=== PATIENT | female | born 1970 | race African-American/Black ===

== ENCOUNTER 2024-06-25 12:52 | Inpatient (IN) | payer MEDICAID, OTHER ==
[~2024-06-25] VITALS: Ht 160 cm; Wt 87.7 kg
--- NOTE | 2024-06-25 13:54 | ED.PDOC ---
GI ASSESSMENT HPI Comments 54y F who presents to the ED for chief complaint of epigastric pain and constipation for the past 10 days. pt states she has also been having nausea and vomiting and has been unable to tolerate any foods. Pt in the ED, states she feels very weak and is having diffuse abdominal pain. Pt has noted history of liver and lung masses per history of cancer and is noted to be taking oxycodone for her pain. Pt otherwise is alert and oriented but appears to have malaise. 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: Engineering Agent Notes Allergies: Coded Allergies: NO KNOWN ALLERGIES (Unverified , 06/25/24) Information Source: Emergency Med Personnel Mode of Arrival: EMS Brought in by: EMS Past Medical History Past Medical History (Other): cancer Surgical History: Unknown TILE FITTER History: Unknown Family History Family History: Unknown Social History Smoker: Non-Smoker Alcohol: Denies ETOH Use Drugs: Denies Drug Use Lives In: Home Constitutional: reports: malaise, weakness; denies: chills, diaphoresis, fatigue, fever, sweats, others EENTM: denies: blurred vision, double vision, ear bleeding, ear discharge, ear drainage, ear pain, ear ringing, eye pain, eye redness, hearing loss, mouth pain, mouth swelling, nasal discharge, nose bleeding, nose congestion, nose pain, photophobia, tearing, throat pain, throat swelling, voice changes, others Respiratory: reports: shortness of breath; denies: cough, hemoptysis, orthopnea, SOB at rest, SOB with excertion, stridor, wheezing, others Cardiovascular: denies: chest pain, dizzy spells, diaphoresis, Dyspnea on exertion, edema, irregular heart beat, left arm pain, lightheadedness, palpitations, PND, syncope, others Gastrointestinal: reports: abdominal pain, constipated; denies: abdomen distended, blood streaked bowels, diarrhea, dysphagia, difficulty swallowing, hematemesis, melena, nausea, poor appetite, poor fluid intake, rectal bleeding, rectal pain, vomiting, others Genitourinary: denies: abnormal vagina bleeding, burning, dyspareunia, dysuria, flank pain, frequency, hematuria, incontinence, pain, , vagina discharge, urgency, others Neurological: denies: dizziness, fainting, headache, left sided numbness, left sided weakness, numbness, paresthesia, pre-existing deficit, right sided numbness, right sided weakness, seizure, speech problems, tingling, tremors, weakness, others Musculoskeletal: denies: back pain, gout, joint pain, joint swelling, muscle pain, muscle stiffness, neck pain, others Integumetry: denies: bruises, change in color, change in hair/nails, dryness, laceration, lesions, lumps, rash, wounds, others Allergic/Immunocompromised: denies: Difficulty Healing, Frequent Infections, Hives, Itching, others Hematologic/Lymphatic: denies: anemia, blood clots, easy bleeding, easy bruising, swollen glands, others Endocrine: denies: excessive hunger, excessive sweating, excessive thirst, excessive urination, flushing, intolerance to cold, intolerance to heat, unexplained weight gain, unexplained weight loss, others Psychiatric: denies: anxiety, bipolar disorder, depression, hopeless, panic disorder, schizophrenia, sleepless, suicidal, others All Other Systems: Reviewed and Negative Physical Exam General Appearance: Mild Distress, Normal HEENT: Normal ENT Inspection, Pharynx Normal, TMs Normal Neck: Full Range of Motion, Non-Tender, Normal, Normal Inspection Respiratory: Chest Non-Tender, Lungs Clear, No Accessory Muscle Use, No Respiratory Distress, Normal Breath Sounds Cardiovascular: No Edema, No JVD, No Murmur, No Gallop, Normal Peripheral Pulses, Regular Rate/Rhythm Breast Exam: Deferred Gastrointestinal: No Organomegaly, No Pulsatile Mass, Normal Bowel Sounds, Soft, Tenderness Genitalia: Deferred Pelvic: Deferred Rectal: Deferred Extremities: No calf tenderness, Normal capillary refill, Normal inspection, Normal range of motion, Non-tender, No pedal edema Musculoskeletal : Apperance: Normal Neurologic: Alert, melangeur operator II-XII nml as Tested, No Motor Deficits, Normal Affect, Normal Mood, No Sensory Deficits Cerebellar Function: NOT DONE Reflexes: NOT DONE Skin: Dry, Normal Color, Warm Lymphatic: No Adenopathy Was a procedure done? Was a procedure done?: No GI differential Dx Differential Diagnosis: Constipation, Gastritis/PUD, Gastroenteritis, Urinary Obstruction, Urolithiasis, Dehydration, Electrolyte Imbalance X-Ray, Labs, Meds, VS Vital Signs Date Time Temp Pulse Resp B/P (MAP) Pulse Ox O2 Delivery O2 Flow Rate FiO2 06/25/24 20:00 99 06/25/24 20:00 98 20 147/83 (104) 99 06/25/24 16:00 99 27 146/76 (99) 97 06/25/24 16:00 97 30 146/76 06/25/24 16:00 99 06/25/24 15:21 97 32 150/98 06/25/24 15:00 102 29 155/89 (111) 97 06/25/24 14:55 97 32 96 Nasal Cannula* 2 28 06/25/24 14:55 97 32 150/98 (115) 96 06/25/24 13:12 98.0 90 20 176/94 (121) 98 Lab Test 06/25/24 17:08 06/25/24 15:21 06/25/24 14:55 06/25/24 13:50 Range/Units Troponin I High Sensitivity < 3 L < 3 L < 3 L </=34 ng/L Urine Color Dark-yellow Yellow Urine Clarity Turbid H Clear Urine pH 6.0 5.0-9.0 Urine Specific [place] 1.027 1.001-1.035 Urine Protein 1+ H Negative Urine Ketones 4+ H Negative Urine Blood 3+ H Negative /uL Urine Nitrite Negative Negative Urine Bilirubin 2+ H Negative Urine Urobilinogen Over Negative mg/dL Urine Leukocyte Esterase Trace Negative /uL Urine RBC 208 0 - 4 /hpf Urine WBC 17 0 - 5 /hpf Urine Squamous Epithelial Cells Few <5 /hpf Urine Bacteria Few H None Seen /hpf Urine Mucus Few None Seen Urine Yeast (Budding) Occasional None Seen /hpf Urine Glucose Normal Normal mg/dL White Blood Count 23.9 H 4.4-10.8 10^3/uL Red Blood Count 3.33 L 4.0-5.20 10^6/uL Hemoglobin 7.6 L 12.2-16.2 g/dL Hematocrit 25.0 L 36.0-46.0 % Mean Corpuscular Volume 75.1 L 80.0-100.0 fL Mean Corpuscular Hemoglobin 23.0 L 28.0-32.0 pg Mean Corpuscular Hemoglobin Concent 30.6 L 32.0-36.0 g/dL Red Cell Distribution Width 20.3 H 11.8-14.3 % Platelet Count 338 140-450 10^3/uL Mean Platelet Volume 6.3 L 6.9-10.8 fL Neutrophils (%) (Auto) 37.0-80.0 % Lymphocytes (%) (Auto) 10.0-50.0 % Monocytes (%) (Auto) 0.0-12.0 % Basophils (%) (Auto) 0.0-2.0 % Neutrophils # (Auto) 1.6-8.6 10 ^3/uL Lymphocytes # (Auto) 0.4-5.4 10 ^3/uL Monocytes # (Auto) 0-1.3 10 ^3/uL Differential Total Cells Counted 100.0 100 Neutrophils % (Manual) 70 37.0-80.0 Band Neutrophils % (Manual) 14 Lymphocytes % (Manual) 6 L 10.0-50.0 Monocytes % (Manual) 8 0-12 Eosinophils % (Manual) 0 0-7 Basophils % (Manual) 0 0.0-2.0 Metamyelocytes % (manual) 2 Myelocytes % (Manual) 0 Promyelocytes % (Manual) 0 Blast Cells % (Manual) 0 Reactive Lymphocytes 0 Platelet Estimate Adequate Hypochromasia (manual) Moderate Anisocytosis (manual) Slight Microcytosis Slight Target Cells Few Stomatocytes Few Sodium Level 136 136-145 mmol/L Potassium Level 3.6 3.5-5.1 mmol/L Chloride Level 98 98-107 mmol/L Carbon Dioxide Level 23 20-31 mmol/L Anion Gap 15 5-15 Blood Urea Nitrogen 8 L 9-23 mg/dL Creatinine 0.31 L 0.550-1.02 mg/dL Glomerular Filtration Rate Calc 125 >90 mL/min BUN/Creatinine Ratio 25.8 H 10.0-20.0 Serum Glucose 82 74-106 mg/dL Calcium Level 9.5 8.7-10.4 mg/dL Total Bilirubin 3.7 H 0.2-1.0 mg/dL Aspartate Amino Transferase (AST) 115 H 13-40 U/L Alanine Aminotransferase (ALT) 36 7-40 U/L Alkaline Phosphatase 1001 H 46-116 U/L B-Type Natriuretic Peptide 73.44 0-100 pg/mL Total Protein 5.5 L 5.7-8.2 g/dL Albumin 2.8 L 3.2-4.8 g/dL Microbiology Date/Time Source Procedure Growth Status 06/25/24 14:55 Voided Urine Urine Culture - Preliminary Resulted [facility] [id number] [facility] [address] Ph: [phone] DIAGNOSTIC IMAGING Diagnostic Imaging Report : [id number] Signed PATIENT: DALILA BROWN ACCT: [id number] UNIT: [id number] : 1970 LOC: ER ROOM / BED: / AGE / SEX: 54 / F ADM STATUS: REG ER SERVICE 1340 ORDERING PHYSICIAN: ROBB RIVERA MD PROCEDURE(s): CXRP - CHEST PORTABLE REASON: weakness ORDER NUMBER(s): [id number], ACCESSION NUMBER(s): [id number] CHEST RADIOGRAPH Indication: weakness Technique: Single frontal view of the chest was obtained COMPARISON: None FINDINGS: Lines and Tubes: None Lungs: Clear Pleura: No effusion. No pneumothorax. Cardiomediastinal contours: Unremarkable Bones: Unremarkable IMPRESSION: No acute disease. ATED BY: TREE MARCELINO MD DICTATED DATE/TIME: 06/25/241404 SIGNED BY: TREE MARCELINO MD SIGNED DATE/TIME: 06/25/241404 CC: Time of 1ST Reevaluation: 14:30 Reevaluation 1ST: Unchanged Patient Education/Counseling: Diagnosis, Treatment Family Education/Counseling: No Family Present Departure 1 Departure Time of Disposition: 00:41 (Patient presented with abdominal pain that was concerning for possible appendicits, gastritis, cholecystitis, colitis, gastroen teritis, sbo, or orther possible surgical emergency. Data: 1. I ordered and reviewed the result of at least 3 labs including a CBC, BMP, and Urinalysis. 2. I independently interpreted the following tests: CT Abdoment and Pelvis is concerning for metastatic cancer .Risk:This patient has a high risk of morbidity due to further diagnostic testing or treatment and may suffer from an acute abdominal process disorder. Workup reveals metastatic cancer and intractable pain and patient should be admitted for further workup. and possible expert consultation. ) Impression: Primary Impression: Intractable abdominal migraine Additional Impression: Metastatic cancer Qualified Codes: C79.9 - Secondary malignant neoplasm of unspecified site Disposition: ADMITTED INPATIENT Admit to: Med Surg Condition: Serious Critical Care Note Critical Care Time?: Yes Critical care comment: Intractable abdominal pain Authorized and Performed by: Robb Rivera MD Total critical care time: Approximately 38 minutes Due to a high probability of clinically significant, life threatening deterioration, the patient required my highest level of preparedness to intervene emergently and I personally spent this critical care time directly and personally managing the patient. This critical care time included obtaining a history; examining the patient; pulse oximetry; ordering and review of studies; arranging urgent treatment with development of a management plan; evaluation of patient's response to treatment; frequent reassessment; and, discussions with other providers. This critical care time was performed to assess and manage the high probability of imminent, life-threatening deterioration that could result in multi-organ failure. It was exclusive of separately billable procedures and treating other patients and teaching time. Please see my other sections and the rest of the note for further information on patient assessment and treatment. Stability Stability form required: No Heart Score Heart Score: Heart Score Response (Comments) Value History N/A 0 EKG N/A 0 Age N/A 0 Risk Factors N/A 0 Troponin N/A 0 Total 0 I personally scribed for ROBB RIVERA MD ([email or web address]) on 06/25/24 at 13:54. Electronically submitted by Emil Muñoz ([employer]). I personally scribed for ROBB RIVERA MD ([email or web address]) on 06/25/24 at 14:16. Electronically submitted by Emil Muñoz ([employer]). ROBB RIVERA MD Jun 25, 2024 13:54
--- NOTE | 2024-06-25 14:07 | DVH ---
CHEST RADIOGRAPH Indication: weakness Technique: Single frontal view of the chest was obtained COMPARISON: None FINDINGS: Lines and Tubes: None Lungs: Clear Pleura: No effusion. No pneumothorax. Cardiomediastinal contours: Unremarkable Bones: Unremarkable IMPRESSION: No acute disease.
[2024-06-25 14:35] LABS: Hemoglobin 7.6 g/dL (12.2-16.2)
[2024-06-25 14:37] LABS: Mean Corpuscular Hgb Conc. 30.6 g/dL (32.0-36.0); Mean Corpuscular Volume 75.1 fL (80.0-100.0); Platelet Count (auto) 338 10^3/uL (140-450); Red Blood Cells 3.33 10^6/uL (4.0-5.20); White Blood Cell 23.9 10^3/uL (4.4-10.8)
[2024-06-25 14:40] LABS: Red Cell Distribution Width 20.3 % (11.8-14.3)
[2024-06-25 14:41] LABS: Basophils % (manual) 0 (0.0-2.0); Blast Cells 0; Eosinophils % (manual) 0 (0-7); Myelocytes % 0; Promyelocytes % 0; Reactive Lymphocytes 0
[2024-06-25 14:55] VITALS: PULSE 97; RESP 32; O2SAT 96
[2024-06-25 15:19] LABS: Urine Bacteria FEW /hpf (None Seen); Urine Blood 3+ /uL (Negative); Urine Budding Yeast OCCASIONAL /hpf (None Seen); Urine Clarity Turbid (Clear); Urine Color Dark-Yellow (Yellow); Urine Mucus FEW (None Seen); Urine Protein, UAD 1+ (Negative); Urine Specific Gravity 1.027 (1.001-1.035); Urine Urobilinogen OVER mg/dL (Negative); Urine WBC 17 /hpf (0 - 5)
[2024-06-25] MEDS: SODIUM CHLORIDE 0.9% 1,000 ML IV ONE (15:20)
[2024-06-25] MEDS: MORPHINE SULFATE 4 MG/ML SYR/VIAL IV ONE ×2 (15:21→22:10)
[2024-06-25] MEDS: ONDANSETRON HCL 4 MG/2 ML VIAL IV ONE ×2 (15:21→22:09)
[2024-06-25 16:01] LABS: Alanine Aminotransferase 36 U/L (7-40); Albumin 2.8 g/dL (3.2-4.8); Anion Gap 15 (5-15); Aspartate Aminotransferase 115 U/L (13-40); BUN/Creatinine Ratio 25.8 (10.0-20.0); Bilirubin, Total 3.7 mg/dL (0.2-1.0); Blood Urea Nitrogen 8 mg/dL (9-23); Calcium 9.5 mg/dL (8.7-10.4); Carbon Dioxide 23 mmol/L (20-31); Chloride 98 mmol/L (98-107); Glucose 82 mg/dL (74-106); Potassium 3.6 mmol/L (3.5-5.1); Sodium 136 mmol/L (136-145); Total Protein 5.5 g/dL (5.7-8.2)
[2024-06-25 16:09] LABS: Alkaline Phosphatase 1001 U/L (46-116)
[2024-06-25 17:37] LABS: Band Neutrophils % (manual) 14; Lymphocytes % (manual) 6 (10.0-50.0); Monocytes % (manual) 8 (0-12)
[2024-06-25 17:38] LABS: Anisocytosis Slight; Metamyelocytes % 2; Platelet Estimate Adequate
[2024-06-25 17:39] LABS: Hypochromia Moderate
[2024-06-25 17:40] LABS: Stomatocytes Few; Target Cell FEW
[2024-06-25] MEDS: IOHEXOL 300 MG/ML 100ML BOTTLE IJ ONE ×2 (18:02→18:03)
[2024-06-25] MEDS: CEFEPIME 2GM/50ML NS 50 ML IV ONE (18:27)
--- NOTE | 2024-06-25 19:17 | DVH ---
Exam: CT CT AB PEL WITH IV CON ONLY History: abdominal pain Comparison Study: None available TECHNIQUE: A digital latin american studies professor image was obtained. During the uneventful, intravenous administration of c ontrast material, multislice data acquisition was obtained through the abdomen and pelvis. The data s et was subsequently reconstructed into axial images. Images reviewed on a wrist examination is an exa mination of axial and multiplanar reformations using a variety of window levels and settings. RADIATION DOSE: DLP 1229.18 mGy.cm; CTDI vol 22.96 mGy. Findings: Lungs: Bibasilar pulmonary nodules, measuring up to 1.0 cm in inferior right upper lobe. Heart: The visualized heart is unremarkable. No cardiomegaly or pericardial effusion. Liver: Numerous hypoattenuating lesions throughout the liver. Gallbladder: Cholelithiasis without evidence of acute cholecystitis. Spleen: Unremarkable Pancreas: Unremarkable Adrenals: Unremarkable Kidneys: Unremarkable GI tract: Unremarkable : Enlarged, lobular uterus with multiple lesion throughout. Vasculature: Unremarkable Lymphadenopathy: Absent Peritoneum: Mild volume ascites. Musculoskeletal: 1.9 cm sclerotic lesion in the right acetabulum. Soft tissues: Moderate to large periumbilical hernia containing a loop of small bowel Impression: 1. Multiple pulmonary nodules, numerous hepatic lesions, an enlarged, lobulated uterus and a scleroti c lesion in the right acetabulum are concerning for metastatic disease. Recommend PET/CT, dedicated C T chest, and contrast enhanced MRI of the abdomen and pelvis for further evaluation. 2. Other non-acute, ancillary findings as described above.
[2024-06-25] MEDS ORDERED: POTASSIUM CHL 20MEQ/100ML 100 ML IV SCH (22:15)
[2024-06-25] MEDS ORDERED: ACETAMINOPHEN 325 MG TAB PO PRN (22:15)
[2024-06-25] MEDS ORDERED: SODIUM CHLORIDE 0.9% 1,000 ML IV SCH (22:15)
[2024-06-25] MEDS ORDERED: MORPHINE SULFATE INJ 2 MG/ml SYRG IV PRN (22:15)
[2024-06-25] MEDS ORDERED: NITROGLYCERIN 0.4 MG SL TAB SL PRN (22:15)
[2024-06-25 22:40] VITALS: PULSE 95; RESP 26; O2SAT 99
[2024-06-26] VITALS (8 sets, daily range): BP systolic 139–169; BP diastolic 69–97; PULSE 90–102; RESP 16–24; TEMP 98.1–99; O2SAT 96–100
[2024-06-26] MEDS: LACTATED RINGER'S 1,000 ML IV SCH (00:15)
[2024-06-26] MEDS ORDERED: VANCOMYCIN PER PHARMACY 0 MG IV SCH (00:15)
[2024-06-26] MEDS: LACTATED RINGER'S 1,550 ML IV ONE (00:23)
[2024-06-26] MEDS: PANTOPRAZOLE 40 MG/10 ML VIAL INJ IV ONE (00:50)
[2024-06-26] MEDS: ALBUMIN 25% 50 ML IV ONE (00:51)
[2024-06-26] MEDS: MEROPENEM 1GM IVPB 50 ML IV ONE (00:51)
[2024-06-26 01:23] LABS: Lactic Acid w/Reflex 3.3 mmol/L (0.4-2.0)
[2024-06-26] MEDS: VANCOMYCIN 1GM/200ML PREMIX IV ONE (01:31)
--- NOTE | 2024-06-26 05:17 | DVHHPRES ---
History of Present Illness Resident Creating Document: MARIBEL TILLEY RESIDENT Reason for Visit: Severe epigastric pain and chest pain History of Present Illness 54-year-old female patient with past medical history of lung and liver masses associated with metastatic cancer. She presents to the emergency department with complaints of severe epigastric pain and chest pain which she has been experiencing for the last 10 days. The pain is described as sharp and localized in the epigastrium and rated as 10/10 intensity. Is associated with nausea vomiting and constipation as the patient has not had bowel movement for the last 10 days. Her history of cancer includes metastatic disease to liver and lungs which was diagnosed after series of imaging studies including CT scan, PET scan and liver biopsy at [facility]. Her symptoms of epigastric and chest pain has been present since late March with no significant improvement despite con servative management. The pain was temporarily alleviated with morphine. The patient was recently admitted to [facility] in June 01 for management of her abdominal pain on the right side beneath the breasts. After 2 week stay she was discharged on June 14 during her hospitalization with diagnosis of gastrointestinal cancer was made, with further investigation r evealing the pulmonary and hepatic metastasis. Recent abdominal CT scan showed Multiple pulmonary nodules, numerous hepatic lesions, an enlarged, lobulated uterus and a sclerotic lesion in the right acetabulum are concerning for metastatic disease. On the day of admission the patient's symptoms have worsened with increased pain and more severe gastrointestinal symptoms. She denies any history of alcohol use smoking or recreational drugs med has been using morphine and oxycodone for pain management at home. Her family history includes type 2 diabetes, congestive heart failure and multiple myeloma and pancreatic cancer . On examination the patient has signs of severe sepsis her vital signs show a respiratory rate of 32 breaths per minute, heart rate of 98 beats per minute and recent lactic acid at 3.3. Her albumin level is low at 2.8 which suggest malnutrition or hepatic dysfunction. Consistent with her advanced cancer urinalysis revealed hematuria which may indicate a secondary issue such as a urinary tract infection or possible complication from metastatic disease. Smoke: No ALCOHOL: none Drugs: None Lives: with Family Review of Systems Review of Systems Constitutional: Yes: Weakness, malaise No: Fever, Chills, Sweats. Eyes: No: Pain, Vision change, Conjunctivae inflammation, Eyelid inflammation, Other, Redness ENT: No: Ear pain, Ear discharge, Nose pain, Nose discharge, Nose congestion, Mouth pain, Mouth swelling, Throat pain, Throat swelling, Other Respiratory: No Wheezing, Hemoptysis, Pleuritic Pain, Sputum, Wheezing, Other Cardiovascular: Yes: Chest pain No: Palpitations, Orthopnea, Paroxysmal Noc. Dyspnea, Edema, Lt Headedness, Other Gastrointestinal: Yes: Nausea vomiting, abdominal pain , constipation and recent bleeding from the rectum Musculoskeletal: Yes generalized body pain Allergies: Coded Allergies: NO KNOWN ALLERGIES (Unverified , 06/25/24) Medications Current Medications Medications Dose Ordered Sig/Tanvi Route Start Time Stop Time Status Last Admin Dose Admin Ondansetron HCl 4 mg Q4HP PRN IV 06/25/24 22:15 Multivitamins 1 tab DAILY PO 06/26/24 10:00 Morphine Sulfate 2 mg Q4HPRN PRN IV 06/25/24 22:15 Nitroglycerin 0.4 mg Q5MINP PRN SL 06/25/24 22:15 Morphine Sulfate 2 mg Q30M PRN IV 06/25/24 22:15 Vancomycin HCl 0 ml @ 0 mls/hr UD IV 06/26/24 00:15 UNV Meropenem 50 ml @ 17 mls/hr Q8HR IV 06/26/24 06:00 Lactated Ringer's 1,000 ml @ 125 mls/hr Q8H IV 06/26/24 00:15 06/26/24 02:54 125 MLS/HR Enoxaparin Sodium 40 mg DAILY SC 06/26/24 10:00 Pantoprazole Sodium 40 mg DAILY IV 06/26/24 10:00 Enteral Nutritional Formula 240 ml TIDWM PO 06/26/24 08:00 Exam Vital Signs Vital Signs Date Time Temp Pulse Resp B/P (MAP) Pulse Ox O2 Delivery O2 Flow Rate FiO2 06/26/24 04:00 98 26 167/86 (113) 99 06/25/24 23:24 98.3 98.3 06/25/24 22:40 Nasal Cannula* 2 28 Exam Examination General Appearance: Alert, Oriented X3, Cooperative, severe acute distress HEENT: EOMI Respiratory: Clear to auscultation, Normal air movement Cardiovascular: Regular rate, Normal S1, Normal S2 Abdominal: Normal bowel sounds Extremities: Pedal edema, No cyanosis, Normal pulses, No tenderness/swelling Skin: No rashes, No breakdown Labs/Xrays Labs Test 06/26/24 02:31 06/25/24 17:08 06/25/24 14:55 06/25/24 13:50 Range/Units Lactic Acid Level 3.7 *H 0.4-2.0 mmol/L Troponin I High Sensitivity < 3 L </=34 ng/L Urine Color Dark-yellow Yellow Urine Clarity Turbid H Clear Urine pH 6.0 5.0-9.0 Urine Specific [place] 1.027 1.001-1.035 Urine Protein 1+ H Negative Urine Ketones 4+ H Negative Urine Blood 3+ H Negative /uL Urine Nitrite Negative Negative Urine Bilirubin 2+ H Negative Urine Urobilinogen Over Negative mg/dL Urine Leukocyte Esterase Trace Negative /uL Urine RBC 208 0 - 4 /hpf Urine WBC 17 0 - 5 /hpf Urine Squamous Epithelial Cells Few <5 /hpf Urine Bacteria Few H None Seen /hpf Urine Mucus Few None Seen Urine Yeast (Budding) Occasional None Seen /hpf Urine Glucose Normal Normal mg/dL White Blood Count 23.9 H 4.4-10.8 10^3/uL Red Blood Count 3.33 L 4.0-5.20 10^6/uL Hemoglobin 7.6 L 12.2-16.2 g/dL Hematocrit 25.0 L 36.0-46.0 % Mean Corpuscular Volume 75.1 L 80.0-100.0 fL Mean Corpuscular Hemoglobin 23.0 L 28.0-32.0 pg Mean Corpuscular Hemoglobin Concent 30.6 L 32.0-36.0 g/dL Red Cell Distribution Width 20.3 H 11.8-14.3 % Platelet Count 338 140-450 10^3/uL Mean Platelet Volume 6.3 L 6.9-10.8 fL Neutrophils (%) (Auto) 37.0-80.0 % Lymphocytes (%) (Auto) 10.0-50.0 % Monocytes (%) (Auto) 0.0-12.0 % Basophils (%) (Auto) 0.0-2.0 % Neutrophils # (Auto) 1.6-8.6 10 ^3/uL Lymphocytes # (Auto) 0.4-5.4 10 ^3/uL Monocytes # (Auto) 0-1.3 10 ^3/uL Differential Total Cells Counted 100.0 100 Neutrophils % (Manual) 70 37.0-80.0 Band Neutrophils % (Manual) 14 Lymphocytes % (Manual) 6 L 10.0-50.0 Monocytes % (Manual) 8 0-12 Eosinophils % (Manual) 0 0-7 Basophils % (Manual) 0 0.0-2.0 Metamyelocytes % (manual) 2 Myelocytes % (Manual) 0 Promyelocytes % (Manual) 0 Blast Cells % (Manual) 0 Reactive Lymphocytes 0 Platelet Estimate Adequate Hypochromasia (manual) Moderate Anisocytosis (manual) Slight Microcytosis Slight Target Cells Few Stomatocytes Few Sodium Level 136 136-145 mmol/L Potassium Level 3.6 3.5-5.1 mmol/L Chloride Level 98 98-107 mmol/L Carbon Dioxide Level 23 20-31 mmol/L Anion Gap 15 5-15 Blood Urea Nitrogen 8 L 9-23 mg/dL Creatinine 0.31 L 0.550-1.02 mg/dL Glomerular Filtration Rate Calc 125 >90 mL/min BUN/Creatinine Ratio 25.8 H 10.0-20.0 Serum Glucose 82 74-106 mg/dL Calcium Level 9.5 8.7-10.4 mg/dL Total Bilirubin 3.7 H 0.2-1.0 mg/dL Aspartate Amino Transferase (AST) 115 H 13-40 U/L Alanine Aminotransferase (ALT) 36 7-40 U/L Alkaline Phosphatase 1001 H 46-116 U/L B-Type Natriuretic Peptide 73.44 0-100 pg/mL Total Protein 5.5 L 5.7-8.2 g/dL Albumin 2.8 L 3.2-4.8 g/dL Assessment/Plan Assessment/Plan #Severe sepsis likely due to ? Metastatic infection ? Biliary obstruction or abscess -Lactic acid -Stool occult blood -Stool white blood cell count -Stool bacterial culture -Urine bacteria - urine culture -Meropenem 1 g IV q.8 -Vancomycin IV -Ultrasound of the liver -lactate finger #Transaminitis likely due to liver dysfunction from metastatic involvement -ultrasound of the liver -consider GI consult #UTI -same as above #severe malnutrition based on low total protein and albumin likely secondary to advanced cancer and hepatic failure -Albumin 25% IV once -Nutritional supplement 240 mL p.o. #? Bowel obstruction likely due to constipation abdominal pain, especially the right-sided pain and lack of bowel movement potentially due to metastatic disease -GI consult -lactate Ringer -Severe epigastric and chest pain likely related to metastatic cancer #Type 1 obesity -Lifestyle modification counseling, encourage improving dietary habits and physical activity # hospice care -social work faculty member consult Case discussed with Dr. Johnson Goals of care discussed with the patient for 44 minutes Goals of care: Full code Plan discussed with: Patient My Orders Orders - MARIBEL TILLEY RESIDENT Procedure Category Date Status Time Admit ADMIT 06/25/24 Transmitted 22:06 Allergies THEO 06/25/24 In Process 22:06 Code Status CODE 06/25/24 Transmitted 22:06 Ondansetron Hcl PHA 06/25/24 In Process (Zofran) 22:15 Multiple Vitamin PHA 06/26/24 In Process Tablet (Mvi Tab) 10:00 Complete Blood Count LAB 06/26/24 Logged 04:00 Comprehensive LAB 06/26/24 Logged Metabolic Panel 04:00 Npo (Nothing By DIET 06/26/24 Transmitted Mouth) Diet Breakfast Morphine Sulfate PHA 06/25/24 In Process Injection 22:15 Nitroglycerin PHA 06/25/24 In Process Sublingual (Ntrostat 22:15 Morphine Sulfate PHA 06/25/24 In Process Injection 22:15 Oxygen By Nasal RT 06/25/24 Transmitted Cannula 22:06 Stat Ekg For Chest THEO 06/25/24 In Process Pain 22:06 Notify Md Of Changes [facility] 06/25/24 In Process From Base 22:06 Chief Security And Safety Officer For [facility] 06/25/24 In Process 24 Hours 22:06 Emergency Dysrhythmia [facility] 06/25/24 In Process Protocol 22:06 Rhythm Strips Once [facility] 06/25/24 In Process Every Shift 22:06 Date of Service: Jun 25, 2024 Billing Provider: EDWIN JOHNSON MD Common Visit Codes: [id number] INP/OBS CARE (HIGH) MARIBEL TILLEY RESIDENT Jun 26, 2024 05:17 EDWIN JOHNSON MD Jun 27, 2024 08:26
[2024-06-26] MEDS: MEROPENEM 1GM IVPB 50 ML IV SCH (05:50)
[2024-06-26] MEDS: MORPHINE SULFATE INJ 2 MG/ml SYRG IV PRN (06:07)
[2024-06-26] MEDS: ONDANSETRON HCL 4 MG/2 ML VIAL IV PRN (06:13)
--- NOTE | 2024-06-26 06:17 | DVH ---
INDICATION: Metastatis of liver carcinoma look for obstruction TECHNIQUE: Multiple real-time sonographic images of the abdomen were obtained. COMPARISON: CT scan of the abdomen pelvis performed on 06/25/2024. FINDINGS: The liver is heterogeneous in echotexture with multiple masses. The liver measures 19.6 cm . No intrahepatic biliary ductal dilatation is noted. Gallstones. There is pericholecystic free fluid. The gallbladder wall is thickened measuring 1.2 cm. The common duct measures 0.8 cm and is unremarkable. Positive sonographic Pope's sign. The right kidney measures 10.9 cm. No hydronephrosis. The pancreas is not well visualized due to obscuration from bowel gas. The visualized portions of the IVC and aorta are grossly unremarkable. IMPRESSION: 1. Gallstones, pericholecystic free fluid and gallbladder wall thickening. Positive sonographic gama y's sign. Findings concerning for acute cholecystitis in the appropriate clinical setting. 2. Hepatomegaly and multiple hepatic masses worrisome for metastatic lesions. No intrahepatic biliary ductal dilatation.
[2024-06-26 07:15] LABS: Mean Corpuscular Hemoglobin 23.2 pg (28.0-32.0)
[2024-06-26 07:19] LABS: Mean Corpuscular Hgb Conc. 30.1 g/dL (32.0-36.0); Mean Corpuscular Volume 77.2 fL (80.0-100.0); Platelet Count (auto) 306 10^3/uL (140-450); Red Blood Cells 2.98 10^6/uL (4.0-5.20); White Blood Cell 22.4 10^3/uL (4.4-10.8)
[2024-06-26 07:27] LABS: Red Cell Distribution Width 20.1 % (11.8-14.3)
[2024-06-26 07:29] LABS: Basophils % (manual) 0 (0.0-2.0); Blast Cells 0; Eosinophils % (manual) 0 (0-7); Hemoglobin 6.9 g/dL (12.2-16.2); Metamyelocytes % 0; Myelocytes % 0; Promyelocytes % 0; Reactive Lymphocytes 0
[2024-06-26 07:32] LABS: Lactic Acid w/Reflex 3.3 mmol/L (0.4-2.0)
[2024-06-26 07:41] LABS: Alanine Aminotransferase 35 U/L (7-40); Anion Gap 15 (5-15); Aspartate Aminotransferase 109 U/L (13-40); BUN/Creatinine Ratio 22.2 (10.0-20.0); Blood Urea Nitrogen 6 mg/dL (9-23); Calcium 9.4 mg/dL (8.7-10.4); Carbon Dioxide 22 mmol/L (20-31); Chloride 99 mmol/L (98-107); Glucose 83 mg/dL (74-106); Potassium 3.4 mmol/L (3.5-5.1); Sodium 136 mmol/L (136-145)
[2024-06-26 07:42] LABS: Bilirubin, Total 3.9 mg/dL (0.2-1.0); Total Protein 5.9 g/dL (5.7-8.2)
[2024-06-26 07:43] LABS: INR 1.81 (0.9-1.15); Partial Thromboplastin Time 46.5 SEC (24.5-34.5); Prothrombin Time 18.4 sec (9.3-11.8)
[2024-06-26 07:48] LABS: Folate (Folic Acid) 3.22 ng/mL (>5.38)
[2024-06-26 07:49] LABS: Alkaline Phosphatase 977 U/L (46-116)
[2024-06-26] MEDS: Ensure HIGH Protein Chocolate 8oz Bottle PO SCH (08:00)
[2024-06-26 08:07] LABS: Band Neutrophils % (manual) 3; Lymphocytes % (manual) 7 (10.0-50.0); Monocytes % (manual) 7 (0-12)
[2024-06-26 08:08] LABS: Anisocytosis Slight; Hypochromia Moderate; Platelet Estimate Adequate
[2024-06-26 08:09] LABS: Target Cell MODERATE
[2024-06-26] MEDS: POTASSIUM CHL 20MEQ/100ML 100 ML IV SCH (09:30)
[2024-06-26] MEDS: MULTIPLE VITAMIN TAB PO SCH (09:35)
[2024-06-26] MEDS: PANTOPRAZOLE 40 MG/10 ML VIAL INJ IV SCH (09:45)
[2024-06-26] MEDS: ENOXAPARIN SOD 40 MG/0.4 ML SYRINGE SC SCH (09:46)
[2024-06-26 11:10] LABS: Mean Corpuscular Volume 75.9 fL (80.0-100.0)
[2024-06-26 11:11] LABS: Hematocrit 22.9 % (36.0-46.0); Mean Corpuscular Hemoglobin 22.7 pg (28.0-32.0); Platelet Count (auto) 330 10^3/uL (140-450); Red Blood Cells 3.02 10^6/uL (4.0-5.20); White Blood Cell 23.3 10^3/uL (4.4-10.8)
[2024-06-26 11:23] LABS: Red Cell Distribution Width 20.2 % (11.8-14.3)
[2024-06-26 11:25] LABS: Hemoglobin 6.9 g/dL (12.2-16.2)
[2024-06-26 11:28] LABS: Band Neutrophils % (manual) 0; Basophils % (manual) 0 (0.0-2.0); Blast Cells 0; Metamyelocytes % 0; Myelocytes % 0; Promyelocytes % 0; Reactive Lymphocytes 0
[2024-06-26 12:05] LABS: Eosinophils % (manual) 3 (0-7); Lymphocytes % (manual) 5 (10.0-50.0); Monocytes % (manual) 7 (0-12); Platelet Estimate Adequate
[2024-06-26 12:06] LABS: Anisocytosis Slight; Hypochromia Moderate; Target Cell MODERATE
[2024-06-26] MEDS: VANCOMYCIN 1GM/250ML KIT 200 ML IV SCH (13:00)
[2024-06-26] MEDS: SODIUM CHLORIDE 0.9% 1,000 ML IV ONE (13:55)
--- NOTE | 2024-06-26 14:34 | DVH ---
Bilateral lower extremity venous duplex Clinical History: leg edema Comparison: None Technique: Duplex Doppler evaluation of the deep venous systems of both lower extremities from the common femora l veins to the popliteal veins including color Doppler and spectral/pulsed waveform analysis was perf ormed. Findings: RIGHT SIDE: The common femoral vein demonstrates appropriate compressibility and waveform variability. There is compressibility/patency of the great saphenous vein at the proximal thigh. The femoral vein demonstrates appropriate compressibility and waveform variability. The deep femoral vein demonstrates appropriate compressibility and waveform variability. The popliteal vein demonstrates appropriate compressibility and waveform variability. There is color flow at the tibioperoneal trunk and in the posterior tibial vein. LEFT SIDE: The common femoral vein demonstrates appropriate compressibility and waveform variability. There is compressibility/patency of the great saphenous vein at the proximal thigh. The femoral vein demonstrates appropriate compressibility and waveform variability. The deep femoral vein demonstrates appropriate compressibility and waveform variability. The popliteal vein demonstrates appropriate compressibility and waveform variability. There is color flow at the tibioperoneal trunk and in the posterior tibial vein. Impression: 1. No right or left femoropopliteal venous thrombosis.
--- NOTE | 2024-06-26 16:44 | DVHPNRES ---
Progress Note Date Seen: Jun 26, 2024 Resident Creating Document: CODY BRANCH RESIDENT Has the PT tested + for MRSA If YES, has PT been informed?: No Medical Necessity Reason Pt with a Central, PICC or Fol: No Subjective Review of Systems 54-year-old female patient with past medical history of lung and liver masses associated with metastatic cancer. She presents to the emergency department with complaints of severe epigastric pain and chest pain which she has been experiencing for the last 10 days, also jaundice. The pain is described as sharp and localized in the epigastrium and rated as 10/10 intensity. Is associated with nausea vomiting and constipation as the patient has not had bowel movement for the last 10 days. Her history of cancer includes metastatic disease to liver and lungs which was diagnosed after series of imaging studies including CT scan, PET scan and liver biopsy at [facility]. Her symptoms of epigastric and chest pain has been present since late March with no significant improvement despite conservative management. The pain was temporarily alleviated with morphine. The patient was recently admitted to [facility] in June 01 for management of her abdominal pain on the right side beneath the breasts. After 2 week stay she was discharged on June 14 during her hospitalization with diagnosis of gastrointestinal cancer was made, with further investigation revealing the pulmonary and hepatic metastasis. Recent abdominal CT scan showed Multiple pulmonary nodules, numerous hepatic lesions, an enlarged, lobulated uterus and a sclerotic lesion in the right acetabulum are concerning for metastatic disease. On the day of admission the patient's symptoms have worsened with increased pain and more severe gastrointestinal symptoms. She denies any history of alcohol use smoking or recreational drugs med has been using morphine and oxycodone for pain management at home. Her family history includes type 2 diabetes, congestive heart failure and multiple myeloma and pancreatic cancer . On examination the patient has signs of sepsis her vital signs show a respiratory rate of 32 breaths per minute, heart rate of 98 beats per minute and recent lactic acid at 3.3. Her albumin level is low at 2.8 which suggest malnutrition or hepatic dysfunction. Consistent with her advanced cancer urinalysis revealed hematuria which may indicate a secondary issue such as a urinary tract infection or possible complication from metastatic disease. Objective vital signs Vital Sign Date Time Temp Pulse Resp B/P (MAP) Pulse Ox O2 Delivery O2 Flow Rate FiO2 06/26/24 16:15 99.0 101 24 167/79 99.0 06/26/24 14:31 98 06/26/24 07:36 Nasal Cannula* 2 28 Total Intake and Output 06/25/24 06/25/24 06/26/24 15:00 23:00 07:00 Intake Total 1000 ml 1850 ml Balance 1000 ml 1850 ml medications Current Medications Medications Dose Ordered Sig/Tanvi Route Start Time Stop Time Status Last Admin Dose Admin Ondansetron HCl 4 mg Q4HP PRN IV 06/25/24 22:15 06/26/24 16:09 4 MG Multivitamins 1 tab DAILY PO 06/26/24 10:00 Morphine Sulfate 2 mg Q4HPRN PRN IV 06/25/24 22:15 06/26/24 16:10 2 MG Nitroglycerin 0.4 mg Q5MINP PRN SL 06/25/24 22:15 Morphine Sulfate 2 mg Q30M PRN IV 06/25/24 22:15 Vancomycin HCl 0 ml @ 0 mls/hr UD IV 06/26/24 00:15 Meropenem 50 ml @ 17 mls/hr Q8HR IV 06/26/24 06:00 06/26/24 05:50 17 MLS/HR Lactated Ringer's 1,000 ml @ 125 mls/hr Q8H IV 06/26/24 00:15 06/26/24 09:19 125 MLS/HR Pantoprazole Sodium 40 mg DAILY IV 06/26/24 10:00 06/26/24 09:45 40 MG Enteral Nutritional Formula 240 ml TIDWM PO 06/26/24 08:00 Vancomycin HCl 200 ml @ 200 mls/hr Q12H IV 06/26/24 13:00 Examination Examination General Appearance: Alert, Oriented X3, Cooperative, icteric HEENT: EOMI Respiratory: Clear to auscultation, Normal air movement Cardiovascular: Regular rate, Normal S1, Normal S2 Abdominal: distended, ventral hernia. muprhy +, Extremities: Pedal edema, No cyanosis, Normal pulses, No tenderness/swelling Skin: No rashes, No breakdown laboratory and microbiology Laboratory Tests 06/26/24 10:22 06/26/24 06:49 Test 06/26/24 06:49 Range/Units Serum Glucose 83 74-106 mg/dL Problem List/Assessment/Plan Problem List/Assessment/Plan Neurologic Pt is talking, AOX4 Cardiovascular No pulmonary edema ECHO pending Respiratory #Acute respiratory failure due to sepsis/ lung mets Pt is on O2 2LT #Lung mets GI #Sepsis due to acute cholecystitis? 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, pancreatic or upper GI unknown primary: liver and lung mets #ventral hernia: loop of small bowel on it , no transition point #hyperbilirubinemia due to cholecystitis and liver mets #severe malnutrition based on low total protein and albumin likely secondary to advanced cancer and hepatic failure CT scan showed cholelithiasis, ultrasound showed cholecystitis HIDA scan pending Possible percutaneous drainage of gallbladder after HIDA scan results NG tube NPO Pt is on vancomycin and meropenem Blood and urine cultures #UTI urine culture pending Delong placed for strict I&Os Heme/onc #metastasic AdenoCa unknown primary: liver and lung mets #Anemia of chronic disease due to sepsis, adenoCA hb 6.9 1RBC already given Patient doesn't want hospice no palliative care for now Case discussed with Dr. Sims Goals of care discussed with the patient for 44 minutes Goals of care: Full code Time spent on critical care 83 min Plan discussed with: Patient, Daughter, Other (rn) My Orders My Orders Orders - CODY BRANCH RESIDENT Procedure Category Date Status Time * Radiologist Consult CONS 06/26/24 Transmitted 09:39 Insert Delong Catheter THEO 06/26/24 In Process 10:51 Bilat Lower Dvt US 06/26/24 Resulted 13:47 Date of Service: Jun 26, 2024 Billing Provider: KWABENA SIMS MD Common Visit Codes: [id number] INP/OBS CARE(HIGH), [id number] CARE 30-74 MIN, [id number] CARE-EACH +30MIN, PROCEDURE ONLY (Cardiac point of care ultrasound 06079) Secondary Visit Codes: [id number] CARE PLAN 30 MINUTES Coding Comment Comment Attending Attestation I saw and evaluated the patient. I reviewed the residents note and agree with findings and plan as documented in the residents note except as documented below. Point of care ultrasound done today and interpreted by me Cardiac: No pericardial effusion, hyperdynamic contractility, grossly normal valves, grossly normal heart chambers, IVC less than 2 cm with > 50% excursion on inspiration Lung: No B-lines, no pleural effusion 84 minutes Critical care time spent on this patient including evaluation, chart review, formulating plan and communication with team, excluding any procedures or point of care imaging More than 30 minutes spent in advanced care planning, including discussing code status, medical decision maker, goals of care and disposition planning Prognosis poor Condition critical Code status full code Goals of care prolonging life CODY BRANCH RESIDENT Jun 26, 2024 16:44 KWABENA SIMS MD Jun 26, 2024 21:08
[2024-06-27] VITALS (7 sets, daily range): BP systolic 107–161; BP diastolic 68–90; PULSE 89–108; RESP 16–20; TEMP 97–98.5; O2SAT 93–99
[2024-06-27 06:59] LABS: Alanine Aminotransferase 39 U/L (7-40); Albumin 3.2 g/dL (3.2-4.8); Anion Gap 13 (5-15); Aspartate Aminotransferase 108 U/L (13-40); Calcium 9.5 mg/dL (8.7-10.4); Carbon Dioxide 23 mmol/L (20-31); Chloride 97 mmol/L (98-107); Glucose 79 mg/dL (74-106); Potassium 3.9 mmol/L (3.5-5.1); Sodium 133 mmol/L (136-145)
[2024-06-27 07:00] LABS: Bilirubin, Total 5.2 mg/dL (0.2-1.0)
[2024-06-27 07:06] LABS: Alkaline Phosphatase 1021 U/L (46-116)
[2024-06-27 07:10] LABS: BUN/Creatinine Ratio 17.9 (10.0-20.0); Blood Urea Nitrogen < 5 mg/dL (9-23)
[2024-06-27 07:39] LABS: Hematocrit 27.3 % (36.0-46.0); Hemoglobin 8.7 g/dL (12.2-16.2); Mean Corpuscular Hemoglobin 24.5 pg (28.0-32.0); Mean Corpuscular Hgb Conc. 31.8 g/dL (32.0-36.0); Platelet Count (auto) 308 10^3/uL (140-450); Red Blood Cells 3.55 10^6/uL (4.0-5.20); Red Cell Distribution Width 20.5 % (11.8-14.3); White Blood Cell 22.5 10^3/uL (4.4-10.8)
[2024-06-27 07:57] LABS: Basophils % (manual) 0 (0.0-2.0); Blast Cells 0; Metamyelocytes % 0; Myelocytes % 0; Promyelocytes % 0; Reactive Lymphocytes 0
[2024-06-27 08:19] LABS: Magnesium 1.7 mg/dL (1.6-2.6)
[2024-06-27 08:21] LABS: Phosphorus 1.9 mg/dL (2.4-5.1)
[2024-06-27 09:20] LABS: Band Neutrophils % (manual) 1; Eosinophils % (manual) 2 (0-7); Hypochromia Moderate; Lymphocytes % (manual) 11 (10.0-50.0); Monocytes % (manual) 1 (0-12); Platelet Estimate Adequate; Stomatocytes Few
[2024-06-27 09:21] LABS: Anisocytosis Slight; Target Cell FEW
[2024-06-27 10:16] LABS: INR 1.65 (0.9-1.15); Partial Thromboplastin Time 44.6 SEC (24.5-34.5); Prothrombin Time 16.9 sec (9.3-11.8)
[2024-06-27 10:21] LABS: Lactic Acid w/Reflex 3.9 mmol/L (0.4-2.0)
--- NOTE | 2024-06-27 11:23 | DVH ---
EXAM: XR Chest, 1 View CLINICAL INDICATION: For NG tube placement varification. TECHNIQUE: Frontal view of the chest. COMPARISON: XY CHEST PORTABLE on DOS: 06/25/24 FINDINGS: LUNGS AND PLEURAL SPACES: Pulmonary venous congestion. No consolidation. No pneumothorax. HEART: Unremarkable. No cardiomegaly. MEDIASTINUM: Unremarkable. Normal mediastinal contour. BONES/JOINTS: Unremarkable. No acute fracture. UPPER ABDOMEN: Enteric stomach. OTHER FINDINGS: . IMPRESSION: Pulmonary venous congestion. HS:Y
--- NOTE | 2024-06-27 12:20 | DVHDSRES ---
Discharge Summary Date of Admission Resident Creating Document: HERNANDEZ MCLEAN RESIDENT Jun 25, 2024 at 22:06 Labs/Diagnostic Data: Laboratory Results Test 06/27/24 09:14 06/27/24 06:18 06/26/24 07:18 06/26/24 06:49 Prothrombin Time 16.9 sec (9.3-11.8) Prothrombin Time INR 1.65 (0.9-1.15) Activated Partial Thromboplast Time 44.6 SEC (24.5-34.5) Fibrinogen 484 mg/dL (177-375) Lactic Acid Level 3.9 mmol/L (0.4-2.0) White Blood Count 22.5 10^3/uL (4.4-10.8) Red Blood Count 3.55 10^6/uL (4.0-5.20) Hemoglobin 8.7 g/dL (12.2-16.2) Hematocrit 27.3 % (36.0-46.0) Mean Corpuscular Volume 77.0 fL (80.0-100.0) Mean Corpuscular Hemoglobin 24.5 pg (28.0-32.0) Mean Corpuscular Hemoglobin Concent 31.8 g/dL (32.0-36.0) Red Cell Distribution Width 20.5 % (11.8-14.3) Platelet Count 308 10^3/uL (140-450) Mean Platelet Volume 6.4 fL (6.9-10.8) Neutrophils (%) (Auto) % (37.0-80.0) Lymphocytes (%) (Auto) % (10.0-50.0) Monocytes (%) (Auto) % (0.0-12.0) Basophils (%) (Auto) % (0.0-2.0) Neutrophils # (Auto) 10 ^3/uL (1.6-8.6) Lymphocytes # (Auto) 10 ^3/uL (0.4-5.4) Monocytes # (Auto) 10 ^3/uL (0-1.3) Differential Total Cells Counted 100.0 (100) Neutrophils % (Manual) 85 (37.0-80.0) Band Neutrophils % (Manual) 1 Lymphocytes % (Manual) 11 (10.0-50.0) Monocytes % (Manual) 1 (0-12) Eosinophils % (Manual) 2 (0-7) Basophils % (Manual) 0 (0.0-2.0) Metamyelocytes % (manual) 0 Myelocytes % (Manual) 0 Promyelocytes % (Manual) 0 Blast Cells % (Manual) 0 Reactive Lymphocytes 0 Platelet Estimate Adequate Hypochromasia (manual) Moderate Anisocytosis (manual) Slight Microcytosis Slight Target Cells Few Stomatocytes Few Sodium Level 133 mmol/L (136-145) Potassium Level 3.9 mmol/L (3.5-5.1) Chloride Level 97 mmol/L (98-107) Carbon Dioxide Level 23 mmol/L (20-31) Anion Gap 13 (5-15) Blood Urea Nitrogen < 5 mg/dL (9-23) Creatinine 0.28 mg/dL (0.550-1.02) Glomerular Filtration Rate Calc 128 mL/min (>90) BUN/Creatinine Ratio 17.9 (10.0-20.0) Serum Glucose 79 mg/dL (74-106) Hemoglobin A1c 5.0 % A1C (<5.7) Calcium Level 9.5 mg/dL (8.7-10.4) Phosphorus Level 1.9 mg/dL (2.4-5.1) Magnesium Level 1.7 mg/dL (1.6-2.6) Total Bilirubin 5.2 mg/dL (0.2-1.0) Aspartate Amino Transferase (AST) 108 U/L (13-40) Alanine Aminotransferase (ALT) 39 U/L (7-40) Alkaline Phosphatase 1021 U/L (46-116) Total Protein 6.0 g/dL (5.7-8.2) Albumin 3.2 g/dL (3.2-4.8) Triglycerides Level 199 mg/dL (< 150) Cholesterol Level 476 mg/dL (< 200) LDL Cholesterol 458 mg/dL (< 100) HDL Cholesterol 8 mg/dL (40-59) Thyroid Stimulating Hormone (TSH) 2.11 uIU/mL (0.55-4.78) Tumor Marker Alpha Fetoprotein 87.4 ng/mL (0.0-9.2) Iron Level 106 ug/dL (50-170) Total Iron Binding Capacity 114 ug/dL (250-425) Percent Iron Saturation 93.0 % (15-50) Ferritin 2577.8 ng/mL (10-291) Vitamin B12 Level > 4000 pg/mL (211-911) Folic Acid 3.22 ng/mL (>5.38) Test 06/25/24 17:08 06/25/24 14:55 06/25/24 13:50 Troponin I High Sensitivity < 3 ng/L (</=34) Urine Color Dark-yellow (Yellow) Urine Clarity Turbid (Clear) Urine pH 6.0 (5.0-9.0) Urine Specific Chauncey 1.027 (1.001-1.035) Urine Protein 1+ (Negative) Urine Ketones 4+ (Negative) Urine Blood 3+ /uL (Negative) Urine Nitrite Negative (Negative) Urine Bilirubin 2+ (Negative) Urine Urobilinogen Over mg/dL (Negative) Urine Leukocyte Esterase Trace /uL (Negative) Urine RBC 208 /hpf (0 - 4) Urine WBC 17 /hpf (0 - 5) Urine Squamous Epithelial Cells Few /hpf (<5) Urine Bacteria Few /hpf (None Seen) Urine Mucus Few (None Seen) Urine Yeast (Budding) Occasional /hpf (None Urine Glucose Normal mg/dL (Normal) B-Type Natriuretic Peptide 73.44 pg/mL (0-100) Other Laboratory Tests 06/27/24 06:18 Discharge Statement: "Patient was advised to return to the ER or call 911 if any headaches, dizziness, shortness of breath, chest pain, abdominal pain, bleeding, fevers, or worsening of medical condition. Patient was counseled about treatment plan, medications, possible side effects, patientverbalized understanding. All questions were answered to the best of my ability. This discharge took greater then 30 minutes in planning, reviewing documentation, counseling the patient, and discussing with other team members." ASSESSMENT ASSESSMENT Assessment HERNANDEZ MCLEAN RESIDENT Jun 27, 2024 12:20
[2024-06-27] MEDS: VANCOMYCIN 1GM/250ML KIT 200 ML IV SCH (17:44)
[2024-06-27] MEDS: FLEET ENEMA(ADULT) 135 ML PR ONE (17:48)
[2024-06-27] MEDS ORDERED: POTASSIUM PHOSPHATE 22 MEQ in SODIUM CHL 0.9% 100 ML IV ONE (20:00)
[2024-06-27] MEDS ORDERED: D5W 5% 1,000 ML IV SCH (20:15)
--- NOTE | 2024-06-27 20:35 | DVHPNRES ---
Progress Note Date Seen: Jun 27, 2024 Resident Creating Document: HERNANDEZ MCLEAN RESIDENT Has the PT tested + for MRSA If YES, has PT been informed?: No Medical Necessity Reason Pt with a Central, PICC or Fol: No Subjective Review of Systems Hayde Harding is a 54-year-old female patient who presents to ED with chief complaint of severe, constant , sharp and localized epigastric and right hypochondrial abdominal pain, intensity 8/10 which started initially in March, but and has been progressively getting worse (intensity 8/10), associated with dyspnea and functional class III, jaundice, nausea, vomiting, menorrhagia and constipation of approximately two weeks, prompting her visit to the ED. Patient reports recent admission in [facility] in May for similar symptoms, where she was diagnosed with metastatic cancer of unknown primary origin, undergoing evaluation for staging in histological immunohistochemistry. Denies palpitation, syncope, dyspnea, dysuria, diarrhea, unintentional weight loss, sick contacts and motor or sensory deficits. Past medical history: Lung and liver metastasis of unknown primary adenocarcinoma Surgical history: Denies Family history: type 2 diabetes, congestive heart failure and multiple myeloma and pancreatic cancer Social history: Lives with family in hope. Denies current tobacco, alcohol and other drug abuse. Allergies: Denies Home medication: Morphine p.r.n. Patient seen and examined at bedside. Continues complaining of abdominal pain, has decreased in intensity, but patient persists NPO. NG tube was placed, currently is on aspiration. Objective vital signs Vital Sign Date Time Temp Pulse Resp B/P (MAP) Pulse Ox O2 Delivery O2 Flow Rate FiO2 06/27/24 16:48 98.5 102 20 144/75 (98) 93 98.5 06/26/24 18:37 Nasal Cannula* 3 32 Total Intake and Output 06/26/24 06/26/24 06/27/24 15:00 23:00 07:00 Intake Total 600 ml 500 ml Output Total 300 ml 1700 ml Balance -300 ml 600 ml -1200 ml medications Current Medications Medications Dose Ordered Sig/Tanvi Route Start Time Stop Time Status Last Admin Dose Admin Ondansetron HCl 4 mg Q4HP PRN IV 06/25/24 22:15 06/26/24 21:56 4 MG Multivitamins 1 tab DAILY PO 06/26/24 10:00 Morphine Sulfate 2 mg Q4HPRN PRN IV 06/25/24 22:15 06/27/24 07:55 2 MG Nitroglycerin 0.4 mg Q5MINP PRN SL 06/25/24 22:15 Morphine Sulfate 2 mg Q30M PRN IV 06/25/24 22:15 Vancomycin HCl 0 ml @ 0 mls/hr UD IV 06/26/24 00:15 Meropenem 50 ml @ 17 mls/hr Q8HR IV 06/26/24 06:00 06/27/24 14:18 17 MLS/HR Lactated Ringer's 1,000 ml @ 125 mls/hr Q8H IV 06/26/24 00:15 06/27/24 16:00 125 MLS/HR Pantoprazole Sodium 40 mg DAILY IV 06/26/24 10:00 06/27/24 08:59 40 MG Enteral Nutritional Formula 240 ml TIDWM PO 06/26/24 08:00 Vancomycin HCl 200 ml @ 200 mls/hr Q8H IV 06/27/24 17:00 06/27/24 17:44 200 MLS/HR Examination Patient lying in bed, in mild distress General: Lucid, afebrile, mucosae are moist, jaundice Cardiovascular: Normal S1 and S2. No murmurs, gallops or rubs Respiratory: Normal ventilation mechanics. Clear lung sounds on auscultation Abdomen: Distended, diffuse tenderness on superficial palpation especially in epigastrium and right hypochondrium, hepatomegaly, reduced bowel sounds. Positive Pope's sign. Umbilical hernia MSK/skin: Mobilizes 4 limbs. Skin is dry and warm. Bilateral lower limb extremity edema Neurological: Oriented in 3 spheres. No motor no sensitive deficits. Pupils are isocoric and reactive laboratory and microbiology Laboratory Tests 06/27/24 06:18 Test 06/27/24 06:18 Range/Units Serum Glucose 79 74-106 mg/dL Microbiology Date/Time Source Procedure Growth Status 06/26/24 00:35 Blood Blood Culture - Preliminary NO GROWTH AFTER 24 HOURS OF INCUBATION. Resulted 06/25/24 14:55 Voided Urine Urine Culture - Preliminary Resulted Problem List/Assessment/Plan Problem List/Assessment/Plan Sepsis probably secondary to cholecystitis with cholelithiasis Completed CT and ultrasound which shows cholelithiasis and cholecystitis. Consulted Interventional Radiology to evaluate percutaneous drainage of gallbladder, recommended HIDA scan at this point. Pain could be secondary to hepatic metastasis Currently under empiric IV antibiotic (meropenem and vancomycin) Blood culture currently negative. Persistent hyperlacticacidemia. 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 Optimize pain medication UTI Urine culture evidence polymicrobial growth Currently under empiric IV antibiotics (meropenem and vancomycin) Severe microcytic anemia in context of patient was adenocarcinoma and metrorrhagia Require 1 unit of red blood cells Monitor hemoglobin and hematocrit Coagulopathy Probably secondary to liver metastasis Transaminitis and hyperbilirubinemia Secondary to liver metastasis Monitoring labs Ventral hernia No CT evidence of small-bowel obstruction. Currently has NG tube. Evaluate NPO status Ruled out lower limb DVT Completed lower limb ultrasound with no evidence of DVT Severe malnutrition Currently on dextrose 5%. Evaluate Clinimix Continues NPO due to food intake intolerance. Evaluate discontinuing NG tube Goals of care discussed with patient for over 18 minutes: Full code status Discussed case with Dr. Henry, patient and nurses: Patient continues NPO, optimizing pain management, on empiric IV antibiotic, interventional Radiology consulted and suggested HIDA scan to verify cholecystitis. Level source of abdominal pain can be cholecystitis versus hepatic metastasis. Patient currently has NG tube placed for abdominal decompression, but presented partial relief of symptoms. We will evaluate removing NG tube. Patient has poor prognosis, currently has refused hospice care. Plan discussed with: Patient, Other (Nurses) My Orders My Orders Orders - HERNANDEZ MCLEAN Procedure Category Date Status Time Acute Hepatitis Panel LAB 06/27/24 In Process 07:54 Haptoglobin LAB 06/27/24 In Process 07:54 Vitamin D, 25-Hydroxy LAB 06/27/24 In Process 07:54 Drug Screen LAB 06/27/24 Logged 07:54 Chest Portable XY 06/27/24 Resulted 10:40 CC Plasma Assessment Blood Product Administration S: 1350 Date of Service: Jun 27, 2024 Billing Provider: KWABENA HENRY MD Common Visit Codes: [id number] INP/OBS CARE(HIGH) HERNANDEZ MCLEAN Jun 27, 2024 20:35 KWABENA HENRY MD Jun 28, 2024 21:17
[2024-06-27] MEDS: MAGNESIUM SULFATE 1GM/100ML 100 ML IV ONE (20:49)
[2024-06-27] MEDS: LACTATED RINGER'S 1,000 ML IV SCH (23:00)
[2024-06-27] MEDS: NEUTRA-PHOS TABLET PO ONE (23:00)
[2024-06-28] VITALS (8 sets, daily range): BP systolic 137–172; BP diastolic 61–98; PULSE 89–112; RESP 17–22; TEMP 97.5–99.2; O2SAT 96–100
[2024-06-28 06:25] LABS: Mean Corpuscular Volume 76.8 fL (80.0-100.0)
[2024-06-28 06:28] LABS: Hematocrit 26.9 % (36.0-46.0); Hemoglobin 8.5 g/dL (12.2-16.2); Mean Corpuscular Hemoglobin 24.2 pg (28.0-32.0); Mean Corpuscular Hgb Conc. 31.5 g/dL (32.0-36.0); Platelet Count (auto) 342 10^3/uL (140-450); White Blood Cell 21.7 10^3/uL (4.4-10.8)
[2024-06-28 06:38] LABS: Lactic Acid w/Reflex 3.9 mmol/L (0.4-2.0)
[2024-06-28 06:40] LABS: Alanine Aminotransferase 47 U/L (7-40); Anion Gap 15 (5-15); BUN/Creatinine Ratio 27.8 (10.0-20.0); Blood Urea Nitrogen 10 mg/dL (9-23); Calcium 9.6 mg/dL (8.7-10.4); Carbon Dioxide 21 mmol/L (20-31); Chloride 97 mmol/L (98-107); Glucose 89 mg/dL (74-106); Magnesium 1.9 mg/dL (1.6-2.6); Potassium 3.7 mmol/L (3.5-5.1); Sodium 133 mmol/L (136-145)
[2024-06-28 06:41] LABS: Aspartate Aminotransferase 128 U/L (13-40)
[2024-06-28 06:42] LABS: Bilirubin, Total 5.6 mg/dL (0.2-1.0); Phosphorus 2.4 mg/dL (2.4-5.1)
[2024-06-28 06:48] LABS: Alkaline Phosphatase 1112 U/L (46-116)
[2024-06-28 06:55] LABS: Red Cell Distribution Width 20.9 % (11.8-14.3)
[2024-06-28 06:57] LABS: Basophils % (manual) 0 (0.0-2.0); Blast Cells 0; Metamyelocytes % 0; Myelocytes % 0; Promyelocytes % 0; Reactive Lymphocytes 0
[2024-06-28 07:52] LABS: Anisocytosis Slight; Band Neutrophils % (manual) 6; Eosinophils % (manual) 1 (0-7); Hypochromia Slight; Lymphocytes % (manual) 9 (10.0-50.0); Monocytes % (manual) 2 (0-12); Platelet Estimate Adequate
[2024-06-28 07:53] LABS: Stomatocytes Few; Target Cell FEW
--- NOTE | 2024-06-28 14:49 | DVHPNRES ---
Progress Note Date Seen: Jun 28, 2024 Resident Creating Document: CODY BARNCH RESIDENT Has the PT tested + for MRSA If YES, has PT been informed?: No Medical Necessity Reason Pt with a Central, PICC or Fol: No Subjective Review of Systems 54-year-old female patient with past medical history of lung and liver masses associated with metastatic cancer. She presents to the emergency department with complaints of severe epigastric pain and chest pain which she has been experiencing for the last 10 days, also jaundice. The pain is described as sharp and localized in the epigastrium and rated as 10/10 intensity. Is associated with nausea vomiting and constipation as the patient has not had bowel movement for the last 10 days. 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 Her symptoms of epigastric and chest pain has been present since late March with no significant improvement despite conservative management. The pain was temporarily alleviated with morphine. The patient was recently admitted to [facility] in June 01 for management of her abdominal pain on the right side beneath the breasts. After 2 week stay she was discharged on June 14 during her hospitalization with diagnosis of gastrointestinal cancer was made, with further investigation revealing the pulmonary and hepatic metastasis. Recent abdominal CT scan showed Multiple pulmonary nodules, numerous hepatic lesions, an enlarged, lobulated uterus and a sclerotic lesion in the right acetabulum are concerning for metastatic disease. On the day of admission the patient's symptoms have worsened with increased pain and more severe gastrointestinal symptoms. She denies any history of alcohol use smoking or recreational drugs med has been using morphine and oxycodone for pain management at home. Her family history includes type 2 diabetes, congestive heart failure and multiple myeloma and pancreatic cancer . On examination the patient has signs of sepsis her vital signs show a respiratory rate of 32 breaths per minute, heart rate of 98 beats per minute and recent lactic acid at 3.3. Her albumin level is low at 2.8 which suggest malnutrition or hepatic dysfunction. Consistent with her advanced cancer urinalysis revealed hematuria which may indicate a secondary issue such as a urinary tract infection or possible complication from metastatic disease. Objective vital signs Vital Sign Date Time Temp Pulse Resp B/P (MAP) Pulse Ox O2 Delivery O2 Flow Rate FiO2 06/28/24 12:32 98.4 110 22 156/70 (98) 98 98.4 06/28/24 07:44 Nasal Cannula* 4 36 Total Intake and Output 06/27/24 06/27/24 06/28/24 15:00 23:00 07:00 Intake Total 1250 ml 250 ml Output Total 1200 ml 900 ml Balance 50 ml -650 ml medications Current Medications Medications Dose Ordered Sig/Tanvi Route Start Time Stop Time Status Last Admin Dose Admin Ondansetron HCl 4 mg Q4HP PRN IV 06/25/24 22:15 06/28/24 01:09 4 MG Multivitamins 1 tab DAILY PO 06/26/24 10:00 Nitroglycerin 0.4 mg Q5MINP PRN SL 06/25/24 22:15 Morphine Sulfate 2 mg Q30M PRN IV 06/25/24 22:15 Vancomycin HCl 0 ml @ 0 mls/hr UD IV 06/26/24 00:15 Meropenem 50 ml @ 17 mls/hr Q8HR IV 06/26/24 06:00 06/28/24 13:15 17 MLS/HR Pantoprazole Sodium 40 mg DAILY IV 06/26/24 10:00 06/28/24 09:33 40 MG Enteral Nutritional Formula 240 ml TIDWM PO 06/26/24 08:00 Vancomycin HCl 200 ml @ 200 mls/hr Q8H IV 06/27/24 17:00 06/28/24 08:03 200 MLS/HR Lactated Ringer's 1,000 ml @ 70 mls/hr [id number] IV 06/27/24 22:45 06/28/24 12:25 70 MLS/HR Morphine Sulfate 2 mg Q4H IV 06/28/24 13:15 Examination General Appearance: Alert, Oriented X3, Cooperative, icteric HEENT: EOMI Respiratory: Clear to auscultation, Normal air movement Cardiovascular: Regular rate, Normal S1, Normal S2 Abdominal: distended, ventral hernia. muprhy +, Extremities: Pedal edema, No cyanosis, Normal pulses, No tenderness/swelling Skin: No rashes, No breakdown laboratory and microbiology Laboratory Tests 06/28/24 05:47 Test 06/28/24 05:47 Range/Units Serum Glucose 89 74-106 mg/dL Microbiology Date/Time Source Procedure Growth Status 06/26/24 00:35 Blood Blood Culture - Preliminary NO GROWTH AFTER 48 HOURS OF INCUBATION. Resulted 06/25/24 14:55 Voided Urine Urine Culture - Final Complete Problem List/Assessment/Plan Problem List/Assessment/Plan Neurologic Pt is talking, AOX4 Cardiovascular No pulmonary edema ECHO pending Respiratory #Acute respiratory failure due to sepsis/ lung mets Pt is on O2 2LT #Lung mets GI #Sepsis due to acute cholecystitis? 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, pancreatic or upper GI unknown primary: liver and lung mets #ventral hernia: loop of small bowel on it , no transition point #rule out SBO #hyperbilirubinemia due to cholecystitis and liver mets #severe malnutrition based on low total protein and albumin likely secondary to advanced cancer and hepatic failure CT scan showed cholelithiasis, ultrasound showed cholecystitis HIDA scan pending Possible percutaneous drainage of gallbladder after HIDA scan results NG tube NPO just water for now Pt is on vancomycin and meropenem Blood and urine cultures pending Urine culture: mixed bessy After enema no bowel movements: bowel series to rule out SBO #UTI urine culture mixed bessy Delong placed for strict I&Os Heme/onc #metastasic AdenoCa unknown primary: liver and lung mets #Anemia of chronic disease due to sepsis, adenoCA hb 8.5 1RBC already given Patient doesn't want hospice Case discussed with Dr. Sims Goals of care discussed with the patient for 44 minutes Goals of care: Full code Time spent on critical care 83 min Plan discussed with: Patient, Other (rn) My Orders My Orders Orders - CODY BRANCH Procedure Category Date Status Time Small Bowel Series-W XY 06/28/24 Logged Barium 11:55 Communication Order ORDERS 06/28/24 Transmitted 11:55 Morphine Sulfate PHA 06/28/24 In Process Injection 13:15 CC Plasma Assessment Blood Product Administration S: 1350 Date of Service: Jun 28, 2024 Billing Provider: KWABENA SIMS MD Common Visit Codes: [id number] INP/OBS CARE(HIGH) CODY BRANCH Jun 28, 2024 14:49 KWABENA SIMS MD Jun 28, 2024 21:17
[2024-06-28] MEDS: MORPHINE SULFATE INJ 2 MG/ml SYRG IV SCH (15:13)
--- NOTE | 2024-06-28 17:41 | DVHSR ---
APPROVED REPORT EXAM: Two-dimensional and M-mode echocardiogram with Doppler and color Doppler. Blood Pressure: 161/90 mmHg INDICATION Rule out CHF RISK FACTORS Height: 5'3", Weight: 178 DIMENSIONS LVDd4.5 (3.8-5.7cm)LA (2D)4.1 (1.9-4.0cm)Aortic Root2.9 (2.0-3.7cm) LVDs3.0 (2.5-4.0cm)LA (MM) (1.9-4.0cm)Aortic Cusp Exc2.0 (1.5-2.0cm) EF (%) 60.0 (55-70%)Rt. Atrium3.3 (1.9-4.0cm)Asc. Aorta cm IVSd1.0 (0.7-1.1cm)RV (D) (1.8-2.4cm) PWd1.0 (0.7-1.1cm) Mitral Valve MitralMitral Stenosis E wave0.82m/sMV Mean GR.mmHg A wave0.95m/sMV Peak GR.mmHg E/A ratio0.92D MVAcm2 DECEL [id number] 1/2 Timems Aortic Valve Aortic ValveAortic Stenosis V11.30m/Aleida Mean GR.7mmHg V22.03m/Aleida Peak GR.17mmHg LVOT Diameter1.9 (1.8-2.4cm)Doppler AVA1.81cm2 Pulmonic Valve V21.51m/s Tricuspid Valve TR Velocity3.53m/s [id number] Conclusion 1. MODERATELY DILATED RIGHT VENTRICLE AND RIGHT ATRIUM BUT NORMAL FUNCTION 2. DYSKINESIS OF IVS 3. RVSP IS 53 MM OF HG AND IS MODERATELY HIGH 4.STUDY CONFIRMS RIGHT VENTRICULAR SEVERE STRAIN /FAILURE WITH MODERATE DEGREE PULMONARY HYPERTENSION 5. GRASSLY NORMAL VALVES 6. NO EFFUSION 7. MILD LVH AND MILD LV DIASTOLIC DYSFUNCTION 8. NORMAL LV EJECTION FRACTION OF 65%
[2024-06-29] VITALS (7 sets, daily range): BP systolic 124–155; BP diastolic 58–89; PULSE 98–119; RESP 19–20; TEMP 97.5–100.3; O2SAT 93–100
[2024-06-29 07:20] LABS: Alanine Aminotransferase 47 U/L (7-40); Anion Gap 16 (5-15); Calcium 9.3 mg/dL (8.7-10.4); Carbon Dioxide 22 mmol/L (20-31); Chloride 96 mmol/L (98-107); Potassium 3.8 mmol/L (3.5-5.1); Sodium 134 mmol/L (136-145)
[2024-06-29 07:21] LABS: Blood Urea Nitrogen 9 mg/dL (9-23); Glucose 88 mg/dL (74-106)
[2024-06-29 07:22] LABS: Albumin 3.1 g/dL (3.2-4.8); Hemoglobin 8.2 g/dL (12.2-16.2); Nucleated Red Blood Cells % 0.1 %
[2024-06-29 07:23] LABS: Aspartate Aminotransferase 140 U/L (13-40); Basophils # (auto) 0 10 ^3/uL (0-0.2); Basophils % (auto) 0.2 % (0.0-2.0); Bilirubin, Total 5.2 mg/dL (0.2-1.0); Eosinophils # (auto) 0.3 10 ^3/uL (0-0.8); Eosinophils % (auto) 1.7 % (0.0-7.0); Hematocrit 26.4 % (36.0-46.0); Lymphocytes # (auto) 2.9 10 ^3/uL (0.4-5.4); Lymphocytes % (auto) 17.4 % (10.0-50.0); Mean Corpuscular Hemoglobin 24.4 pg (28.0-32.0); Mean Corpuscular Hgb Conc. 31.2 g/dL (32.0-36.0); Mean Corpuscular Volume 78.2 fL (80.0-100.0); Monocytes # (auto) 2.2 10 ^3/uL (0-1.3); Neutrophils # (auto) 11.3 10 ^3/uL (1.6-8.6); Neutrophils % (auto) 67.7 % (37.0-80.0); Platelet Count (auto) 333 10^3/uL (140-450); Red Blood Cells 3.38 10^6/uL (4.0-5.20); Total Protein 5.9 g/dL (5.7-8.2); White Blood Cell 16.7 10^3/uL (4.4-10.8)
[2024-06-29 07:26] LABS: Red Cell Distribution Width 20.7 % (11.8-14.3)
[2024-06-29 07:27] LABS: Alkaline Phosphatase 1055 U/L (46-116)
[2024-06-29] MEDS: ALBUMIN 25% 50 ML IV ONE (07:43)
[2024-06-29] MEDS: PANTOPRAZOLE 40 MG/10 ML VIAL INJ IV ONE (07:44)
[2024-06-29] MEDS: VANCOMYCIN 1GM/250ML KIT 200 ML IV ONE (07:44)
[2024-06-29] MEDS: MEROPENEM 1GM IVPB 50 ML IV ONE (07:44)
[2024-06-29 09:02] LABS: Anisocytosis Slight; Hypochromia Slight; Platelet Estimate Adequate
[2024-06-29] MEDS: SODIUM CHLORIDE 0.9% 500 ML IV ONE (12:23)
[2024-06-29 12:45] LABS: Hepatitis B Surface Antigen Negative (Negative)
[2024-06-29 13:05] LABS: Hepatitis A Ab IgM Negative
[2024-06-29 13:06] LABS: Hepatitis B Core IgM Negative; Hepatitis C Antibody Negative (Negative)
--- NOTE | 2024-06-29 14:32 | DVH ---
Procedure: XY SMALL BOWEL SERIES-W GASTROGRA Reason for study/Clinical History: RULE OUT SBO Comparison Study: None available at time of dictation. Technique: Single contrast small bowel series performed. FINDINGS/IMPRESSION: Sequential imaging was obtained over the abdomen following administration of ora l contrast through NG tube Initial maintenance job titles view of the abdomen and pelvis appears demonstrates no acute process. Contrast is identified within the colon by 3 hours. This represents a normal small bowel transit shoshana liz
--- NOTE | 2024-06-29 14:58 | DVHPNRES ---
Progress Note Date Seen: Jun 29, 2024 Resident Creating Document: OCDY BRANCH RESIDENT Has the PT tested + for MRSA If YES, has PT been informed?: No Medical Necessity Reason Pt with a Central, PICC or Fol: No Subjective Review of Systems 54-year-old female patient with past medical history of lung and liver masses associated with metastatic cancer. She presents to the emergency department with complaints of severe epigastric pain and chest pain which she has been experiencing for the last 10 days, also jaundice. The pain is described as sharp and localized in the epigastrium and rated as 10/10 intensity. Is associated with nausea vomiting and constipation as the patient has not had bowel movement for the last 10 days. 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 Her symptoms of epigastric and chest pain has been present since late March with no significant improvement despite conservative management. The pain was temporarily alleviated with morphine. The patient was recently admitted to [facility] in June 01 for management of her abdominal pain on the right side beneath the breasts. After 2 week stay she was discharged on June 14 during her hospitalization with diagnosis of gastrointestinal cancer was made, with further investigation revealing the pulmonary and hepatic metastasis. Recent abdominal CT scan showed Multiple pulmonary nodules, numerous hepatic lesions, an enlarged, lobulated uterus and a sclerotic lesion in the right acetabulum are concerning for metastatic disease. On the day of admission the patient's symptoms have worsened with increased pain and more severe gastrointestinal symptoms. She denies any history of alcohol use smoking or recreational drugs med has been using morphine and oxycodone for pain management at home. Her family history includes type 2 diabetes, congestive heart failure and multiple myeloma and pancreatic cancer . On examination the patient has signs of sepsis her vital signs show a respiratory rate of 32 breaths per minute, heart rate of 98 beats per minute and recent lactic acid at 3.3. Her albumin level is low at 2.8 which suggest malnutrition or hepatic dysfunction. Consistent with her advanced cancer urinalysis revealed hematuria which may indicate a secondary issue such as a urinary tract infection or possible complication from metastatic disease. Objective vital signs Vital Sign Date Time Temp Pulse Resp B/P (MAP) Pulse Ox O2 Delivery O2 Flow Rate FiO2 06/29/24 13:10 98.8 115 19 138/69 (92) 95 98.8 06/29/24 08:00 Nasal Cannula* 2 28 Total Intake and Output 06/28/24 06/28/24 06/29/24 15:00 23:00 07:00 Intake Total 250 ml 600 ml 1050 ml Output Total 695 ml 800 ml Balance 250 ml -95 ml 250 ml medications Current Medications Medications Dose Ordered Sig/Tanvi Route Start Time Stop Time Status Last Admin Dose Admin Ondansetron HCl 4 mg Q4HP PRN IV 06/25/24 22:15 06/28/24 01:09 4 MG Multivitamins 1 tab DAILY PO 06/26/24 10:00 Nitroglycerin 0.4 mg Q5MINP PRN SL 06/25/24 22:15 Morphine Sulfate 2 mg Q30M PRN IV 06/25/24 22:15 Vancomycin HCl 0 ml @ 0 mls/hr UD IV 06/26/24 00:15 Meropenem 50 ml @ 17 mls/hr Q8HR IV 06/26/24 06:00 06/29/24 05:25 17 MLS/HR Pantoprazole Sodium 40 mg DAILY IV 06/26/24 10:00 06/29/24 11:38 40 MG Enteral Nutritional Formula 240 ml TIDWM PO 06/26/24 08:00 Vancomycin HCl 200 ml @ 200 mls/hr Q8H IV 06/27/24 17:00 06/29/24 09:13 200 MLS/HR Lactated Ringer's 1,000 ml @ 70 mls/hr [id number] IV 06/27/24 22:45 06/29/24 05:24 70 MLS/HR Morphine Sulfate 2 mg Q4H IV 06/28/24 13:15 06/29/24 05:23 2 MG Examination General Appearance: Alert, Oriented X3, Cooperative, icteric HEENT: EOMI Respiratory: Clear to auscultation, Normal air movement Cardiovascular: Regular rate, Normal S1, Normal S2 Abdominal: distended, ventral hernia. muprhy +, Extremities: Pedal edema, No cyanosis, Normal pulses, No tenderness/swelling Skin: No rashes, No breakdown laboratory and microbiology Laboratory Tests 06/29/24 05:39 Test 06/29/24 05:39 Range/Units Serum Glucose 88 74-106 mg/dL Microbiology Date/Time Source Procedure Growth Status 06/26/24 00:35 Blood Blood Culture - Preliminary NO GROWTH AFTER 72 HOURS OF INCUBATION. Resulted 06/25/24 14:55 Voided Urine Urine Culture - Final Complete Problem List/Assessment/Plan Problem List/Assessment/Plan Neurologic Pt is talking, AOX4 Cardiovascular #Right Ventricular Severe Strain /Failure With Moderate Degree Pulmonary Hypertension Respiratory #Acute respiratory failure due to sepsis/ lung mets Pt is on O2 2LT #Lung mets GI #Sepsis due to acute cholecystitis? 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, pancreatic or upper GI unknown primary: liver and lung mets #ventral hernia: loop of small bowel on it , no transition point #ruled out SBO #hyperbilirubinemia due to cholecystitis and liver mets #severe malnutrition based on low total protein and albumin likely secondary to advanced cancer and hepatic failure CT scan showed cholelithiasis, ultrasound showed cholecystitis HIDA scan pending Possible percutaneous drainage of gallbladder after HIDA scan results NG tube Advance diet Pt is on vancomycin and meropenem Blood and urine cultures pending Urine culture: mixed bessy bowel series no SBO #UTI urine culture mixed bessy Delong placed for strict I&Os Heme/onc #metastasic AdenoCa unknown primary: liver and lung mets #Anemia of chronic disease due to sepsis, adenoCA hb 8.2 1RBC already given Patient doesn't want hospice Case discussed with Dr. Sims Goals of care discussed with the patient for 44 minutes Goals of care: Full code Time spent on care 33 min Plan discussed with: Patient, Other (rn) My Orders My Orders Orders - CODY BRANCH RESIDENT Procedure Category Date Status Time Small Bowel Series-W XY 06/29/24 Resulted Gastrogra 08:00 CC Plasma Assessment Blood Product Administration S: 1350 Date of Service: Jun 29, 2024 Billing Provider: KWABENA SIMS MD Common Visit Codes: [id number] INP/OBS CARE(HIGH) Coding Comment Comment Attending Attestation I saw and evaluated the patient. I reviewed the residents note and agree with findings and plan as documented in the residents note except as documented below. CODY BRANCH RESIDENT Jun 29, 2024 14:58 KWABENA SIMS MD Jun 30, 2024 22:55
[2024-06-29] MEDS: GASTROGRAFIN 120 ML SOL ONE (15:34)
[2024-06-30 01:00] VITALS: BP 147/84; PULSE 109; RESP 19; TEMP 97.9; O2SAT 99
[2024-06-30 05:00] VITALS: BP 154/81; PULSE 110; RESP 20; TEMP 97.9; O2SAT 98
[2024-06-30 08:33] LABS: Hematocrit 24.7 % (36.0-46.0); Hemoglobin 7.6 g/dL (12.2-16.2); Mean Corpuscular Hemoglobin 24.2 pg (28.0-32.0); Mean Corpuscular Volume 78.2 fL (80.0-100.0); Platelet Count (auto) 336 10^3/uL (140-450); Red Blood Cells 3.15 10^6/uL (4.0-5.20); Red Cell Distribution Width 19.7 % (11.8-14.3); White Blood Cell 17.4 10^3/uL (4.4-10.8)
[2024-06-30 08:49] LABS: Alanine Aminotransferase 46 U/L (7-40); Alkaline Phosphatase 969 U/L (46-116); Anion Gap 14 (5-15); Aspartate Aminotransferase 150 U/L (13-40); BUN/Creatinine Ratio 44.4 (10.0-20.0); Bilirubin, Total 4.9 mg/dL (0.2-1.0); Blood Urea Nitrogen 12 mg/dL (9-23); Calcium 9.2 mg/dL (8.7-10.4); Carbon Dioxide 25 mmol/L (20-31); Chloride 99 mmol/L (98-107); Glucose 94 mg/dL (74-106); Potassium 3.1 mmol/L (3.5-5.1); Sodium 138 mmol/L (136-145); Total Protein 5.8 g/dL (5.7-8.2)
[2024-06-30 08:50] LABS: Basophils % (manual) 0 (0.0-2.0); Blast Cells 0; Eosinophils % (manual) 0 (0-7); Metamyelocytes % 0; Myelocytes % 0; Promyelocytes % 0; Reactive Lymphocytes 0
[2024-06-30] MEDS: POLYETHYLENE GLYCOL 17 GM PWDR PO SCH (09:46)
[2024-06-30] MEDS: LACTULOSE 20Gm/30ML SOLN PO SCH (09:46)
[2024-06-30 11:17] LABS: Band Neutrophils % (manual) 3; Lymphocytes % (manual) 20 (10.0-50.0); Monocytes % (manual) 3 (0-12)
[2024-06-30 11:18] LABS: Platelet Estimate Adequate
[2024-06-30 13:00] VITALS: BP 148/84; PULSE 91; RESP 18; TEMP 97.5; O2SAT 97
[2024-06-30] MEDS: POTASSIUM CHL 20MEQ/100ML 100 ML IV SCH (13:15)
--- NOTE | 2024-06-30 15:40 | DVH ---
CTA Chest with intravenous contrast INDICATION: rule out PE COMPARISON: None TECHNIQUE: Multidetector spiral CTA of the chest was performed of the chest with intravenous contrast . PULMONARY ANGIOGRAPHY PROTOCOL was utilized using a bolus-tracking technique centered on the main p ulmonary artery. Axial, coronal and sagittal multiplanar and MIP reformats were performed. CONTRAST: Type of contrast: Omni 350 Contrast injected: 100 ml Radiation dose : Chest: CTDI volume is 45 mGy. Dose-length product is 754.57 mGy*cm The dose indicators for CT are the volume computed Tomography (CT) dose Index (CTDIvol) and the dose Length product (DLP), and are measured in units of mGy and mGy-cm, respectively. These indicators are not patient dose, but values generated from the CT scanner acquisition factors. The report includes radiation exposure data for exposures received during this examination. Findings: Pulmonary artery: No pulmonary embolism Lower neck: Nasogastric tube in place Lungs: Right middle lobe nodules measuring up to 9 mm. Atelectasis and consolidation in the lung base s. Heart/Vascular Structures: Normal heart size. No pericardial effusion. Lymph Nodes: No adenopathy Pleura: No pleural effusion or significant pneumothorax. Musculoskeletal: No acute osseous abnormality. Soft tissues: Normal. Upper abdomen: Numerous hepatic masses incompletely evaluated. Left adrenal nodule measuring up to 15 mm. IMPRESSION: 1. No pulmonary embolism. 2. Numerous hepatic masses concerning for malignancy. Left adrenal nodule. Right pulmonary nodules co uld be metastatic. Atelectasis and consolidation in the lung bases. Clinical correlation and continu ed follow-up is recommended. Correlate with recent CT of the abdomen and pelvis. HS:Y
--- NOTE | 2024-06-30 16:08 | DVH ---
CLINICAL INFORMATION: 67 years old, Female; CHOLECYSTITIS. TECHNIQUE: 5.7 mCi of Choletec were administered intravenously. Images of the upper abdomen were ob tained at 2 minute intervals up to a total time of 60 minutes. 65 minute and 18 hour delayed images w ere obtained. COMPARISON: HIDA scan dated 06/29/2024. Correlation made to CT of the abdomen and pelvis dated 2023. FINDINGS: Again noted is extensive activity throughout the liver, similar to that seen on the recent HIDA scan dated 06/29/2024. No definite gallbladder uptake visualized on initial images obtained up to 60 minutes after contrast injection. There is some focal uptake in the right upper abdomen on the 18 hour delayed images, although this may be within bowel, although gallbladder activity not exclude d. There is activity in the bowel visualized on delayed images. IMPRESSION: Examination is again limited as described above. No visualized gallbladder activity seen up to 60 min utes. Uptake in the right upper abdomen on the delayed images could be within the gallbladder or manish l. Correlation with clinical findings is needed. Findings appear similar to the prior exam.
[2024-06-30] MEDS: IOHEXOL 350 MG/ML 100ML IJ ONE (16:42)
[2024-06-30 17:00] VITALS: BP 146/82; PULSE 107; RESP 18; TEMP 98.6; O2SAT 99
--- NOTE | 2024-06-30 17:12 | DVHPNRES ---
Progress Note Date Seen: Jun 30, 2024 Resident Creating Document: CODY BRANCH RESIDENT Has the PT tested + for MRSA If YES, has PT been informed?: No Medical Necessity Reason Pt with a Central, PICC or Fol: No Subjective Review of Systems 54-year-old female patient with past medical history of lung and liver masses associated with metastatic cancer. She presents to the emergency department with complaints of severe epigastric pain and chest pain which she has been experiencing for the last 10 days, also jaundice. The pain is described as sharp and localized in the epigastrium and rated as 10/10 intensity. Is associated with nausea vomiting and constipation as the patient has not had bowel movement for the last 10 days. 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 Her symptoms of epigastric and chest pain has been present since late March with no significant improvement despite conservative management. The pain was temporarily alleviated with morphine. The patient was recently admitted to [facility] in June 01 for management of her abdominal pain on the right side beneath the breasts. After 2 week stay she was discharged on June 14 during her hospitalization with diagnosis of gastrointestinal cancer was made, with further investigation revealing the pulmonary and hepatic metastasis. Recent abdominal CT scan showed Multiple pulmonary nodules, numerous hepatic lesions, an enlarged, lobulated uterus and a sclerotic lesion in the right acetabulum are concerning for metastatic disease. On the day of admission the patient's symptoms have worsened with increased pain and more severe gastrointestinal symptoms. She denies any history of alcohol use smoking or recreational drugs med has been using morphine and oxycodone for pain management at home. Her family history includes type 2 diabetes, congestive heart failure and multiple myeloma and pancreatic cancer . On examination the patient has signs of sepsis her vital signs show a respiratory rate of 32 breaths per minute, heart rate of 98 beats per minute and recent lactic acid at 3.3. Her albumin level is low at 2.8 which suggest malnutrition or hepatic dysfunction. Consistent with her advanced cancer urinalysis revealed hematuria which may indicate a secondary issue such as a urinary tract infection or possible complication from metastatic disease. Objective vital signs Vital Sign Date Time Temp Pulse Resp B/P (MAP) Pulse Ox O2 Delivery O2 Flow Rate FiO2 06/30/24 16:58 107 18 146/82 06/30/24 13:00 97.5 97 97.5 06/30/24 07:30 Nasal Cannula* 4 36 Total Intake and Output 06/29/24 06/29/24 06/30/24 15:00 23:00 07:00 Intake Total 960 ml 200 ml 950 ml Output Total 850 ml 1600 ml Balance 960 ml -650 ml -650 ml medications Current Medications Medications Dose Ordered Sig/Tanvi Route Start Time Stop Time Status Last Admin Dose Admin Ondansetron HCl 4 mg Q4HP PRN IV 06/25/24 22:15 06/28/24 01:09 4 MG Multivitamins 1 tab DAILY PO 06/26/24 10:00 06/30/24 09:46 1 TAB Nitroglycerin 0.4 mg Q5MINP PRN SL 06/25/24 22:15 Morphine Sulfate 2 mg Q30M PRN IV 06/25/24 22:15 Vancomycin HCl 0 ml @ 0 mls/hr UD IV 06/26/24 00:15 Meropenem 50 ml @ 17 mls/hr Q8HR IV 06/26/24 06:00 06/30/24 16:30 17 MLS/HR Pantoprazole Sodium 40 mg DAILY IV 06/26/24 10:00 06/30/24 09:46 40 MG Vancomycin HCl 200 ml @ 200 mls/hr Q8H IV 06/27/24 17:00 06/30/24 16:57 200 MLS/HR Lactated Ringer's 1,000 ml @ 70 mls/hr [id number] IV 06/27/24 22:45 06/29/24 05:24 70 MLS/HR Morphine Sulfate 2 mg Q4H IV 06/28/24 13:15 06/30/24 16:58 2 MG Polyethylene Glycol 17 gm DAILY PO 06/30/24 10:00 06/30/24 09:46 17 GM Lactulose 30 ml DAILY PO 06/30/24 10:00 06/30/24 09:46 30 ML Examination General Appearance: Alert, Oriented X3, Cooperative, icteric HEENT: EOMI Respiratory: Clear to auscultation, Normal air movement Cardiovascular: Regular rate, Normal S1, Normal S2 Abdominal: less distended, ventral hernia. muprhy +, Extremities: Pedal edema, No cyanosis, Normal pulses, No tenderness/swelling Skin: No rashes, No breakdown laboratory and microbiology Laboratory Tests 11/26/24 08:10 Test 06/30/24 08:10 Range/Units Serum Glucose 94 74-106 mg/dL Microbiology Date/Time Source Procedure Growth Status 06/26/24 00:35 Blood Blood Culture - Preliminary NO GROWTH AFTER 72 HOURS OF INCUBATION. Resulted 06/25/24 14:55 Voided Urine Urine Culture - Final Complete Problem List/Assessment/Plan Problem List/Assessment/Plan Neurologic Pt is talking, AOX4 Cardiovascular #Right Ventricular Severe Strain /Failure With Moderate Degree Pulmonary Hypertension CT scan today ruled out PE massive or segmental, even do the probability of subsegmental still exist. Pt is not a candidate for anticoagulation Respiratory #Acute respiratory failure due to sepsis/ lung mets Pt is on O2 2LT #Lung mets GI #Sepsis due to acute cholecystitis? 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, pancreatic or upper GI unknown primary: liver and lung mets #ventral hernia: loop of small bowel on it , no transition point #ruled out SBO #hyperbilirubinemia due to cholecystitis and liver mets #severe malnutrition based on low total protein and albumin likely secondary to advanced cancer and hepatic failure CT scan showed cholelithiasis, ultrasound showed cholecystitis HIDA scan inconclusive NG tube Advance diet Pt is on vancomycin and meropenem Blood and urine cultures pending Urine culture: mixed bessy bowel series no SBO Patient had a bowel movement today #UTI urine culture mixed bessy Delong placed for strict I&Os Heme/onc #metastasic AdenoCa unknown primary: liver and lung mets #Anemia of chronic disease due to sepsis, adenoCA hb 7.6 1RBC already given Due to right heart failure, sepsis, unconclusive HIDA scan and inability to do surgeries or further procedures due to high risk of complications and poor prognosis due to metastasic cancer, the option of hospice is given, SS consult is placed Case discussed with Dr. Sims Goals of care discussed with the patient for 44 minutes Goals of care: Full code Time spent on care 33 min Plan discussed with: Patient, Daughter, Other (rn) My Orders My Orders Orders - CODY BRANCH Procedure Category Date Status Time Communication Order ORDERS 06/29/24 Transmitted 23:38 Nm Hida Scan NM 06/29/24 Resulted 11:10 Transfer Orders XFER 06/30/24 Transmitted 12:[address] 06/30/24 Resulted Contrast 13:25 Dietary Evaluation Review Comments: 1) Advance pt diet when medically feasible 2) Continue current plan of care Expected Outcomes/Goals: F/U in 3-5 days CC Plasma Assessment Blood Product Administration S: 1350 Date of Service: Jun 30, 2024 Billing Provider: KWABENA SIMS MD Common Visit Codes: [id number] INP/OBS CARE(HIGH) Secondary Visit Codes: [id number] CARE PLAN 30 MINUTES, [id number] CARE PLAN ADDL 30MIN Coding Comment Comment Attending Attestation I saw and evaluated the patient. I reviewed the residents note and agree with findings and plan as documented in the residents note except as documented below. 45 minutes spent in advanced care planning, including discussing code status, medical decision maker, goals of care and disposition planning. Discussed with patient and daughter regarding prognosis, patient now agreeable for hospice placement. Patient will benefit from palliative care evaluation as outpatient CODY BRANCH RESIDENT Jun 30, 2024 17:12 KWABENA SIMS MD Jun 30, 2024 22:57
[2024-06-30] MEDS ORDERED: POTASSIUM CHLORIDE 60 MEQ, LIDOCAINE 1% (LOCAL ANESTH.) 6 ML in SODIUM CHL 0.9% 500 ML IV ONE (17:30)
[2024-06-30 20:00] VITALS: PULSE 104
[2024-06-30 21:00] VITALS: BP_SYST 107; BP_SYST 130; BP_DIAS 68; BP_DIAS 75; PULSE 103; PULSE 109; RESP 16; RESP 17; TEMP 97.9; TEMP 99.3; O2SAT 92; O2SAT 97
[2024-07-01] VITALS (7 sets, daily range): BP systolic 128–135; BP diastolic 72–79; PULSE 92–104; RESP 16–20; TEMP 97.6–98.8; O2SAT 99–100
[2024-07-01 06:24] LABS: Hemoglobin 7.1 g/dL (12.2-16.2)
[2024-07-01 06:26] LABS: Hematocrit 22.4 % (36.0-46.0); Mean Corpuscular Hemoglobin 24.8 pg (28.0-32.0); Mean Corpuscular Hgb Conc. 31.5 g/dL (32.0-36.0); Mean Corpuscular Volume 78.7 fL (80.0-100.0); Platelet Count (auto) 295 10^3/uL (140-450); Red Blood Cells 2.85 10^6/uL (4.0-5.20); Red Cell Distribution Width 19.9 % (11.8-14.3); White Blood Cell 19.2 10^3/uL (4.4-10.8)
[2024-07-01 06:28] LABS: Alanine Aminotransferase 47 U/L (7-40); Albumin 2.9 g/dL (3.2-4.8); Alkaline Phosphatase 853 U/L (46-116); Anion Gap 9 (5-15); Aspartate Aminotransferase 138 U/L (13-40); BUN/Creatinine Ratio 41.7 (10.0-20.0); Blood Urea Nitrogen 10 mg/dL (9-23); Calcium 9.3 mg/dL (8.7-10.4); Carbon Dioxide 26 mmol/L (20-31); Chloride 100 mmol/L (98-107); Glucose 90 mg/dL (74-106); Potassium 3.5 mmol/L (3.5-5.1); Sodium 135 mmol/L (136-145)
[2024-07-01 06:29] LABS: Bilirubin, Total 4.9 mg/dL (0.2-1.0); Total Protein 5.5 g/dL (5.7-8.2)
[2024-07-01 06:32] LABS: Basophils % (manual) 0 (0.0-2.0); Blast Cells 0; Metamyelocytes % 0; Myelocytes % 0; Promyelocytes % 0; Reactive Lymphocytes 0
[2024-07-01 08:59] LABS: Band Neutrophils % (manual) 3; Eosinophils % (manual) 2 (0-7); Lymphocytes % (manual) 12 (10.0-50.0); Monocytes % (manual) 5 (0-12)
[2024-07-01 09:00] LABS: Anisocytosis Slight; Hypochromia Moderate; Platelet Estimate Adequate
[2024-07-01] MEDS ORDERED: VANCOMYCIN 1GM/250ML KIT 250 ML IV SCH (09:00)
[2024-07-01] MEDS ORDERED: VANCOMYCIN 1,000 MG in D5W 5% 250 ML IV SCH (09:00)
[2024-07-01 09:01] LABS: Target Cell FEW
--- NOTE | 2024-07-01 16:49 | DVHPNRES ---
Progress Note Date Seen: Jul 01, 2024 Resident Creating Document: CODY BRANCH RESIDENT Has the PT tested + for MRSA If YES, has PT been informed?: No Medical Necessity Reason Pt with a Central, PICC or Fol: No Subjective Review of Systems 54-year-old female patient with past medical history of lung and liver masses associated with metastatic cancer. She presents to the emergency department with complaints of severe epigastric pain and chest pain which she has been experiencing for the last 10 days, also jaundice. The pain is described as sharp and localized in the epigastrium and rated as 10/10 intensity. Is associated with nausea vomiting and constipation as the patient has not had bowel movement for the last 10 days. 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 Her symptoms of epigastric and chest pain has been present since late March with no significant improvement despite conservative management. The pain was temporarily alleviated with morphine. The patient was recently admitted to [facility] in June 01 for management of her abdominal pain on the right side beneath the breasts. After 2 week stay she was discharged on June 14 during her hospitalization with diagnosis of gastrointestinal cancer was made, with further investigation revealing the pulmonary and hepatic metastasis. Recent abdominal CT scan showed Multiple pulmonary nodules, numerous hepatic lesions, an enlarged, lobulated uterus and a sclerotic lesion in the right acetabulum are concerning for metastatic disease. On the day of admission the patient's symptoms have worsened with increased pain and more severe gastrointestinal symptoms. She denies any history of alcohol use smoking or recreational drugs med has been using morphine and oxycodone for pain management at home. Her family history includes type 2 diabetes, congestive heart failure and multiple myeloma and pancreatic cancer . On examination the patient has signs of sepsis her vital signs show a respiratory rate of 32 breaths per minute, heart rate of 98 beats per minute and recent lactic acid at 3.3. Her albumin level is low at 2.8 which suggest malnutrition or hepatic dysfunction. Consistent with her advanced cancer urinalysis revealed hematuria which may indicate a secondary issue such as a urinary tract infection or possible complication from metastatic disease. Objective vital signs Vital Sign Date Time Temp Pulse Resp B/P (MAP) Pulse Ox O2 Delivery O2 Flow Rate FiO2 07/01/24 16:27 97.9 101 17 130/74 (92) 100 97.9 07/01/24 07:54 Nasal Cannula* 2 28 Total Intake and Output 06/30/24 06/30/24 07/01/24 15:00 23:00 07:00 Intake Total 250 ml 2660 ml 825 ml Output Total 600 ml 300 ml Balance 250 ml 2060 ml 525 ml medications Current Medications Medications Dose Ordered Sig/Tanvi Route Start Time Stop Time Status Last Admin Dose Admin Ondansetron HCl 4 mg Q4HP PRN IV 06/25/24 22:15 06/28/24 01:09 4 MG Multivitamins 1 tab DAILY PO 06/26/24 10:00 06/30/24 09:46 1 TAB Nitroglycerin 0.4 mg Q5MINP PRN SL 06/25/24 22:15 Morphine Sulfate 2 mg Q30M PRN IV 06/25/24 22:15 Vancomycin HCl 0 ml @ 0 mls/hr UD IV 06/26/24 00:15 Meropenem 50 ml @ 17 mls/hr Q8HR IV 06/26/24 06:00 07/01/24 13:07 17 MLS/HR Pantoprazole Sodium 40 mg DAILY IV 06/26/24 10:00 07/01/24 08:40 40 MG Vancomycin HCl 200 ml @ 200 mls/hr Q8H IV 06/27/24 17:00 07/01/24 10:29 200 MLS/HR Lactated Ringer's 1,000 ml @ 70 mls/hr [id number] IV 06/27/24 22:45 07/01/24 12:32 70 MLS/HR Morphine Sulfate 2 mg Q4H IV 06/28/24 13:15 07/01/24 13:07 2 MG Polyethylene Glycol 17 gm DAILY PO 06/30/24 10:00 06/30/24 09:46 17 GM Lactulose 30 ml DAILY PO 06/30/24 10:00 06/30/24 09:46 30 ML Vancomycin HCl 1000 mg/Dextrose 250 ml @ 250 mls/hr Q8H IV 07/01/24 09:00 Cancel Vancomycin HCl 250 ml @ 250 mls/hr Q8H IV 07/01/24 09:00 Cancel Examination General Appearance: Alert, Oriented X3, Cooperative, icteric HEENT: EOMI Respiratory: Clear to auscultation, Normal air movement Cardiovascular: Regular rate, Normal S1, Normal S2 Abdominal: less distended, ventral hernia. muprhy +, Extremities: Pedal edema, No cyanosis, Normal pulses, No tenderness/swelling Skin: No rashes, No breakdown laboratory and microbiology Laboratory Tests 07/01/24 05:48 Test 07/01/24 05:48 Range/Units Serum Glucose 90 74-106 mg/dL Microbiology Date/Time Source Procedure Growth Status 06/26/24 00:35 Blood Blood Culture - Final NO GROWTH AFTER 5 DAYS OF INCUBATION. Complete 06/25/24 14:55 Voided Urine Urine Culture - Final Complete Problem List/Assessment/Plan Problem List/Assessment/Plan Neurologic Pt is talking, AOX4 Cardiovascular #Right Ventricular Severe Strain /Failure With Moderate Degree Pulmonary Hypertension CT scan today ruled out PE massive or segmental, even do the probability of subsegmental still exist. Pt is not a candidate for anticoagulation Respiratory #Acute respiratory failure due to sepsis/ lung mets Pt is on O2 2LT #Lung mets GI #Sepsis due to acute cholecystitis? 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 Decision was explain to the patient, she understand NG tube Advance diet Pt is on vancomycin and meropenem Blood and urine cultures pending Urine culture: mixed bessy bowel series no SBO Patient is being having bowel movements #UTI urine culture mixed bessy Delong placed for strict I&Os Heme/onc #metastasic AdenoCa unknown primary: liver and lung mets #Anemia of chronic disease due to sepsis, adenoCA hb 7.1 1RBC already given Due to right heart failure, sepsis, unconclusive HIDA scan and inability to do surgeries or further procedures due to high risk of complications and poor prognosis due to metastasic cancer, the option of hospice with IV AB is given, SS consult is placed: family is choosing the place. Case discussed with Dr. Carl Goals of care discussed with the patient for 44 minutes Goals of care: Full code Time spent on care 33 min Plan discussed with: Patient, Daughter (rn), Other My Orders My Orders Orders - CODY BRANCH RESIDENT Procedure Category Date Status Time * Ctc Operator CONS 06/30/24 Transmitted Consult Pt Request For Service PT 07/01/24 Logged 07:14 Suction At Bedside THEO 07/01/24 In Process 07:14 Dietary Evaluation Review Comments: 1) Advance pt diet when medically feasible 2) Continue current plan of care Expected Outcomes/Goals: F/U in 3-5 days CC Plasma Assessment Blood Product Administration S: 1350 Date of Service: Jul 01, 2024 Billing Provider: KWABENA SIMS MD Common Visit Codes: [id number] INP/OBS CARE(HIGH) CODY BRANCH RESIDENT Jul 01, 2024 16:49 KWABENA SIMS MD Jul 04, 2024 23:15
[2024-07-02] VITALS (11 sets, daily range): BP systolic 112–134; BP diastolic 65–79; PULSE 100–110; RESP 16–22; TEMP 98.2–98.8; O2SAT 95–100
[2024-07-02 06:37] LABS: Mean Corpuscular Volume 78.3 fL (80.0-100.0); White Blood Cell 15.4 10^3/uL (4.4-10.8)
[2024-07-02 06:39] LABS: Hematocrit 21.2 % (36.0-46.0); Mean Corpuscular Hemoglobin 25.3 pg (28.0-32.0); Mean Corpuscular Hgb Conc. 32.4 g/dL (32.0-36.0); Platelet Count (auto) 307 10^3/uL (140-450)
[2024-07-02 06:40] LABS: Anion Gap 13 (5-15); BUN/Creatinine Ratio 40.9 (10.0-20.0); Carbon Dioxide 25 mmol/L (20-31); Potassium 3.7 mmol/L (3.5-5.1)
[2024-07-02 06:43] LABS: Red Cell Distribution Width 20.3 % (11.8-14.3)
[2024-07-02 06:45] LABS: Alanine Aminotransferase 43 U/L (7-40); Albumin 2.9 g/dL (3.2-4.8); Alkaline Phosphatase 803 U/L (46-116); Aspartate Aminotransferase 134 U/L (13-40); Blood Urea Nitrogen 9 mg/dL (9-23); Chloride 97 mmol/L (98-107); Glucose 107 mg/dL (74-106); Sodium 135 mmol/L (136-145); Total Protein 5.4 g/dL (5.7-8.2)
[2024-07-02 06:46] LABS: Hemoglobin 6.9 g/dL (12.2-16.2)
[2024-07-02 06:47] LABS: Basophils % (manual) 0 (0.0-2.0); Blast Cells 0; Metamyelocytes % 0; Myelocytes % 0; Promyelocytes % 0; Reactive Lymphocytes 0
[2024-07-02 07:48] LABS: Band Neutrophils % (manual) 5; Eosinophils % (manual) 4 (0-7); Lymphocytes % (manual) 12 (10.0-50.0); Monocytes % (manual) 4 (0-12)
[2024-07-02 07:50] LABS: Anisocytosis Slight; Platelet Estimate Adequate
[2024-07-02 07:51] LABS: Hypochromia Slight; Target Cell FEW
--- NOTE | 2024-07-02 16:03 | DVHPNRES ---
Progress Note Date Seen: Jul 02, 2024 Resident Creating Document: CODY BRANCH RESIDENT Has the PT tested + for MRSA If YES, has PT been informed?: No Medical Necessity Reason Pt with a Central, PICC or Fol: No Subjective Review of Systems 54-year-old female patient with past medical history of lung and liver masses associated with metastatic cancer. She presents to the emergency department with complaints of severe epigastric pain and chest pain which she has been experiencing for the last 10 days, also jaundice. The pain is described as sharp and localized in the epigastrium and rated as 10/10 intensity. Is associated with nausea vomiting and constipation as the patient has not had bowel movement for the last 10 days. 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 Her symptoms of epigastric and chest pain has been present since late March with no significant improvement despite conservative management. The pain was temporarily alleviated with morphine. The patient was recently admitted to [facility] in June 01 for management of her abdominal pain on the right side beneath the breasts. After 2 week stay she was discharged on June 14 during her hospitalization with diagnosis of gastrointestinal cancer was made, with further investigation revealing the pulmonary and hepatic metastasis. Recent abdominal CT scan showed Multiple pulmonary nodules, numerous hepatic lesions, an enlarged, lobulated uterus and a sclerotic lesion in the right acetabulum are concerning for metastatic disease. On the day of admission the patient's symptoms have worsened with increased pain and more severe gastrointestinal symptoms. She denies any history of alcohol use smoking or recreational drugs med has been using morphine and oxycodone for pain management at home. Her family history includes type 2 diabetes, congestive heart failure and multiple myeloma and pancreatic cancer . On examination the patient has signs of sepsis her vital signs show a respiratory rate of 32 breaths per minute, heart rate of 98 beats per minute and recent lactic acid at 3.3. Her albumin level is low at 2.8 which suggest malnutrition or hepatic dysfunction. Consistent with her advanced cancer urinalysis revealed hematuria which may indicate a secondary issue such as a urinary tract infection or possible complication from metastatic disease. Objective vital signs Vital Sign Date Time Temp Pulse Resp B/P (MAP) Pulse Ox O2 Delivery O2 Flow Rate FiO2 07/02/24 14:00 102 17 112/67 07/02/24 13:00 98.8 97 98.8 07/02/24 08:00 Nasal Cannula* 4 36 Total Intake and Output 07/01/24 07/01/24 07/02/24 15:00 23:00 07:00 Intake Total 250 ml 1874 ml 250 ml Output Total 500 ml 350 ml Balance 250 ml 1374 ml -100 ml medications Current Medications Medications Dose Ordered Sig/Tanvi Route Start Time Stop Time Status Last Admin Dose Admin Ondansetron HCl 4 mg Q4HP PRN IV 06/25/24 22:15 06/28/24 01:09 4 MG Multivitamins 1 tab DAILY PO 06/26/24 10:00 07/02/24 09:24 1 TAB Nitroglycerin 0.4 mg Q5MINP PRN SL 06/25/24 22:15 Morphine Sulfate 2 mg Q30M PRN IV 06/25/24 22:15 Vancomycin HCl 0 ml @ 0 mls/hr UD IV 06/26/24 00:15 Meropenem 50 ml @ 17 mls/hr Q8HR IV 06/26/24 06:00 07/02/24 13:24 17 MLS/HR Pantoprazole Sodium 40 mg DAILY IV 06/26/24 10:00 07/02/24 09:24 40 MG Vancomycin HCl 200 ml @ 200 mls/hr Q8H IV 06/27/24 17:00 07/02/24 09:38 200 MLS/HR Lactated Ringer's 1,000 ml @ 70 mls/hr [id number] IV 06/27/24 22:45 07/01/24 12:32 70 MLS/HR Morphine Sulfate 2 mg Q4H IV 06/28/24 13:15 07/02/24 13:25 2 MG Polyethylene Glycol 17 gm DAILY PO 06/30/24 10:00 07/02/24 09:23 17 GM Lactulose 30 ml DAILY PO 06/30/24 10:00 07/02/24 09:24 30 ML Vancomycin HCl 1000 mg/Dextrose 250 ml @ 250 mls/hr Q8H IV 07/01/24 09:00 Cancel Vancomycin HCl 250 ml @ 250 mls/hr Q8H IV 07/01/24 09:00 Cancel Examination General Appearance: Alert, Oriented X3, Cooperative, icteric HEENT: EOMI Respiratory: Clear to auscultation, Normal air movement Cardiovascular: Regular rate, Normal S1, Normal S2 Abdominal: less distended, ventral hernia. muprhy +, Extremities: Pedal edema, No cyanosis, Normal pulses, No tenderness/swelling Skin: No rashes, No breakdown laboratory and microbiology Laboratory Tests 07/02/24 05:55 Test 07/02/24 05:55 Range/Units Serum Glucose 107 H 74-106 mg/dL Microbiology Date/Time Source Procedure Growth Status 06/30/24 20:04 Stool Stool Culture - Preliminary Resulted 06/30/24 20:04 Stool Shiga Toxin I & II Pending Resulted 06/26/24 00:35 Blood Blood Culture - Final NO GROWTH AFTER 5 DAYS OF INCUBATION. Complete 06/25/24 14:55 Voided Urine Urine Culture - Final Complete Problem List/Assessment/Plan Problem List/Assessment/Plan Neurologic Pt is talking, AOX4 Cardiovascular #Right Ventricular Severe Strain /Failure With Moderate Degree Pulmonary Hypertension CT scan today ruled out PE massive or segmental, even do the probability of subsegmental still exist. Pt is not a candidate for anticoagulation Respiratory #Acute respiratory failure due to sepsis/ lung mets Pt is on O2 2LT #Lung mets GI #Sepsis due to acute cholecystitis? 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, pancreatic or upper GI unknown primary: liver and lung mets #ventral hernia: loop of small bowel on it , no transition point #ruled out SBO #hyperbilirubinemia due to cholecystitis and liver mets #severe malnutrition based on low total protein and albumin likely secondary to advanced cancer and hepatic failure CT scan showed cholelithiasis, ultrasound showed cholecystitis HIDA scan inconclusive: discussing the case with Dr Adaem: the option of cholecystostomy will not be suitable for her, due to the risk of dislodge and possible billiperitenum. Decision was explain to the patient, she understood. NG tube Advance diet Pt is on vancomycin and meropenem Blood and urine cultures pending Urine culture: mixed bessy bowel series no SBO Patient is being having bowel movements #UTI urine culture mixed bessy Delong placed for strict I&Os Heme/onc #metastasic AdenoCa unknown primary: liver and lung mets #Anemia of chronic disease due to sepsis, adenoCA hb 6.9 repeat CBC 1RBC already given Due to right heart failure, sepsis, unconclusive HIDA scan and inability to do surgeries or further procedures due to high risk of complications and poor prognosis due to metastasic cancer, the option of hospice with IV AB is given, SS consult is placed: family is choosing the place. Case discussed with Dr. Henry Goals of care discussed with the patient for 44 minutes Goals of care: Full code Time spent on care 33 min Plan discussed with: Patient, Other (rn) My Orders My Orders Orders - CODY BRANCH RESIDENT Procedure Category Date Status Time * Photogrammetrist CONS 07/01/24 Transmitted Consult 17:50 Discharge DISCHARGE 07/01/24 Transmitted 17:50 Mrsa Screen CAROL 07/02/24 Logged 15:46 Dietary Evaluation Review Comments: 1) Advance pt diet when medically feasible 2) Continue current plan of care Expected Outcomes/Goals: F/U in 3-5 days CC Plasma Assessment Blood Product Administration S: 1350 Date of Service: Jul 02, 2024 Billing Provider: KWABENA HENRY MD Common Visit Codes: [id number] INP/OBS CARE(HIGH) CODY BRANCH RESIDENT Jul 02, 2024 16:03 KWABENA HENRY MD Jul 04, 2024 23:15
[2024-07-02 18:44] LABS: Hematocrit 21.8 % (36.0-46.0); Mean Corpuscular Hemoglobin 24.8 pg (28.0-32.0); Mean Corpuscular Hgb Conc. 31.5 g/dL (32.0-36.0); Mean Corpuscular Volume 78.6 fL (80.0-100.0); Platelet Count (auto) 308 10^3/uL (140-450); Red Blood Cells 2.77 10^6/uL (4.0-5.20); White Blood Cell 18.7 10^3/uL (4.4-10.8)
[2024-07-02 18:58] LABS: Red Cell Distribution Width 20.5 % (11.8-14.3)
[2024-07-02 18:59] LABS: Hemoglobin 6.9 g/dL (12.2-16.2)
[2024-07-02 19:01] LABS: Basophils % (manual) 0 (0.0-2.0); Blast Cells 0; Myelocytes % 0; Promyelocytes % 0; Reactive Lymphocytes 0
[2024-07-02 19:39] LABS: Anisocytosis Slight; Band Neutrophils % (manual) 23; Eosinophils % (manual) 3 (0-7); Lymphocytes % (manual) 10 (10.0-50.0); Metamyelocytes % 1; Monocytes % (manual) 5 (0-12); Platelet Estimate Adequate
[2024-07-02 19:40] LABS: Hypochromia Slight; Target Cell FEW
[2024-07-03] VITALS (9 sets, daily range): BP systolic 122–147; BP diastolic 62–88; PULSE 90–107; RESP 18–20; TEMP 97.6–98.5; O2SAT 97–100
[2024-07-03 05:45] LABS: Hematocrit 26.2 % (36.0-46.0); Hemoglobin 8.5 g/dL (12.2-16.2); Mean Corpuscular Volume 78.9 fL (80.0-100.0); Red Blood Cells 3.32 10^6/uL (4.0-5.20)
[2024-07-03 05:47] LABS: Mean Corpuscular Hemoglobin 25.6 pg (28.0-32.0); Mean Corpuscular Hgb Conc. 32.4 g/dL (32.0-36.0); Platelet Count (auto) 292 10^3/uL (140-450); Red Cell Distribution Width 19.8 % (11.8-14.3); White Blood Cell 20.3 10^3/uL (4.4-10.8)
[2024-07-03 05:49] LABS: Basophils % (manual) 0 (0.0-2.0); Blast Cells 0; Metamyelocytes % 0; Myelocytes % 0; Promyelocytes % 0; Reactive Lymphocytes 0
[2024-07-03 06:06] LABS: Anion Gap 12 (5-15); Calcium 9.2 mg/dL (8.7-10.4); Carbon Dioxide 24 mmol/L (20-31); Glucose 100 mg/dL (74-106)
[2024-07-03 06:16] LABS: Alanine Aminotransferase 47 U/L (7-40); Albumin 2.9 g/dL (3.2-4.8); Alkaline Phosphatase 818 U/L (46-116); Aspartate Aminotransferase 140 U/L (13-40); Bilirubin, Total 5.7 mg/dL (0.2-1.0); Blood Urea Nitrogen 6 mg/dL (9-23); Chloride 96 mmol/L (98-107); Potassium 3.4 mmol/L (3.5-5.1); Sodium 132 mmol/L (136-145); Total Protein 5.5 g/dL (5.7-8.2)
[2024-07-03 06:29] LABS: Anisocytosis Slight; Band Neutrophils % (manual) 2; Eosinophils % (manual) 5 (0-7); Hypochromia Slight; Lymphocytes % (manual) 10 (10.0-50.0); Monocytes % (manual) 10 (0-12); Target Cell MODERATE
[2024-07-03 06:30] LABS: Platelet Estimate Adequate
[2024-07-03] MEDS: POTASSIUM CHL 20MEQ/100ML 100 ML IV SCH (07:37)
[2024-07-03] MEDS: POLYETHYLENE GLYCOL 17 GM PWDR PO SCH (09:14)
[2024-07-03] MEDS: LACTULOSE 20Gm/30ML SOLN PO SCH (09:51)
--- NOTE | 2024-07-03 17:33 | DVHPNRES ---
Progress Note Date Seen: Jul 03, 2024 Resident Creating Document: CODY BRANCH RESIDENT Has the PT tested + for MRSA If YES, has PT been informed?: No Medical Necessity Reason Pt with a Central, PICC or Fol: No Subjective Review of Systems 54-year-old female patient with past medical history of lung and liver masses associated with metastatic cancer. She presents to the emergency department with complaints of severe epigastric pain and chest pain which she has been experiencing for the last 10 days, also jaundice. The pain is described as sharp and localized in the epigastrium and rated as 10/10 intensity. Is associated with nausea vomiting and constipation as the patient has not had bowel movement for the last 10 days. 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 Her symptoms of epigastric and chest pain has been present since late March with no significant improvement despite conservative management. The pain was temporarily alleviated with morphine. The patient was recently admitted to [facility] in June 01 for management of her abdominal pain on the right side beneath the breasts. After 2 week stay she was discharged on June 14 during her hospitalization with diagnosis of gastrointestinal cancer was made, with further investigation revealing the pulmonary and hepatic metastasis. Recent abdominal CT scan showed Multiple pulmonary nodules, numerous hepatic lesions, an enlarged, lobulated uterus and a sclerotic lesion in the right acetabulum are concerning for metastatic disease. On the day of admission the patient's symptoms have worsened with increased pain and more severe gastrointestinal symptoms. She denies any history of alcohol use smoking or recreational drugs med has been using morphine and oxycodone for pain management at home. Her family history includes type 2 diabetes, congestive heart failure and multiple myeloma and pancreatic cancer . On examination the patient has signs of sepsis her vital signs show a respiratory rate of 32 breaths per minute, heart rate of 98 beats per minute and recent lactic acid at 3.3. Her albumin level is low at 2.8 which suggest malnutrition or hepatic dysfunction. Consistent with her advanced cancer urinalysis revealed hematuria which may indicate a secondary issue such as a urinary tract infection or possible complication from metastatic disease. Objective vital signs Vital Sign Date Time Temp Pulse Resp B/P (MAP) Pulse Ox O2 Delivery O2 Flow Rate FiO2 07/03/24 17:24 107 19 129/83 07/03/24 13:00 98.3 97 98.3 07/03/24 08:00 Nasal Cannula* 4 36 Total Intake and Output 07/02/24 07/02/24 07/03/24 15:00 23:00 07:00 Intake Total 250 ml 1275 ml 700 ml Output Total 750 ml 1100 ml Balance 250 ml 525 ml -400 ml medications Current Medications Medications Dose Ordered Sig/Tanvi Route Start Time Stop Time Status Last Admin Dose Admin Ondansetron HCl 4 mg Q4HP PRN IV 06/25/24 22:15 06/28/24 01:09 4 MG Multivitamins 1 tab DAILY PO 06/26/24 10:00 07/03/24 09:28 1 TAB Nitroglycerin 0.4 mg Q5MINP PRN SL 06/25/24 22:15 Morphine Sulfate 2 mg Q30M PRN IV 06/25/24 22:15 Vancomycin HCl 0 ml @ 0 mls/hr UD IV 06/26/24 00:15 Meropenem 50 ml @ 17 mls/hr Q8HR IV 06/26/24 06:00 07/03/24 13:16 17 MLS/HR Pantoprazole Sodium 40 mg DAILY IV 06/26/24 10:00 07/03/24 09:29 40 MG Vancomycin HCl 200 ml @ 200 mls/hr Q8H IV 06/27/24 17:00 07/03/24 16:32 200 MLS/HR Lactated Ringer's 1,000 ml @ 70 mls/hr [id number] IV 06/27/24 22:45 07/03/24 16:32 70 MLS/HR Morphine Sulfate 2 mg Q4H IV 06/28/24 13:15 07/03/24 17:24 2 MG Polyethylene Glycol 17 gm DAILY PO 06/30/24 10:00 07/03/24 09:29 17 GM Vancomycin HCl 1000 mg/Dextrose 250 ml @ 250 mls/hr Q8H IV 07/01/24 09:00 Cancel Vancomycin HCl 250 ml @ 250 mls/hr Q8H IV 07/01/24 09:00 Cancel Lactulose 30 ml BID PO 07/03/24 08:45 07/03/24 09:51 30 ML Polyethylene Glycol 17 gm DAILY PO 07/03/24 10:00 Examination HEENT: EOMI Respiratory: Clear to auscultation, Normal air movement Cardiovascular: Regular rate, Normal S1, Normal S2 Abdominal: less distended, ventral hernia. muprhy +, Extremities: Pedal edema, No cyanosis, Normal pulses, No tenderness/swelling Skin: No rashes, No breakdown laboratory and microbiology Laboratory Tests 07/03/24 05:22 Test 07/03/24 05:22 Range/Units Serum Glucose 100 74-106 mg/dL Microbiology Date/Time Source Procedure Growth Status 07/02/24 16:00 Nose MRSA Screen - Final Complete 06/30/24 20:04 Stool Stool Culture - Final Complete 06/30/24 20:04 Stool Shiga Toxin I & II - Final Complete 06/26/24 00:35 Blood Blood Culture - Final NO GROWTH AFTER 5 DAYS OF INCUBATION. Complete 06/25/24 14:55 Voided Urine Urine Culture - Final Complete Problem List/Assessment/Plan Problem List/Assessment/Plan Neurologic Pt is talking, AOX4 Cardiovascular #Right Ventricular Severe Strain /Failure With Moderate Degree Pulmonary Hypertension CT scan today ruled out PE massive or segmental, even do the probability of subsegmental still exist. Pt is not a candidate for anticoagulation Respiratory #Acute respiratory failure due to sepsis/ lung mets Pt is on O2 2LT #Lung mets GI #Sepsis due to acute cholecystitis? 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 Decision was explain to the patient, she understood. NG tube Advance diet Pt is on vancomycin and meropenem Blood and urine cultures pending Urine culture: mixed bessy bowel series no SBO Patient is being having bowel movements #UTI urine culture mixed bessy Delong placed for strict I&Os Heme/onc #metastasic AdenoCa unknown primary: liver and lung mets #Anemia of chronic disease due to sepsis, adenoCA hb 6.9 2RBC already given Due to right heart failure, sepsis, unconclusive HIDA scan and inability to do surgeries or further procedures due to high risk of complications and poor prognosis due to metastasic cancer, the option of hospice with IV AB is given, SS consult is placed: family is choosing the place. Case discussed with Dr. Henry Goals of care discussed with the patient for 44 minutes Goals of care: Full code Time spent on care 33 min Plan discussed with: Patient, Other (rn) My Orders My Orders Orders - CODY BRANCH RESIDENT Procedure Category Date Status Time Vital Signs THEO 07/02/24 In Process 19:02 Lactulose Oral PHA 07/03/24 In Process 08:45 Polyethylene Glycol PHA 07/03/24 In Process 17g Powder (Miralax 10:00 Ng To Lcs THEO 07/03/24 In Process 13:33 Dietary Evaluation Review Comments: 1) Advance pt diet when medically feasible 2) Continue current plan of care Expected Outcomes/Goals: F/U in 3-5 days CC Plasma Assessment Blood Product Administration S: 2116 Date of Service: Jul 03, 2024 Billing Provider: KWABENA HENRY MD Common Visit Codes: [id number] INP/OBS CARE(HIGH) CODY BRANCH RESIDENT Jul 03, 2024 17:33 KWABENA HENRY MD Jul 04, 2024 23:16
[2024-07-04] VITALS (9 sets, daily range): BP systolic 119–137; BP diastolic 66–79; PULSE 101–111; RESP 12–20; TEMP 97.6–98.5; O2SAT 99–100
--- NOTE | 2024-07-04 08:58 | DVHPNRES ---
Progress Note Date Seen: Jul 04, 2024 Resident Creating Document: CODY BRANCH RESIDENT Has the PT tested + for MRSA If YES, has PT been informed?: No Medical Necessity Reason Pt with a Central, PICC or Fol: No Subjective Review of Systems 54-year-old female patient with past medical history of lung and liver masses associated with metastatic cancer. She presents to the emergency department with complaints of severe epigastric pain and chest pain which she has been experiencing for the last 10 days, also jaundice. The pain is described as sharp and localized in the epigastrium and rated as 10/10 intensity. Is associated with nausea vomiting and constipation as the patient has not had bowel movement for the last 10 days. 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 Her symptoms of epigastric and chest pain has been present since late March with no significant improvement despite conservative management. The pain was temporarily alleviated with morphine. The patient was recently admitted to [facility] in June 01 for management of her abdominal pain on the right side beneath the breasts. After 2 week stay she was discharged on June 14 during her hospitalization with diagnosis of gastrointestinal cancer was made, with further investigation revealing the pulmonary and hepatic metastasis. Recent abdominal CT scan showed Multiple pulmonary nodules, numerous hepatic lesions, an enlarged, lobulated uterus and a sclerotic lesion in the right acetabulum are concerning for metastatic disease. On the day of admission the patient's symptoms have worsened with increased pain and more severe gastrointestinal symptoms. She denies any history of alcohol use smoking or recreational drugs med has been using morphine and oxycodone for pain management at home. Her family history includes type 2 diabetes, congestive heart failure and multiple myeloma and pancreatic cancer . On examination the patient has signs of sepsis her vital signs show a respiratory rate of 32 breaths per minute, heart rate of 98 beats per minute and recent lactic acid at 3.3. Her albumin level is low at 2.8 which suggest malnutrition or hepatic dysfunction. Consistent with her advanced cancer urinalysis revealed hematuria which may indicate a secondary issue such as a urinary tract infection or possible complication from metastatic disease. Objective vital signs Vital Sign Date Time Temp Pulse Resp B/P (MAP) Pulse Ox O2 Delivery O2 Flow Rate FiO2 07/04/24 05:51 102 18 128/70 07/04/24 05:00 98.1 99 98.1 07/03/24 20:00 Nasal Cannula* 4 36 Total Intake and Output 07/03/24 07/03/24 07/04/24 15:00 23:00 07:00 Intake Total 550 ml 1800 ml 1540 ml Output Total 750 ml 650 ml Balance 550 ml 1050 ml 890 ml medications Current Medications Medications Dose Ordered Sig/Tanvi Route Start Time Stop Time Status Last Admin Dose Admin Ondansetron HCl 4 mg Q4HP PRN IV 06/25/24 22:15 06/28/24 01:09 4 MG Multivitamins 1 tab DAILY PO 06/26/24 10:00 07/03/24 09:28 1 TAB Nitroglycerin 0.4 mg Q5MINP PRN SL 06/25/24 22:15 Morphine Sulfate 2 mg Q30M PRN IV 06/25/24 22:15 Vancomycin HCl 0 ml @ 0 mls/hr UD IV 06/26/24 00:15 Meropenem 50 ml @ 17 mls/hr Q8HR IV 06/26/24 06:00 07/04/24 05:22 17 MLS/HR Pantoprazole Sodium 40 mg DAILY IV 06/26/24 10:00 07/03/24 09:29 40 MG Vancomycin HCl 200 ml @ 200 mls/hr Q8H IV 06/27/24 17:00 07/04/24 01:00 200 MLS/HR Lactated Ringer's 1,000 ml @ 70 mls/hr [id number] IV 06/27/24 22:45 07/03/24 16:32 70 MLS/HR Morphine Sulfate 2 mg Q4H IV 06/28/24 13:15 07/04/24 05:21 2 MG Polyethylene Glycol 17 gm DAILY PO 06/30/24 10:00 07/03/24 09:29 17 GM Vancomycin HCl 1000 mg/Dextrose 250 ml @ 250 mls/hr Q8H IV 07/01/24 09:00 Cancel Vancomycin HCl 250 ml @ 250 mls/hr Q8H IV 07/01/24 09:00 Cancel Lactulose 30 ml BID PO 07/03/24 08:45 07/03/24 21:16 30 ML Polyethylene Glycol 17 gm DAILY PO 07/03/24 10:00 Examination Respiratory: Clear to auscultation, Normal air movement Cardiovascular: Regular rate, Normal S1, Normal S2 Abdominal: more distended , ventral hernia. muprhy +, Extremities: Pedal edema, No cyanosis, Normal pulses, No tenderness/swelling Skin: No rashes, No breakdown laboratory and microbiology Laboratory Tests 07/03/24 05:22 Test 07/03/24 05:22 Range/Units Serum Glucose 100 74-106 mg/dL Microbiology Date/Time Source Procedure Growth Status 07/02/24 16:00 Nose MRSA Screen - Final Complete 06/30/24 20:04 Stool Stool Culture - Final Complete 06/30/24 20:04 Stool Shiga Toxin I & II - Final Complete 06/26/24 00:35 Blood Blood Culture - Final NO GROWTH AFTER 5 DAYS OF INCUBATION. Complete 06/25/24 14:55 Voided Urine Urine Culture - Final Complete Problem List/Assessment/Plan Problem List/Assessment/Plan Neurologic Pt is talking, AOX4 Cardiovascular #Right Ventricular Severe Strain /Failure With Moderate Degree Pulmonary Hypertension CT scan today ruled out PE massive or segmental, even do the probability of subsegmental still exist. Pt is not a candidate for anticoagulation Respiratory #Acute respiratory failure due to sepsis/ lung mets Pt is on O2 2LT #Lung mets GI #Sepsis due to acute cholecystitis? 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 Decision was explain to the patient, she understood. NG tube Advance diet Pt is on vancomycin and meropenem Blood and urine cultures pending Urine culture: mixed bessy bowel series no SBO Go down on morphine no bowel movements since 2 days #UTI urine culture mixed bessy Delong placed for strict I&Os Heme/onc #metastasic AdenoCa unknown primary: liver and lung mets #Anemia of chronic disease due to sepsis, adenoCA hb 6.9 2RBC already given Due to right heart failure, sepsis, unconclusive HIDA scan and inability to do surgeries or further procedures due to high risk of complications and poor prognosis due to metastasic cancer, the option of hospice with IV AB is given, SS consult is placed: family is choosing the place. Case discussed with Dr. Hilton Goals of care discussed with the patient for 44 minutes Goals of care: Full code Time spent on care 33 min Plan discussed with: Patient, Other (rn) My Orders My Orders Orders - CODY BRANCH RESIDENT Procedure Category Date Status Time Ng To [facility] 07/03/24 In Process 13:33 Dietary Evaluation Review Comments: 1) Advance pt diet when medically feasible 2) Continue current plan of care Expected Outcomes/Goals: F/U in 3-5 days CC Plasma Assessment Blood Product Administration S: 2116 Date of Service: Jul 04, 2024 Billing Provider: JESSIKA HILTON MD Common Visit Codes: [id number] INP/OBS CARE(HIGH) CODY BRANCH RESIDENT Jul 04, 2024 08:58 JESSIKA HILTON MD Jul 04, 2024 21:28
[2024-07-04] MEDS: HYOSCYAMINE SULF 0.125 MG ODT TAB PO PRN (11:15)
[2024-07-04] MEDS: KETOROLAC TROMETH 30 MG/ML 1ML VIAL IV PRN (11:15)
[2024-07-04] MEDS: SIMETHICONE 80 MG CHEWABLE TABLET PO SCH (11:15)
[2024-07-04] MEDS: cefTRIAXone 1GM/50ML D5W 50 ML IV ONE (15:03)
[2024-07-04] MEDS: CLINDAMYCIN 600MG IV 50 ML IV ONE (16:10)
[2024-07-04] MEDS: MORPHINE SULFATE INJ 2 MG/ml SYRG IV SCH (18:04)
[2024-07-04] MEDS: metroNIDAZOLE 500MG/100ML 100 ML IV SCH (22:00)
[2024-07-04] MEDS: CLINDAMYCIN 600MG IV 50 ML IV SCH (22:12)
[2024-07-05] VITALS (8 sets, daily range): BP systolic 115–130; BP diastolic 69–77; PULSE 78–119; RESP 17–19; TEMP 97.9–99.6; O2SAT 97–100
[2024-07-05 06:07] LABS: Red Blood Cells 3.21 10^6/uL (4.0-5.20)
[2024-07-05 06:09] LABS: Hematocrit 25.3 % (36.0-46.0); Hemoglobin 8.1 g/dL (12.2-16.2); Mean Corpuscular Hemoglobin 25.3 pg (28.0-32.0); Mean Corpuscular Hgb Conc. 32.1 g/dL (32.0-36.0); Platelet Count (auto) 358 10^3/uL (140-450); Red Cell Distribution Width 20.2 % (11.8-14.3); White Blood Cell 18.8 10^3/uL (4.4-10.8)
[2024-07-05 06:12] LABS: Anion Gap 9 (5-15); Basophils % (manual) 0 (0.0-2.0); Blast Cells 0; Calcium 10.3 mg/dL (8.7-10.4); Carbon Dioxide 28 mmol/L (20-31); Glucose 101 mg/dL (74-106); Metamyelocytes % 0; Promyelocytes % 0; Reactive Lymphocytes 0
[2024-07-05 06:15] LABS: Alanine Aminotransferase 63 U/L (7-40); Albumin 2.7 g/dL (3.2-4.8); Alkaline Phosphatase 820 U/L (46-116); Aspartate Aminotransferase 144 U/L (13-40); Bilirubin, Total 6.4 mg/dL (0.2-1.0); Blood Urea Nitrogen 8 mg/dL (9-23); Chloride 94 mmol/L (98-107); Sodium 131 mmol/L (136-145); Total Protein 5.4 g/dL (5.7-8.2)
[2024-07-05 08:36] LABS: Band Neutrophils % (manual) 7; Eosinophils % (manual) 2 (0-7); Lymphocytes % (manual) 13 (10.0-50.0); Monocytes % (manual) 7 (0-12); Myelocytes % 1
[2024-07-05 08:38] LABS: Anisocytosis Slight; Platelet Estimate Adequate; Target Cell FEW
[2024-07-05] MEDS: cefTRIAXone 1GM/50ML D5W 50 ML IV SCH (09:20)
[2024-07-05] MEDS: GABAPENTIN 100 MG CAP PO ONE (12:25)
[2024-07-05] MEDS: MORPHINE SULFATE INJ 2 MG/ml SYRG IV SCH (12:28)
[2024-07-05] MEDS: GABAPENTIN 100 MG CAP PO SCH (13:25)
--- NOTE | 2024-07-05 18:46 | DVHPNRES ---
Progress Note Date Seen: Jul 05, 2024 Resident Creating Document: HERNANDEZ MCLEAN RESIDENT Has the PT tested + for MRSA If YES, has PT been informed?: No Medical Necessity Reason Pt with a Central, PICC or Fol: No Subjective Review of Systems Hayde Harding is a 54-year-old female patient who presents to ED with chief complaint of severe, constant , sharp and localized epigastric and right hypochondrial abdominal pain, intensity 8/10 which started initially in March, but and has been progressively getting worse (intensity 8/10), associated with dyspnea and functional class III, jaundice, nausea, vomiting, menorrhagia and constipation of approximately two weeks, prompting her visit to the ED. Patient reports recent admission in [facility] in May for similar symptoms, where she was diagnosed with metastatic cancer of unknown primary origin, undergoing evaluation for staging in histological immunohistochemistry. Denies palpitation, syncope, dyspnea, dysuria, diarrhea, unintentional weight loss, sick contacts and motor or sensory deficits. 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 Denies current tobacco, alcohol and other drug abuse. Allergies: Denies Home medication: Morphine p.r.n. Patient seen and examined at bedside. Continues complaining of abdominal pain, has decreased in intensity, but patient persists NPO, since patient can'y tolerate clear liquid diet. NG tube on aspiration. Optimize pain medication (increase morphine and initiated gabapentin). Currently on empiric IV antibiotic (ceftriaxone, Flagyl and clindamycin). Have discussed with daughter who was not able to go see hospice facilities since they were closed during the weekend. Objective vital signs Vital Sign Date Time Temp Pulse Resp B/P (MAP) Pulse Ox O2 Delivery O2 Flow Rate FiO2 07/05/24 17:41 113 16 124/70 07/05/24 16:41 98.2 99 98.2 07/05/24 08:00 Nasal Cannula* 4 36 Total Intake and Output 07/04/24 07/04/24 07/05/24 15:00 23:00 07:00 Intake Total 450 ml 1390 ml 1650 ml Output Total 975 ml 500 ml Balance 450 ml 415 ml 1150 ml medications Current Medications Medications Dose Ordered Sig/Tanvi Route Start Time Stop Time Status Last Admin Dose Admin Ondansetron HCl 4 mg Q4HP PRN IV 06/25/24 22:15 06/28/24 01:09 4 MG Multivitamins 1 tab DAILY PO 06/26/24 10:00 07/05/24 09:18 1 TAB Nitroglycerin 0.4 mg Q5MINP PRN SL 06/25/24 22:15 Morphine Sulfate 2 mg Q30M PRN IV 06/25/24 22:15 Pantoprazole Sodium 40 mg DAILY IV 06/26/24 10:00 07/05/24 09:20 40 MG Lactated Ringer's 1,000 ml @ 70 mls/hr [id number] IV 06/27/24 22:45 07/05/24 09:20 70 MLS/HR Vancomycin HCl 1000 mg/Dextrose 250 ml @ 250 mls/hr Q8H IV 07/01/24 09:00 Cancel Vancomycin HCl 250 ml @ 250 mls/hr Q8H IV 07/01/24 09:00 Cancel Lactulose 30 ml BID PO 07/03/24 08:45 07/05/24 09:19 30 ML Polyethylene Glycol 17 gm DAILY PO 07/03/24 10:00 07/05/24 09:19 17 GM Dimethicone 40 mg QID PO 07/04/24 12:00 07/05/24 17:24 40 MG Ketorolac Tromethamine 15 mg Q6HPRN PRN IV 07/04/24 10:00 07/09/24 09:59 07/05/24 05:40 15 MG Metronidazole 100 ml @ 100 mls/hr Q8HR IV 07/04/24 22:00 07/05/24 13:33 100 MLS/HR Ceftriaxone Sodium 50 ml @ 100 mls/hr DAILY@09 IV 07/05/24 09:00 07/05/24 09:20 100 MLS/HR Clindamycin Phosphate 50 ml @ 50 mls/hr Q8HR IV 07/04/24 22:00 07/05/24 14:45 50 MLS/HR Morphine Sulfate 2 mg Q6HR IV 07/05/24 12:00 07/05/24 17:24 2 MG Gabapentin 100 mg TID PO 07/05/24 14:00 Examination Patient lying in bed, in mild distress General: Lucid, afebrile, mucosae are moist, jaundice Cardiovascular: Normal S1 and S2. No murmurs, gallops or rubs Respiratory: Normal ventilation mechanics. Clear lung sounds on auscultation Abdomen: Distended, diffuse tenderness on superficial palpation especially in epigastrium and right hypochondrium, hepatomegaly, reduced bowel sounds. Positive Pope's sign. Umbilical hernia MSK/skin: Mobilizes 4 limbs. Skin is dry and warm. Bilateral lower limb extremity edema Neurological: Oriented in 3 spheres. No motor no sensitive deficits. Pupils are isocoric and reactive laboratory and microbiology Laboratory Tests 07/05/24 05:36 Test 07/05/24 05:36 Range/Units Serum Glucose 101 74-106 mg/dL Microbiology Date/Time Source Procedure Growth Status 07/02/24 16:00 Nose MRSA Screen - Final Complete 06/30/24 20:04 Stool Stool Culture - Final Complete 06/30/24 20:04 Stool Shiga Toxin I & II - Final Complete 06/26/24 00:35 Blood Blood Culture - Final NO GROWTH AFTER 5 DAYS OF INCUBATION. Complete 06/25/24 14:55 Voided Urine Urine Culture - Final Complete Problem List/Assessment/Plan Problem List/Assessment/Plan Sepsis probably secondary to cholecystitis with cholelithiasis Completed CT and ultrasound which shows cholelithiasis and cholecystitis. Consulted Interventional Radiology to evaluate percutaneous drainage of gallbladder, recommended HIDA scan which was inconclusive. Interventional Radiology suggest no invasive procedure at this point. Pain could be secondary to hepatic metastasis. Currently under empiric IV antibiotic (ceftriaxone, Flagyl and clindamycin, previously on meropenem and vancomycin) Blood culture currently negative. Persistent hyperlacticacidemia. 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 Optimize pain medication UTI Urine culture evidence polymicrobial growth Completed antibiotic course for UTI. Currently under empiric IV antibiotic for cholecystitis (ceftriaxone, Flagyl and clindamycin) Severe microcytic anemia in context of patient was adenocarcinoma and metrorrhagia Require 2 unit of red blood cells Patient is currently comfort measure. We will not continue blood extraction at this point Coagulopathy Probably secondary to liver metastasis Transaminitis and hyperbilirubinemia Secondary to liver metastasis Patient is currently comfort measure. We will not continue blood extraction at this point Ventral hernia No CT evidence of small-bowel obstruction. Currently has NG tube. Evaluate NPO status Ruled out lower limb DVT Completed lower limb ultrasound with no evidence of DVT Ruled out cute PE Completed angio CT which did not evidence segmental or subsegmental PE. 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 Continue NG tube since is comfortable for patient Goals of care discussed with patient for over 18 minutes: DNR/DNI, we will prior ties comfort measures Discussed case with Dr. Hilton, patient and nurses: Patient continues NPO, with NG tube on suction, optimizing pain management, on empiric IV antibiotic, patient has decided to prioritize comfort measures at this point. Pending hospice placement, awaiting daughter to evaluate which facility is a of her liking. Patient has poor prognosis. Plan discussed with: Patient, Daughter, Other (Nurses) My Orders My Orders Orders - HERNANDEZ MCLEAN RESIDENT Procedure Category Date Status Time Morphine Sulfate PHA 07/05/24 In Process Injection 12:00 Gabapentin Capsule PHA 07/05/24 In Process (Neurontin Capsule) 14:00 Dietary Evaluation Review Comments: 1) Advance pt diet when medically feasible 2) Continue current plan of care Expected Outcomes/Goals: F/U in 3-5 days CC Plasma Assessment Blood Product Administration S: 2116 Date of Service: Jul 05, 2024 Billing Provider: JESSIKA HILTON MD Common Visit Codes: [id number] INP/OBS CARE(HIGH) HERNANDEZ MCLEAN Jul 05, 2024 18:46 JESSIKA HILTON MD Jul 05, 2024 23:15
[2024-07-06] VITALS (8 sets, daily range): BP systolic 104–130; BP diastolic 62–74; PULSE 97–116; RESP 16–19; TEMP 97.6–99.5; O2SAT 97–99
--- NOTE | 2024-07-06 12:09 | DVH ---
Exam: CT CT AB PEL WO CON-NO ORAL OR IV History: abdomen distended Comparison Study: CT CT AB PEL WITH IV CON ONLY on DOS: 06/25/24 Technique: Multidetector spiral CT of the abdomen and pelvis was performed from lung bases to pubic symphysis. Imaging was performed without IV contrast. Axial, coronal and sagittal multiplanar reform ats were obtained from the axial data set by the technologist. Radiation dose : Abdomen/Pelvis: CTDIvol 20 mGy, DLP 1193.17 mGy*cm. Findings: Evaluation of solid organs is limited due to lack of intravenous contrast use. Lung Bases: Small right pleural effusion. Right middle lobe nodule measuring up to 9 mm. Mild atelect asis and consolidation in the lung bases. Liver: Numerous masses throughout the liver, largest measuring up to 73 mm. Gallbladder and biliary Tree: Cholelithiasis noted without secondary findings of cholecystitis or stephanie iary obstruction. Spleen: Unremarkable Pancreas: The pancreas is grossly normal in appearance. Adrenal Glands: Left adrenal nodule measuring up to 16 mm. Kidneys: Kidneys are grossly normal without calculi or hydronephrosis. Bladder: Bladder is decompressed with a Delong catheter and cannot be adequately assessed. Bowel: Nasogastric tube in the stomach. Small bowel and colon are normal in caliber and distribution. Normal appendix is visualized in the right lower quadrant without findings of appendicitis. Ascites: Small amount of abdominal and pelvic ascites. Lymphadenopathy: Suspect periportal and gastrohepatic lymphadenopathy. Abdominal wall and Mesentery: Fat and bowel containing ventral hernia Vasculature: The visualized abdominal aorta is normal in size and caliber. Evaluation of abdominal a nd pelvic vessels is limited due to lack of intravenous contrast. Pelvic Organs: Uterus is enlarged and heterogeneous, suspect fibroids. Musculoskeletal: No aggressive focal bony lesions, acute fractures or dislocation. IMPRESSION: 1. Limited without intravenous contrast. Hepatomegaly with numerous masses in the liver suggesting me tastatic disease. Suspect periportal and gastrohepatic lymphadenopathy. This could be further evaluat ed with multi phase contrast-enhanced CT or MRI of the abdomen. 2. Small amount of abdominal and pelvic ascites. Fat and bowel containing ventral hernia. Cholelithia sis. Left adrenal nodule measuring up to 16 mm. 3. Enlarged and heterogeneous uterus suggesting fibroids. This can be further evaluated with pelvic u ltrasound or MRI of the pelvis with contrast. 4. Small right pleural effusion. Right middle lobe nodule could be metastatic. Correlate with recent CT angio of the chest. Radiation optimization: All CT scans at this facility use at least one of these dose optimization juan f hniques: Automated exposure control mA and/or kV adjustment per patient size (includes targeted exams where dose is matched to clinical indication) or iterative reconstruction. HS:Y
--- NOTE | 2024-07-06 14:15 | DVHDSRES ---
Discharge Summary Date of Admission Resident Creating Document: CODY BRANCH RESIDENT Jun 25, 2024 at 22:06 Date of Discharge: Jul 01, 2024 Admitting Diagnosis acute cholecystitis Labs/Diagnostic Data: Laboratory Results Test 07/05/24 05:36 07/03/24 05:22 07/02/24 16:29 07/02/24 05:55 White Blood Count 18.8 10^3/uL (4.4-10.8) Red Blood Count 3.21 10^6/uL (4.0-5.20) Hemoglobin 8.1 g/dL (12.2-16.2) Hematocrit 25.3 % (36.0-46.0) Mean Corpuscular Volume 79.0 fL (80.0-100.0) Mean Corpuscular Hemoglobin 25.3 pg (28.0-32.0) Mean Corpuscular Hemoglobin Concent 32.1 g/dL (32.0-36.0) Red Cell Distribution Width 20.2 % (11.8-14.3) Platelet Count 358 10^3/uL (140-450) Mean Platelet Volume 6.6 fL (6.9-10.8) Neutrophils (%) (Auto) % (37.0-80.0) Lymphocytes (%) (Auto) % (10.0-50.0) Monocytes (%) (Auto) % (0.0-12.0) Basophils (%) (Auto) % (0.0-2.0) Neutrophils # (Auto) 10 ^3/uL (1.6-8.6) Lymphocytes # (Auto) 10 ^3/uL (0.4-5.4) Monocytes # (Auto) 10 ^3/uL (0-1.3) Differential Total Cells Counted 100.0 (100) Neutrophils % (Manual) 70 (37.0-80.0) Band Neutrophils % (Manual) 7 Lymphocytes % (Manual) 13 (10.0-50.0) Monocytes % (Manual) 7 (0-12) Eosinophils % (Manual) 2 (0-7) Basophils % (Manual) 0 (0.0-2.0) Metamyelocytes % (manual) 0 Myelocytes % (Manual) 1 Promyelocytes % (Manual) 0 Blast Cells % (Manual) 0 Reactive Lymphocytes 0 Platelet Estimate Adequate Anisocytosis (manual) Slight Microcytosis Slight Target Cells Few Sodium Level 131 mmol/L (136-145) Potassium Level 4.0 mmol/L (3.5-5.1) Chloride Level 94 mmol/L (98-107) Carbon Dioxide Level 28 mmol/L (20-31) Anion Gap 9 (5-15) Blood Urea Nitrogen 8 mg/dL (9-23) Creatinine 0.20 mg/dL (0.550-1.02) Glomerular Filtration Rate Calc 139 mL/min (>90) BUN/Creatinine Ratio 40.0 (10.0-20.0) Serum Glucose 101 mg/dL (74-106) Calcium Level 10.3 mg/dL (8.7-10.4) Total Bilirubin 6.4 mg/dL (0.2-1.0) Aspartate Amino Transferase (AST) 144 U/L (13-40) Alanine Aminotransferase (ALT) 63 U/L (7-40) Alkaline Phosphatase 820 U/L (46-116) Total Protein 5.4 g/dL (5.7-8.2) Albumin 2.7 g/dL (3.2-4.8) Hypochromasia (manual) Slight Vancomycin Level Trough 16.3 ug/mL (5-10) Poikilocytosis (manual) Slight Test 06/30/24 20:04 06/29/24 05:39 06/28/24 05:47 06/27/24 09:14 Stool Occult Blood Negative (Negative) Stool Occult Blood Sample #3 (Negative) Eosinophils (%) (Auto) 1.7 % (0.0-7.0) Eosinophils # (Auto) 0.3 10 ^3/uL (0-0.8) Basophils # (Auto) 0 10 ^3/uL (0-0.2) Nucleated Red Blood Cells 0.1 % Gamma Glutamyl Transpeptidase 813 U/L (<38) Lipase 81 U/L (12-53) Stomatocytes Few Lactic Acid Level 3.9 mmol/L (0.4-2.0) Phosphorus Level 2.4 mg/dL (2.4-5.1) Magnesium Level 1.9 mg/dL (1.6-2.6) Haptoglobin 209 mg/dL (33-346) Prothrombin Time 16.9 sec (9.3-11.8) Prothrombin Time INR 1.65 (0.9-1.15) Activated Partial Thromboplast Time 44.6 SEC (24.5-34.5) Fibrinogen 484 mg/dL (177-375) Test 06/27/24 06:18 06/26/24 07:18 06/26/24 06:49 06/25/24 17:08 Hemoglobin A1c 5.0 % A1C (<5.7) Triglycerides Level 199 mg/dL (< 150) Cholesterol Level 476 mg/dL (< 200) LDL Cholesterol 458 mg/dL (< 100) HDL Cholesterol 8 mg/dL (40-59) Vitamin D 25-Hydroxy 11.8 ng/mL (30.0-100) Thyroid Stimulating Hormone (TSH) 2.11 uIU/mL (0.55-4.78) Hepatitis A IgM Antibody Negative Hepatitis B Surface Antigen Negative (Negative) Hepatitis B Core IgM Antibody Negative Hepatitis C Antibody Negative (Negative) Tumor Marker Alpha Fetoprotein 87.4 ng/mL (0.0-9.2) Iron Level 106 ug/dL (50-170) Total Iron Binding Capacity 114 ug/dL (250-425) Percent Iron Saturation 93.0 % (15-50) Ferritin 2577.8 ng/mL (10-291) Vitamin B12 Level > 4000 pg/mL (211-911) Folic Acid 3.22 ng/mL (>5.38) Troponin I High Sensitivity < 3 ng/L (</=34) Test 06/25/24 14:55 06/25/24 13:50 Urine Color Dark-yellow (Yellow) Urine Clarity Turbid (Clear) Urine pH 6.0 (5.0-9.0) Urine Specific [place] 1.027 (1.001-1.035) Urine Protein 1+ (Negative) Urine Ketones 4+ (Negative) Urine Blood 3+ /uL (Negative) Urine Nitrite Negative (Negative) Urine Bilirubin 2+ (Negative) Urine Urobilinogen Over mg/dL (Negative) Urine Leukocyte Esterase Trace /uL (Negative) Urine RBC 208 /hpf (0 - 4) Urine WBC 17 /hpf (0 - 5) Urine Squamous Epithelial Cells Few /hpf (<5) Urine Bacteria Few /hpf (None Seen) Urine Mucus Few (None Seen) Urine Yeast (Budding) Occasional /hpf (None Urine Glucose Normal mg/dL (Normal) B-Type Natriuretic Peptide 73.44 pg/mL (0-100) Other Laboratory Tests 07/05/24 05:36 Brief Hx & Hospital Course: A 54-year-old female with 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 Hospitalization was notable for acute cholecystitis treated with IV antibiotics, first on vancomycin, meropenem, later on ceftriaxone, clindamycin and metronidazole, and NG tube placement for decompression. Despite optimization of pain control and sepsis management, surgical intervention was deemed high-risk due to the patients advanced cancer and poor overall prognosis. Also possibility of cholecystostomy was considered but due to risk of billium peritoneum, was not performed. Patient also needed 2 units of RBC during her admission due to anemia hb less than 7g/dl Also an ECHO in this admission showed pulmonary HTN and right ventricular strain, later on Angio CT ruled out PE, these echo findings can be explained due to lung mets Patient will be discharge to SNF to continue IV AB due to sepsis with acute cholecystitis Case was extensively discussed with the daughter and the patient Respiratory: Clear to auscultation, Normal air movement Cardiovascular: Regular rate, Normal S1, Normal S2 Abdominal: more distended , ventral hernia. muprhy +, Extremities: Pedal edema, No cyanosis, Normal pulses, No tenderness/swelling Skin: No rashes, No breakdown Case discussed with Dr Tracey Consults/Reason for consult interventional radiology: due to cholecystitis drainage Operations or Procedures Exam: CT CT AB PEL WITH IV CON ONLY History: abdominal pain Comparison Study: None available TECHNIQUE: A digital marine electrician apprentice image was obtained. During the uneventful, intravenous administration of contrast material, multislice data acquisition was obtained through the abdomen and pelvis. The data set was subsequently reconstructed into axial images. Images reviewed on a wrist examination is an examination of axial and multiplanar reformations using a variety of window levels and settings. RADIATION DOSE: DLP 1229.18 mGy.cm; CTDI vol 22.96 mGy. Findings: Lungs: Bibasilar pulmonary nodules, measuring up to 1.0 cm in inferior right upper lobe. Heart: The visualized heart is unremarkable. No cardiomegaly or pericardial effusion. Liver: Numerous hypoattenuating lesions throughout the liver. Gallbladder: Cholelithiasis without evidence of acute cholecystitis. Spleen: Unremarkable Pancreas: Unremarkable Adrenals: Unremarkable Kidneys: Unremarkable GI tract: Unremarkable : Enlarged, lobular uterus with multiple lesion throughout. Vasculature: Unremarkable Lymphadenopathy: Absent Peritoneum: Mild volume ascites. Musculoskeletal: 1.9 cm sclerotic lesion in the right acetabulum. Soft tissues: Moderate to large periumbilical hernia containing a loop of small bowel Impression: 1. Multiple pulmonary nodules, numerous hepatic lesions, an enlarged, lobulated uterus and a sclerotic lesion in the right acetabulum are concerning for metastatic disease. Recommend PET/CT, dedicated CT chest, and contrast enhanced MRI of the abdomen and pelvis for further evaluation. 2. Other non-acute, ancillary findings as described above. INDICATION: Metastatis of liver carcinoma look for obstruction TECHNIQUE: Multiple real-time sonographic images of the abdomen were obtained. COMPARISON: CT scan of the abdomen pelvis performed on 06/25/2024. FINDINGS: The liver is heterogeneous in echotexture with multiple masses. The liver measures 19.6 cm. No intrahepatic biliary ductal dilatation is noted. Gallstones. There is pericholecystic free fluid. The gallbladder wall is thickened measuring 1.2 cm. The common duct measures 0.8 cm and is unremarkable. Positive sonographic Pope's sign. The right kidney measures 10.9 cm. No hydronephrosis. The pancreas is not well visualized due to obscuration from bowel gas. The visualized portions of the IVC and aorta are grossly unremarkable. IMPRESSION: 1. Gallstones, pericholecystic free fluid and gallbladder wall thickening. Positive sonographic pope's sign. Findings concerning for acute cholecystitis in the appropriate clinical setting. 2. Hepatomegaly and multiple hepatic masses worrisome for metastatic lesions. No intrahepatic biliary ductal dilatation. EXAM: Two-dimensional and M-mode echocardiogram with Doppler and color Doppler. Blood Pressure: 161/90 mmHg INDICATION Rule out CHF RISK FACTORS Height: 5'3", Weight: 178 DIMENSIONS LVDd 4.5 (3.8-5.7cm) LA (2D) 4.1 (1.9-4.0cm) Aortic Root 2.9 (2.0- 3.7cm) LVDs 3.0 (2.5-4.0cm) LA (MM) (1.9-4.0cm) Aortic Cusp Exc 2.0 (1.5- 2.0cm) EF (%) 60.0 (55-70%) Rt. Atrium 3.3 (1.9-4.0cm) Asc. Aorta cm IVSd 1.0 (0.7-1.1cm) RV (D) (1.8-2.4cm) PWd 1.0 (0.7-1.1cm) Mitral Valve Mitral Mitral Stenosis E wave 0.82m/s MV Mean GR. mmHg A wave 0.95m/s MV Peak GR. mmHg E/A ratio 0.9 2D MVA cm2 DECEL Time 191ms PRESS 1/2 Time ms Aortic Valve Aortic Valve Aortic Stenosis V1 1.30m/s AO Mean GR. 7mmHg V2 2.03m/s AO Peak GR. 17mmHg LVOT Diameter 1.9 (1.8-2.4cm) Doppler MAICOL 1.81cm2 Pulmonic Valve V2 1.51m/s Tricuspid Valve TR Velocity 3.53m/s RVSP 53mmHg Conclusion 1. MODERATELY DILATED RIGHT VENTRICLE AND RIGHT ATRIUM BUT NORMAL FUNCTION 2. DYSKINESIS OF IVS 3. RVSP IS 53 MM OF HG AND IS MODERATELY HIGH 4.STUDY CONFIRMS RIGHT VENTRICULAR SEVERE STRAIN /FAILURE WITH MODERATE DEGREE PULMONARY HYPERTENSION 5. GRASSLY NORMAL VALVES 6. NO EFFUSION 7. MILD LVH AND MILD LV DIASTOLIC DYSFUNCTION 8. NORMAL LV EJECTION FRACTION OF 65% Condition at Discharge: Stable Final Diagnosis/Problems List #Right Ventricular Severe Strain /Failure With Moderate Degree Pulmonary Hypertension #PE ruled out #Acute respiratory failure due to sepsis/ lung mets #Lung mets #Sepsis due to acute cholecystitis? 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, pancreatic or upper GI unknown primary: liver and lung mets #ventral hernia: loop of small bowel on it , no transition point #ruled out SBO #hyperbilirubinemia due to cholecystitis and liver mets #severe malnutrition based on low total protein and albumin likely secondary to advanced cancer and hepatic failure #Constipation #UTI #metastasic AdenoCa unknown primary: liver and lung mets #Anemia of chronic disease due to sepsis, adenoCA Discharge Disposition: Hospice- Medical Facility Discharge Instruct/Medications Diet: See Comment Diet comment: liquid diet Activity: Light activity Follow Up/Referral: per hospice Medications: per hospice Discharge Statement: "Patient was advised to return to the ER or call 911 if any headaches, dizziness, shortness of breath, chest pain, abdominal pain, bleeding, fevers, or worsening of medical condition. Patient was counseled about treatment plan, medications, possible side effects, patientverbalized understanding. All questions were answered to the best of my ability. This discharge took greater then 30 minutes in planning, reviewing documentation, counseling the patient, and discussing with other team members." ASSESSMENT ASSESSMENT Assessment lung and liver mets unkown primary sepsis due to cholecystitis Date of Service: Jul 10, 2024 Billing Provider: KACEY TRACEY MD Common Visit Codes: 16392-CET/OBS DISCH DAY >30min CODY BRANCH RESIDENT Jul 06, 2024 14:15 KACEY TRACEY MD Jul 11, 2024 18:12
[2024-07-06] MEDS ORDERED: GABAPENTIN 300 MG CAP PO SCH (23:00)
[2024-07-07] VITALS (7 sets, daily range): BP systolic 104–124; BP diastolic 59–75; PULSE 65–114; RESP 18–19; TEMP 97.9–98.8; O2SAT 95–100
[2024-07-07] MEDS: metroNIDAZOLE 500MG/100ML 100 ML IV SCH (00:52)
[2024-07-07] MEDS ORDERED: GABAPENTIN 100 MG CAP PO SCH (01:00)
[2024-07-07] MEDS: GABAPENTIN 300 MG CAP PO SCH ×2 (02:07→13:43)
--- NOTE | 2024-07-07 12:59 | DVHPNRES ---
Progress Note Date Seen: Jul 07, 2024 Resident Creating Document: CODY BRANCH RESIDENT Has the PT tested + for MRSA If YES, has PT been informed?: No Medical Necessity Reason Pt with a Central, PICC or Fol: No Subjective Review of Systems 54-year-old female patient with past medical history of lung and liver masses associated with metastatic cancer. She presents to the emergency department with complaints of severe epigastric pain and chest pain which she has been experiencing for the last 10 days, also jaundice. The pain is described as sharp and localized in the epigastrium and rated as 10/10 intensity. Is associated with nausea vomiting and constipation as the patient has not had bowel movement for the last 10 days. Her history of cancer includes metastatic disease to liver and lungs which was diagnosed after series of imaging studies including CT scan, PET scan and liver biopsy at [facility]. Her symptoms of epigastric and chest pain has been present since late March with no significant improvement despite conservative management. The pain was temporarily alleviated with morphine. The patient was recently admitted to [facility] in June 01 for management of her abdominal pain on the right side beneath the breasts. After 2 week stay she was discharged on June 14 during her hospitalization with diagnosis of gastrointestinal cancer was made, with further investigation revealing the pulmonary and hepatic metastasis. Recent abdominal CT scan showed Multiple pulmonary nodules, numerous hepatic lesions, an enlarged, lobulated uterus and a sclerotic lesion in the right acetabulum are concerning for metastatic disease. On the day of admission the patient's symptoms have worsened with increased pain and more severe gastrointestinal symptoms. She denies any history of alcohol use smoking or recreational drugs med has been using morphine and oxycodone for pain management at home. Her family history includes type 2 diabetes, congestive heart failure and multiple myeloma and pancreatic cancer . On examination the patient has signs of sepsis her vital signs show a respiratory rate of 32 breaths per minute, heart rate of 98 beats per minute and recent lactic acid at 3.3. Her albumin level is low at 2.8 which suggest malnutrition or hepatic dysfunction. Consistent with her advanced cancer urinalysis revealed hematuria which may indicate a secondary issue such as a urinary tract infection or possible complication from metastatic disease. Objective vital signs Vital Sign Date Time Temp Pulse Resp B/P (MAP) Pulse Ox O2 Delivery O2 Flow Rate FiO2 07/07/24 09:00 98.8 112 18 113/73 (86) 98 98.8 07/06/24 20:00 Nasal Cannula* 2 28 Total Intake and Output 07/06/24 07/06/24 07/07/24 15:00 23:00 07:00 Intake Total 200 ml 800 ml 1200 ml Output Total 850 ml 875 ml Balance 200 ml -50 ml 325 ml medications Current Medications Medications Dose Ordered Sig/Tanvi Route Start Time Stop Time Status Last Admin Dose Admin Ondansetron HCl 4 mg Q4HP PRN IV 06/25/24 22:15 06/28/24 01:09 4 MG Multivitamins 1 tab DAILY PO 06/26/24 10:00 07/07/24 09:59 1 TAB Nitroglycerin 0.4 mg Q5MINP PRN SL 06/25/24 22:15 Morphine Sulfate 2 mg Q30M PRN IV 06/25/24 22:15 Pantoprazole Sodium 40 mg DAILY IV 06/26/24 10:00 07/07/24 09:47 40 MG Lactated Ringer's 1,000 ml @ 70 mls/hr [id number] IV 06/27/24 22:45 07/06/24 09:13 70 MLS/HR Vancomycin HCl 1000 mg/Dextrose 250 ml @ 250 mls/hr Q8H IV 07/01/24 09:00 Cancel Vancomycin HCl 250 ml @ 250 mls/hr Q8H IV 07/01/24 09:00 Cancel Lactulose 30 ml BID PO 07/03/24 08:45 07/07/24 09:48 30 ML Polyethylene Glycol 17 gm DAILY PO 07/03/24 10:00 07/07/24 09:53 17 GM Dimethicone 40 mg QID PO 07/04/24 12:00 07/07/24 10:08 40 MG Ketorolac Tromethamine 15 mg Q6HPRN PRN IV 07/04/24 10:00 07/09/24 09:59 07/05/24 05:40 15 MG Ceftriaxone Sodium 50 ml @ 100 mls/hr DAILY@09 IV 07/05/24 09:00 07/07/24 11:40 100 MLS/HR Clindamycin Phosphate 50 ml @ 50 mls/hr Q8HR IV 07/04/24 22:00 07/07/24 05:59 50 MLS/HR Morphine Sulfate 2 mg Q6HR IV 07/05/24 12:00 07/07/24 06:07 2 MG Metronidazole 100 ml @ 100 mls/hr Q8H IV 07/07/24 01:00 07/07/24 09:47 100 MLS/HR Gabapentin 300 mg TID PO 07/07/24 12:15 Examination Respiratory: Clear to auscultation, Normal air movement Cardiovascular: Regular rate, Normal S1, Normal S2 Abdominal: more distended , ventral hernia. muprhy +, Extremities: Pedal edema, No cyanosis, Normal pulses, No tenderness/swelling Skin: No rashes, No breakdown laboratory and microbiology Laboratory Tests 07/05/24 05:36 Test 07/05/24 05:36 Range/Units Serum Glucose 101 74-106 mg/dL Microbiology Date/Time Source Procedure Growth Status 07/02/24 16:00 Nose MRSA Screen - Final Complete 06/30/24 20:04 Stool Stool Culture - Final Complete 06/30/24 20:04 Stool Shiga Toxin I & II - Final Complete 06/26/24 00:35 Blood Blood Culture - Final NO GROWTH AFTER 5 DAYS OF INCUBATION. Complete 06/25/24 14:55 Voided Urine Urine Culture - Final Complete Problem List/Assessment/Plan Problem List/Assessment/Plan Neurologic Pt is talking, AOX4 Cardiovascular #Right Ventricular Severe Strain /Failure With Moderate Degree Pulmonary Hypertension CT scan today ruled out PE massive or segmental, even do the probability of subsegmental still exist. Pt is not a candidate for anticoagulation Respiratory #Acute respiratory failure due to sepsis/ lung mets Pt is on O2 2LT #Lung mets GI #Sepsis due to acute cholecystitis? 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 Decision was explain to the patient, she understood. NG tube Advance diet Pt is on ceftriaxone, clindamycin and metronidazole IV Blood cultures negative Urine culture: mixed bessy bowel series no SBO #UTI resolved urine culture mixed bessy Delong placed for strict I&Os Heme/onc #metastasic AdenoCa unknown primary: liver and lung mets #Anemia of chronic disease due to sepsis, adenoCA hb 6.9 2RBC already given Due to right heart failure, sepsis, unconclusive HIDA scan and inability to do surgeries or further procedures due to high risk of complications and poor prognosis due to metastasic cancer, only IV AB can be offered, patient will be sent to SNF to continue AB for 2 weeks more. Case discussed with Dr. Tracey Goals of care discussed with the patient for 44 minutes, she stated full code Goals of care: Full code Time spent on care 33 min Plan discussed with: Patient, Other My Orders My Orders Orders - CODY BRANCH RESIDENT Procedure Category Date Status Time Discharge DISCHARGE 07/06/24 Transmitted 12:58 Gabapentin Capsule PHA 07/07/24 In Process (Neurontin Capsule) 12:15 Dietary Evaluation Review Comments: 1) Advance pt diet when medically feasible 2) Continue current plan of care Expected Outcomes/Goals: F/U in 3-5 days CC Plasma Assessment Blood Product Administration S: [id number] Date of Service: Jul 07, 2024 Billing Provider: KACEY TRACEY MD Common Visit Codes: [id number] INP/OBS CARE(HIGH) CODY BRANCH RESIDENT Jul 07, 2024 12:59 KACEY TRACEY MD Jul 11, 2024 18:38
[2024-07-08] VITALS (8 sets, daily range): BP systolic 94–117; BP diastolic 56–73; PULSE 88–110; RESP 17–18; TEMP 97.4–99; O2SAT 96–100
[2024-07-08] MEDS: MORPHINE SULFATE INJ 2 MG/ml SYRG IV SCH (04:23)
[2024-07-08 05:53] LABS: White Blood Cell 21.6 10^3/uL (4.4-10.8)
[2024-07-08 05:54] LABS: Hematocrit 21.9 % (36.0-46.0); Hemoglobin 7.3 g/dL (12.2-16.2); Mean Corpuscular Hgb Conc. 33.2 g/dL (32.0-36.0); Mean Corpuscular Volume 81.3 fL (80.0-100.0); Platelet Count (auto) 504 10^3/uL (140-450)
[2024-07-08 06:10] LABS: Anion Gap 8 (5-15); BUN/Creatinine Ratio 21.9 (10.0-20.0); Calcium 9.9 mg/dL (8.7-10.4); Carbon Dioxide 30 mmol/L (20-31); Glucose 87 mg/dL (74-106); Red Cell Distribution Width 20.4 % (11.8-14.3)
[2024-07-08 06:11] LABS: Basophils % (manual) 0 (0.0-2.0); Blast Cells 0; Metamyelocytes % 0; Myelocytes % 0; Promyelocytes % 0; Reactive Lymphocytes 0
[2024-07-08 06:44] LABS: Potassium 3.4 mmol/L (3.5-5.1); Sodium 131 mmol/L (136-145)
[2024-07-08 06:45] LABS: Alanine Aminotransferase 56 U/L (7-40); Albumin 2.7 g/dL (3.2-4.8); Alkaline Phosphatase 622 U/L (46-116); Aspartate Aminotransferase 94 U/L (13-40); Bilirubin, Total 6.3 mg/dL (0.2-1.0); Blood Urea Nitrogen 7 mg/dL (9-23); Chloride 93 mmol/L (98-107); Total Protein 5.4 g/dL (5.7-8.2)
[2024-07-08 08:03] LABS: Band Neutrophils % (manual) 2; Eosinophils % (manual) 2 (0-7); Lymphocytes % (manual) 28 (10.0-50.0); Monocytes % (manual) 3 (0-12)
[2024-07-08 08:04] LABS: Anisocytosis Slight; Platelet Estimate Increased
--- NOTE | 2024-07-08 16:05 | DVHPNRES ---
Progress Note Date Seen: Jul 08, 2024 Resident Creating Document: CODY BRANCH RESIDENT Has the PT tested + for MRSA If YES, has PT been informed?: No Medical Necessity Reason Pt with a Central, PICC or Fol: No Subjective Review of Systems 54-year-old female patient with past medical history of lung and liver masses associated with metastatic cancer. She presents to the emergency department with complaints of severe epigastric pain and chest pain which she has been experiencing for the last 10 days, also jaundice. The pain is described as sharp and localized in the epigastrium and rated as 10/10 intensity. Is associated with nausea vomiting and constipation as the patient has not had bowel movement for the last 10 days. 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 Her symptoms of epigastric and chest pain has been present since late March with no significant improvement despite conservative management. The pain was temporarily alleviated with morphine. The patient was recently admitted to [facility] in June 01 for management of her abdominal pain on the right side beneath the breasts. After 2 week stay she was discharged on June 14 during her hospitalization with diagnosis of gastrointestinal cancer was made, with further investigation revealing the pulmonary and hepatic metastasis. Recent abdominal CT scan showed Multiple pulmonary nodules, numerous hepatic lesions, an enlarged, lobulated uterus and a sclerotic lesion in the right acetabulum are concerning for metastatic disease. On the day of admission the patient's symptoms have worsened with increased pain and more severe gastrointestinal symptoms. She denies any history of alcohol use smoking or recreational drugs med has been using morphine and oxycodone for pain management at home. Her family history includes type 2 diabetes, congestive heart failure and multiple myeloma and pancreatic cancer . On examination the patient has signs of sepsis her vital signs show a respiratory rate of 32 breaths per minute, heart rate of 98 beats per minute and recent lactic acid at 3.3. Her albumin level is low at 2.8 which suggest malnutrition or hepatic dysfunction. Consistent with her advanced cancer urinalysis revealed hematuria which may indicate a secondary issue such as a urinary tract infection or possible complication from metastatic disease. Objective vital signs Vital Sign Date Time Temp Pulse Resp B/P (MAP) Pulse Ox O2 Delivery O2 Flow Rate FiO2 07/08/24 13:00 98.1 110 18 94/73 (80) 99 98.1 07/07/24 20:00 Nasal Cannula* 2 28 Total Intake and Output 07/07/24 07/07/24 07/08/24 15:00 23:00 07:00 Intake Total 200 ml 700 ml 800 ml Output Total 1200 ml Balance 200 ml 700 ml -400 ml medications Current Medications Medications Dose Ordered Sig/Tanvi Route Start Time Stop Time Status Last Admin Dose Admin Ondansetron HCl 4 mg Q4HP PRN IV 06/25/24 22:15 06/28/24 01:09 4 MG Multivitamins 1 tab DAILY PO 06/26/24 10:00 07/08/24 09:49 1 TAB Nitroglycerin 0.4 mg Q5MINP PRN SL 06/25/24 22:15 Morphine Sulfate 2 mg Q30M PRN IV 06/25/24 22:15 Pantoprazole Sodium 40 mg DAILY IV 06/26/24 10:00 07/08/24 09:49 40 MG Lactated Ringer's 1,000 ml @ 70 mls/hr [id number] IV 06/27/24 22:45 07/08/24 11:09 70 MLS/HR Vancomycin HCl 1000 mg/Dextrose 250 ml @ 250 mls/hr Q8H IV 07/01/24 09:00 Cancel Vancomycin HCl 250 ml @ 250 mls/hr Q8H IV 07/01/24 09:00 Cancel Lactulose 30 ml BID PO 07/03/24 08:45 07/07/24 21:28 30 ML Polyethylene Glycol 17 gm DAILY PO 07/03/24 10:00 07/07/24 09:53 17 GM Dimethicone 40 mg QID PO 07/04/24 12:00 07/08/24 11:39 40 MG Ketorolac Tromethamine 15 mg Q6HPRN PRN IV 07/04/24 10:00 07/09/24 09:59 07/05/24 05:40 15 MG Ceftriaxone Sodium 50 ml @ 100 mls/hr DAILY@09 IV 07/05/24 09:00 07/08/24 09:49 100 MLS/HR Clindamycin Phosphate 50 ml @ 50 mls/hr Q8HR IV 07/04/24 22:00 07/08/24 14:39 50 MLS/HR Metronidazole 100 ml @ 100 mls/hr Q8H IV 07/07/24 01:00 07/08/24 09:49 100 MLS/HR Gabapentin 300 mg TID PO 07/07/24 12:15 07/08/24 14:39 300 MG Morphine Sulfate 2 mg Q6H IV 07/08/24 04:30 07/08/24 11:40 2 MG Examination Respiratory: Clear to auscultation, Normal air movement Cardiovascular: Regular rate, Normal S1, Normal S2 Abdominal: more distended , ventral hernia. muprhy +, Extremities: Pedal edema, No cyanosis, Normal pulses, No tenderness/swelling Skin: No rashes, No breakdown laboratory and microbiology Laboratory Tests 07/08/24 05:33 Test 07/08/24 05:33 Range/Units Serum Glucose 87 74-106 mg/dL Microbiology Date/Time Source Procedure Growth Status 07/02/24 16:00 Nose MRSA Screen - Final Complete 06/30/24 20:04 Stool Stool Culture - Final Complete 06/30/24 20:04 Stool Shiga Toxin I & II - Final Complete 06/26/24 00:35 Blood Blood Culture - Final NO GROWTH AFTER 5 DAYS OF INCUBATION. Complete 06/25/24 14:55 Voided Urine Urine Culture - Final Complete Problem List/Assessment/Plan Problem List/Assessment/Plan Neurologic Pt is talking, AOX4 Cardiovascular #Right Ventricular Severe Strain /Failure With Moderate Degree Pulmonary Hypertension CT scan today ruled out PE massive or segmental, even do the probability of subsegmental still exist. Pt is not a candidate for anticoagulation Respiratory #Acute respiratory failure due to sepsis/ lung mets Pt is on O2 2LT #Lung mets GI #Sepsis due to acute cholecystitis? 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 Decision was explain to the patient, she understood. DC NG tube Advance diet Pt is on ceftriaxone, clindamycin and metronidazole IV Blood cultures negative Urine culture: mixed bessy bowel series no SBO #UTI resolved urine culture mixed bessy Edlong placed for strict I&Os Heme/onc #metastasic AdenoCa unknown primary: liver and lung mets #Anemia of chronic disease due to sepsis, adenoCA hb 6.9 2RBC already given Due to right heart failure, sepsis, unconclusive HIDA scan and inability to do surgeries or further procedures due to high risk of complications and poor prognosis due to metastasic cancer, only IV AB can be offered, patient will be sent to SNF to continue AB for 2 weeks more. Case discussed with Dr. Tracey Goals of care discussed with the patient for 44 minutes, she stated full code Goals of care: Full code Time spent on care 33 min Plan discussed with: Patient, Other (rn) My Orders My Orders Orders - CODY BRANCH RESIDENT Procedure Category Date Status Time Insert Midline ORDERS 07/08/24 Transmitted 06:33 * Wound Consult CONS 07/08/24 Transmitted Discontinue Tele THEO 07/08/24 In Process 10:15 * Napping Machine Operator CONS 07/08/24 Transmitted Consult 14:30 Dietary Evaluation Review Comments: 1) Advance pt diet when medically feasible 2) Continue current plan of care Expected Outcomes/Goals: F/U in 3-5 days CC Plasma Assessment Blood Product Administration S: 2116 Date of Service: Jul 08, 2024 Billing Provider: KACEY TRACEY MD Common Visit Codes: [id number] INP/OBS CARE(HIGH) CODY BRANCH RESIDENT Jul 08, 2024 16:05 KACEY TRACEY MD Jul 11, 2024 18:38
[2024-07-08] MEDS: POTASSIUM CHL 20MEQ/100ML 100 ML IV SCH (19:44)
[2024-07-09] VITALS (8 sets, daily range): BP systolic 93–114; BP diastolic 56–76; PULSE 87–114; RESP 16–19; TEMP 97.9–99.4; O2SAT 16–100
[2024-07-09 09:09] LABS: Hemoglobin 7.3 g/dL (12.2-16.2)
[2024-07-09 09:11] LABS: Hematocrit 22.8 % (36.0-46.0); Mean Corpuscular Hgb Conc. 32.1 g/dL (32.0-36.0); Mean Corpuscular Volume 81.2 fL (80.0-100.0); Platelet Count (auto) 549 10^3/uL (140-450); Red Blood Cells 2.81 10^6/uL (4.0-5.20); White Blood Cell 23.7 10^3/uL (4.4-10.8)
[2024-07-09 09:12] LABS: Red Cell Distribution Width 20.5 % (11.8-14.3)
[2024-07-09 09:13] LABS: Basophils % (manual) 0 (0.0-2.0); Blast Cells 0; Eosinophils % (manual) 0 (0-7); Metamyelocytes % 0; Myelocytes % 0; Promyelocytes % 0; Reactive Lymphocytes 0
[2024-07-09 09:18] LABS: Anion Gap 5 (5-15); BUN/Creatinine Ratio 19.4 (10.0-20.0); Calcium 10.4 mg/dL (8.7-10.4); Carbon Dioxide 31 mmol/L (20-31); Glucose 88 mg/dL (74-106); Potassium 4.1 mmol/L (3.5-5.1)
[2024-07-09 09:19] LABS: Alanine Aminotransferase 64 U/L (7-40); Albumin 2.8 g/dL (3.2-4.8); Alkaline Phosphatase 635 U/L (46-116); Aspartate Aminotransferase 142 U/L (13-40); Bilirubin, Total 6.6 mg/dL (0.2-1.0); Blood Urea Nitrogen 6 mg/dL (9-23); Chloride 92 mmol/L (98-107); Magnesium 1.5 mg/dL (1.6-2.6); Sodium 128 mmol/L (136-145); Total Protein 5.5 g/dL (5.7-8.2)
[2024-07-09 09:27] LABS: Band Neutrophils % (manual) 5; Lymphocytes % (manual) 6 (10.0-50.0); Monocytes % (manual) 7 (0-12)
[2024-07-09 09:28] LABS: Anisocytosis Slight; Hypochromia Slight; Platelet Estimate Increased; Tear Drop Cells FEW
[2024-07-09 09:29] LABS: Stomatocytes Few
--- NOTE | 2024-07-09 10:36 | DVHPNRES ---
Progress Note Date Seen: Jul 09, 2024 Resident Creating Document: CODY BRANCH RESIDENT Has the PT tested + for MRSA If YES, has PT been informed?: No Medical Necessity Reason Pt with a Central, PICC or Fol: No Subjective Review of Systems 54-year-old female patient with past medical history of lung and liver masses associated with metastatic cancer. She presents to the emergency department with complaints of severe epigastric pain and chest pain which she has been experiencing for the last 10 days, also jaundice. The pain is described as sharp and localized in the epigastrium and rated as 10/10 intensity. Is associated with nausea vomiting and constipation as the patient has not had bowel movement for the last 10 days. 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 Her symptoms of epigastric and chest pain has been present since late March with no significant improvement despite conservative management. The pain was temporarily alleviated with morphine. The patient was recently admitted to [facility] in June 01 for management of her abdominal pain on the right side beneath the breasts. After 2 week stay she was discharged on June 14 during her hospitalization with diagnosis of gastrointestinal cancer was made, with further investigation revealing the pulmonary and hepatic metastasis. Recent abdominal CT scan showed Multiple pulmonary nodules, numerous hepatic lesions, an enlarged, lobulated uterus and a sclerotic lesion in the right acetabulum are concerning for metastatic disease. On the day of admission the patient's symptoms have worsened with increased pain and more severe gastrointestinal symptoms. She denies any history of alcohol use smoking or recreational drugs med has been using morphine and oxycodone for pain management at home. Her family history includes type 2 diabetes, congestive heart failure and multiple myeloma and pancreatic cancer . On examination the patient has signs of sepsis her vital signs show a respiratory rate of 32 breaths per minute, heart rate of 98 beats per minute and recent lactic acid at 3.3. Her albumin level is low at 2.8 which suggest malnutrition or hepatic dysfunction. Consistent with her advanced cancer urinalysis revealed hematuria which may indicate a secondary issue such as a urinary tract infection or possible complication from metastatic disease. Objective vital signs Vital Sign Date Time Temp Pulse Resp B/P (MAP) Pulse Ox O2 Delivery O2 Flow Rate FiO2 07/09/24 05:30 107 18 114/76 07/09/24 05:00 98.9 99 98.9 07/08/24 20:00 Nasal Cannula* 2 28 Total Intake and Output 07/08/24 07/08/24 07/09/24 15:00 23:00 07:00 Intake Total 660 ml 970 ml 460 ml Output Total 1100 ml 1200 ml Balance 660 ml -130 ml -740 ml medications Current Medications Medications Dose Ordered Sig/Tanvi Route Start Time Stop Time Status Last Admin Dose Admin Ondansetron HCl 4 mg Q4HP PRN IV 06/25/24 22:15 06/28/24 01:09 4 MG Multivitamins 1 tab DAILY PO 06/26/24 10:00 07/09/24 09:45 1 TAB Nitroglycerin 0.4 mg Q5MINP PRN SL 06/25/24 22:15 Morphine Sulfate 2 mg Q30M PRN IV 06/25/24 22:15 Pantoprazole Sodium 40 mg DAILY IV 06/26/24 10:00 07/09/24 09:45 40 MG Lactated Ringer's 1,000 ml @ 70 mls/hr [id number] IV 06/27/24 22:45 07/08/24 11:09 70 MLS/HR Vancomycin HCl 1000 mg/Dextrose 250 ml @ 250 mls/hr Q8H IV 07/01/24 09:00 Cancel Vancomycin HCl 250 ml @ 250 mls/hr Q8H IV 07/01/24 09:00 Cancel Lactulose 30 ml BID PO 07/03/24 08:45 07/07/24 21:28 30 ML Polyethylene Glycol 17 gm DAILY PO 07/03/24 10:00 07/07/24 09:53 17 GM Dimethicone 40 mg QID PO 07/04/24 12:00 07/09/24 05:44 40 MG Ceftriaxone Sodium 50 ml @ 100 mls/hr DAILY@09 IV 07/05/24 09:00 07/09/24 09:45 100 MLS/HR Clindamycin Phosphate 50 ml @ 50 mls/hr Q8HR IV 07/04/24 22:00 07/09/24 05:39 50 MLS/HR Metronidazole 100 ml @ 100 mls/hr Q8H IV 07/07/24 01:00 07/09/24 01:22 100 MLS/HR Gabapentin 300 mg TID PO 07/07/24 12:15 07/09/24 05:46 300 MG Morphine Sulfate 2 mg Q6H IV 07/08/24 04:30 07/09/24 05:30 2 MG Examination Respiratory: Clear to auscultation, Normal air movement Cardiovascular: Regular rate, Normal S1, Normal S2 Abdominal: less distended , ventral hernia. no pain today Extremities: Pedal edema, No cyanosis, Normal pulses, No tenderness/swelling Skin: No rashes, No breakdown laboratory and microbiology Laboratory Tests 07/09/24 08:35 Test 07/09/24 08:35 Range/Units Serum Glucose 88 74-106 mg/dL Microbiology Date/Time Source Procedure Growth Status 07/02/24 16:00 Nose MRSA Screen - Final Complete 06/30/24 20:04 Stool Stool Culture - Final Complete 06/30/24 20:04 Stool Shiga Toxin I & II - Final Complete 06/26/24 00:35 Blood Blood Culture - Final NO GROWTH AFTER 5 DAYS OF INCUBATION. Complete 06/25/24 14:55 Voided Urine Urine Culture - Final Complete Problem List/Assessment/Plan Problem List/Assessment/Plan Neurologic Pt is talking, AOX4 Cardiovascular #Right Ventricular Severe Strain /Failure With Moderate Degree Pulmonary Hypertension CT scan today ruled out PE massive or segmental, even do the probability of subsegmental still exist. Pt is not a candidate for anticoagulation #PVCs no symptoms, avoid BB Respiratory #Acute respiratory failure due to sepsis/ lung mets Pt is on O2 2LT #Lung mets GI #Sepsis due to acute cholecystitis? 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 Decision was explain to the patient, she understood. DC NG tube Advance diet Pt is on ceftriaxone, clindamycin and metronidazole IV Blood cultures negative Urine culture: mixed bessy bowel series no SBO #UTI resolved urine culture mixed bessy Delong placed for strict I&Os #Hypomagnesemia resolved Heme/onc #metastasic AdenoCa unknown primary: liver and lung mets #Anemia of chronic disease due to sepsis, adenoCA hb 6.9 2RBC already given Due to right heart failure, sepsis, unconclusive HIDA scan and inability to do surgeries or further procedures due to high risk of complications and poor prognosis due to metastasic cancer, only IV AB can be offered, patient will be sent to SNF to continue AB for 2 weeks more. Case discussed with Dr. Tracey Goals of care discussed with the patient for 44 minutes, she stated full code Goals of care: Full code Time spent on care 33 min Plan discussed with: Patient, Other (rn) My Orders My Orders Orders - CODY BRANCH RESIDENT Procedure Category Date Status Time * Lab Tech CONS 07/08/24 Transmitted Consult 17:45 Cleanse Wound With THEO 07/08/24 In Process Mild Soap A 20:05 Schedule For Dc THEO 07/09/24 In Process Clinic F/U 09:32 Dietary Evaluation Review Comments: 1) Advance pt diet when medically feasible 2) Continue current plan of care Expected Outcomes/Goals: F/U in 3-5 days CC Plasma Assessment Blood Product Administration S: 2116 Date of Service: Jul 09, 2024 Billing Provider: KACEY TRACEY MD Common Visit Codes: [id number] INP/OBS CARE(HIGH) CODY BRANCH RESIDENT Jul 09, 2024 10:36 KACEY TRACEY MD Jul 11, 2024 18:39
[2024-07-09] MEDS: MAGNESIUM SULFATE 1GM/100ML 100 ML IV ONE (13:44)
[2024-07-09] MEDS: HYDROcodone-ACET 5/325MG TAB PO PRN (14:35)
[2024-07-10 01:00] VITALS: BP 111/69; PULSE 100; RESP 18; TEMP 98.9; O2SAT 94
[2024-07-10 05:00] VITALS: BP 118/67; PULSE 98; RESP 18; TEMP 99; O2SAT 97
[2024-07-10 08:10] VITALS: PULSE 106
[2024-07-10 09:00] VITALS: BP 96/69; PULSE 76; RESP 18; TEMP 98.3; O2SAT 98
--- NOTE | 2024-07-10 12:53 | DVHPNRES ---
Progress Note Date Seen: Jul 10, 2024 Resident Creating Document: CODY BRANCH RESIDENT Has the PT tested + for MRSA If YES, has PT been informed?: No Medical Necessity Reason Pt with a Central, PICC or Fol: No Subjective Review of Systems 54-year-old female patient with past medical history of lung and liver masses associated with metastatic cancer. She presents to the emergency department with complaints of severe epigastric pain and chest pain which she has been experiencing for the last 10 days, also jaundice. The pain is described as sharp and localized in the epigastrium and rated as 10/10 intensity. Is associated with nausea vomiting and constipation as the patient has not had bowel movement for the last 10 days. 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 Her symptoms of epigastric and chest pain has been present since late March with no significant improvement despite conservative management. The pain was temporarily alleviated with morphine. The patient was recently admitted to [facility] in June 01 for management of her abdominal pain on the right side beneath the breasts. After 2 week stay she was discharged on June 14 during her hospitalization with diagnosis of gastrointestinal cancer was made, with further investigation revealing the pulmonary and hepatic metastasis. Recent abdominal CT scan showed Multiple pulmonary nodules, numerous hepatic lesions, an enlarged, lobulated uterus and a sclerotic lesion in the right acetabulum are concerning for metastatic disease. On the day of admission the patient's symptoms have worsened with increased pain and more severe gastrointestinal symptoms. She denies any history of alcohol use smoking or recreational drugs med has been using morphine and oxycodone for pain management at home. Her family history includes type 2 diabetes, congestive heart failure and multiple myeloma and pancreatic cancer . On examination the patient has signs of sepsis her vital signs show a respiratory rate of 32 breaths per minute, heart rate of 98 beats per minute and recent lactic acid at 3.3. Her albumin level is low at 2.8 which suggest malnutrition or hepatic dysfunction. Consistent with her advanced cancer urinalysis revealed hematuria which may indicate a secondary issue such as a urinary tract infection or possible complication from metastatic disease. Objective vital signs Vital Sign Date Time Temp Pulse Resp B/P (MAP) Pulse Ox O2 Delivery O2 Flow Rate FiO2 07/10/24 11:05 76 18 96/69 07/10/24 09:00 98.3 98 98.3 07/09/24 20:00 Nasal Cannula* 4 36 Total Intake and Output 07/09/24 07/09/24 07/10/24 15:00 23:00 07:00 Intake Total 650 ml 885 ml 450 ml Output Total 450 ml 200 ml Balance 650 ml 435 ml 250 ml medications Current Medications Medications Dose Ordered Sig/Tanvi Route Start Time Stop Time Status Last Admin Dose Admin Ondansetron HCl 4 mg Q4HP PRN IV 06/25/24 22:15 06/28/24 01:09 4 MG Multivitamins 1 tab DAILY PO 06/26/24 10:00 07/10/24 11:02 1 TAB Nitroglycerin 0.4 mg Q5MINP PRN SL 06/25/24 22:15 Morphine Sulfate 2 mg Q30M PRN IV 06/25/24 22:15 Pantoprazole Sodium 40 mg DAILY IV 06/26/24 10:00 07/10/24 10:14 40 MG Lactated Ringer's 1,000 ml @ 70 mls/hr [id number] IV 06/27/24 22:45 07/09/24 21:43 70 MLS/HR Vancomycin HCl 1000 mg/Dextrose 250 ml @ 250 mls/hr Q8H IV 07/01/24 09:00 Cancel Vancomycin HCl 250 ml @ 250 mls/hr Q8H IV 07/01/24 09:00 Cancel Lactulose 30 ml BID PO 07/03/24 08:45 07/07/24 21:28 30 ML Polyethylene Glycol 17 gm DAILY PO 07/03/24 10:00 07/07/24 09:53 17 GM Dimethicone 40 mg QID PO 07/04/24 12:00 07/10/24 05:48 40 MG Ceftriaxone Sodium 50 ml @ 100 mls/hr DAILY@09 IV 07/05/24 09:00 07/10/24 08:40 100 MLS/HR Clindamycin Phosphate 50 ml @ 50 mls/hr Q8HR IV 07/04/24 22:00 07/10/24 05:48 50 MLS/HR Metronidazole 100 ml @ 100 mls/hr Q8H IV 07/07/24 01:00 07/10/24 08:39 100 MLS/HR Gabapentin 300 mg TID PO 07/07/24 12:15 07/10/24 05:48 300 MG Morphine Sulfate 2 mg Q6H IV 07/08/24 04:30 07/10/24 11:05 2 MG Acetaminophen/ Hydrocodone Bitart 1 tab Q6HPRN PRN PO 07/09/24 13:30 07/10/24 08:37 1 TAB Examination Respiratory: Clear to auscultation, Normal air movement Cardiovascular: Regular rate, Normal S1, Normal S2 Abdominal: less distended , ventral hernia. no pain today Extremities: Pedal edema, No cyanosis, Normal pulses, No tenderness/swelling Skin: No rashes, No breakdown laboratory and microbiology Laboratory Tests 07/09/24 08:35 Test 07/09/24 08:35 Range/Units Serum Glucose 88 74-106 mg/dL Microbiology Date/Time Source Procedure Growth Status 07/02/24 16:00 Nose MRSA Screen - Final Complete 06/30/24 20:04 Stool Stool Culture - Final Complete 06/30/24 20:04 Stool Shiga Toxin I & II - Final Complete 06/26/24 00:35 Blood Blood Culture - Final NO GROWTH AFTER 5 DAYS OF INCUBATION. Complete 06/25/24 14:55 Voided Urine Urine Culture - Final Complete Problem List/Assessment/Plan Problem List/Assessment/Plan Neurologic Pt is talking, AOX4 Cardiovascular #Right Ventricular Severe Strain /Failure With Moderate Degree Pulmonary Hypertension CT scan today ruled out PE massive or segmental, even do the probability of subsegmental still exist. Pt is not a candidate for anticoagulation #PVCs no symptoms, avoid BB Respiratory #Acute respiratory failure due to sepsis/ lung mets Pt is on O2 2LT #Lung mets GI #Sepsis due to acute cholecystitis? 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 Decision was explain to the patient, she understood. DC NG tube Advance diet Pt is on ceftriaxone, clindamycin and metronidazole IV Blood cultures negative Urine culture: mixed bessy bowel series no SBO #UTI resolved urine culture mixed bessy Delong placed for strict I&Os #Hypomagnesemia resolved Heme/onc #metastasic AdenoCa unknown primary: liver and lung mets #Anemia of chronic disease due to sepsis, adenoCA hb 6.9 2RBC already given Due to right heart failure, sepsis, unconclusive HIDA scan and inability to do surgeries or further procedures due to high risk of complications and poor prognosis due to metastasic cancer, only IV AB can be offered, patient will be sent to SNF to continue AB for 2 weeks more. Case discussed with Dr. Tracey Goals of care discussed with the patient for 44 minutes, she stated full code Goals of care: Full code Time spent on care 33 min Plan discussed with: Patient, Other (rn) Dietary Evaluation Review Comments: 1) Advance pt diet when medically feasible 2) Continue current plan of care Expected Outcomes/Goals: F/U in 3-5 days CC Plasma Assessment Blood Product Administration S: 2116 Date of Service: Jul 10, 2024 Billing Provider: KACEY TRACEY MD Common Visit Codes: NOT BILLABLE CODY BRANCH RESIDENT Jul 10, 2024 12:53 KACEY TRACEY MD Jul 11, 2024 18:12
[2024-07-10 13:00] VITALS: BP 116/71; PULSE 116; RESP 18; TEMP 98; O2SAT 98
[2024-07-10 17:00] VITALS: BP 124/72; PULSE 117; RESP 20; TEMP 98.6; O2SAT 99
== END 2024-07-10 17:52 | DRG 720 ==
LOC: EDBD 12:52 → ER 12:52 → OVERFLOW 22:06 → EAST 06-26 17:00 → TELE-EAST 06-26 18:38
PROVIDERS: ADMIT Internal Medicine Geriatric Medicine; ATTEND Internal Medicine Geriatric Medicine
PROC: 30233S1 Transfusion of Nonautologous Globulin into Peripheral Vein, Percutaneous Approach (ICD-10-PCS; principal; 2024-06-26)
DX: A41.9 Sepsis, unspecified organism (principal); J96.00 Acute respiratory failure, unspecified whether with hypoxia or hypercapnia; E43 Unspecified severe protein-calorie malnutrition; C78.02 Secondary malignant neoplasm of left lung; C78.01 Secondary malignant neoplasm of right lung; K80.00 Calculus of gallbladder with acute cholecystitis without obstruction; D68.9 Coagulation defect, unspecified; K72.90 Hepatic failure, unspecified without coma; D63.8 Anemia in other chronic diseases classified elsewhere; I27.20 Pulmonary hypertension, unspecified; Z51.5 Encounter for palliative care; R65.20 Severe sepsis without septic shock; K43.9 Ventral hernia without obstruction or gangrene; N39.0 Urinary tract infection, site not specified; D50.9 Iron deficiency anemia, unspecified; K59.00 Constipation, unspecified; E66.9 Obesity, unspecified; R74.01 Elevation of levels of liver transaminase levels; C78.7 Secondary malignant neoplasm of liver and intrahepatic bile duct; I11.0 Hypertensive heart disease with heart failure; I50.810 Right heart failure, unspecified; E80.6 Other disorders of bilirubin metabolism; E83.42 Hypomagnesemia; I49.3 Ventricular premature depolarization; G43.D1 Abdominal migraine, intractable; Z68.34 Body mass index [BMI] 34.0-34.9, adult; Z79.899 Other long term (current) drug therapy
CPT/HCPCS: 36415; 71045; 71275; 74176; 74177; 74250; 76705; 78226; 80053; 80061; 80074; 80202; 81001; 82105; 82270; 82306; 82607; 82728; 82746; 82977; 83010; 83036; 83540; 83550; 83605; 83690; 83735; 83880; 84100; 84443; 84484; 85007; 85025; 85027; 85384; 85610; 85730; 86850; 86900; 86901; 86920; 87040; 87045; 87081; 87086; 87427; 93306; 93970; 96361; 96365; 96367; 96375; 96376; 97110; 97162; 97530; G0378; J0692; J1885; J2185; J2405; J2470; J3480; J3490; J7060

== ENCOUNTER 2024-07-12 21:19 | Inpatient (IN) | payer MEDICAID, OTHER ==
[~2024-07-12] VITALS: Ht 167.6 cm; Wt 105.2 kg
[2024-07-12 21:51] VITALS: PULSE 121; RESP 16; O2SAT 100
[2024-07-12] MEDS: NOREPINEPHRINE 8 MG/250ML KIT 250 ML IV SCH (21:51)
[2024-07-12] MEDS: MIDAZOLAM DRIP 50 mg/50mL 50 ML IV SCH (21:51)
[2024-07-12 21:54] LABS: Hematocrit 21.7 % (36.0-46.0)
[2024-07-12] MEDS: NOREPINEPHRINE 8 MG/250ML KIT 250 ML IV ONE (21:54)
[2024-07-12] MEDS: MIDAZOLAM DRIP 50 mg/50mL 50 ML IV ONE (21:54)
[2024-07-12] MEDS: ETOMIDATE (2MG/ML) 20ML VIAL IV ONE ×3 (21:55)
[2024-07-12] MEDS: ROCURONIUM 10MG/ML 10ML VIAL IV ONE ×2 (21:55)
[2024-07-12 21:56] LABS: Mean Corpuscular Hemoglobin 27.1 pg (28.0-32.0); Mean Corpuscular Hgb Conc. 31.8 g/dL (32.0-36.0); Mean Corpuscular Volume 85.3 fL (80.0-100.0); Platelet Count (auto) 505 10^3/uL (140-450); Red Blood Cells 2.54 10^6/uL (4.0-5.20); White Blood Cell 24.7 10^3/uL (4.4-10.8)
[2024-07-12] MEDS ORDERED: VANCOMYCIN PER PHARMACY 0 MG IV SCH (22:00)
[2024-07-12] MEDS: SODIUM CHLORIDE 0.9% 1,800 ML IV ONE (22:00)
[2024-07-12 22:04] LABS: Red Cell Distribution Width 21.6 % (11.8-14.3)
--- NOTE | 2024-07-12 22:04 | DVH ---
XY CHEST PORTABLE, HISTORY: ams COMPARISON: None None TECHNICAL DATA: 1 view of the chest was obtained. FINDINGS: Lines and tubes: ET in the low thoracic trachea. Cardiomediastinal silhouette: normal Pulmonary vasculature: normal Lung expansion: low Lung airspace: Patchy left basilar airspace opacity is noted. Lung interstitium: normal Pleura: normal Pneumothorax: no Bones: Unremarkable Other: no IMPRESSION: ET in the low thoracic trachea. Patchy left basilar airspace opacity is noted.
[2024-07-12 22:13] LABS: Anion Gap 7 (5-15); BUN/Creatinine Ratio 22.2 (10.0-20.0); Carbon Dioxide 29 mmol/L (20-31); Potassium 3.7 mmol/L (3.5-5.1)
[2024-07-12 22:14] LABS: Alanine Aminotransferase 56 U/L (7-40); Albumin 2.9 g/dL (3.2-4.8); Alkaline Phosphatase 515 U/L (46-116); Aspartate Aminotransferase 113 U/L (13-40); Bilirubin, Total 6.7 mg/dL (0.2-1.0); Blood Urea Nitrogen 6 mg/dL (9-23); Chloride 90 mmol/L (98-107); Glucose 124 mg/dL (74-106); Lipase 72 U/L (12-53); Sodium 126 mmol/L (136-145); Total Protein 5.4 g/dL (5.7-8.2)
[2024-07-12 22:15] LABS: Hemoglobin 6.9 g/dL (12.2-16.2)
[2024-07-12 22:16] LABS: Basophils % (manual) 0 (0.0-2.0); Blast Cells 0; Metamyelocytes % 0; Myelocytes % 0; Promyelocytes % 0; Reactive Lymphocytes 0
[2024-07-12 22:32] LABS: Band Neutrophils % (manual) 3; Eosinophils % (manual) 2 (0-7); Lymphocytes % (manual) 5 (10.0-50.0)
[2024-07-12 22:33] LABS: Anisocytosis Slight; Monocytes % (manual) 9 (0-12); Platelet Estimate Increased
[2024-07-12 22:34] LABS: Stomatocytes Few; Target Cell FEW
--- NOTE | 2024-07-12 22:55 | DVH ---
CLINICAL HISTORY: ams, history of ca TECHNIQUE: Helical imaging carried out from skull base to vertex without intravenous contrast. This e xam was performed according to our departmental dose optimization program. Up-to-date CT equipment an d radiation dose reduction techniques are utilized as appropriate. COMPARISON: None FINDINGS: The ventricles and subarachnoid spaces are normal in size and configuration. There is no midline seth ft or mass effect. The morillo white matter interfaces are maintained. The basal cisterns are patent. Th ere is no evidence of acute intracranial hemorrhage or extra-axial fluid collection. The mastoid air cells and visualized paranasal sinuses are well-aerated. IMPRESSION: No acute intracranial abnormality.
[2024-07-12 23:17] LABS: Base Excess 4.7 mmol/L (-2.0-3.0)
--- NOTE | 2024-07-12 23:23 | DVH ---
CT CT CHEST/AB/PL W CON- IV ONLY INDICATION: ams, history of ca EXAM DATE: 07/12/2024 10:22 PM COMPARISON: None RADIATION DOSE: CTDIvol: 25 mGy, DLP: 2511 mGy*cm PROCEDURE: Helical CT images were obtained of the chest, abdomen, and pelvis with intravenous contras t. Sagittal and coronal reconstructions are provided. ORAL CONTRAST: None. ADDITIONAL IMAGES / REFORMATS: None All CT scans at this medical facility are performed using dose modulation techniques as appropriate t o a performed exam including the following: Automated exposure control was utilized; adjustment of th e MA and/or KV according to patient size; and use of iterative reconstruction technique. FINDINGS: CHEST: BONES: Scattered degenerative changes are noted in the visualized osseous structures. CHEST WALL: Normal. SOFT TISSUES:Normal. MEDIASTINUM: Normal. HEART: Normal. VESSELS: Normal. LYMPH NODES: Normal. PLEURA: Trace bilateral pleural effusion. AIRWAYS: Endotracheal tube in the mid thoracic trachea. LUN mm right middle lobe pulmonary nodule. Bibasilar consolidation is most likely atelectasis. ABDOMEN AND PELVIS: BONES: Scattered degenerative changes are noted in the visualized osseous structures. LIVER: Diffuse multifocal liver masses with the largest centrally located measures 10.0 x 7.2 cm resu lting in enlargement of the liver. Perihepatic fluid is seen. GALLBLADDER AND BILIARY TREE: Decompressed gallbladder contains a gallstone with mild pericholecystic fluid. No intra- or extrahepatic biliary ductal dilation. PANCREAS: Normal. SPLEEN: Normal. BOWEL: Moderate colonic diverticulosis. Distened colon filled with fluid. Normal appendix. No small b owel dilation. ADRENALS: 1.3 cm right adrenal nodule. KIDNEYS AND URETER: Normal. BLADDER: Decompressed with a Delong. REPRODUCTIVE ORGANS: Lobulated mass in the pelvis measures 11.4 x 9.1 cm, which could be a multifibro id uterus vs leiomyosarcoma or other etiology. LYMPH NODES:No lymphadenopathy. PERITONEUM: No ascites or free air. No other fluid collection. VESSELS: Normal RETROPERITONEUM: Normal. ABDOMINAL WALL: Ventral abdominal wall hernia containing a loop of nondilated small bowel. Mild anasa rca. IMPRESSION: Diffuse multifocal liver masses with the largest centrally located measures 10.0 x 7.2 cm resulting i n enlargement of the liver, consistent with metastatic disease. Lobulated mass in the pelvis measures 11.4 x 9.1 cm, which could be a multifibroid uterus vs leiomyos arcoma or other etiology. Moderate colonic diverticulosis. Distened colon filled with fluid could be diarrhea. Decompressed gallbladder contains a gallstone with mild pericholecystic fluid. Cholecystitis is a con sideration. Ventral abdominal wall hernia containing a loop of nondilated small bowel. Mild anasarca. 8 mm right middle lobe pulmonary nodule. Bibasilar consolidation is most likely atelectasis.
[2024-07-12] MEDS: ACETAMINOPHEN IV 1000 MG/100ML (10MG/ML) IV STA (23:24)
[2024-07-12] MEDS: PROPOFOL 100 ML IV SCH (23:30)
[2024-07-13] VITALS (48 sets, daily range): BP systolic 94–139; BP diastolic 49–91; PULSE 100–119; RESP 16–26; TEMP 100.8–102.7; O2SAT 95–100
--- NOTE | 2024-07-13 00:05 | ED.PDOC ---
History of Present Illness HPI Comments 54F with metastatic cancer of unknown to me source presents from SNF with altered mental status. EMS reports that patient has not been responsive today so [facility] called them. Patient is minimally responsive and unable to communicate. Chief Complaint: ALOC Time Seen by MD: 21:20 Reviewed Notes: Nurses Notes, Digital X Ray Service Engineer Notes Allergies: Coded Allergies: NO KNOWN ALLERGIES (Unverified , 07/12/24) Information Source: Emergency Med Personnel Mode of Arrival: EMS Past Medical History PAST MEDICAL HISTORY: Cancer All Other Systems: Deferred Physical Exam General Appearance: Other (Unresponsive) HEENT: Other (reactive pupils) Neck: Full Range of Motion, Non-Tender, Normal, Normal Inspection Respiratory: Other (course breathing bilaterally. ) Cardiovascular: Tachycardia Breast Exam: Normal Gastrointestinal: Other (distended abdomen) Genitalia: Deferred Pelvic: Deferred Rectal: Deferred Extremities: No calf tenderness, Normal capillary refill, Normal inspection, Normal range of motion, Non-tender, No pedal edema Neurologic: Other (Unresponsive) Cerebellar Function: Unable to Test Reflexes: NOT DONE Skin: Other (rash to pelvic area, PICC line to right arm ) Lymphatic: No Adenopathy Was a procedure done? 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: Attending Physician Indication: Hypotension, Volume resuscitation Room prepared for procedure: Yes Boat Engines Installer performed hand hygien: Yes Maximal sterile barrier precau: Mask/Eye shield, Sterlie gloves, Large sterlie drape Skin Preparation: Chlorhexidine gluconate Skin preparation completely dr: Yes Insertion site: Right, Femoral Central line catheter type: Sdd-[id number]-bqd dialysis Number of lumens: 3 Central line exchanged over a: Yes Antiseptic ointment applied to: Yes Post Assessment: Proper placement Informed consent obtained: No Risks/benefits/alt described: No Intubation Indication: Respiratory Insufficiency, Altered Mental Status Prep: Preoxygenation Pretreated with: Other (Etomidate) Medicated with: Other (Rocuronium) Intubation Approach: Orotracheal Intubation size: cm (8) Informed consent obtained: No Risks/benefits/alt described: No Differential Dx Considerations may include: sepsis, uti, pneumonia, worsening cva X-Ray, Labs, Meds, VS Vital Signs Date Time Temp Pulse Resp B/P (MAP) Pulse Ox O2 Delivery O2 Flow Rate FiO2 07/12/24 22:48 103 07/12/24 22:07 98 60 07/12/24 21:55 118/65 07/12/24 21:51 117 16 91/62 (72) 100 100 07/12/24 21:20 103.0 128 23 120/70 (87) 95 Lab Test 07/12/24 21:59 07/12/24 21:40 Range/Units Blood Gas Specimen Type Arterial Blood Gas Sample Site Right radial Blood Gas Patient Temperature 37.0 Arterial Blood Date Drawn [id number] Arterial Blood pH 7.456 H 7.350-7.450 Arterial Blood Partial Pressure CO2 42.2 32.0-45.0 mmHg Arterial Blood Partial Pressure O2 266.7 H 83.0-108.0 mmHg Arterial Blood HCO3 29.1 H 21.0-28.0 mmol/L Arterial Blood Oxygen Saturation 99.7 H 94.0-98.0 % Arterial Blood Base Excess 4.7 H -2.0-3.0 mmol/L Arterial Blood Oxyhemoglobin 98.3 H 94.0-98.0 % Arterial Blood Carboxyhemoglobin 1.0 0.5-1.5 % Arterial Blood Methemoglobin 0.4 0.0-1.5 % Javy Test Yes Blood Gas Total Hemoglobin 6.70 *L 12.0-16.0 g/dL Blood Gas Set Respiration Rate 16.0 Blood Gas Modality Vent - ac Blood Gas Spontaneous Rate 16 FiO2 % 100.0 Blood Gas Tidal Volume 500.0 Blood Gas PEEP or CPAP 5.0 Bl Gas Inspiratory/Expiratory Ratio 1:3.5 Blood Gas Critical Value Read Back yes Blood Gas Notified Whom md anya lovell Blood Gas Notified Time [id number] Blood Gas Notified By md anya lovell White Blood Count 24.7 H 4.4-10.8 10^3/uL Red Blood Count 2.54 L 4.0-5.20 10^6/uL Hemoglobin 6.9 *L 12.2-16.2 g/dL Hematocrit 21.7 L 36.0-46.0 % Mean Corpuscular Volume 85.3 80.0-100.0 fL Mean Corpuscular Hemoglobin 27.1 L 28.0-32.0 pg Mean Corpuscular Hemoglobin Concent 31.8 L 32.0-36.0 g/dL Red Cell Distribution Width 21.6 H 11.8-14.3 % Platelet Count 505 H 140-450 10^3/uL Mean Platelet Volume 6.8 L 6.9-10.8 fL Neutrophils (%) (Auto) 37.0-80.0 % Lymphocytes (%) (Auto) 10.0-50.0 % Monocytes (%) (Auto) 0.0-12.0 % Basophils (%) (Auto) 0.0-2.0 % Neutrophils # (Auto) 1.6-8.6 10 ^3/uL Lymphocytes # (Auto) 0.4-5.4 10 ^3/uL Monocytes # (Auto) 0-1.3 10 ^3/uL Differential Total Cells Counted 100.0 100 Neutrophils % (Manual) 81 H 37.0-80.0 Band Neutrophils % (Manual) 3 Lymphocytes % (Manual) 5 L 10.0-50.0 Monocytes % (Manual) 9 0-12 Eosinophils % (Manual) 2 0-7 Basophils % (Manual) 0 0.0-2.0 Metamyelocytes % (manual) 0 Myelocytes % (Manual) 0 Promyelocytes % (Manual) 0 Blast Cells % (Manual) 0 Reactive Lymphocytes 0 Platelet Estimate Increased Anisocytosis (manual) Slight Target Cells Few Stomatocytes Few Sodium Level 126 L 136-145 mmol/L Potassium Level 3.7 3.5-5.1 mmol/L Chloride Level 90 L 98-107 mmol/L Carbon Dioxide Level 29 20-31 mmol/L Anion Gap 7 5-15 Blood Urea Nitrogen 6 L 9-23 mg/dL Creatinine 0.27 L 0.550-1.02 mg/dL Glomerular Filtration Rate Calc 129 >90 mL/min BUN/Creatinine Ratio 22.2 H 10.0-20.0 Serum Glucose 124 H 74-106 mg/dL Lactic Acid Level 1.3 0.4-2.0 mmol/L Calcium Level 9.0 8.7-10.4 mg/dL Total Bilirubin 6.7 H 0.2-1.0 mg/dL Aspartate Amino Transferase (AST) 113 H 13-40 U/L Alanine Aminotransferase (ALT) 56 H 7-40 U/L Alkaline Phosphatase 515 H 46-116 U/L Ammonia 37 H 11-32 umol/L B-Type Natriuretic Peptide 74.95 0-100 pg/mL Total Protein 5.4 L 5.7-8.2 g/dL Albumin 2.9 L 3.2-4.8 g/dL Lipase 72 H 12-53 U/L Salicylates Level < 3.0 -30 mg/dL Current Medications Medications (Trade) Dose Ordered Sig/Tanvi Route Start Time Stop Time Status Last Admin Etomidate 20 mg ONCE ONCE IV 07/12/24 22:00 07/12/24 22:08 DC 07/12/24 21:55 Rocuronium Minerva 100 mg ONCE ONCE IV 07/12/24 22:00 07/12/24 22:08 DC 07/12/24 21:55 Time of 1ST Reevaluation: 00:03 Reevaluation 1ST: Improved Patient Education/Counseling: Pt Unresponsive Family Education/Counseling: Diagnosis, Treatment Departure 1 Departure Time of Disposition: 00:03 (Patient presented unresponsive and was intubated and central line placed emergently. Patient is started on pressors and fluids and antibiotics. Workup so far is revealing for she was given febrile and elevated white count. Sources undetermined but likely urine. Patient's CT brain was negative. Patient's CT abdomen pelvis concerning for malignancy. We will admit patient to ICU for further workup) Impression: Primary Impression: Metabolic encephalopathy Additional Impressions: Sepsis Qualified Codes: A41.9 - Sepsis, unspecified organism; R65.21 - Severe sepsis with septic shock; G93.41 - Metabolic encephalopathy Unresponsive Disposition: 09 ADMITTED INPATIENT Admit to: ICU Condition: Critical Critical Care Note Critical Care Time?: Yes Critical care comment: Septic shock Authorized and Performed by: Robb Lovell MD Total critical care time: Approximately 48 minutes Due to a high probability of clinically significant, life threatening deterioration, the patient required my highest level of preparedness to intervene emergently and I personally spent this critical care time directly and personally managing the patient. This critical care time included obtaining a history; examining the patient; pulse oximetry; ordering and review of studies; arranging urgent treatment with development of a management plan; evaluation of patient's response to treatment; frequent reassessment; and, discussions with other providers. This critical care time was performed to assess and manage the high probability of imminent, life-threatening deterioration that could result in multi-organ failure. It was exclusive of separately billable procedures and treating other patients and teaching time. Please see my other sections and the rest of the note for further information on patient assessment and treatment. Stability Stability form required: No Heart Score Heart Score: Heart Score Response (Comments) Value History N/A 0 EKG N/A 0 Age N/A 0 Risk Factors N/A 0 Troponin N/A 0 Total 0 ROBB LOVELL MD Jul 13, 2024 00:05
[2024-07-13 00:27] LABS: Urine Bacteria None Seen /hpf (None Seen)
[2024-07-13 00:44] LABS: Urine Blood 3+ /uL (Negative); Urine Clarity Turbid (Clear); Urine Color Orange (Yellow); Urine Protein, UAD 1+ (Negative); Urine Specific Gravity 1.036 (1.001-1.035); Urine Urobilinogen Normal (Negative); Urine WBC 16 /hpf (0 - 5); Urine pH 5.5 (5.0-9.0)
[2024-07-13] MEDS ORDERED: VANCOMYCIN PER PHARMACY 0 MG IV SCH (01:00)
[2024-07-13] MEDS ORDERED: MORPHINE SULFATE INJ 2 MG/ml SYRG IV PRN (01:00)
[2024-07-13] MEDS ORDERED: NITROGLYCERIN 0.4 MG SL TAB SL PRN (01:00)
[2024-07-13] MEDS ORDERED: ONDANSETRON HCL 4 MG/2 ML VIAL IV PRN (01:00)
[2024-07-13] MEDS: SODIUM CHLORIDE 0.9% 1,000 ML IV SCH (01:08)
[2024-07-13] MEDS: CEFEPIME 2GM/50ML NS 50 ML IV ONE (02:49)
--- NOTE | 2024-07-13 04:35 | DVHHP2 ---
History of Present Illness Reason for Visit: Altered mental status History of Present Illness 54-year-old female presents for evaluation of altered mental status. Patient presents from a skilled nursing. Patient was noted to be progressively more altered. On arrival patient had to be emergently intubated for airway protection due to being to any stimuli. Currently she is sedated and intubated. Past Medical History Cancer Past Surgical History Unknown Family History Unknown Smoke: No ALCOHOL: none Drugs: None Lives: Half-Way Review of Systems Review of Systems Unable to complete review of systems, patient is sedated and intubated. Allergies: Coded Allergies: NO KNOWN ALLERGIES (Unverified , 07/12/24) Medications Current Medications Medications Dose Ordered Sig/Tanvi Route Start Time Stop Time Status Last Admin Dose Admin Norepinephrine Bitartrate 250 ml @ 3.75 mls/hr Q24H IV 07/12/24 22:00 07/12/24 21:51 18.75 MLS/HR Midazolam HCl 50 ml @ 1 mls/hr Q24H IV 07/12/24 22:00 07/12/24 21:51 1 MLS/HR Propofol 100 ml @ 2.454 mls/ hr Q24H IV 07/12/24 23:30 07/12/24 23:30 2.454 MLS/HR Sodium Chloride 1,000 ml @ 90 mls/hr Q11H7M IV 07/13/24 01:00 07/13/24 01:08 90 MLS/HR Piperacillin Sod/ Tazobactam Sod 100 ml @ 25 mls/hr Q6HR IV 07/13/24 06:00 Vancomycin HCl 0 ml @ 0 mls/hr UD IV 07/13/24 01:00 UNV Pantoprazole Sodium 40 mg DAILY IV 07/13/24 10:00 Albuterol 2.5 mg Q6HR NEB 07/13/24 06:00 Ondansetron HCl 4 mg Q4HP PRN IV 07/13/24 01:00 Enoxaparin Sodium 40 mg DAILY SC 07/13/24 10:00 Acetaminophen 650 mg Q6HP PRN PO 07/13/24 01:00 Nitroglycerin 0.4 mg Q5MINP PRN SL 07/13/24 01:00 Morphine Sulfate 2 mg Q30M PRN IV 07/13/24 01:00 Exam Vital Signs Vital Signs Date Time Temp Pulse Resp B/P (MAP) Pulse Ox O2 Delivery O2 Flow Rate FiO2 07/13/24 02:27 114 19 134/82 (99) 99 60 07/13/24 02:21 101.2 101.2 Exam Gen: 54-year-old female in mild distress Skin: Warm, dry, normal color and texture, no rash. HEENT: Normocephalic atraumatic, mucous membranes moist and pink. Neck: Cervical and supraclavicular nodes normal without enlargement, trachea is midline, thyroid gland is normal without masses. Pulmonary: Intubated Cardiac: Regular rate and rhythm. No murmur Abdomen: Soft, nondistended, bowel sounds present all 4 quadrants, no guarding, no rigidity, no organomegaly. Extremities: No cyanosis, clubbing, no edema Neuro sedated Labs/Xrays ORDERING PHYSICIAN: ROBB LOVELL MD PROCEDURE(s): CXRP - CHEST PORTABLE REASON: [facility] ORDER NUMBER(s): [id number], ACCESSION NUMBER(s): [id number] XY CHEST PORTABLE, HISTORY: ams COMPARISON: None None TECHNICAL DATA: 1 view of the chest was obtained. FINDINGS: Lines and tubes: ET in the low thoracic trachea. Cardiomediastinal silhouette: normal Pulmonary vasculature: normal Lung expansion: low Lung airspace: Patchy left basilar airspace opacity is noted. Lung interstitium: normal Pleura: normal Pneumothorax: no Bones: Unremarkable Other: no IMPRESSION: ET in the low thoracic trachea. Patchy left basilar airspace opacity is noted. RING PHYSICIAN: ROBB LOVELL MD PROCEDURE(s): HWOCT - HEAD WITHOUT CONTRAST REASON: ams, history of ca ORDER NUMBER(s): [id number], ACCESSION NUMBER(s): [id number] CLINICAL HISTORY: ams, history of ca TECHNIQUE: Helical imaging carried out from skull base to vertex without intravenous contrast. This exam was performed according to our departmental dose optimization program. Up-to-date CT equipment and radiation dose reduction techniques are utilized as appropriate. COMPARISON: None FINDINGS: The ventricles and subarachnoid spaces are normal in size and configuration. There is no midline shift or mass effect. The morillo white matter interfaces are maintained. The basal cisterns are patent. There is no evidence of acute intracranial hemorrhage or extra-axial fluid collection. The mastoid air cells and visualized paranasal sinuses are well-aerated. IMPRESSION: No acute intracranial abnormality. ATED BY: EVAN STEELE MDORDERING PHYSICIAN: ROBB LOVELL MD PROCEDURE(s): CAPIV - CT CHEST/AB/PL W CON- IV ONLY REASON: ams, history of ca ORDER NUMBER(s): [id number], ACCESSION NUMBER(s): [id number] CT CT CHEST/AB/PL W CON- IV ONLY INDICATION: ams, history of ca EXAM DATE: 07/12/2024 10:22 PM COMPARISON: None RADIATION DOSE: CTDIvol: 25 mGy, DLP: 2511 mGy*cm PROCEDURE: Helical CT images were obtained of the chest, abdomen, and pelvis with intravenous contrast. Sagittal and coronal reconstructions are provided. ORAL CONTRAST: None. ADDITIONAL IMAGES / REFORMATS: None All CT scans at this medical facility are performed using dose modulation techniques as appropriate to a performed exam including the following: Automated exposure control was utilized; adjustment of the MA and/or KV according to patient size; and use of iterative reconstruction technique. FINDINGS: CHEST: BONES: Scattered degenerative changes are noted in the visualized osseous structures. CHEST WALL: Normal. SOFT TISSUES:Normal. MEDIASTINUM: Normal. HEART: Normal. VESSELS: Normal. LYMPH NODES: Normal. PLEURA: Trace bilateral pleural effusion. AIRWAYS: Endotracheal tube in the mid thoracic trachea. LUN mm right middle lobe pulmonary nodule. Bibasilar consolidation is most likely atelectasis. ABDOMEN AND PELVIS: BONES: Scattered degenerative changes are noted in the visualized osseous structures. LIVER: Diffuse multifocal liver masses with the largest centrally located measures 10.0 x 7.2 cm resulting in enlargement of the liver. Perihepatic fluid is seen. GALLBLADDER AND BILIARY TREE: Decompressed gallbladder contains a gallstone with mild pericholecystic fluid. No intra- or extrahepatic biliary ductal dilation. PANCREAS: Normal. SPLEEN: Normal. BOWEL: Moderate colonic diverticulosis. Distened colon filled with fluid. Normal appendix. No small bowel dilation. ADRENALS: 1.3 cm right adrenal nodule. KIDNEYS AND URETER: Normal. BLADDER: Decompressed with a Delong. REPRODUCTIVE ORGANS: Lobulated mass in the pelvis measures 11.4 x 9.1 cm, which could be a multifibroid uterus vs leiomyosarcoma or other etiology. LYMPH NODES:No lymphadenopathy. PERITONEUM: No ascites or free air. No other fluid collection. VESSELS: Normal RETROPERITONEUM: Normal. ABDOMINAL WALL: Ventral abdominal wall hernia containing a loop of nondilated small bowel. Mild anasarca. IMPRESSION: Diffuse multifocal liver masses with the largest centrally located measures 10.0 x 7.2 cm resulting in enlargement of the liver, consistent with metastatic disease. Lobulated mass in the pelvis measures 11.4 x 9.1 cm, which could be a multifibroid uterus vs leiomyosarcoma or other etiology. Moderate colonic diverticulosis. Distened colon filled with fluid could be diarrhea. Decompressed gallbladder contains a gallstone with mild pericholecystic fluid. Cholecystitis is a consideration. Ventral abdominal wall hernia containing a loop of nondilated small bowel. Mild anasarca. 8 mm right middle lobe pulmonary nodule. Bibasilar consolidation is most likely atelectasis. ATED BY: PATRICE ADAME MD Labs Test 07/13/24 00:01 07/12/24 21:59 07/12/24 21:40 Range/Units Urine Color [place] H Yellow Urine Clarity Turbid H Clear Urine pH 5.5 5.0-9.0 Urine Specific [place] 1.036 H 1.001-1.035 Urine Protein 1+ H Negative Urine Ketones Negative Negative Urine Blood 3+ H Negative /uL Urine Nitrite Negative Negative Urine Bilirubin 1+ H Negative Urine Urobilinogen Normal Negative mg/dL Urine Leukocyte Esterase 1+ Negative /uL Urine RBC 2674 0 - 4 /hpf Urine WBC 16 0 - 5 /hpf Urine Squamous Epithelial Cells None seen <5 /hpf Urine Bacteria None seen None Seen /hpf Urine Glucose Normal Normal mg/dL Blood Gas Specimen Type Arterial Blood Gas Sample Site Right radial Blood Gas Patient Temperature 37.0 Arterial Blood Date Drawn Arterial Blood pH 7.456 H 7.350-7.450 Arterial Blood Partial Pressure CO2 42.2 32.0-45.0 mmHg Arterial Blood Partial Pressure O2 266.7 H 83.0-108.0 mmHg Arterial Blood HCO3 29.1 H 21.0-28.0 mmol/L Arterial Blood Oxygen Saturation 99.7 H 94.0-98.0 % Arterial Blood Base Excess 4.7 H -2.0-3.0 mmol/L Arterial Blood Oxyhemoglobin 98.3 H 94.0-98.0 % Arterial Blood Carboxyhemoglobin 1.0 0.5-1.5 % Arterial Blood Methemoglobin 0.4 0.0-1.5 % Javy Test Yes Blood Gas Total Hemoglobin 6.70 *L 12.0-16.0 g/dL Blood Gas Set Respiration Rate 16.0 Blood Gas Modality Vent - ac Blood Gas Spontaneous Rate 16 FiO2 % 100.0 Blood Gas Tidal Volume 500.0 Blood Gas PEEP or CPAP 5.0 Bl Gas Inspiratory/Expiratory Ratio 1:3.5 Blood Gas Critical Value Read Back yes Blood Gas Notified Whom md anya lovell Blood Gas Notified Time [id number] Blood Gas Notified By md anya lovell White Blood Count 24.7 H 4.4-10.8 10^3/uL Red Blood Count 2.54 L 4.0-5.20 10^6/uL Hemoglobin 6.9 *L 12.2-16.2 g/dL Hematocrit 21.7 L 36.0-46.0 % Mean Corpuscular Volume 85.3 80.0-100.0 fL Mean Corpuscular Hemoglobin 27.1 L 28.0-32.0 pg Mean Corpuscular Hemoglobin Concent 31.8 L 32.0-36.0 g/dL Red Cell Distribution Width 21.6 H 11.8-14.3 % Platelet Count 505 H 140-450 10^3/uL Mean Platelet Volume 6.8 L 6.9-10.8 fL Neutrophils (%) (Auto) 37.0-80.0 % Lymphocytes (%) (Auto) 10.0-50.0 % Monocytes (%) (Auto) 0.0-12.0 % Basophils (%) (Auto) 0.0-2.0 % Neutrophils # (Auto) 1.6-8.6 10 ^3/uL Lymphocytes # (Auto) 0.4-5.4 10 ^3/uL Monocytes # (Auto) 0-1.3 10 ^3/uL Differential Total Cells Counted 100.0 100 Neutrophils % (Manual) 81 H 37.0-80.0 Band Neutrophils % (Manual) 3 Lymphocytes % (Manual) 5 L 10.0-50.0 Monocytes % (Manual) 9 0-12 Eosinophils % (Manual) 2 0-7 Basophils % (Manual) 0 0.0-2.0 Metamyelocytes % (manual) 0 Myelocytes % (Manual) 0 Promyelocytes % (Manual) 0 Blast Cells % (Manual) 0 Reactive Lymphocytes 0 Platelet Estimate Increased Anisocytosis (manual) Slight Target Cells Few Stomatocytes Few Sodium Level 126 L 136-145 mmol/L Potassium Level 3.7 3.5-5.1 mmol/L Chloride Level 90 L 98-107 mmol/L Carbon Dioxide Level 29 20-31 mmol/L Anion Gap 7 5-15 Blood Urea Nitrogen 6 L 9-23 mg/dL Creatinine 0.27 L 0.550-1.02 mg/dL Glomerular Filtration Rate Calc 129 >90 mL/min BUN/Creatinine Ratio 22.2 H 10.0-20.0 Serum Glucose 124 H 74-106 mg/dL Lactic Acid Level 1.3 0.4-2.0 mmol/L Calcium Level 9.0 8.7-10.4 mg/dL Total Bilirubin 6.7 H 0.2-1.0 mg/dL Aspartate Amino Transferase (AST) 113 H 13-40 U/L Alanine Aminotransferase (ALT) 56 H 7-40 U/L Alkaline Phosphatase 515 H 46-116 U/L Ammonia 37 H 11-32 umol/L B-Type Natriuretic Peptide 74.95 0-100 pg/mL Total Protein 5.4 L 5.7-8.2 g/dL Albumin 2.9 L 3.2-4.8 g/dL Lipase 72 H 12-53 U/L Salicylates Level < 3.0 -30 mg/dL Assessment/Plan Assessment/Plan Assessment Acute respiratory failure, intubated Questionable pneumonia Sepsis Metabolic encephalopathy Metastatic disease Anemia Plan Admit the patient to ICU to the hospitalist Zosyn/vancomycin 2 units of packed red cells ordered Maintenance IV fluids Continue treatment per orders. Total critical care time excluding procedures performed is 55 minutes. Plan discussed with: Other My Orders Orders - SHANE DESIR [facility] Procedure Category Date Status Time Sodium Chloride 0.9% PHA 07/13/24 In Process 01:00 Piperacillin-Tazob PHA 07/13/24 In Process 3.375gm (Zosyn 3.375g 06:00 Vancomycin Per PHA 07/13/24 Pending Pharmacy 01:00 Stool Occult Blood LAB 07/13/24 Logged 00:49 Pantoprazole PHA 07/13/24 In Process (Protonix) 10:00 Albuterol Medneb PHA 07/13/24 In Process (Ventolin Medneb) 06:00 Admit ADMIT 07/13/24 Transmitted 00:49 Ondansetron Hcl PHA 07/13/24 In Process (Zofran) 01:00 Enoxaparin Sodium PHA 07/13/24 In Process (Lovenox) 10:00 Complete Blood Count LAB 07/14/24 Verified 04:00 Comprehensive LAB 07/14/24 Verified Metabolic Panel 04:00 Condition: Unstable THEO 07/13/24 In Process 00:49 Acetaminophen Tablet PHA 07/13/24 In Process (Tylenol Tablet) 01:00 Maintain Bed Rest [facility] 07/13/24 In Process 00:49 Sequential [facility] 07/13/24 In Process Compression Device Nitroglycerin [facility] 07/13/24 In Process Sublingual (Ntrostat 01:00 Morphine Sulfate [facility] 07/13/24 In Process Injection 01:00 Stat Ekg For Chest [facility] 07/13/24 In Process Pain 00:49 Notify Md Of Changes [facility] 07/13/24 In Process From Base 00:49 Molecular Spectroscopist For [facility] 07/13/24 In Process 24 Hours 00:49 Emergency Dysrhythmia [facility] 07/13/24 In Process Protocol 00:49 Rhythm Strips Once [facility] 07/13/24 In Process Every Shift 00:49 Oxygen By Nasal RT 07/13/24 Transmitted Cannula 00:49 Date of Service: Jul 12, 2024 Billing Provider: SHANE DESIR Common Visit Codes: [id number] CARE 30-74 MIN SHANE DESIR Jul 13, 2024 04:35
[2024-07-13] MEDS: VANCOMYCIN 1GM/250ML KIT 250 ML IV SCH ×3 (05:32→16:59)
[2024-07-13] MEDS: ALBUTEROL SULF 2.5 MG/0.5ML(0.5%) NEB SOLN NEB SCH (06:05)
[2024-07-13] MEDS: PIPERACILLIN-TAZOB 3.375GM 100 ML IV SCH (06:06)
[2024-07-13] MEDS: ACETAMINOPHEN 325 MG TAB PO PRN (06:23)
[2024-07-13 07:15] LABS: Base Excess -1.5 mmol/L (-2.0-3.0)
[2024-07-13] MEDS: PANTOPRAZOLE 40 MG/10 ML VIAL INJ IV SCH (09:29)
[2024-07-13] MEDS: ENOXAPARIN SOD 40 MG/0.4 ML SYRINGE SC SCH (09:30)
--- NOTE | 2024-07-13 19:15 | DVHINCON2 ---
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 Patient was brought in via ambulance from [facility] acute care. Patient was noted to be progressively more altered. On arrival she had to be emergently intubated for airway protection due to being unresponsive to any stimuli. Of note, pt was admitted 3 days ago and released from our facility. Patient was admitted for further care and pulmonary consultation is requested for evaluation and management of acute hypoxic respiratory failure requiring mechanical vent. Review of Systems: Unable to be obtained d/t intubated status. Past Medical History: Metastatic cancer to liver, lungs and uterus. Past Surgical History: Unknown. Medications: Reviewed. Allergies: No known drug allergies. Family History: No family history of premature CAD. No family history of lung disorders. Social History: Nonsmoker. No alcohol or illicit drug use. Allergies: Coded Allergies: NO KNOWN ALLERGIES (Unverified , 07/12/24) Current Medications Current Medications Medications (Trade) Dose Ordered Sig/Tanvi Route PRN Reason Start Time Stop Time Status Last Admin Vancomycin HCl 0 ml @ 0 mls/hr UD IV 07/12/24 22:00 07/13/24 01:05 DC Norepinephrine Bitartrate 250 ml @ 3.75 mls/hr Q24H IV 07/12/24 22:00 07/12/24 21:51 Midazolam HCl 50 ml @ 1 mls/hr Q24H IV 07/12/24 22:00 07/13/24 15:26 Vancomycin HCl 250 ml @ 250 mls/hr Q1HR IV 07/12/24 23:00 07/13/24 00:59 DC 07/13/24 02:49 Propofol 100 ml @ 2.454 mls/ hr Q24H IV 07/12/24 23:30 07/13/24 18:23 Acetaminophen (Ofirmev) 1,000 mg DAILY STAT IV 07/12/24 23:24 07/12/24 23:25 DC 07/12/24 23:24 Sodium Chloride 1,000 ml @ 90 mls/hr Q11H7M IV 07/13/24 01:00 07/13/24 15:25 Piperacillin Sod/ Tazobactam Sod 100 ml @ 25 mls/hr Q6HR IV 07/13/24 06:00 07/13/24 17:55 Vancomycin HCl 0 ml @ 0 mls/hr UD IV 07/13/24 01:00 Pantoprazole Sodium (Protonix) 40 mg DAILY IV 07/13/24 10:00 07/13/24 09:29 Albuterol (Ventolin Medneb) 2.5 mg Q6HR NEB 07/13/24 06:00 07/13/24 18:14 Ondansetron HCl (Zofran) 4 mg Q4HP PRN IV NAUSEA / VOMITING 07/13/24 01:00 Enoxaparin Sodium (Lovenox) 40 mg DAILY SC 07/13/24 10:00 07/13/24 09:30 Acetaminophen (Tylenol Tablet) 650 mg Q6HP PRN PO PAIN SCALE 1-3 OR TEMP>100.4 07/13/24 01:00 07/13/24 06:23 Nitroglycerin (Ntrostat Sublingual) 0.4 mg Q5MINP PRN SL FOR CHEST PAIN 07/13/24 01:00 Morphine Sulfate 2 mg Q30M PRN IV FOR CHEST PAIN 07/13/24 01:00 Vancomycin HCl 250 ml @ 250 mls/hr Q1H IV 07/13/24 05:30 07/13/24 06:29 DC 07/13/24 05:32 Vancomycin HCl 250 ml @ 250 mls/hr Q12H IV 07/13/24 17:00 07/13/24 16:59 Vital Signs Vital Signs Date Time Temp Pulse Resp B/P (MAP) Pulse Ox O2 Delivery O2 Flow Rate FiO2 07/13/24 18:36 101 07/13/24 18:00 101.1 21 119/72 (88) 97 101.1 07/13/24 18:00 Mechanical Ventilator+ 30 30 Physical Exam Gen.: Patient lying in bed in medical ICU. Sedated, intubated on mechanical ventilator. Head: Normocephalic, atraumatic. Eyes: PERRLA. Ears: Normal external anatomy. Throat: Endotracheal tube and orogastric tube in place. Neck: Supple, trachea midline. Chest: Transmitted breath sounds bilaterally. Decreased air entry bilaterally. No wheezing. Bibasilar crackles. Cardiovascular: Positive S1, positive S2. Regular rate and rhythm. Abdomen: Positive bowel sounds in all 4 quadrants. Soft, nontender, nondistended. : Delong in place. Normal external genitalia. Rectal: Deferred. Skin: Warm, dry. Intact. Extremities: 2+ radial pulses bilaterally. No lower extremity edema. Neuro: Sedated. Labs/Diagnostic Data Labs Test 07/13/24 07:10 07/13/24 00:01 07/12/24 21:59 07/12/24 21:40 Range/Units Blood Gas Specimen Type Arterial Blood Gas Sample Site Right radial Blood Gas Patient Temperature 37.0 Arterial Blood Date Drawn [id number] Arterial Blood pH 7.480 H 7.350-7.450 Arterial Blood Partial Pressure CO2 29.5 L 32.0-45.0 mmHg Arterial Blood Partial Pressure O2 178.9 H 83.0-108.0 mmHg Arterial Blood HCO3 21.5 21.0-28.0 mmol/L Arterial Blood Oxygen Saturation 99.1 H 94.0-98.0 % Arterial Blood Base Excess -1.5 -2.0-3.0 mmol/L Arterial Blood Oxyhemoglobin 97.3 94.0-98.0 % Arterial Blood Carboxyhemoglobin 1.1 0.5-1.5 % Arterial Blood Methemoglobin 0.7 0.0-1.5 % Javy Test Modified Blood Gas Total Hemoglobin 8.40 L 12.0-16.0 g/dL Blood Gas Set Respiration Rate 16.0 Blood Gas Modality Vent - ac FiO2 % 60.0 Blood Gas Tidal Volume 500.0 Blood Gas PEEP or CPAP 5.0 Urine Color [place] H Yellow Urine Clarity Turbid H Clear Urine pH 5.5 5.0-9.0 Urine Specific [place] 1.036 H 1.001-1.035 Urine Protein 1+ H Negative Urine Ketones Negative Negative Urine Blood 3+ H Negative /uL Urine Nitrite Negative Negative Urine Bilirubin 1+ H Negative Urine Urobilinogen Normal Negative mg/dL Urine Leukocyte Esterase 1+ Negative /uL Urine RBC 2674 0 - 4 /hpf Urine WBC 16 0 - 5 /hpf Urine Squamous Epithelial Cells None seen <5 /hpf Urine Bacteria None seen None Seen /hpf Urine Glucose Normal Normal mg/dL Blood Gas Spontaneous Rate 16 Bl Gas Inspiratory/Expiratory Ratio 1:3.5 Blood Gas Critical Value Read Back yes Blood Gas Notified Whom md anya lovell Blood Gas Notified Time [id number] Blood Gas Notified By md anya lovell White Blood Count 24.7 H 4.4-10.8 10^3/uL Red Blood Count 2.54 L 4.0-5.20 10^6/uL Hemoglobin 6.9 *L 12.2-16.2 g/dL Hematocrit 21.7 L 36.0-46.0 % Mean Corpuscular Volume 85.3 80.0-100.0 fL Mean Corpuscular Hemoglobin 27.1 L 28.0-32.0 pg Mean Corpuscular Hemoglobin Concent 31.8 L 32.0-36.0 g/dL Red Cell Distribution Width 21.6 H 11.8-14.3 % Platelet Count 505 H 140-450 10^3/uL Mean Platelet Volume 6.8 L 6.9-10.8 fL Neutrophils (%) (Auto) 37.0-80.0 % Lymphocytes (%) (Auto) 10.0-50.0 % Monocytes (%) (Auto) 0.0-12.0 % Basophils (%) (Auto) 0.0-2.0 % Neutrophils # (Auto) 1.6-8.6 10 ^3/uL Lymphocytes # (Auto) 0.4-5.4 10 ^3/uL Monocytes # (Auto) 0-1.3 10 ^3/uL Differential Total Cells Counted 100.0 100 Neutrophils % (Manual) 81 H 37.0-80.0 Band Neutrophils % (Manual) 3 Lymphocytes % (Manual) 5 L 10.0-50.0 Monocytes % (Manual) 9 0-12 Eosinophils % (Manual) 2 0-7 Basophils % (Manual) 0 0.0-2.0 Metamyelocytes % (manual) 0 Myelocytes % (Manual) 0 Promyelocytes % (Manual) 0 Blast Cells % (Manual) 0 Reactive Lymphocytes 0 Platelet Estimate Increased Anisocytosis (manual) Slight Target Cells Few Stomatocytes Few Sodium Level 126 L 136-145 mmol/L Potassium Level 3.7 3.5-5.1 mmol/L Chloride Level 90 L 98-107 mmol/L Carbon Dioxide Level 29 20-31 mmol/L Anion Gap 7 5-15 Blood Urea Nitrogen 6 L 9-23 mg/dL Creatinine 0.27 L 0.550-1.02 mg/dL Glomerular Filtration Rate Calc 129 >90 mL/min BUN/Creatinine Ratio 22.2 H 10.0-20.0 Serum Glucose 124 H 74-106 mg/dL Lactic Acid Level 1.3 0.4-2.0 mmol/L Calcium Level 9.0 8.7-10.4 mg/dL Total Bilirubin 6.7 H 0.2-1.0 mg/dL Aspartate Amino Transferase (AST) 113 H 13-40 U/L Alanine Aminotransferase (ALT) 56 H 7-40 U/L Alkaline Phosphatase 515 H 46-116 U/L Ammonia 37 H 11-32 umol/L B-Type Natriuretic Peptide 74.95 0-100 pg/mL Total Protein 5.4 L 5.7-8.2 g/dL Albumin 2.9 L 3.2-4.8 g/dL Lipase 72 H 12-53 U/L Salicylates Level < 3.0 -30 mg/dL Assessment Impression: Acute hypoxic respiratory failure On mechanical ventilator Questionable pneumonia Sepsis Metabolic encephalopathy Metastatic cancer Anemia Plan s/p intubation on mechanical ventilator. CXR image and report reviewed. ET in the low thoracic trachea. Patchy left basilar airspace opacity ABG reviewed, c/w alkalemia. Chest/abdomen/pelvis CT demonstrated diffuse multifocal liver masses with the largest centrally located, 10.0 x 7.2 cm. Lobulated mass in the pelvis, 11.4 x 9.1 cm, which could be a multifibroid uterus vs leiomyosarcoma or other etiology. Moderate colonic diverticulosis. Decompressed gallbladder contains a gallstone with mild pericholecystic fluid. Cholecystitis is a consideration. Ventral abdominal wall hernia containing a loop of nondilated small bowel. Mild anasarca. An 8 mm right middle lobe pulmonary nodule. Bibasilar consolidation, most likely atelectasis. On AC mode; RR 16, VT 500, PEEP 5, FiO2 30% Titrate FIO2 to keep O2 saturation above 90%. VAP bundle. Daily ABG and CXR while intubated Sedate for ventilator synchrony - On Propofol, Versed. Continue antibiotics- Zosyn/vancomycin. F/u cultures. Off Levophed since 2 AM, hemodynamically stable. 2 units of PRBC ordered Monitor hemoglobin Monitor renal function Monitor electrolytes. Supplement as necessary. Monitor ins and outs. Maintain euvolemia. GI prophylaxis. DVT prophylaxis. Prognosis: Poor given patient's multiple co-morbidities. Condition: Critical Rest of plan per hospitalist and other consultants. A total of 35 minutes of critical care time was spent reviewing the patient record, examining the patient, making a diagnostic and therapeutic plan, discussing this plan with the medical personnel, following up on diagnostic studies and following the patient for clinical stability excluding any and all procedures. At least 50% of this time was spent in direct, [id number] co ntact. Thank you David Lopez NP, for allowing me to participate in this patient's care. Further recommendations will depend on the patient's clinical course. Please do not hesitate to contact me if you have any questions or concerns. This medical document was created using an electronic medical record system with [employer] computerized dictation system. Although these documentations are being carefully reviewed, there may still be some phonetic and typographical changes. The errors are purely typographical, due to imperfection on the software program, and do not reflect any compromise in the patient's medical care. Plan discussed with: Other (John Matthews NP, MD) WILLIAM YOON MD Jul 13, 2024 19:15
[2024-07-13 21:47] LABS: Potassium 2.8 mmol/L (3.5-5.1)
[2024-07-13 21:54] LABS: Magnesium 1.3 mg/dL (1.6-2.6); Phosphorus 1.8 mg/dL (2.4-5.1)
[2024-07-13] MEDS: MAGNESIUM SULFATE 1GM/100ML 100 ML IV ONE ×2 (22:37→22:38)
[2024-07-13] MEDS: POTASSIUM CHL 20 Meq TABLET PO ONE (22:48)
[2024-07-14] VITALS (69 sets, daily range): BP systolic 91–151; BP diastolic 49–95; PULSE 84–117; RESP 17–28; TEMP 94.1–100.9; O2SAT 97–100
[2024-07-14 07:14] LABS: Hematocrit 28.3 % (36.0-46.0); Hemoglobin 9.5 g/dL (12.2-16.2); Mean Corpuscular Hemoglobin 28.4 pg (28.0-32.0); Mean Corpuscular Hgb Conc. 33.6 g/dL (32.0-36.0); Mean Corpuscular Volume 84.4 fL (80.0-100.0); Platelet Count (auto) 487 10^3/uL (140-450); Red Blood Cells 3.36 10^6/uL (4.0-5.20); Red Cell Distribution Width 19.2 % (11.8-14.3); White Blood Cell 27.9 10^3/uL (4.4-10.8)
[2024-07-14 07:37] LABS: Basophils % (manual) 0 (0.0-2.0); Blast Cells 0; Metamyelocytes % 0; Myelocytes % 0; Promyelocytes % 0; Reactive Lymphocytes 0
[2024-07-14 07:42] LABS: Anion Gap 10 (5-15); BUN/Creatinine Ratio 17.1 (10.0-20.0); Calcium 9.4 mg/dL (8.7-10.4); Carbon Dioxide 24 mmol/L (20-31)
[2024-07-14 07:48] LABS: Alkaline Phosphatase 468 U/L (46-116); Blood Urea Nitrogen 6 mg/dL (9-23); Chloride 91 mmol/L (98-107); Glucose 124 mg/dL (74-106); Potassium 2.8 mmol/L (3.5-5.1); Sodium 125 mmol/L (136-145)
[2024-07-14 07:49] LABS: Alanine Aminotransferase 51 U/L (7-40); Albumin 2.7 g/dL (3.2-4.8); Aspartate Aminotransferase 97 U/L (13-40); Total Protein 5.3 g/dL (5.7-8.2)
[2024-07-14] MEDS: POTASSIUM PHOSPHATE 22 MEQ in SODIUM CHL 0.9% 100 ML IV ONE (07:50)
[2024-07-14 08:00] LABS: Magnesium 1.5 mg/dL (1.6-2.6)
[2024-07-14 08:01] LABS: Phosphorus 2.3 mg/dL (2.4-5.1)
[2024-07-14 08:56] LABS: Anisocytosis Slight; Band Neutrophils % (manual) 2; Eosinophils % (manual) 1 (0-7); Lymphocytes % (manual) 17 (10.0-50.0); Monocytes % (manual) 9 (0-12); Platelet Estimate Increased; Stomatocytes Few
--- NOTE | 2024-07-14 09:35 | DVH ---
CHEST RADIOGRAPH Indication: respiratory failure Technique: Single frontal view of the chest was obtained Comparison: XY CHEST PORTABLE on DOS: 07/12/24, XY CHEST PORTABLE on DOS: 07/12/24 FINDINGS: Lines and tubes: ET 5cm from gerber. NG tube in stomach Cardiomediastinal silhouette: normal Pulmonary vasculature: normal Lung expansion: low Lung airspace: Patchy left basilar airspace opacity is noted. Lung interstitium: normal Pleura: normal Pneumothorax: no Bones: Unremarkable Other: no IMPRESSION: Lines and tube are appropriate. Patchy left basilar airspace opacity is noted.
[2024-07-14 14:32] LABS: Potassium 3.3 mmol/L (3.5-5.1)
[2024-07-14 14:41] LABS: Magnesium 1.6 mg/dL (1.6-2.6)
[2024-07-14] MEDS: POTASSIUM CHL 20MEQ/100ML 100 ML IV SCH (15:02)
--- NOTE | 2024-07-14 17:15 | DVHPN2 ---
Subjective intubated and sedated still on levophed Changes from previous H/P or p: No Changes Objective Vitals Vital Signs Date Time Temp Pulse Resp B/P (MAP) Pulse Ox O2 Delivery O2 Flow Rate FiO2 07/14/24 16:38 112 26 114/85 (95) 98 30 07/14/24 16:00 Mechanical Ventilator+ 07/14/24 15:28 100.6 Intake/Output Intake and Output 07/14/24 05:00 Intake Total 4618.814 ml Output Total 1230 ml Balance 3388.814 ml Intake Oral 0 ml IV Total 3118.814 ml Tube Feeding 0 ml Blood Product 900 ml Other 600 ml Output Urine Total 1230 ml Stool Total 0 ml Urine/Stool Mix 0 ml Gastric Drainage Total 0 ml Emesis 0 ml Chest Tube Drainage Total 0 ml Drainage Total 0 ml Other 0 ml # Bowel Movements 2 General Appearance: Other (intubated and sedated) Extremities: No clubbing, No edema Medications Current Medications Medications Dose Ordered Sig/Tanvi Route Start Time Stop Time Status Last Admin Dose Admin Norepinephrine Bitartrate 250 ml @ 3.75 mls/hr Q24H IV 07/12/24 22:00 07/12/24 21:51 18.75 MLS/HR Midazolam HCl 50 ml @ 1 mls/hr Q24H IV 07/12/24 22:00 07/14/24 13:14 8 MLS/HR Propofol 100 ml @ 2.454 mls/ hr Q24H IV 07/12/24 23:30 07/14/24 13:35 24.54 MLS/HR Sodium Chloride 1,000 ml @ 90 mls/hr Q11H7M IV 07/13/24 01:00 07/13/24 23:14 90 MLS/HR Piperacillin Sod/ Tazobactam Sod 100 ml @ 25 mls/hr Q6HR IV 07/13/24 06:00 07/14/24 16:07 25 MLS/HR Vancomycin HCl 0 ml @ 0 mls/hr UD IV 07/13/24 01:00 Pantoprazole Sodium 40 mg DAILY IV 07/13/24 10:00 07/14/24 09:49 40 MG Albuterol 2.5 mg Q6HR NEB 07/13/24 06:00 07/14/24 11:10 2.5 MG Ondansetron HCl 4 mg Q4HP PRN IV 07/13/24 01:00 Enoxaparin Sodium 40 mg DAILY SC 07/13/24 10:00 07/14/24 09:49 40 MG Acetaminophen 650 mg Q6HP PRN PO 07/13/24 01:00 07/14/24 15:28 650 MG Nitroglycerin 0.4 mg Q5MINP PRN SL 07/13/24 01:00 Morphine Sulfate 2 mg Q30M PRN IV 07/13/24 01:00 Vancomycin HCl 250 ml @ 250 mls/hr Q12H IV 07/13/24 17:00 07/14/24 05:01 250 MLS/HR Potassium Chloride 100 ml @ 50 mls/hr Q2H IV 07/14/24 14:45 07/14/24 18:44 07/14/24 15:02 50 MLS/HR Laboratory Results Laboratory Tests 07/14/24 06:00 07/14/24 14:03 Chemistry Test 07/13/24 21:05 07/14/24 06:00 07/14/24 07:00 07/14/24 14:03 Magnesium Level 1.3 mg/dL (1.6-2.6) L 1.5 mg/dL (1.6-2.6) L 1.6 mg/dL (1.6-2.6) Phosphorus Level 1.8 mg/dL (2.4-5.1) L 2.3 mg/dL (2.4-5.1) L Albumin 2.7 g/dL (3.2-4.8) L Calcium Level 9.4 mg/dL (8.7-10.4) Total Protein 5.3 g/dL (5.7-8.2) L LFT Test 07/14/24 06:00 Alanine Aminotransferase (ALT) 51 U/L (7-40) H Alkaline Phosphatase 468 U/L (46-116) H Aspartate Amino Transferase (AST) 97 U/L (13-40) H Total Bilirubin 6.0 mg/dL (0.2-1.0) H Urinalysis Test 07/13/24 00:01 Urine Color [place] (Yellow) H Urine Clarity Turbid (Clear) H Urine pH 5.5 (5.0-9.0) Urine Specific [place] 1.036 (1.001-1.035) Urine Protein 1+ (Negative) H Urine Ketones Negative (Negative) Urine Blood 3+ /uL (Negative) H Urine Nitrite Negative (Negative) Urine Bilirubin 1+ (Negative) H Urine Urobilinogen Normal mg/dL (Negative) Urine Leukocyte Esterase 1+ /uL (Negative) Urine RBC 2674 /hpf (0 - 4) Urine WBC 16 /hpf (0 - 5) Urine Squamous Epithelial Cells None seen /hpf (<5) Urine Bacteria None seen /hpf (None Seen) Urine Glucose Normal mg/dL (Normal) Blood Gas Results Test 07/14/24 07:51 Arterial Blood pH 7.523 (7.350-7.450) FiO2 % 30.0 Microbiology Microbiology Date/Time Source Procedure Growth Status 07/13/24 00:01 Voided Urine Urine Culture - Preliminary Resulted 07/12/24 22:47 Blood Blood Culture - Preliminary NO GROWTH AFTER 24 HOURS OF INCUBATION. Resulted Assessment/Plan Assessment/Plan Acute respiratory failure, intubated Questionable pneumonia Sepsis Metabolic encephalopathy Metastatic disease Anemia Plan Continue levophed Continue IV zosyn and vanco pending blood cx IV potassium for K 3.4 Hb stable and monitor Critical care time is 55 minutes Plan discussed with: Other (nurse) My Orders Orders - JHON BAR MD Procedure Category Date Status Time Cleanse Wound With THEO 07/14/24 In Process Wound Clean 11:15 Apply Z-Guard THEO 07/14/24 In Process 13:30 * Dietary Consult CONS 07/14/24 Transmitted 13:33 Potassium Chl PHA 07/14/24 In Process 20meq/100ml 14:45 Date of Service: Jul 14, 2024 Billing Provider: JHON BAR MD Common Visit Codes: [id number] CARE 30-74 MIN JHON BAR MD Jul 14, 2024 17:14
[2024-07-14] MEDS: ALBUTEROL SULF 2.5 MG/0.5ML(0.5%) NEB SOLN ONE (20:04)
--- NOTE | 2024-07-14 23:26 | DVHPN2 ---
Progress Note - Dictate Date Seen: Jul 14, 2024 Medical Necessity Reason Pt with a Central, PICC or Fol: Yes The following are medically ne: Wasserman Catheter Reason for wasserman catheter: Strict I&O Subjective Patient seen and examined at bedside. Sedated, intubated on mechanical ventilator. Overnight events reviewed. vital signs Vital Sign Date Time Temp Pulse Resp B/P (MAP) Pulse Ox O2 Delivery O2 Flow Rate FiO2 07/14/24 23:00 99.5 103 21 146/94 (111) 100 99.5 07/14/24 22:00 30 07/14/24 19:30 Mechanical Ventilator+ Total Intake and Output 07/13/24 07/13/24 07/14/24 15:00 23:00 07:00 Intake Total 1418 ml 1448.890 ml 1145.332 ml Output Total 700 ml 500 ml Balance 1418 ml 748.890 ml 645.332 ml medications Current Medications Medications Dose Ordered Sig/Tanvi Route Start Time Stop Time Status Last Admin Dose Admin Norepinephrine Bitartrate 250 ml @ 3.75 mls/hr Q24H IV 07/12/24 22:00 07/12/24 21:51 18.75 MLS/HR Midazolam HCl 50 ml @ 1 mls/hr Q24H IV 07/12/24 22:00 07/14/24 13:14 8 MLS/HR Propofol 100 ml @ 2.454 mls/ hr Q24H IV 07/12/24 23:30 07/14/24 21:17 24.54 MLS/HR Sodium Chloride 1,000 ml @ 90 mls/hr Q11H7M IV 07/13/24 01:00 07/14/24 21:35 90 MLS/HR Piperacillin Sod/ Tazobactam Sod 100 ml @ 25 mls/hr Q6HR IV 07/13/24 06:00 07/14/24 18:53 25 MLS/HR Vancomycin HCl 0 ml @ 0 mls/hr UD IV 07/13/24 01:00 Pantoprazole Sodium 40 mg DAILY IV 07/13/24 10:00 07/14/24 09:49 40 MG Albuterol 2.5 mg Q6HR NEB 07/13/24 06:00 07/14/24 19:35 2.5 MG Ondansetron HCl 4 mg Q4HP PRN IV 07/13/24 01:00 Enoxaparin Sodium 40 mg DAILY SC 07/13/24 10:00 07/14/24 09:49 40 MG Acetaminophen 650 mg Q6HP PRN PO 07/13/24 01:00 07/14/24 15:28 650 MG Nitroglycerin 0.4 mg Q5MINP PRN SL 07/13/24 01:00 Morphine Sulfate 2 mg Q30M PRN IV 07/13/24 01:00 Vancomycin HCl 250 ml @ 250 mls/hr Q12H IV 07/13/24 17:00 07/14/24 17:51 250 MLS/HR objective Gen.: Patient lying in bed in medical ICU. Sedated, intubated on mechanical ventilator. Head: Normocephalic, atraumatic. Eyes: PERRLA. Ears: Normal external anatomy. Throat: Endotracheal tube and orogastric tube in place. Neck: Supple, trachea midline. Chest: Transmitted breath sounds bilaterally. Decreased air entry bilaterally. No wheezing. Bibasilar crackles. Cardiovascular: Positive S1, positive S2. Regular rate and rhythm. Abdomen: Positive bowel sounds in all 4 quadrants. Soft, nontender, nondistended. : Wasserman in place. Normal external genitalia. Rectal: Deferred. Skin: Warm, dry. Intact. Extremities: 2+ radial pulses bilaterally. No lower extremity edema. Neuro: Sedated. laboratory and microbiology Laboratory Tests 07/14/24 14:03 07/14/24 06:00 Test 07/14/24 06:00 Range/Units Serum Glucose 124 H 74-106 mg/dL Assessment/Plan Impression: Acute hypoxic respiratory failure On mechanical ventilator Questionable pneumonia Sepsis Metabolic encephalopathy Metastatic cancer Anemia Events: Remains on vent support On AC mode; RR 16, VT 500, PEEP 5, FiO2 30% Off Levophed, hemodynamically stable. Sedated on Propofol, Versed. Failed SBT due to shallow breaths. Elevated WBC count at 27.9 - continue to monitor. Potassium supplementation Monitor renal function ABG reviewed, notable for alkalemia Patient overbreathing the ventilator. Labs and imaging reviewed. Rest of plan as noted below. Plan s/p intubation on mechanical ventilator. CXR image and report reviewed. ET in the low thoracic trachea. Patchy left basilar airspace opacity ABG reviewed, c/w alkalemia. Chest/abdomen/pelvis CT demonstrated diffuse multifocal liver masses with the largest centrally located, 10.0 x 7.2 cm. Lobulated mass in the pelvis, 11.4 x 9.1 cm, which could be a multifibroid uterus vs leiomyosarcoma or other etiology. Moderate colonic diverticulosis. Decompressed gallbladder contains a gallstone with mild pericholecystic fluid. Cholecystitis is a consideration. Ventral abdominal wall hernia containing a loop of nondilated small bowel. Mild anasarca. An 8 mm right middle lobe pulmonary nodule. Bibasilar consolidation, most likely atelectasis. On AC mode; RR 16, VT 500, PEEP 5, FiO2 30% Titrate FIO2 to keep O2 saturation above 90%. VAP bundle. Daily ABG and CXR while intubated Sedate for ventilator synchrony - On Propofol, Versed. Continue antibiotics- Zosyn/vancomycin. F/u cultures. Off Levophed since 2 AM, hemodynamically stable. 2 units of PRBC ordered Monitor hemoglobin Monitor renal function Monitor electrolytes. Supplement as necessary. Monitor ins and outs. Maintain euvolemia. GI prophylaxis. DVT prophylaxis. Prognosis: Poor given patient's multiple co-morbidities. Condition: Critical Rest of plan per hospitalist and other consultants. A total of 35 minutes of critical care time was spent reviewing the patient record, examining the patient, making a diagnostic and therapeutic plan, discussing this plan with the medical personnel, following up on diagnostic studies and following the patient for clinical stability excluding any and all procedures. At least 50% of this time was spent in direct, [id number] contact. Thank you David Lopez NP, for allowing me to participate in this patient's care. Further recommendations will depend on the patient's clinical course. Please do not hesitate to contact me if you have any questions or concerns. This medical document was created using an electronic medical record system with [employer] dictation system. Although these documentations are being carefully reviewed, there may still be some phonetic and typographical changes. The errors are purely typographical, due to imperfection on the software program, and do not reflect any compromise in the patient's medical care. Plan discussed with: Other (RICK Castro) Critical Care Time(min): 35 CC Plasma Assessment Blood Product Administration S: [id number] WILLIAM YOON MD Jul 14, 2024 23:26
[2024-07-15] VITALS (80 sets, daily range): BP systolic 99–157; BP diastolic 15–90; PULSE 97–116; RESP 17–34; TEMP 98.4–99.7; O2SAT 97–100
[2024-07-15 07:41] LABS: Hematocrit 33.7 % (36.0-46.0); Hemoglobin 10.8 g/dL (12.2-16.2); Mean Corpuscular Hemoglobin 28.2 pg (28.0-32.0); Mean Corpuscular Hgb Conc. 32.2 g/dL (32.0-36.0); Mean Corpuscular Volume 87.6 fL (80.0-100.0); Platelet Count (auto) 524 10^3/uL (140-450); Red Blood Cells 3.84 10^6/uL (4.0-5.20); Red Cell Distribution Width 20.2 % (11.8-14.3)
[2024-07-15 07:47] LABS: Potassium 3.5 mmol/L (3.5-5.1)
[2024-07-15 07:48] LABS: Anion Gap 8 (5-15); Calcium 9.9 mg/dL (8.7-10.4); Carbon Dioxide 23 mmol/L (20-31)
[2024-07-15 07:51] LABS: White Blood Cell 35.7 10^3/uL (4.4-10.8)
[2024-07-15 07:52] LABS: Band Neutrophils % (manual) 0; Basophils % (manual) 0 (0.0-2.0); Blast Cells 0; Metamyelocytes % 0; Myelocytes % 0; Promyelocytes % 0; Reactive Lymphocytes 0
[2024-07-15 07:53] LABS: BUN/Creatinine Ratio 11.4 (10.0-20.0)
[2024-07-15 08:04] LABS: Blood Urea Nitrogen 5 mg/dL (9-23); Chloride 92 mmol/L (98-107); Glucose 111 mg/dL (74-106); Sodium 123 mmol/L (136-145)
[2024-07-15 08:14] LABS: Eosinophils % (manual) 1 (0-7); Lymphocytes % (manual) 12 (10.0-50.0); Monocytes % (manual) 6 (0-12); Platelet Estimate Increased
[2024-07-15 08:57] LABS: Base Excess -4.7 mmol/L (-2.0-3.0)
[2024-07-15] MEDS: FLUCONAZOLE 200MG/100ML 100 ML IV ONE (09:14)
[2024-07-15] MEDS: SODIUM BICARB 8.4% 50Meq/50ml SYR Vial IV ONE (10:28)
--- NOTE | 2024-07-15 18:15 | DVHPN2 ---
Subjective Seen and examined at bedside. Intubated at 30% Fio2, PEEP 5. Reviewed CT scan, patient possibly has Malignancy with Liver Mets. Need MRI Brain Changes from previous H/P or p: No Changes Objective Vitals Vital Signs Date Time Temp Pulse Resp B/P (MAP) Pulse Ox O2 Delivery O2 Flow Rate FiO2 07/15/24 17:00 99.1 110 22 121/75 (90) 99 210.4 07/15/24 16:17 30 07/15/24 16:00 Mechanical Ventilator+ Intake/Output Intake and Output 07/15/24 07:00 Intake Total 4423.454 ml Output Total 675 ml Balance 3748.454 ml IV Total 4423.454 ml Output Urine Total 675 ml # Bowel Movements 1 Exam Gen: in bed intubated Cvs: N S1/S2, RRR Resp: BLAE Abd: Soft [employer]: Sedated General Appearance: Other (intubated and sedated) Medications Current Medications Medications Dose Ordered Sig/Tanvi Route Start Time Stop Time Status Last Admin Dose Admin Norepinephrine Bitartrate 250 ml @ 3.75 mls/hr Q24H IV 07/12/24 22:00 07/12/24 21:51 18.75 MLS/HR Midazolam HCl 50 ml @ 1 mls/hr Q24H IV 07/12/24 22:00 07/15/24 08:29 8 MLS/HR Propofol 100 ml @ 2.454 mls/ hr Q24H IV 07/12/24 23:30 07/15/24 10:08 24.54 MLS/HR Sodium Chloride 1,000 ml @ 90 mls/hr Q11H7M IV 07/13/24 01:00 07/15/24 08:39 90 MLS/HR Piperacillin Sod/ Tazobactam Sod 100 ml @ 25 mls/hr Q6HR IV 07/13/24 06:00 07/15/24 12:10 25 MLS/HR Vancomycin HCl 0 ml @ 0 mls/hr UD IV 07/13/24 01:00 Pantoprazole Sodium 40 mg DAILY IV 07/13/24 10:00 07/15/24 10:11 40 MG Albuterol 2.5 mg Q6HR NEB 07/13/24 06:00 07/15/24 13:59 2.5 MG Ondansetron HCl 4 mg Q4HP PRN IV 07/13/24 01:00 Enoxaparin Sodium 40 mg DAILY SC 07/13/24 10:00 07/15/24 10:12 40 MG Acetaminophen 650 mg Q6HP PRN PO 07/13/24 01:00 07/15/24 02:55 650 MG Nitroglycerin 0.4 mg Q5MINP PRN SL 07/13/24 01:00 Morphine Sulfate 2 mg Q30M PRN IV 07/13/24 01:00 Vancomycin HCl 250 ml @ 250 mls/hr Q12H IV 07/13/24 17:00 07/15/24 17:19 250 MLS/HR Laboratory Results Laboratory Tests 07/15/24 07:28 Chemistry Test 07/15/24 07:28 Calcium Level 9.9 mg/dL (8.7-10.4) Magnesium Level 1.5 mg/dL (1.6-2.6) L Urinalysis Test 07/13/24 00:01 Urine Color [place] (Yellow) H Urine Clarity Turbid (Clear) H Urine pH 5.5 (5.0-9.0) Urine Specific [place] 1.036 (1.001-1.035) Urine Protein 1+ (Negative) H Urine Ketones Negative (Negative) Urine Blood 3+ /uL (Negative) H Urine Nitrite Negative (Negative) Urine Bilirubin 1+ (Negative) H Urine Urobilinogen Normal mg/dL (Negative) Urine Leukocyte Esterase 1+ /uL (Negative) Urine RBC 2674 /hpf (0 - 4) Urine WBC 16 /hpf (0 - 5) Urine Squamous Epithelial Cells None seen /hpf (<5) Urine Bacteria None seen /hpf (None Seen) Urine Glucose Normal mg/dL (Normal) Blood Gas Results Test 07/15/24 08:52 Arterial Blood pH 7.446 (7.350-7.450) FiO2 % 30.0 Microbiology Microbiology Date/Time Source Procedure Growth Status 07/13/24 00:01 Voided Urine Urine Culture - Preliminary Presumptive Tayler albicans Resulted 07/12/24 22:47 Blood Blood Culture - Preliminary NO GROWTH AFTER 48 HOURS OF INCUBATION. Resulted Assessment/Plan Assessment/Plan # Acute Resp Failure - Intubated # Sepsis - Abx - F/u Cultures # Possible Malignancy with Liver Mets - Need MRI Brain # Metabolic Encephalopathy - MRI Brain Critical care time 45 mins Plan discussed with: Other My Orders Orders - EDWIN JOHNSON MD Procedure Category Date Status Time Doxycycline Tablet PHA 07/15/24 Logged (Vibramycin Tablet) 22:00 Complete Blood Count LAB 07/16/24 Verified 04:00 Comprehensive LAB 07/16/24 Verified Metabolic Panel 04:00 Magnesium Sulfate PHA 07/15/24 Logged 1gm/100ml 19:00 Brain Head Wo Contrast MRI 07/15/24 Verified 18:10 Date of Service: Jul 15, 2024 Billing Provider: EDWIN JOHNSON MD Common Visit Codes: [id number] CARE 30-74 MIN EDWIN JOHNSON MD Jul 15, 2024 18:15
[2024-07-15] MEDS: MAGNESIUM SULFATE 1GM/100ML 100 ML IV SCH (19:43)
[2024-07-15] MEDS ORDERED: MAGNESIUM SULFATE 1GM/100ML 100 ML IV SCH (20:00)
[2024-07-15] MEDS: DOXYCYCLINE 100 MG TAB/CAP PO SCH (21:22)
--- NOTE | 2024-07-15 23:17 | DVHPN2 ---
Progress Note - Dictate Date Seen: Jul 15, 2024 Medical Necessity Reason Pt with a Central, PICC or Fol: Yes The following are medically ne: Wasserman Catheter Reason for wasserman catheter: Strict I&O Subjective Patient seen and examined at bedside. Sedated, intubated on mechanical ventilator. Overnight events reviewed. vital signs Vital Sign Date Time Temp Pulse Resp B/P (MAP) Pulse Ox O2 Delivery O2 Flow Rate FiO2 07/15/24 22:30 105 28 138/79 (98) 99 30 07/15/24 22:00 Mechanical Ventilator+ 07/15/24 22:00 99.1 210.4 Total Intake and Output 07/14/24 07/14/24 07/15/24 15:00 23:00 07:00 Intake Total 979.334 ml 1860.12 ml 1584 ml Output Total 475 ml 200 ml Balance 979.334 ml 1385.12 ml 1384 ml medications Current Medications Medications Dose Ordered Sig/Tanvi Route Start Time Stop Time Status Last Admin Dose Admin Norepinephrine Bitartrate 250 ml @ 3.75 mls/hr Q24H IV 07/12/24 22:00 07/12/24 21:51 18.75 MLS/HR Midazolam HCl 50 ml @ 1 mls/hr Q24H IV 07/12/24 22:00 07/15/24 08:29 8 MLS/HR Propofol 100 ml @ 2.454 mls/ hr Q24H IV 07/12/24 23:30 07/15/24 10:08 24.54 MLS/HR Sodium Chloride 1,000 ml @ 90 mls/hr Q11H7M IV 07/13/24 01:00 07/15/24 22:51 90 MLS/HR Piperacillin Sod/ Tazobactam Sod 100 ml @ 25 mls/hr Q6HR IV 07/13/24 06:00 07/15/24 18:44 25 MLS/HR Vancomycin HCl 0 ml @ 0 mls/hr UD IV 07/13/24 01:00 Pantoprazole Sodium 40 mg DAILY IV 07/13/24 10:00 07/15/24 10:11 40 MG Albuterol 2.5 mg Q6HR NEB 07/13/24 06:00 07/15/24 19:27 2.5 MG Ondansetron HCl 4 mg Q4HP PRN IV 07/13/24 01:00 Enoxaparin Sodium 40 mg DAILY SC 07/13/24 10:00 07/15/24 10:12 40 MG Acetaminophen 650 mg Q6HP PRN PO 07/13/24 01:00 07/15/24 02:55 650 MG Nitroglycerin 0.4 mg Q5MINP PRN SL 07/13/24 01:00 Morphine Sulfate 2 mg Q30M PRN IV 07/13/24 01:00 Vancomycin HCl 250 ml @ 250 mls/hr Q12H IV 07/13/24 17:00 07/15/24 17:19 250 MLS/HR Doxycycline Monohydrate 100 mg Q12HR PO 07/15/24 22:00 07/15/24 21:22 100 MG objective Gen.: Patient lying in bed in medical ICU. Sedated, intubated on mechanical ventilator. Head: Normocephalic, atraumatic. Eyes: PERRLA. Ears: Normal external anatomy. Throat: Endotracheal tube and orogastric tube in place. Neck: Supple, trachea midline. Chest: Transmitted breath sounds bilaterally. Decreased air entry bilaterally. No wheezing. Bibasilar crackles. Cardiovascular: Positive S1, positive S2. Regular rate and rhythm. Abdomen: Positive bowel sounds in all 4 quadrants. Soft, nontender, nondistended. : Wasserman in place. Normal external genitalia. Rectal: Deferred. Skin: Warm, dry. Intact. Extremities: 2+ radial pulses bilaterally. No lower extremity edema. Neuro: Sedated. laboratory and microbiology Laboratory Tests 07/15/24 07:28 Test 07/15/24 07:28 Range/Units Serum Glucose 111 H 74-106 mg/dL Assessment/Plan Impression: Acute hypoxic respiratory failure On mechanical ventilator Questionable pneumonia Sepsis Metabolic encephalopathy Metastatic cancer Anemia Events: Remains on vent support On AC mode; RR 16, VT 500, PEEP 5, FiO2 30% ABG reviewed, compensated. CXR (07/14) reviewed. Patchy LLL opacities. Devices in place. Off Levophed, hemodynamically stable. Sedated on Versed. WBC trending up at 35.7 - continue to monitor. Sodium 123 - monitor. IV fluids w/ NS at 90 ml/hr. Continue antibiotics Follow up cultures Continue antifungal/Diflucan due to yeast. Labs and imaging reviewed. Rest of plan as noted below. Plan s/p intubation on mechanical ventilator. Chest/abdomen/pelvis CT demonstrated diffuse multifocal liver masses with the largest centrally located, 10.0 x 7.2 cm. Lobulated mass in the pelvis, 11.4 x 9.1 cm, which could be a multifibroid uterus vs leiomyosarcoma or other etiology. Moderate colonic diverticulosis. Decompressed gallbladder contains a gallstone with mild pericholecystic fluid. Cholecystitis is a consideration. Ventral abdominal wall hernia containing a loop of nondilated small bowel. Mild anasarca. An 8 mm right middle lobe pulmonary nodule. Bibasilar consolidation, most likely atelectasis. On AC mode; RR 16, VT 500, PEEP 5, FiO2 30% Titrate FIO2 to keep O2 saturation above 90%. VAP bundle. Daily ABG and CXR while intubated Sedate for ventilator synchrony Continue antibiotics- Zosyn/vancomycin. F/u cultures. Off Levophed, hemodynamically stable. Monitor hemoglobin Monitor renal function Monitor electrolytes. Supplement as necessary. Monitor ins and outs. Maintain euvolemia. GI prophylaxis. DVT prophylaxis. Prognosis: Poor given patient's multiple co-morbidities. Condition: Critical Rest of plan per hospitalist and other consultants. A total of 35 minutes of critical care time was spent reviewing the patient record, examining the patient, making a diagnostic and therapeutic plan, discussing this plan with the medical personnel, following up on diagnostic studies and following the patient for clinical stability excluding any and all procedures. At least 50% of this time was spent in direct, [id number] contact. Thank you David Lopez NP, for allowing me to participate in this patient's care. Further recommendations will depend on the patient's clinical course. Please do not hesitate to contact me if you have any questions or concerns. This medical document was created using an electronic medical record system with [employer] dictation system. Although these documentations are being carefully reviewed, there may still be some phonetic and typographical changes. The errors are purely typographical, due to imperfection on the software program, and do not reflect any compromise in the patient's medical care. Dietary Evaluation Review Comments: 1. Advance to Regular textures as tolerated diet to if medically feasible, 2. If EN possible and PO not an option, provide Jevity 35ml/hr if off vent 3. If EN feeding not available, offer TPN per pharmacy if NPO > 7 days Expected Outcomes/Goals: on diet, off vent, gradual weight loss. Plan discussed with: Other (RN) Critical Care Time(min): 35 CC Plasma Assessment Blood Product Administration S: [id number] WILLIAM YOON MD Jul 15, 2024 23:17
[2024-07-16] VITALS (104 sets, daily range): BP systolic 86–162; BP diastolic 53–94; PULSE 97–115; RESP 13–31; TEMP 98.8–99.9; O2SAT 76–100
[2024-07-16 03:35] LABS: Hemoglobin 9.5 g/dL (12.2-16.2); Mean Corpuscular Hemoglobin 28.1 pg (28.0-32.0)
[2024-07-16 03:36] LABS: Anion Gap 11 (5-15); BUN/Creatinine Ratio 23.1 (10.0-20.0); Calcium 9.1 mg/dL (8.7-10.4); Carbon Dioxide 24 mmol/L (20-31); Magnesium 1.9 mg/dL (1.6-2.6); Mean Corpuscular Hgb Conc. 32.8 g/dL (32.0-36.0); Mean Corpuscular Volume 85.7 fL (80.0-100.0); Platelet Count (auto) 527 10^3/uL (140-450); Red Blood Cells 3.39 10^6/uL (4.0-5.20); Red Cell Distribution Width 19.9 % (11.8-14.3)
[2024-07-16 03:38] LABS: White Blood Cell 33.7 10^3/uL (4.4-10.8)
[2024-07-16 03:39] LABS: Basophils % (manual) 0 (0.0-2.0); Blast Cells 0; Metamyelocytes % 0; Myelocytes % 0; Promyelocytes % 0; Reactive Lymphocytes 0
[2024-07-16 04:13] LABS: Alanine Aminotransferase 96 U/L (7-40); Albumin 2.5 g/dL (3.2-4.8); Alkaline Phosphatase 619 U/L (46-116); Aspartate Aminotransferase 506 U/L (13-40); Bilirubin, Total 6.4 mg/dL (0.2-1.0); Blood Urea Nitrogen 6 mg/dL (9-23); Chloride 92 mmol/L (98-107); Glucose 147 mg/dL (74-106); Sodium 127 mmol/L (136-145); Total Protein 4.9 g/dL (5.7-8.2)
[2024-07-16] MEDS: POTASSIUM CHL 20MEQ/100ML 100 ML IV ONE (04:40)
--- NOTE | 2024-07-16 05:30 | DVH ---
CHEST RADIOGRAPH Indication: RECHECK LEFT BASILAR PATCHY OPACITY Technique: Single frontal view of the chest was obtained COMPARISON: XY CHEST PORTABLE on DOS: 07/14/24, XY CHEST PORTABLE on DOS: 07/12/24 FINDINGS: Lines and Tubes: Endotracheal tube and enteric catheter in satisfactory position. Lungs: Bibasilar subsegmental atelectasis. Pleura: No effusion. No pneumothorax. Cardiomediastinal contours: Unremarkable Bones: Unremarkable IMPRESSION: Lines and tubes in satisfactory position. No significant interval change.
[2024-07-16 08:00] LABS: Band Neutrophils % (manual) 1; Eosinophils % (manual) 5 (0-7); Lymphocytes % (manual) 3 (10.0-50.0); Monocytes % (manual) 5 (0-12)
[2024-07-16 08:01] LABS: Anisocytosis Slight; Hypochromia Slight; Platelet Estimate Increased
[2024-07-16] MEDS: MAGNESIUM SULFATE 1GM/100ML 100 ML IV ONE (10:21)
[2024-07-16] MEDS: POTASSIUM CHL 20MEQ/100ML 100 ML IV SCH (10:21)
[2024-07-16] MEDS: fentaNYL Drip 2500mCg/250mlNS 250 ML IV SCH (12:41)
[2024-07-16 13:35] LABS: INR 1.15 (0.9-1.15); Partial Thromboplastin Time 55.7 SEC (24.5-34.5); Prothrombin Time 12.1 sec (9.3-11.8)
--- NOTE | 2024-07-16 13:58 | DVHPNRES ---
Progress Note Date Seen: Jul 16, 2024 Resident Creating Document: ALEX CHE RESDIENT Medical Necessity Reason Pt with a Central, PICC or Fol: Yes The following are medically ne: Wasserman Catheter Reason for wasserman catheter: Strict I&O Subjective Review of Systems This is a 54-year-old female with past medical history of cancer (the primary sources unknown), brought to the hospital with altered mental status from [facility]. Due to patient's altered mental status, and inability to maintain airway, the patient was intubated in the ER. The patient was recently on 07/10, was discharged from hospital with diagnosis of acute cholecystitis. PMHx: Cancer (the primary sources is unknown) PSHx: Uterine fibroid surgeon Family history: Significant for diabetes type 2, congestive heart failure Social history: Patient lives with the daughter in [place], denies tobacco, alcohol and any other drug Home medication: Use Ozempic for the obesity Allergic history: Noncontributory Patient seen and examined at the bedside. Patient is sedated and on mechanical ventilation. Review of systems not obtain. Patient reports: No new complaints Changes from previous H/P or p: No Changes Objective vital signs Vital Sign Date Time Temp Pulse Resp B/P (MAP) Pulse Ox O2 Delivery O2 Flow Rate FiO2 07/16/24 12:45 99.7 107 20 115/71 (86) 100 211.5 07/16/24 12:34 30 07/16/24 12:00 Mechanical Ventilator+ Total Intake and Output 07/15/24 07/15/24 07/16/24 15:00 23:00 07:00 Intake Total 959.39 ml 1045 ml 1255 ml Output Total 375 ml 350 ml Balance 959.39 ml 670 ml 905 ml medications Current Medications Medications Dose Ordered Sig/Tanvi Route Start Time Stop Time Status Last Admin Dose Admin Norepinephrine Bitartrate 250 ml @ 3.75 mls/hr Q24H IV 07/12/24 22:00 07/12/24 21:51 18.75 MLS/HR Midazolam HCl 50 ml @ 1 mls/hr Q24H IV 07/12/24 22:00 07/15/24 08:29 8 MLS/HR Propofol 100 ml @ 2.454 mls/ hr Q24H IV 07/12/24 23:30 07/15/24 10:08 24.54 MLS/HR Piperacillin Sod/ Tazobactam Sod 100 ml @ 25 mls/hr Q6HR IV 07/13/24 06:00 07/16/24 06:00 25 MLS/HR Vancomycin HCl 0 ml @ 0 mls/hr UD IV 07/13/24 01:00 Pantoprazole Sodium 40 mg DAILY IV 07/13/24 10:00 07/16/24 10:01 40 MG Albuterol 2.5 mg Q6HR NEB 07/13/24 06:00 07/16/24 12:33 2.5 MG Acetaminophen 650 mg Q6HP PRN PO 07/13/24 01:00 07/15/24 02:55 650 MG Nitroglycerin 0.4 mg Q5MINP PRN SL 07/13/24 01:00 Morphine Sulfate 2 mg Q30M PRN IV 07/13/24 01:00 Vancomycin HCl 250 ml @ 250 mls/hr Q12H IV 07/13/24 17:00 07/16/24 05:35 250 MLS/HR Potassium Chloride 100 ml @ 50 mls/hr Q2H IV 07/16/24 10:00 07/16/24 13:59 07/16/24 12:36 50 MLS/HR Enteral Nutritional Formula 1,000 ml 30ML/HR GT 07/16/24 11:45 Fentanyl Citrate 250 ml @ 2.5 mls/hr Q24H IV 07/16/24 12:00 07/16/24 12:41 2.5 MLS/HR Enoxaparin Sodium 40 mg BID SC 07/16/24 13:00 UNV Examination General: RASS -2, afebrile, mucosae are moist Cardiovascular: Normal S1 and S2. No murmurs, gallops or rubs Respiratory: Mechanically assisted ventilation, equal bilateral airway entree. Left-sided mid and lower zone crypts Abdomen: Soft, nontender, normal bowel sounds, distended with abdominal wall bulging. MSK/skin: Mobilization of limbs cannot be evaluated. Skin is dry and warm. Neurological: Orientation cannot be assessed. No apparent motor no sensitive deficits. Pupils are isocoric and reactive laboratory and microbiology Laboratory Tests 07/16/24 03:00 Test 07/16/24 03:00 Range/Units Serum Glucose 147 H 74-106 mg/dL Microbiology Date/Time Source Procedure Growth Status 07/15/24 15:45 Nose MRSA Screen - Final Complete 07/13/24 00:01 Voided Urine Urine Culture - Final Presumptive Tayler albicans Complete 07/12/24 22:47 Blood Blood Culture - Preliminary NO GROWTH AFTER 72 HOURS OF INCUBATION. Resulted Labs and/or images reviewed: Labs reviewed by me, Image(s) reviewed by me Problem List/Assessment/Plan Problem List/Assessment/Plan This is a 54-year-old female with past medical history of metastatic cancer (unknown primary location), brought to the hospital with a altered mental status, admitted and intubated on 07/12. NEURO: Acute metabolic encephalopathy, likely due to sepsis/respiratory failure Head CT scan and MRI of the brain does not show any acute intracranial abnormalities Patient is sedated and on mechanical ventilation, RASS score -2 CARDIOVASCULAR: BNP from 07/12 is 74 Septic shock, likely due to pneumonia/cholecystitis/cholangitis/UTI Patient is on Levophed PULMONARY: Acute hypoxic respiratory failure, likely due to pneumonia/lung metastasis Pneumonia likely due to Gram-positive Gram-negative bacteria Atelectasis CT scan on 07/12 showed 8mm right middle lobe pulmonary nodule, likely metastatic Patient is sedated and on mechanical ventilation volume control mode at VT 500, RR 16, FiO2 50%, peep 5 Discontinued IV fluid and doxycycline Continue vancomycin and Zosyn MRSA Nares negative Check COVID 19 and influenza Breathing treatment q.6 hours as needed ABGs shows metabolic acidosis with respiratory alkalosis, Ph at 7.446 Today, on 07/16 CPAP trial tried, but failed due to severe tachypnea at 40s GASTROINTESTINAL: Septic shock likely due to cholecystitis/cholangitis Cholecystitis, likely due to cholelithiasis Cholelithiasis Possible Metastatic cancer (unknown primary location), with metastasis to the liver, adrenal and lung Moderate colonic diverticulitis, abdominal CT scan finding Ventral abdominal wall hernia Transaminitis, AST/BETO up trending, likely due to metastasis Hyperbilirubinemia, likely due to metastasis/cholangitis Ammonia mildly raised at 37 and Lipase mildly raised at 72 Patient was discharged on 07/10, from Hospital with diagnosis of cholecystitis on IV antibiotics Abdominal ultrasound on 06/26 showed gallstones, pericholecystic free fluid and gallbladder wall thickening. Positive sonographic wagner's sign Abdominal CT scan on 07/12 shows, diffuse multifocal liver masses, lobulated masses in the pelvis, moderate colonic diverticulosis, ventral abdominal wall hernia containing loop of small bowel and an 8 mm right middle lobe pulmonary nodule Continue empiric antibiotic Surgical consultation GENITOURINARY: UTI, and known location Urinalysis shows UTI picture Urine culture Gynecology: Uterus fibroid/Leiomyosarcoma CT scan shows lobulated pelvic mass, could be a multi fibroid uterus/leiomyosarcoma METABOLIC: Hyponatremia, monitoring Hypokalemia, supplemented Hypomagnesemia, supplemented Hypophosphatemia Discontinue N/S HEME: Severe anemia, normocytic normochromic 2 pt of PRBC has been transfused INFECTIOUS DISEASE: Septic shock, likely due to sepsis Sepsis likely due to pneumonia/cholecystitis/Cholangitis/UTI Panculture Continue Zosyn and vancomycin DIET: Jevity 30 mL per her DVT prophylax: Lovenox 40 mg b.i.d. GI prophylaxis: Protonix 40 mg daily Bowel regimen: Lactulose 30 mL b.i.d. Code status: Full code LINES/DRAINS/ACCESS: ETT: Intubated on 07/12 IV access: Right femoral CVC, placed on 07/12 Drips: Fentanyl 100 Wasserman catheter: Transurethral catheter, placed on 07/12 DISPOSITION: ICU status Patient's status discussed with daughter, through the phone. Critical care time spent more than 93 minutes, including patient care, chart review, CPAP trial and updating the family. Excluding any procedures. Case discussed with Dr. Carmen Plan discussed with: Other (RN) My Orders My Orders Orders - ALEX CHE Procedure Category Date Status Time Enoxaparin Sodium PHA 07/16/24 Logged (Lovenox) 13:00 Dietary Evaluation Review Comments: 1. Advance to Regular textures as tolerated diet to if medically feasible, 2. If EN possible and PO not an option, provide Jevity 35ml/hr if off vent 3. If EN feeding not available, offer TPN per pharmacy if NPO > 7 days Expected Outcomes/Goals: on diet, off vent, gradual weight loss. CC Plasma Assessment Blood Product Administration S: 0455 Date of Service: Jul 16, 2024 Billing Provider: SHANE CARMEN MD Common Visit Codes: [id number] CARE 30-74 MIN, [id number] CARE-EACH +30MIN HEALEX JOHNS RESDIENT Jul 16, 2024 13:58 SHANE CARMEN MD Jul 19, 2024 12:10
[2024-07-16] MEDS: GADOTERATE MEG 10 MMOL/20ml INJ (0.5MMOL/ml) IV ONE (14:14)
--- NOTE | 2024-07-16 15:09 | DVH ---
MRI BRAIN WITH CONTRAST CLINICAL HISTORY: METS TECHNIQUE: Multiplanar multisequence images of the brain were obtained prior to and following intravenous admini stration of contrast. 10/10 cc of gadavist contrast from a prefilled syringe was administered intravenously. Comparison: CT HEAD WITHOUT CONTRAST on DOS: 07/12/24 FINDINGS: There is no restricted diffusion. The morillo and white matter signal is appropriate. There is no pathol ogic enhancement. There is no evidence of hemorrhage, mass, mass effect or midline shift. There is no hydrocephalus or extra-axial fluid collection. The visualized intracranial vasculature demonstrates appropriate flow-voids. The midline structures appear unremarkable. The craniocervical junction is wi thin normal limits. The calvarium demonstrates normal marrow signal. The paranasal sinuses and mastoi d air cells are clear. IMPRESSION: 1. There is no evidence of intracranial metastasis. HS:Y
[2024-07-16] MEDS: PIPERACILLIN-TAZOB 3.375GM 100 ML IV SCH (15:19)
[2024-07-16] MEDS: Jevity 1.2 Cal/Fiber 1 Liter GT SCH (15:26)
[2024-07-16] MEDS: LIDOCAINE 1% (LOCAL ANESTH.) PF 5ml SDV ID ONE (19:06)
[2024-07-16] MEDS: SODIUM CHLOR 0.9% PF (SALINE LOCK) 10ML VIAL/SYR IV SCH (21:20)
[2024-07-16] MEDS: ENOXAPARIN SOD 40 MG/0.4 ML SYRINGE SC SCH (22:15)
[2024-07-17] VITALS (104 sets, daily range): BP systolic 82–129; BP diastolic 45–92; PULSE 75–110; RESP 15–28; TEMP 98.6–100.2; O2SAT 97–100
--- NOTE | 2024-07-17 05:37 | DVH ---
CHEST RADIOGRAPH Indication: Pneumonia Technique: Single frontal view of the chest was obtained COMPARISON: XY CHEST PORTABLE on DOS: 07/16/24, XY CHEST PORTABLE on DOS: 07/14/24, XY CHEST PORTABLE on DOS: 07/12/24 FINDINGS: Lines and Tubes: Endotracheal tube, enteric catheter and right PICC in satisfactory position. Lungs: Multifocal airspace disease. Pleura: No effusion. No pneumothorax. Cardiomediastinal contours: Unremarkable Bones: Unremarkable IMPRESSION: Lines and tubes in satisfactory position. No significant interval change.
--- NOTE | 2024-07-17 05:38 | DVH ---
Exam: US US GUIDED VASCULAR ACCESS Clinical History: PICC line placement Comparison: None Findings: Targeted sonographic evaluation of the arm vein was obtained utilizing grayscale and color Doppler im aging. IMPRESSION: Sonographic assistance for picc line placement. Please refer to procedural report for detailed findin gs.
[2024-07-17 05:53] LABS: Hematocrit 27.1 % (36.0-46.0); Hemoglobin 8.9 g/dL (12.2-16.2); Mean Corpuscular Hemoglobin 28.6 pg (28.0-32.0); Mean Corpuscular Hgb Conc. 32.8 g/dL (32.0-36.0); Mean Corpuscular Volume 87.3 fL (80.0-100.0); Platelet Count (auto) 469 10^3/uL (140-450); Red Blood Cells 3.11 10^6/uL (4.0-5.20); Red Cell Distribution Width 19.9 % (11.8-14.3)
[2024-07-17 06:03] LABS: Basophils % (manual) 0 (0.0-2.0); Blast Cells 0; Metamyelocytes % 0; Myelocytes % 0; Promyelocytes % 0; Reactive Lymphocytes 0
[2024-07-17 06:16] LABS: Anion Gap 9 (5-15); BUN/Creatinine Ratio 19.5 (10.0-20.0); Calcium 9.1 mg/dL (8.7-10.4); Carbon Dioxide 23 mmol/L (20-31); GFR African American 208 mL/min; GFR Non-African American 172 mL/min; Potassium 3.9 mmol/L (3.5-5.1)
[2024-07-17 06:17] LABS: Phosphorus 3.4 mg/dL (2.4-5.1)
[2024-07-17 06:27] LABS: Base Excess -3.1 mmol/L (-2.0-3.0)
[2024-07-17 06:34] LABS: Alanine Aminotransferase 116 U/L (7-40); Albumin 2.4 g/dL (3.2-4.8); Alkaline Phosphatase 743 U/L (46-116); Aspartate Aminotransferase 546 U/L (13-40); Bilirubin, Total 6.9 mg/dL (0.2-1.0); Blood Urea Nitrogen 8 mg/dL (9-23); Chloride 95 mmol/L (98-107); Glucose 116 mg/dL (74-106); Sodium 127 mmol/L (136-145); Total Protein 4.8 g/dL (5.7-8.2)
[2024-07-17 06:46] LABS: Band Neutrophils % (manual) 5; Eosinophils % (manual) 6 (0-7); Lymphocytes % (manual) 4 (10.0-50.0); Monocytes % (manual) 4 (0-12)
[2024-07-17 06:47] LABS: Platelet Estimate Increased
--- NOTE | 2024-07-17 08:47 | ECG ---
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
--- NOTE | 2024-07-17 09:38 | MEDREC ---
[facility] Intervention Section I [facility] Intervention: Review courses of therapy (PATIENT HAS CANCER AND COMES FROM A [facility]. HER WBC AND TEMPERATURE REMAIN ELEVATED. THE FINAL URINE CULTURE SHOWED PRESUMPTIVE IVELISSE ALBICANS. PLEASE CONSIDER ADDING ANTIFUNGAL COVERAGE DUE TO PATIENT'S CURRENT CONDITION) MARIANNE SABILLON Jul 17, 2024 09:38
[2024-07-17] MEDS ORDERED: LACTULOSE 20Gm/30ML SOLN PO SCH (10:00)
--- NOTE | 2024-07-17 10:42 | DVH ---
INDICATION: CHOLICYSTITIS TECHNIQUE: Multiple real-time sonographic images of the abdomen were obtained. COMPARISON: None FINDINGS: Liver is heterogeneous in echogenicity. Innumerable hepatic masses measuring up to 3.8 cm. The liver measures 26 cm. No intrahepatic biliary ductal dilatation is noted. The gallbladder wall measures 0.9 cm and is unremarkable. Cholelithiasis. No pericholecystic flui d or edema. The common duct is not visualized. The right kidney measures 10.5 cm. No hydronephrosis. The left kidney measures 13.5 cm. No hydronephr osis. The spleen measures is not evaluated. The pancreas is not well visualized due to obscuration from bowel gas. The visualized portions of the IVC and aorta are grossly unremarkable. IMPRESSION: Hepatomegaly and diffuse hepatic metastatic disease. Thickened gallbladder wall and cholelithiasis; nonspecific.
[2024-07-17] MEDS ORDERED: MORPHINE SULFATE INJ 2 MG/ml SYRG IV ONE (15:45)
[2024-07-17] MEDS: metroNIDAZOLE 500MG/100ML 100 ML IV SCH (17:41)
[2024-07-17] MEDS: FUROSEMIDE 40 MG/4 ML VIAL IV ONE (17:41)
[2024-07-17] MEDS: ARTIFICIAL TEARS 15ml EACHEYE PRN (17:43)
[2024-07-17 18:51] LABS: COVID19 ANTIGEN SOFIA FIA NEGATIVE (NEGATIVE)
--- NOTE | 2024-07-17 19:03 | DVHPNRES ---
Progress Note Date Seen: Jul 17, 2024 Resident Creating Document: ALEX CHE RESDIENT Medical Necessity Reason Pt with a Central, PICC or Fol: Yes The following are medically ne: Wassermna Catheter Reason for wasserman catheter: Strict I&O Subjective Review of Systems PMHx: This is a 54-year-old female with past medical history of cancer (the primary sources unknown), brought to the hospital with altered mental status from [facility]. Due to patient's altered mental status, and inability to maintain airway, the patient was intubated in the ER. The patient was recently on 07/10, was discharged from hospital with diagnosis of acute cholecystitis. PMHx: Cancer (the primary sources is unknown) PSHx: Uterine fibroid surgeon Family history: Significant for diabetes type 2, congestive heart failure Social history: Patient lives with the daughter in [place], denies tobacco, alcohol and any other drug Home medication: Use Ozempic for the obesity Allergic history: Noncontributory Today, 07/17 Patient seen and examined at the bedside. Patient is sedated and on mechanical ventilation. Review of systems not obtain. Patient reports: No new complaints, Feels worse Changes from previous H/P or p: No Changes Objective vital signs Vital Sign Date Time Temp Pulse Resp B/P (MAP) Pulse Ox O2 Delivery O2 Flow Rate FiO2 07/17/24 18:40 105 19 91/58 (69) 100 30 07/17/24 13:15 98.8 209.8 07/17/24 12:00 Mechanical Ventilator+ Total Intake and Output 07/16/24 07/16/24 07/17/24 15:00 23:00 07:00 Intake Total 605.0 ml 390.0 ml 640.0 ml Output Total 400 ml 300 ml Balance 605.0 ml -10.0 ml 340.0 ml medications Current Medications Medications Dose Ordered Sig/Tanvi Route Start Time Stop Time Status Last Admin Dose Admin Norepinephrine Bitartrate 250 ml @ 3.75 mls/hr Q24H IV 07/12/24 22:00 07/12/24 21:51 18.75 MLS/HR Midazolam HCl 50 ml @ 1 mls/hr Q24H IV 07/12/24 22:00 07/15/24 08:29 8 MLS/HR Propofol 100 ml @ 2.454 mls/ hr Q24H IV 07/12/24 23:30 07/15/24 10:08 24.54 MLS/HR Pantoprazole Sodium 40 mg DAILY IV 07/13/24 10:00 07/17/24 09:32 40 MG Albuterol 2.5 mg Q6HR NEB 07/13/24 06:00 07/17/24 18:15 2.5 MG Acetaminophen 650 mg Q6HP PRN PO 07/13/24 01:00 07/15/24 02:55 650 MG Nitroglycerin 0.4 mg Q5MINP PRN SL 07/13/24 01:00 Morphine Sulfate 2 mg Q30M PRN IV 07/13/24 01:00 Enteral Nutritional Formula 1,000 ml 30ML/HR GT 07/16/24 11:45 07/16/24 15:26 1,000 ML Fentanyl Citrate 250 ml @ 2.5 mls/hr Q24H IV 07/16/24 12:00 07/17/24 17:42 10 MLS/HR Enoxaparin Sodium 40 mg BID SC 07/16/24 22:00 07/17/24 09:32 40 MG Sodium Chloride 10 ml QSHIFT@10,22 IV 07/16/24 22:00 07/17/24 09:32 10 ML Artificial Tears 2 drop Q6HP PRN EACHEYE 07/17/24 09:45 07/17/24 17:43 2 DROP Furosemide 40 mg DAILY IV 07/18/24 10:00 Ciprofloxacin 200 ml @ 200 mls/hr BID IV 07/17/24 22:00 Metronidazole 100 ml @ 100 mls/hr TID IV 07/17/24 14:45 07/17/24 17:41 100 MLS/HR Lactulose 30 ml Q12HR PO 07/17/24 22:00 Examination General: RASS -2, afebrile, mucosae are moist Cardiovascular: Normal S1 and S2. No murmurs, gallops or rubs Respiratory: Mechanically assisted ventilation, equal bilateral airway entree. Left-sided mid and lower zone crypts Abdomen: Soft, nontender, normal bowel sounds, distended with abdominal wall bulging. MSK/skin: Mobilization of limbs cannot be evaluated. Skin is dry and warm. Neurological: Orientation cannot be assessed. No apparent motor no sensitive deficits. Pupils are isocoric and reactive laboratory and microbiology Laboratory Tests 07/17/24 05:02 Test 07/17/24 05:02 Range/Units Serum Glucose 116 H 74-106 mg/dL Microbiology Date/Time Source Procedure Growth Status 07/15/24 15:45 Nose MRSA Screen - Final Complete 07/13/24 00:01 Voided Urine Urine Culture - Final Presumptive Tayler albicans Complete 07/12/24 22:47 Blood Blood Culture - Preliminary NO GROWTH AFTER 72 HOURS OF INCUBATION. Resulted Labs and/or images reviewed: Labs reviewed by me, Image(s) reviewed by me Problem List/Assessment/Plan Problem List/Assessment/Plan This is a 54-year-old female with past medical history of cancer, brought to the hospital with a altered mental status, admitted and intubated on 07/12 NEURO: Acute metabolic encephalopathy, likely due to septic shock Head CT scan and MRI of the brain does not show any acute intracranial abnormalities Patient is sedated and on mechanical ventilation, RASS score -2 CARDIOVASCULAR: Septic shock, likely due to pneumonia/cholecystitis/cholangitis/UTI PULMONARY: Acute hypoxic respiratory failure, likely due to pneumonia Pneumonia likely due to Gram-positive Gram-negative bacteria ABGs showed respiratory alkalosis, tidal volume decreased to 450 from 500 Patient is sedated and on mechanical ventilation, volume control mode with setting of VT 450 and 8, RR 16, FiO2 30%, peep 5 Discontinue vancomycin and Zosyn Started Flagyl and ciprofloxacin MRSA Nares negative Check COVID 19 and influenza Breathing treatment q.6 hours as needed GASTROINTESTINAL: Septic shock likely due to cholecystitis/cholangitis Cholecystitis, likely due to cholelithiasis Cholelithiasis Possible Metastatic cancer (likely pancreatic per patient's daughter), with metastasis to the liver and lung Moderate colonic diverticulitis, abdominal CT scan finding Ventral abdominal wall hernia Lobulated pelvic mass, could be a multi fibroid uterus/leiomyosarcoma, abdominal CT scan finding Patient was discharged on 07/10, from [facility] with diagnosis of cholecystitis Abdominal ultrasound on 06/26 showed gallstones, pericholecystic free fluid and gallbladder wall thickening. Positive sonographic wagner's sign Abdominal CT scan on shows, diffuse multifocal liver masses, lobulated masses in the pelvis, moderate colonic diverticulosis, ventral abdominal wall hernia containing loop of small bowel and an 8 mm right middle lobe pulmonary nodule Liver enzymes, are up trending Started Flagyl and ciprofloxacin Surgical consultation HIDA scan Lasix 40 mg daily GENITOURINARY: UTI, and known location Urinalysis shows UTI picture Urine culture shows presumptive Tayler albicans, likely contaminated ENDOCRINE: METABOLIC: Hyponatremia, monitoring Hypokalemia, supplemented Hypomagnesemia, supplemented HEME: Severe anemia, 2 pt of blood has been transfused INFECTIOUS DISEASE: Septic shock, likely due to sepsis Sepsis likely due to pneumonia/cholecystitis/UTI Blood culture of the 5 days shows no growth Urine culture shows presumptive Tayler albicans, likely contaminated Discontinue Continue Zosyn and vancomycin Started Flagyl and ciprofloxacin DERMATOLOGY: DIET: NPO DVT prophylax: Lovenox 40 mg b.i.d. GI prophylaxis: Protonix 40 mg daily Bowel regimen: Lactulose 30 mL b.i.d. Code status: Full code LINES/DRAINS/ACCESS: ETT: Intubated on 07/12 IV access: Right femoral CVC, placed on 07/12 Right upper arm PICC line, placed on Drips: Fentanyl 100 Versed 5 Wasserman catheter: Transfer ureteral catheter, placed on 07/12 DISPOSITION: ICU status Patient's status discussed with daughter, through the phone. Critical care time spent more than 73 minutes, including patient care, chart review, and updating the family. Excluding any procedures. Case discussed with Dr. Whitehead Plan discussed with: Other (RN) My Orders My Orders Orders - ALEX CHE Procedure Category Date Status Time Respiratory Culture CAROL 07/17/24 Logged W/ Gs 08:20 LIVER US 07/17/24 Resulted 09:04 Artificial Tear 15ml PHA 07/17/24 In Process Opthalmic (Tears Na 09:45 * Surgical Consult CONS 07/17/24 Transmitted Nm Hida Scan NM 07/17/24 Logged 13:59 Furosemide Injection PHA 07/18/24 In Process (Lasix Injection) 10:00 Ciprofloxacin PHA 07/17/24 In Process 400mg/200ml (Cipro Iv) 22:00 Metronidazole PHA 07/17/24 In Process 500mg/100ml (Flagyl 14:45 Ventilator Orders RT 07/17/24 Transmitted 14:42 Communication Order ORDERS 07/17/24 Transmitted 16:02 Lactulose Oral PHA 07/17/24 In Process 22:00 Morphine Sulfate PHA 07/20/24 In Process Injection 07:00 Communication Order ORDERS 12/16/24 Transmitted 00:00 Dietary Evaluation Review Comments: 1. Advance to Regular textures as tolerated diet to if medically feasible, 2. If EN possible and PO not an option, provide Jevity 35ml/hr if off vent 3. If EN feeding not available, offer TPN per pharmacy if NPO > 7 days Expected Outcomes/Goals: on diet, off vent, gradual weight loss. CC Plasma Assessment Blood Product Administration S: 0455 Date of Service: Jul 17, 2024 Billing Provider: JB WHITEHEAD MD Common Visit Codes: [id number] CARE 30-74 MIN ALEX CHE RESDIENT Jul 17, 2024 19:03 JB WHITEHEAD MD Jul 18, 2024 09:25
[2024-07-17] MEDS ORDERED: metroNIDAZOLE 500MG/100ML 100 ML IV SCH (22:00)
[2024-07-17] MEDS: CIPROFLOXACIN 400MG/200ML 200 ML IV SCH (22:19)
[2024-07-17] MEDS: LACTULOSE 20Gm/30ML SOLN PO SCH (22:19)
[2024-07-18] VITALS (108 sets, daily range): BP systolic 83–116; BP diastolic 50–74; PULSE 98–111; RESP 15–26; TEMP 97.9–99.3; O2SAT 89–100
--- NOTE | 2024-07-18 05:40 | DVH ---
CHEST RADIOGRAPH Indication: Pneumonia Technique: Single frontal view of the chest was obtained Comparison: XY CHEST PORTABLE on DOS: 06/27/24, XY CHEST PORTABLE on DOS: 06/25/24 IMPRESSION: There are low lung volumes. Mild pulmonary vascular congestion with subsegmental atelectasis in the left mid lung and right lung base. No sizable effusion or pneumothorax. Endotracheal tube, enteric tu be, and right PICC line appear satisfactory in position.
[2024-07-18 05:58] LABS: Hemoglobin 8.8 g/dL (12.2-16.2); Mean Corpuscular Hemoglobin 29.1 pg (28.0-32.0)
[2024-07-18 06:00] LABS: Hematocrit 26.9 % (36.0-46.0); Mean Corpuscular Hgb Conc. 32.8 g/dL (32.0-36.0); Mean Corpuscular Volume 88.8 fL (80.0-100.0); Platelet Count (auto) 467 10^3/uL (140-450); Red Blood Cells 3.03 10^6/uL (4.0-5.20); Red Cell Distribution Width 20.2 % (11.8-14.3); White Blood Cell 26.3 10^3/uL (4.4-10.8)
[2024-07-18 06:02] LABS: Basophils % (manual) 0 (0.0-2.0); Blast Cells 0; Metamyelocytes % 0; Myelocytes % 0; Promyelocytes % 0; Reactive Lymphocytes 0
[2024-07-18 06:44] LABS: Anion Gap 10 (5-15); BUN/Creatinine Ratio 18.3 (10.0-20.0); Blood Urea Nitrogen 13 mg/dL (9-23); Calcium 8.9 mg/dL (8.7-10.4); Carbon Dioxide 21 mmol/L (20-31); Glucose 94 mg/dL (74-106); Potassium 4.1 mmol/L (3.5-5.1)
[2024-07-18 06:45] LABS: Alanine Aminotransferase 107 U/L (7-40); Albumin 2.3 g/dL (3.2-4.8); Alkaline Phosphatase 735 U/L (46-116); Aspartate Aminotransferase 408 U/L (13-40); Bilirubin, Total 7.5 mg/dL (0.2-1.0); Chloride 95 mmol/L (98-107); Sodium 126 mmol/L (136-145); Total Protein 4.9 g/dL (5.7-8.2)
[2024-07-18] MEDS: FUROSEMIDE 40 MG/4 ML VIAL IV SCH (07:39)
[2024-07-18 08:01] LABS: Band Neutrophils % (manual) 7; Eosinophils % (manual) 5 (0-7); Lymphocytes % (manual) 4 (10.0-50.0); Monocytes % (manual) 5 (0-12); Platelet Estimate Increased
[2024-07-18 08:02] LABS: Anisocytosis Slight
--- NOTE | 2024-07-18 10:30 | DVHPN2 ---
Assessment/Plan Assessment/Plan ICU progress note Subjective patient is seen by me today during rounds Follows commands, mechanically ventilated, on low-dose pressors support Objective Physical exam Intubated and mechanically ventilated PERRLA follows command S1 S2 RRR Mechanical breath sounds Abdomen soft nontender B/l LE edema Lab status quo Assessment and plan Septic shock Acute hypoxic respiratory failure requiring mechanical ventilation Acute metabolic encephalopathy Pneumonia Gram-negative versus positive Cholangitis Pancreatic cancer with metastasis to liver and lung Anemia of chronic disease Admit to ICU intubated and on mechanical ventilation Levophed for pressor support, maintain map above 65 Ceftriaxone and Flagyl Possible plan for surgery Keep NPO lactulose Lines PICC line Delong ET tube NG tube Maintain potassium of 4, phosphate of 3 and magnesium of 2 Diet NPO GI prophylaxis Protonix DVT prophylaxis Lovenox Condition critical Prognosis poor 68 minutes critical care time spent on this patient including evaluation, chart review, formulating plan and communication with team, excluding any procedures or point of care imaging Plan discussed with: Patient Date of Service: Jul 18, 2024 Billing Provider: KWABENA SIMS MD Common Visit Codes: [id number] CARE 30-74 MIN KWABENA SIMS MD Jul 18, 2024 10:30
--- NOTE | 2024-07-18 10:32 | DVHINCON2 ---
Date of service: Jul 18, 2024 Family History: Alcoholism Cardiovascular disease G8 MOTHER, Onset:71 Allergies: Coded Allergies: NO KNOWN ALLERGIES (Unverified , 06/25/24) Home Meds No Active Prescriptions or Reported Meds Current Medications Current Medications Medications (Trade) Dose Ordered Sig/Tanvi Route PRN Reason Start Time Stop Time Status Last Admin Furosemide (Lasix Injection) 40 mg DAILY IV 07/18/24 10:00 07/18/24 07:39 Metronidazole 100 ml @ 100 mls/hr BID IV 07/17/24 22:00 07/17/24 14:42 DC Ciprofloxacin 200 ml @ 200 mls/hr BID IV 07/17/24 22:00 07/18/24 07:39 Metronidazole 100 ml @ 100 mls/hr TID IV 07/17/24 14:45 07/18/24 09:24 Lactulose 30 ml Q12HR PO 07/17/24 22:00 07/18/24 07:39 Vital Signs Vital Signs Date Time Temp Pulse Resp B/P (MAP) Pulse Ox O2 Delivery O2 Flow Rate FiO2 07/18/24 09:47 20 99 Mechanical Ventilator+ 30 30 07/18/24 09:47 101 07/18/24 09:45 98.2 88/53 (65) 208.8 Labs/Diagnostic Data Labs Test 07/18/24 04:23 07/17/24 16:11 07/17/24 15:53 07/17/24 06:15 Range/Units White Blood Count 26.3 H 4.4-10.8 10^3/uL Red Blood Count 3.03 L 4.0-5.20 10^6/uL Hemoglobin 8.8 L 12.2-16.2 g/dL Hematocrit 26.9 L 36.0-46.0 % Mean Corpuscular Volume 88.8 80.0-100.0 fL Mean Corpuscular Hemoglobin 29.1 28.0-32.0 pg Mean Corpuscular Hemoglobin Concent 32.8 32.0-36.0 g/dL Red Cell Distribution Width 20.2 H 11.8-14.3 % Platelet Count 467 H 140-450 10^3/uL Mean Platelet Volume 7.3 6.9-10.8 fL Neutrophils (%) (Auto) 37.0-80.0 % Lymphocytes (%) (Auto) 10.0-50.0 % Monocytes (%) (Auto) 0.0-12.0 % Basophils (%) (Auto) 0.0-2.0 % Neutrophils # (Auto) 1.6-8.6 10 ^3/uL Lymphocytes # (Auto) 0.4-5.4 10 ^3/uL Monocytes # (Auto) 0-1.3 10 ^3/uL Differential Total Cells Counted 100.0 100 Neutrophils % (Manual) 79 37.0-80.0 Band Neutrophils % (Manual) 7 Lymphocytes % (Manual) 4 L 10.0-50.0 Monocytes % (Manual) 5 0-12 Eosinophils % (Manual) 5 0-7 Basophils % (Manual) 0 0.0-2.0 Metamyelocytes % (manual) 0 Myelocytes % (Manual) 0 Promyelocytes % (Manual) 0 Blast Cells % (Manual) 0 Reactive Lymphocytes 0 Platelet Estimate Increased Anisocytosis (manual) Slight Sodium Level 126 L 136-145 mmol/L Potassium Level 4.1 3.5-5.1 mmol/L Chloride Level 95 L 98-107 mmol/L Carbon Dioxide Level 21 20-31 mmol/L Anion Gap 10 5-15 Blood Urea Nitrogen 13 9-23 mg/dL Creatinine 0.71 # 0.550-1.02 mg/dL Glomerular Filtration Rate Calc 101 >90 mL/min BUN/Creatinine Ratio 18.3 10.0-20.0 Serum Glucose 94 74-106 mg/dL Calcium Level 8.9 8.7-10.4 mg/dL Total Bilirubin 7.5 H 0.2-1.0 mg/dL Aspartate Amino Transferase (AST) 408 H 13-40 U/L Alanine Aminotransferase (ALT) 107 H 7-40 U/L Alkaline Phosphatase 735 H 46-116 U/L Total Protein 4.9 L 5.7-8.2 g/dL Albumin 2.3 L 3.2-4.8 g/dL SARS-CoV-2 Antigen (Rapid) Negative NEGATIVE Ammonia 26 11-32 umol/L Blood Gas Specimen Type Arterial Blood Gas Sample Site Right radial Blood Gas Patient Temperature 37.0 Arterial Blood Date Drawn [id number] Arterial Blood pH 7.419 7.350-7.450 Arterial Blood Partial Pressure CO2 32.8 32.0-45.0 mmHg Arterial Blood Partial Pressure O2 89.2 83.0-108.0 mmHg Arterial Blood HCO3 20.7 L 21.0-28.0 mmol/L Arterial Blood Oxygen Saturation 96.3 94.0-98.0 % Arterial Blood Base Excess -3.1 L -2.0-3.0 mmol/L Arterial Blood Oxyhemoglobin 95.2 94.0-98.0 % Arterial Blood Carboxyhemoglobin 0.8 0.5-1.5 % Arterial Blood Methemoglobin 0.3 0.0-1.5 % Javy Test Modified Blood Gas Total Hemoglobin 10.30 L 12.0-16.0 g/dL Blood Gas Set Respiration Rate 16.0 Blood Gas Modality Vent - ac FiO2 % 30.0 Blood Gas Tidal Volume 500.0 Blood Gas PEEP or CPAP 5.0 Test 07/17/24 05:02 07/16/24 12:36 07/16/24 04:00 07/16/24 03:00 Range/Units Estimated GFR () 208 mL/min Estimated GFR (Non- 172 mL/min Phosphorus Level 3.4 2.4-5.1 mg/dL Thyroid Stimulating Hormone (TSH) 6.57 H 0.55-4.78 uIU/mL Prothrombin Time 12.1 H 9.3-11.8 sec Prothrombin Time INR 1.15 0.9-1.15 Activated Partial Thromboplast Time 55.7 H 24.5-34.5 SEC Vancomycin Level Trough 15.1 H 5-10 ug/mL Hypochromasia (manual) Slight Magnesium Level 1.9 1.6-2.6 mg/dL Test 07/14/24 23:36 07/14/24 06:00 07/13/24 00:01 07/12/24 21:59 Range/Units POC Glucose 126 H 70-106 mg/dl Stomatocytes Few Urine Color Inez H Yellow Urine Clarity Turbid H Clear Urine pH 5.5 5.0-9.0 Urine Specific [place] 1.036 H 1.001-1.035 Urine Protein 1+ H Negative Urine Ketones Negative Negative Urine Blood 3+ H Negative /uL Urine Nitrite Negative Negative Urine Bilirubin 1+ H Negative Urine Urobilinogen Normal Negative mg/dL Urine Leukocyte Esterase 1+ Negative /uL Urine RBC 2674 0 - 4 /hpf Urine WBC 16 0 - 5 /hpf Urine Squamous Epithelial Cells None seen <5 /hpf Urine Bacteria None seen None Seen /hpf Urine Glucose Normal Normal mg/dL Blood Gas Spontaneous Rate 16 Bl Gas Inspiratory/Expiratory Ratio 1:3.5 Blood Gas Critical Value Read Back yes Blood Gas Notified Whom md anya lovell Blood Gas Notified Time [id number] Blood Gas Notified By md anya lovell Test 07/12/24 21:40 Range/Units Target Cells Few Lactic Acid Level 1.3 0.4-2.0 mmol/L B-Type Natriuretic Peptide 74.95 0-100 pg/mL Lipase 72 H 12-53 U/L Salicylates Level < 3.0 -30 mg/dL Microbiology Date/Time Source Procedure Growth Status 07/15/24 15:45 Nose MRSA Screen - Final Complete 07/13/24 00:01 Voided Urine Urine Culture - Final Presumptive Tayler albicans Complete 07/12/24 22:47 Blood Blood Culture - Final NO GROWTH AFTER 5 DAYS OF INCUBATION. Complete Assessment patient intubated but awake and responsive, she has severe metastatic disease of the liver and incidentally found gallstones, have ordered a HIDA scan (pending) but I doubt she has cholecystitis. She is a poor candidate for an operation and when I mentioned surgery to her she indicated that she would not want to have an operation. She would be a suitable candidate for Hospice evaluation. will re eval after HIDA scan completed. Plan discussed with: Patient KIRSTIE SANDHU MD Jul 18, 2024 10:32
--- NOTE | 2024-07-18 19:06 | DVHPN ---
DATE: 07/18/2024 PULMONARY FOLLOWUP PRIMARY PHYSICIAN: Dr. Whitehead. The patient is on a ventilator, but is awake. The patient is mildly sedated and appears to be comfortable. She denies any pain. She denies any shortness of breath. No significant secretions reported by bedside RN. She tells me that the patient is awaiting a HIDA scan on Saturday. The patient does have a history of metabolic encephalopathy as well as metastatic malignancy. PHYSICAL EXAMINATION: Reveals: VITAL SIGNS: Stable. Heart rate is 100, respiratory rate is 20, blood pressure is 104/70, saturations 99-100% on current FiO2. NECK: Supple. No JVD. CHEST: Reveals bibasilar rales. Also, appears to have some atelectasis. LABORATORY DATA: Lab work was noted. Urine culture is positive for presumptive Tayler albicans. Blood cultures have been negative. WBC remains high at 26, but is slowly coming down, hematocrit 27, platelet count 467. Last blood gas done yesterday show pH of 7.42, pCO2 of 33, pO2 of 89, saturation 95. The patient on assist control, tidal volume 500, rate of 16, PEEP of 5, 30% FiO2. Serum chemistry significant for sodium of 126, total bilirubin 7.5. AST is 408, ALT is 107, alkaline phosphatase ____. BNP was 75. Albumin 2.3. Her TSH was also increased at 6.57. Urinalysis positive for 3+ blood and increased rbc's in the urine. Stool occult blood is pending. IMPRESSION: Acute respiratory failure, history of sepsis, history of metastatic malignancy with pancreatic cancer and cholangitis, history of pneumonia and atelectasis. PLAN: Continue current vent settings. Await HIDA scan and further definitive evaluation and definitive treatment for possible cholangitis. Continue Levophed for pressor support, keep mean greater than 65 and systolic greater than 90. Continue comfortable with current sedation. Keep RASS -1 to -2. Prognosis is guarded through the underlying metastatic malignancy. Also awaiting surgical evaluation and ____ recommendations. Rest of the medical management per response and course in hospital. Kishan Mayes MD /JOE/FRANKLYN TID: [id number] RECEIPT: [id number]
[2024-07-19] VITALS (111 sets, daily range): BP systolic 87–124; BP diastolic 47–78; PULSE 99–110; RESP 15–26; TEMP 96.1–99.1; O2SAT 94–100
[2024-07-19] MEDS: hydrALAZINE HCL 20 MG/ML VL ONE (01:11)
[2024-07-19 05:04] LABS: Hematocrit 25.3 % (36.0-46.0); Hemoglobin 8.1 g/dL (12.2-16.2); Mean Corpuscular Hemoglobin 28.5 pg (28.0-32.0); Mean Corpuscular Hgb Conc. 32.1 g/dL (32.0-36.0); Mean Corpuscular Volume 88.8 fL (80.0-100.0); Platelet Count (auto) 364 10^3/uL (140-450); Red Blood Cells 2.85 10^6/uL (4.0-5.20); Red Cell Distribution Width 20.4 % (11.8-14.3); White Blood Cell 25.9 10^3/uL (4.4-10.8)
[2024-07-19 05:06] LABS: Anion Gap 9 (5-15); Carbon Dioxide 21 mmol/L (20-31); Potassium 4.2 mmol/L (3.5-5.1)
[2024-07-19 05:08] LABS: Basophils % (manual) 0 (0.0-2.0); Blast Cells 0; Calcium 8.9 mg/dL (8.7-10.4); Eosinophils % (manual) 0 (0-7); Metamyelocytes % 0; Myelocytes % 0; Promyelocytes % 0; Reactive Lymphocytes 0
[2024-07-19 05:12] LABS: BUN/Creatinine Ratio 15.3 (10.0-20.0); Blood Urea Nitrogen 15 mg/dL (9-23); Glucose 95 mg/dL (74-106)
[2024-07-19 05:13] LABS: Magnesium 1.9 mg/dL (1.6-2.6)
[2024-07-19 05:14] LABS: Chloride 97 mmol/L (98-107); Sodium 127 mmol/L (136-145)
--- NOTE | 2024-07-19 05:44 | DVH ---
CHEST RADIOGRAPH Indication: intubated Technique: Single frontal view of the chest was obtained Comparison: XY CHEST XRAY 1 VIEW on DOS: 07/18/24, XY CHEST PORTABLE on DOS: 06/27/24, XY CHEST JEAN BLE on DOS: 06/25/24 IMPRESSION: There are low lung volumes. Support lines and tubes appear unchanged in satisfactory position. Mild- to-moderate pulmonary vascular congestion with patchy airspace opacity in the left lung base, mildly increased. No pneumothorax.
[2024-07-19 06:35] LABS: Band Neutrophils % (manual) 6; Lymphocytes % (manual) 3 (10.0-50.0); Monocytes % (manual) 11 (0-12); Platelet Estimate Adequate
--- NOTE | 2024-07-19 09:46 | DVHPN2 ---
Assessment/Plan Assessment/Plan ICU progress note Subjective patient is seen by me today during rounds Follows commands, mechanically ventilated, keep map >65 Objective Physical exam Intubated and mechanically ventilated PERRLA follows command S1 S2 RRR Mechanical breath sounds Abdomen soft nontender B/l LE edema Lab status quo Assessment and plan Septic shock Acute hypoxic respiratory failure requiring mechanical ventilation Acute metabolic encephalopathy Pneumonia Gram-negative versus positive Cholangitis Pancreatic cancer with metastasis to liver and lung Anemia of chronic disease Admit to ICU intubated and on mechanical ventilation Levophed for pressor support, maintain map above 65 Ceftriaxone and Flagyl Possible plan for surgery Keep NPO lactulose HIDA scan albumin and lasix Lines PICC line Delong ET tube NG tube Maintain potassium of 4, phosphate of 3 and magnesium of 2 Diet NPO GI prophylaxis Protonix DVT prophylaxis Lovenox Condition critical Prognosis poor 55 minutes critical care time spent on this patient including evaluation, chart review, formulating plan and communication with team, excluding any procedures or point of care imaging Plan discussed with: Patient My Orders Orders - KWABENA SIMS MD Procedure Category Date Status Time Chest Portable XY 07/19/24 Resulted 04:00 Abg W/ Co-Ox RT 07/19/24 Logged 07:00 Date of Service: Jul 19, 2024 Billing Provider: KWABENA SIMS MD Common Visit Codes: 87992-[id number] CARE 30-74 MIN KWABENA SIMS MD Jul 19, 2024 09:46
[2024-07-19] MEDS: ALBUMIN 25% 100 ML IV ONE (14:10)
[2024-07-19] MEDS: FUROSEMIDE 40 MG/4 ML VIAL IV ONE (15:39)
[2024-07-19] MEDS: CEFTRIAXONE IV SCH (17:07)
--- NOTE | 2024-07-19 19:11 | DVHPN ---
DATE: 07/19/2024 PULMONARY FOLLOWUP PRIMARY PHYSICIAN: Dr. Dwain Peacock. SUBJECTIVE: The patient is stable, in no distress. The patient has mild secretions. The patient is awaiting HIDA scan for possible acute cholecystitis, although she does not feel that she would undergo surgery. PHYSICAL EXAMINATION: VITAL SIGNS: T-max of 99, heart rate 100, respiratory rate 18, blood pressure 90/50, saturations 97 on 30% FiO2. NECK: Supple. No JVD. CHEST: Left-sided rales. Diminished air entry. No wheezing. ABDOMEN: Soft. No tenderness. Bowel sounds are present. EXTREMITIES: No edema. LAB WORK: WBC 25, hematocrit 25, platelet count 364. Blood gases; pH 7.41, pCO2 of 32, pO2 of 89, bicarb 20, saturations 96% on assist control, tidal volume 500, rate of 16, PEEP of 5, and 30% FiO2. Sodium 127, chloride 97, rest was noted. IMPRESSION: Possible acute cholecystitis, metastatic malignancy, pneumonia, acute respiratory failure, awaiting HIDA scan. Ventilator settings are adequate. Check daily x-rays and blood gases while on the ventilator. Await decision regarding the surgery. Underlying prognosis guarded because of underlying metastatic malignancy. Continue antibiotics. The patient is currently on Flagyl and Cipro, but we will add Rocephin because of left-sided increased infiltrate. Continue Lovenox for DVT prophylaxis, fentanyl for pain control. The patient is also on Protonix for GI prophylaxis. Critical time was 38 minutes. MD TRAY Grigsby/MILE TID: [id number] RECEIPT: [id number] cc: DWAIN PEACOCK
[2024-07-20] VITALS (100 sets, daily range): BP systolic 90–127; BP diastolic 50–79; PULSE 94–107; RESP 15–22; TEMP 97.9–99.3; O2SAT 95–99
--- NOTE | 2024-07-20 05:04 | DVH ---
CHEST RADIOGRAPH Indication: routine check, mechanically ventilated,intubated Technique: Single frontal view of the chest was obtained COMPARISON: XY CHEST PORTABLE on DOS: 07/19/24, XY CHEST XRAY 1 VIEW on DOS: 07/18/24, XY CHEST JEAN BLE on DOS: 06/27/24 FINDINGS: Lines and Tubes: Endotracheal tube, enteric catheter and right PICC in satisfactory position. Lungs: Patchy bilateral airspace disease. Pleura: No effusion. No pneumothorax. Cardiomediastinal contours: Unremarkable Bones: Unremarkable IMPRESSION: Lines and tubes in satisfactory position. No significant interval change.
[2024-07-20 05:15] LABS: Chloride 99 mmol/L (98-107); Potassium 4.2 mmol/L (3.5-5.1)
[2024-07-20 05:16] LABS: Anion Gap 9 (5-15); Carbon Dioxide 22 mmol/L (20-31)
[2024-07-20 05:17] LABS: Calcium 9.1 mg/dL (8.7-10.4)
[2024-07-20 05:22] LABS: BUN/Creatinine Ratio 14.3 (10.0-20.0); Blood Urea Nitrogen 17 mg/dL (9-23); Magnesium 1.9 mg/dL (1.6-2.6)
[2024-07-20 05:24] LABS: Glucose 66 mg/dL (74-106); Phosphorus 5.5 mg/dL (2.4-5.1); Sodium 130 mmol/L (136-145)
[2024-07-20 05:25] LABS: Hematocrit 24.6 % (36.0-46.0); Hemoglobin 7.9 g/dL (12.2-16.2); Mean Corpuscular Hemoglobin 28.6 pg (28.0-32.0); Mean Corpuscular Volume 89.4 fL (80.0-100.0); Platelet Count (auto) 446 10^3/uL (140-450); Red Blood Cells 2.75 10^6/uL (4.0-5.20); Red Cell Distribution Width 19.9 % (11.8-14.3); White Blood Cell 28.3 10^3/uL (4.4-10.8)
[2024-07-20 05:26] LABS: Basophils % (manual) 0 (0.0-2.0); Blast Cells 0; Eosinophils % (manual) 0 (0-7); Metamyelocytes % 0; Myelocytes % 0; Promyelocytes % 0; Reactive Lymphocytes 0
[2024-07-20] MEDS ORDERED: DEXTROSE (50%) 50ML SYRG IV ONE ×3 (06:15→06:30)
[2024-07-20] MEDS ORDERED: ACCU-CHEK COMFORT CURVE STRIP VI ONE ×3 (06:15→06:30)
[2024-07-20 06:19] LABS: Band Neutrophils % (manual) 5; Lymphocytes % (manual) 5 (10.0-50.0); Monocytes % (manual) 8 (0-12)
[2024-07-20 06:20] LABS: Anisocytosis Slight; Platelet Estimate Adequate
[2024-07-20] MEDS: DEXTROSE 50% SYRINGE 50 ML IV ONE (06:41)
[2024-07-20] MEDS: ACCU-CHEK COMFORT CURVE STRIP VI ONE (06:56)
[2024-07-20] MEDS: DEXTROSE (50%) 50ML SYRG IV ONE (06:56)
[2024-07-20] MEDS: MORPHINE SULFATE INJ 2 MG/ml SYRG IV ONE (07:00)
[2024-07-20 12:17] LABS: Free T3 1.87 pg/mL (2.3-4.2); Free T4 (Free Thyroxine) 0.74 ng/dL (0.89-1.76)
--- NOTE | 2024-07-20 13:31 | DVH ---
Procedure: [place] NM HIDA SCAN Exam Date: 07/20/2024 07:49 AM Clinical History: r/o cholecystitis Comparison Study: [facility] HIDA SCAN on DOS: 06/29/24 Nuclear Medicine Hepatobiliary Scan. Technique: Following the intravenous administration of 5.1 mCi of technetium 99m labeled Choletec multiple plana r abdominal planar images were obtained in anterior projection in 5 minute intervals for60 minutes . Right lateral images were obtained at 4 hours after injection. Findings: The liver appears grossly normal in size. There is abnormal persistence of the cardiac , hepatic and blood pool activity. There is non visualization of the gallbladder and no excretion of activity into the small bowel. Impression: Abnormal persistence of cardiac, hepatic and blood pool activity without definite visualization of sm all bowel or gallbladder. Findings are suggestive of hepatic dysfunction / hepatitis.
--- NOTE | 2024-07-20 14:40 | DVHPNRES ---
Progress Note Date Seen: Jul 20, 2024 Resident Creating Document: HUSSEIN PEREZ RESIDENT Medical Necessity Reason Pt with a Central, PICC or Fol: Yes The following are medically ne: Wasserman Catheter Reason for wasserman catheter: Strict I&O Subjective Review of Systems Ms Harding is a 54-year-old female patient who was brought to the ER from [facility] with a chief complaint of worsening shortness of breaths. Patient's daughter, she visited her mom at [facility] that they and reports that her mother was not responding and was staring. She could not speak or move her extremities and later on became dyspneic and therefore she was transferred to the ER. She was recently discharged from this facility to [facility] care. Per daughter who is the power of associate attorney, patient was diagnosed with metastatic liver disease on June 01 [facility]. Consequently liver biopsy was performed by Dr. Johnson on June 03 which showed moderately differentiated adenocarcinoma with differentials including pancreaticobiliary versus per GI primary cancer. Per daughter, she had an appointment at [facility] in June which was later rescheduled to July 22 as the patient was admitted inpatient and this facility. Patient had a mammogram earlier this year which was unremarkable. But she was told at [facility] that she has a breast lump, but the biopsy was not performed per the daughter. Past medical history Uterine fibroids, diabetes, congestive heart failure, constipation Past surgical history Unremarkable Home medications: Ozempic Patient seen and examined at bedside. She is intubated and mechanically ventilated. HIDA scan completed 07/20 shows abnormal persistence of cardia, hepatic and blood pool activity without definitive visualization of small bowel or gallbladder. Suggestive of hepatic dysfunction/hepatitis. DC ciprofloxacin, continue IV ceftriaxone and metronidazole. CPAP trial in the a.m.. Objective vital signs Vital Sign Date Time Temp Pulse Resp B/P (MAP) Pulse Ox O2 Delivery O2 Flow Rate FiO2 07/20/24 13:38 118/69 07/20/24 13:00 98.2 96 16 97 208.8 07/20/24 12:00 Mechanical Ventilator+ 30 30 Total Intake and Output 07/19/24 07/19/24 07/20/24 14:59 22:59 06:59 Intake Total 608.75 ml 840.00 ml 351.25 ml Output Total 175 ml 950 ml Balance 608.75 ml 665.00 ml -598.75 ml medications Current Medications Medications Dose Ordered Sig/Tanvi Route Start Time Stop Time Status Last Admin Dose Admin Norepinephrine Bitartrate 250 ml @ 3.75 mls/hr Q24H IV 07/12/24 22:00 07/20/24 13:38 15 MLS/HR Midazolam HCl 50 ml @ 1 mls/hr Q24H IV 07/12/24 22:00 07/15/24 08:29 8 MLS/HR Pantoprazole Sodium 40 mg DAILY IV 07/13/24 10:00 07/20/24 09:53 40 MG Albuterol 2.5 mg Q6HR NEB 07/13/24 06:00 07/20/24 12:00 2.5 MG Acetaminophen 650 mg Q6HP PRN PO 07/13/24 01:00 07/15/24 02:55 650 MG Nitroglycerin 0.4 mg Q5MINP PRN SL 07/13/24 01:00 Morphine Sulfate 2 mg Q30M PRN IV 07/13/24 01:00 Enteral Nutritional Formula 1,000 ml 30ML/HR GT 07/16/24 11:45 07/18/24 04:01 1,000 ML Fentanyl Citrate 250 ml @ 2.5 mls/hr Q24H IV 07/16/24 12:00 07/20/24 03:42 12.5 MLS/HR Enoxaparin Sodium 40 mg BID SC 07/16/24 22:00 07/20/24 09:52 40 MG Sodium Chloride 10 ml QSHIFT@10,22 IV 07/16/24 22:00 07/20/24 09:55 10 ML Artificial Tears 2 drop Q6HP PRN EACHEYE 07/17/24 09:45 07/17/24 17:43 2 DROP Furosemide 40 mg DAILY IV 07/18/24 10:00 07/20/24 09:53 40 MG Ciprofloxacin 200 ml @ 200 mls/hr BID IV 07/17/24 22:00 07/20/24 09:55 200 MLS/HR Metronidazole 100 ml @ 100 mls/hr TID IV 07/17/24 14:45 07/20/24 13:35 100 MLS/HR Lactulose 30 ml Q12HR PO 07/17/24 22:00 07/20/24 13:35 30 ML Ceftriaxone Sodium 1 gm DAILY IV 07/19/24 17:00 07/20/24 09:55 1 GM Examination General: afebrile, palor, mucosae are moist, RASS -2 Cardiovascular: Regular S1 and S2. No murmurs, gallops or rubs. No JVD elevation. No pedal edema Respiratory: Mechanically ventilated, equal bilateral air entry. Abdomen: Soft, nontender, nondistended, normoactive bowel sounds, no rebound tenderness, no organomegaly, no masses Genitourinary: Deferred MSK/skin: Skin is dry and warm Neurological: No motor, no sensitive deficits, normal speech. Pupils are isocoric and reactive. laboratory and microbiology Laboratory Tests 07/20/24 04:53 Test 07/20/24 04:53 Range/Units Serum Glucose 66 L 74-106 mg/dL Microbiology Date/Time Source Procedure Growth Status 07/15/24 15:45 Nose MRSA Screen - Final Complete 07/13/24 00:01 Voided Urine Urine Culture - Final Presumptive Tayler albicans Complete 07/12/24 22:47 Blood Blood Culture - Final NO GROWTH AFTER 5 DAYS OF INCUBATION. Complete Labs and/or images reviewed: Labs reviewed by me, Image(s) reviewed by me Problem List/Assessment/Plan Problem List/Assessment/Plan NEURO: Acute metabolic encephalopathy, likely due to septic shock Head CT scan and MRI of the brain does not show any acute intracranial abnormalities Patient is sedated and on mechanical ventilation, RASS score -2 CARDIOVASCULAR: Septic shock, likely due to metastatic adenocarcinoma, primary source unknown Final blood culture 07/12 shows no growth Patient is requiring norepinephrine 2 mcg/minute Continue furosemide 40 mg daily IV PULMONARY: Acute hypoxic respiratory failure, likely due to pneumonia Pneumonia likely due to Gram-positive Gram-negative bacteria Solitary pulmonary nodule Patient is sedated and on mechanical ventilation, volume control mode with setting of VT 450 and 8, RR 16, FiO2 30%, peep 5 Discontinue vancomycin and Zosyn Continue IV ceftriaxone and Flagyl MRSA nares, COVID-19 negative Breathing treatment q.6 hours as needed CPAP trial in the a.m. GASTROINTESTINAL: Septic shock likely due to cholecystitis/cholangitis Cholecystitis, likely due to cholelithiasis Cholelithiasis Possible Metastatic adenocarcinoma (likely pancreatic versus upper GI per patient's daughter), with metastasis to the liver and lung Moderate colonic diverticulitis, abdominal CT scan finding Ventral abdominal wall hernia Lobulated pelvic mass, could be a multi fibroid uterus/leiomyosarcoma, abdominal CT scan finding Constipation - last bowel movement on Patient was discharged on 07/10, from [facility] with diagnosis of cholecystitis Abdominal ultrasound on 06/26 showed gallstones, pericholecystic free fluid and gallbladder wall thickening. Positive sonographic wagner's sign Abdominal CT scan on shows, diffuse multifocal liver masses, lobulated masses in the pelvis, moderate colonic diverticulosis, ventral abdominal wall hernia containing loop of small bowel and an 8 mm right middle lobe pulmonary nodule Liver enzymes, are up trending Continue IV metronidazole and ceftriaxone, DC ciprofloxacin Surgical consultation - low likelihood of cholecystitis. Patient has a poor candidate for surgical procedure. HIDA scan could not visualize small bowel gallbladder. Hepatic disease. Lasix 40 mg daily GENITOURINARY: UTI Urinalysis shows UTI picture, +leukocyte esterase and WBCs Urine culture shows presumptive Tayler albicans, likely contaminated Endocrine Euthyroid sick syndrome Possible hypothyroidism TSH 6, low free T3 and T4 METABOLIC: Hyponatremia, monitoring Hypokalemia, supplemented Hypomagnesemia, supplemented HEME: Severe anemia, 2 pt of blood has been transfused INFECTIOUS DISEASE: Septic shock, likely due to sepsis Sepsis likely due to pneumonia/cholecystitis/UTI Blood culture of the 5 days shows no growth Urine culture shows presumptive Tayler albicans, likely contaminated Discontinue Continue Zosyn and vancomycin DC Cipro Continue IV ceftriaxone and metronidazole DIET: NPO DVT prophylax: Lovenox 40 mg b.i.d. GI prophylaxis: Protonix 40 mg daily Bowel regimen: Lactulose 30 mL b.i.d. Code status: Full code LINES/DRAINS/ACCESS: ETT: Intubated on 07/12 IV access: Right femoral CVC, placed on 07/12 Right upper arm PICC line, placed on 07/17 Drips: Fentanyl 125 Levophed 6 Wasserman catheter: Transfer ureteral catheter, placed on 07/12 Nutrition: Jevity 30 mL/houRr critical care time excluding procedures and including dw family was 82 mins Case discussed with Dr. Carmen Plan discussed with patient's daughter over the phone for over 30 minutes, prognosis guarded. Code status full code. Plan discussed with: Patient, Daughter (Over the phone) Dietary Evaluation Review Comments: 1. Advance to Regular textures as tolerated diet to if medically feasible, 2. If EN possible and PO not an option, provide Jevity 35ml/hr if off vent 3. If EN feeding not available, offer TPN per pharmacy if NPO > 7 days Expected Outcomes/Goals: on diet, off vent, gradual weight loss. CC Plasma Assessment Blood Product Administration S: [id number] Date of Service: Jul 20, 2024 Billing Provider: SHANE CARMEN MD Common Visit Codes: [id number] CARE 30-74 MIN, [id number] CARE-EACH +30MIN HUSSEIN PEREZ RESIDENT Jul 20, 2024 14:40 SHANE CARMEN MD Jul 21, 2024 16:32
[2024-07-21] VITALS (110 sets, daily range): BP systolic 94–124; BP diastolic 38–75; PULSE 95–118; RESP 13–22; TEMP 97–99.3; O2SAT 94–99
[2024-07-21 05:27] LABS: Hematocrit 25.2 % (36.0-46.0); Hemoglobin 8.1 g/dL (12.2-16.2)
[2024-07-21 05:29] LABS: Mean Corpuscular Hemoglobin 28.4 pg (28.0-32.0); Mean Corpuscular Hgb Conc. 32.2 g/dL (32.0-36.0); Mean Corpuscular Volume 88.4 fL (80.0-100.0); Platelet Count (auto) 349 10^3/uL (140-450); Red Blood Cells 2.85 10^6/uL (4.0-5.20); Red Cell Distribution Width 19.7 % (11.8-14.3)
[2024-07-21 05:40] LABS: White Blood Cell 34.3 10^3/uL (4.4-10.8)
[2024-07-21 05:42] LABS: Basophils % (manual) 0 (0.0-2.0); Blast Cells 0; Myelocytes % 0; Promyelocytes % 0; Reactive Lymphocytes 0
[2024-07-21 05:45] LABS: Anion Gap 11 (5-15); Carbon Dioxide 21 mmol/L (20-31); Chloride 98 mmol/L (98-107); Potassium 4.5 mmol/L (3.5-5.1)
[2024-07-21 05:46] LABS: Calcium 9.4 mg/dL (8.7-10.4)
[2024-07-21 05:51] LABS: BUN/Creatinine Ratio 11.6 (10.0-20.0); Blood Urea Nitrogen 17 mg/dL (9-23)
[2024-07-21 05:52] LABS: Magnesium 1.8 mg/dL (1.6-2.6); Sodium 130 mmol/L (136-145)
[2024-07-21 05:53] LABS: Glucose 48 mg/dL (74-106)
[2024-07-21 05:54] LABS: Phosphorus 5.8 mg/dL (2.4-5.1)
[2024-07-21] MEDS: DEXTROSE (50%) 50ML SYRG IV ONE (06:03)
[2024-07-21 08:57] LABS: Band Neutrophils % (manual) 4; Eosinophils % (manual) 3 (0-7); Lymphocytes % (manual) 6 (10.0-50.0); Metamyelocytes % 4; Monocytes % (manual) 5 (0-12); Platelet Estimate Adequate
--- NOTE | 2024-07-21 09:38 | DVH ---
EXAM: XY CHEST XRAY 1 VIEW Indication: INTUBATED Technique: Single frontal view of the chest was obtained Comparison: XY CHEST PORTABLE on DOS: 07/20/24, XY CHEST PORTABLE on DOS: 07/19/24, XY CHEST XRAY 1 V IEW on DOS: 07/18/24, XY CHEST PORTABLE on DOS: 06/27/24, XY CHEST PORTABLE on DOS: 06/25/24, XY CHES T PORTABLE on DOS: 07/20/24 FINDINGS: Lines and Tubes: Endotracheal tube, enteric catheter and right PICC in satisfactory position. Lungs: Patchy bilateral airspace disease. Pleura: No effusion. No pneumothorax. Cardiomediastinal contours: Unremarkable Bones: Unremarkable IMPRESSION: Lines and tubes in satisfactory position. No significant interval change.
[2024-07-21] MEDS ORDERED: CALAMINE TOPical LOTION180 ML TOP PRN (10:15)
[2024-07-21 10:20] LABS: Albumin 2.4 g/dL (3.2-4.8); Bilirubin, Direct 6.8 mg/dL (<0.3); Total Protein 4.9 g/dL (5.7-8.2)
[2024-07-21] MEDS: MAGNESIUM SULFATE 1GM/100ML 100 ML IV ONE (11:13)
[2024-07-21] MEDS: CALAMINE TOPical LOTION180 ML TOP ONE (11:14)
--- NOTE | 2024-07-21 11:52 | DVHPN2 ---
Progress Note Date Seen: Jul 21, 2024 Medical Necessity Reason Pt with a Central, PICC or Fol: Yes The following are medically ne: Wasserman Catheter Reason for wasserman catheter: Strict I&O Objective vital signs Vital Sign Date Time Temp Pulse Resp B/P (MAP) Pulse Ox O2 Delivery O2 Flow Rate FiO2 07/21/24 11:47 101 20 106/64 (78) 97 30 07/21/24 10:00 Mechanical Ventilator+ 07/21/24 07:00 99.0 210.2 Total Intake and Output 07/20/24 07/20/24 07/21/24 15:00 23:00 07:00 Intake Total 491.25 ml 358.75 ml 223.75 ml Output Total 250 ml 325 ml Balance 491.25 ml 108.75 ml -101.25 ml medications Current Medications Medications Dose Ordered Sig/Tanvi Route Start Time Stop Time Status Last Admin Dose Admin Norepinephrine Bitartrate 250 ml @ 3.75 mls/hr Q24H IV 07/12/24 22:00 07/20/24 13:38 15 MLS/HR Midazolam HCl 50 ml @ 1 mls/hr Q24H IV 07/12/24 22:00 07/15/24 08:29 8 MLS/HR Pantoprazole Sodium 40 mg DAILY IV 07/13/24 10:00 07/21/24 09:26 40 MG Albuterol 2.5 mg Q6HR NEB 07/13/24 06:00 07/21/24 11:47 2.5 MG Acetaminophen 650 mg Q6HP PRN PO 07/13/24 01:00 07/15/24 02:55 650 MG Nitroglycerin 0.4 mg Q5MINP PRN SL 07/13/24 01:00 Morphine Sulfate 2 mg Q30M PRN IV 07/13/24 01:00 Enteral Nutritional Formula 1,000 ml 30ML/HR GT 07/16/24 11:45 07/18/24 04:01 1,000 ML Fentanyl Citrate 250 ml @ 2.5 mls/hr Q24H IV 07/16/24 12:00 07/20/24 03:42 12.5 MLS/HR Enoxaparin Sodium 40 mg BID SC 07/16/24 22:00 07/21/24 09:27 40 MG Sodium Chloride 10 ml QSHIFT@10,22 IV 07/16/24 22:00 07/21/24 09:27 10 ML Artificial Tears 2 drop Q6HP PRN EACHEYE 07/17/24 09:45 07/17/24 17:43 2 DROP Furosemide 40 mg DAILY IV 07/18/24 10:00 07/21/24 09:26 40 MG Metronidazole 100 ml @ 100 mls/hr TID IV 07/17/24 14:45 07/21/24 05:37 100 MLS/HR Lactulose 30 ml Q12HR PO 07/17/24 22:00 07/21/24 09:32 30 ML Ceftriaxone Sodium 1 gm DAILY IV 07/19/24 17:00 07/21/24 09:26 1 GM Calamine 1 applic QIDP PRN TOP 07/21/24 10:15 laboratory and microbiology Laboratory Tests 07/21/24 05:01 Test 07/21/24 05:01 Range/Units Serum Glucose 48 *L 74-106 mg/dL Problem List/Assessment/Plan Problem List/Assessment/Plan 07/21/24 hida scan not diagnostic due to liver dysfunction(mets), she is in no need for a cholecystectomy. Plan discussed with: Other Dietary Evaluation Review Comments: 1. Advance to Regular textures as tolerated diet to if medically feasible, 2. If EN possible and PO not an option, provide Jevity 35ml/hr if off vent 3. If EN feeding not available, offer TPN per pharmacy if NPO > 7 days Expected Outcomes/Goals: on diet, off vent, gradual weight loss. KIRSTIE SANDHU MD Jul 21, 2024 11:52
[2024-07-21] MEDS: D5W/SOD CHLO 0.9% 1,000 ML IV SCH (12:15)
[2024-07-21] MEDS ORDERED: DEXTROSE (50%) 50ML SYRG IV PRN (12:15)
--- NOTE | 2024-07-21 13:43 | DVH ---
Procedure: IN NM HIDA SCAN Exam Date: 07/20/2024 07:49 AM Clinical History: r/o cholecystitis Comparison Study: [facility] HIDA SCAN on DOS: 06/29/24 Nuclear Medicine Hepatobiliary Scan. Technique: Following the intravenous administration of 5.1 mCi of technetium 99m labeled Choletec multiple plana r abdominal planar images were obtained in anterior projection in 5 minute intervals for60 minutes . Right lateral images were obtained at 4 hours after injection. Findings: The liver appears grossly normal in size. There is abnormal persistence of the cardiac , hepatic and blood pool activity. There is non visualization of the gallbladder and no excretion of activity into the small bowel. Impression: Abnormal persistence of cardiac, hepatic and blood pool activity without definite visualization of sm all bowel or gallbladder. Findings are suggestive of hepatic dysfunction / hepatitis.
[2024-07-21] MEDS: ACCU-CHEK COMFORT CURVE STRIP VI SCH (16:00)
[2024-07-21] MEDS ORDERED: PIPERACILLIN-TAZOB 3.375GM 100 ML IV ONE (16:45)
[2024-07-21] MEDS: PIPERACILLIN-TAZOB 3.375GM 100 ML IV SCH (18:06)
--- NOTE | 2024-07-21 18:28 | DVHPNRES ---
Progress Note Date Seen: Jul 21, 2024 Resident Creating Document: HUSSEIN PEREZ RESIDENT Medical Necessity Reason Pt with a Central, PICC or Fol: Yes The following are medically ne: PICC Line, Wasserman Catheter Reason for wasserman catheter: Strict I&O Subjective Review of Systems Ms Harding is a 54-year-old female patient who was brought to the ER from [facility] with a chief complaint of worsening shortness of breaths. Patient's daughter, she visited her mom at [facility] that they and reports that her mother was not responding and was staring. She could not speak or move her extremities and later on became dyspneic and therefore she was transferred to the ER. She was recently discharged from this facility to [facility] care. Per daughter who is the power of prosecuting attorney, patient was diagnosed with metastatic liver disease on June 01 [facility]. Consequently liver biopsy was performed by Dr. Johnson on June 03 which showed moderately differentiated adenocarcinoma with differentials including pancreaticobiliary versus per GI primary cancer. Per daughter, she had an appointment at [facility] in June initially which was later rescheduled to July 22 as the patient was admitted inpatient and this facility. Patient had a mammogram earlier this year which was unremarkable. But she was told at [facility] that she has a breast lump, but the biopsy was not performed per the daughter. Past medical history Uterine fibroids, diabetes, congestive heart failure, constipation Past surgical history Unremarkable Home medications: Ozempic Patient seen and examined at bedside. She is intubated and mechanically ventilated. HIDA scan completed 07/20 shows abnormal persistence of cardia, hepatic and blood pool activity without definitive visualization of small bowel or gallbladder. Suggestive of hepatic dysfunction/hepatitis. DC ciprofloxacin, continue IV ceftriaxone and metronidazole. CPAP trial in the a.m.. 07/21 - patient seen and examined at bedside. She is intubated and mechanically ventilated, not on sedatives. On Levophed 4. Overnight Wasserman catheter was changed. Patient made 250 mL of urine during the third shift lieutenant + 325 in the morning. No bowel movements. CPAP trial completed, patient was breathing at respiratory rate of 21, tidal volume 568, peak pressure 14. Started Zosyn IV given the unstageable sacral ulcer which was draining pus. Patient was hypoglycemic at 48, Accu-Cheks and D5W with NS started at 75 cc/hour. Santyl debridement started. Wound culture ordered. Creatinine increased from 1.19- 1.47 Objective vital signs Vital Sign Date Time Temp Pulse Resp B/P (MAP) Pulse Ox O2 Delivery O2 Flow Rate FiO2 07/21/24 17:38 102 07/21/24 17:37 30 07/21/24 17:37 16 98 Mechanical Ventilator+ 07/21/24 17:30 97.7 113/65 (81) 207.9 Total Intake and Output 07/20/24 07/20/24 07/21/24 15:00 23:00 07:00 Intake Total 491.25 ml 358.75 ml 231.25 ml Output Total 250 ml 325 ml Balance 491.25 ml 108.75 ml -93.75 ml medications Current Medications Medications Dose Ordered Sig/Tanvi Route Start Time Stop Time Status Last Admin Dose Admin Norepinephrine Bitartrate 250 ml @ 3.75 mls/hr Q24H IV 07/12/24 22:00 07/20/24 13:38 15 MLS/HR Midazolam HCl 50 ml @ 1 mls/hr Q24H IV 07/12/24 22:00 07/15/24 08:29 8 MLS/HR Pantoprazole Sodium 40 mg DAILY IV 07/13/24 10:00 07/21/24 09:26 40 MG Albuterol 2.5 mg Q6HR NEB 07/13/24 06:00 07/21/24 11:47 2.5 MG Acetaminophen 650 mg Q6HP PRN PO 07/13/24 01:00 07/15/24 02:55 650 MG Nitroglycerin 0.4 mg Q5MINP PRN SL 07/13/24 01:00 Morphine Sulfate 2 mg Q30M PRN IV 07/13/24 01:00 Enteral Nutritional Formula 1,000 ml 30ML/HR GT 07/16/24 11:45 07/18/24 04:01 1,000 ML Fentanyl Citrate 250 ml @ 2.5 mls/hr Q24H IV 07/16/24 12:00 07/20/24 03:42 12.5 MLS/HR Enoxaparin Sodium 40 mg BID SC 07/16/24 22:00 07/21/24 09:27 40 MG Sodium Chloride 10 ml QSHIFT@10,22 IV 07/16/24 22:00 07/21/24 09:27 10 ML Artificial Tears 2 drop Q6HP PRN EACHEYE 07/17/24 09:45 07/17/24 17:43 2 DROP Lactulose 30 ml Q12HR PO 07/17/24 22:00 07/21/24 09:32 30 ML Calamine 1 applic QIDP PRN TOP 07/21/24 10:15 Diagnostic Test (Pha) 1 strip IQ4HR 07/21/24 16:00 07/21/24 16:00 1 STRIP Dextrose 50 ml UD PRN IV 07/21/24 12:15 Dextrose/Sodium Chloride 1,000 ml @ 75 mls/hr [id number] IV 07/21/24 12:15 07/21/24 23:59 07/21/24 12:15 75 MLS/HR Piperacillin Sod/ Tazobactam Sod 100 ml @ 25 mls/hr Q8H IV 07/21/24 17:00 07/21/24 18:06 25 MLS/HR Examination General: Scleral icterus seen. afebrile, palor, mucosae are moist, RASS -2. Patient is responding to commands. Cardiovascular: Tachycardic but Regular S1 and S2. No murmurs, gallops or rubs. No JVD elevation. Bilateral 3+ pedal edema noted Respiratory: Mechanically ventilated, decreased basilar breath sounds. Equal air entry. No wheezes or crepitations. Abdomen: Overall the abdomen is Soft, with the epigastrium is hard, distended, absent bowel sounds, no rebound tenderness, no organomegaly, no masses Genitourinary: Deferred MSK/skin: Skin is dry and warm. Unstageable decubitus ulcer in the sacrum with black eschar noted. Parts of it are draining yellow pus-like substance. Neurological: Pupils are isocoric and reactive. laboratory and microbiology Laboratory Tests 07/21/24 05:01 Test 07/21/24 05:01 Range/Units Serum Glucose 48 *L 74-106 mg/dL Microbiology Date/Time Source Procedure Growth Status 07/15/24 15:45 Nose MRSA Screen - Final Complete 07/13/24 00:01 Voided Urine Urine Culture - Final Presumptive Tayler albicans Complete 07/12/24 22:47 Blood Blood Culture - Final NO GROWTH AFTER 5 DAYS OF INCUBATION. Complete Labs and/or images reviewed: Labs reviewed by me, Image(s) reviewed by me Problem List/Assessment/Plan Problem List/Assessment/Plan NEURO: Acute metabolic encephalopathy, likely due to septic shock Head CT scan and MRI of the brain does not show any acute intracranial abnormalities Patient is sedated and on mechanical ventilation, RASS score -2 CARDIOVASCULAR: Septic shock, likely due to cholecystitis/cholangitis versus infected sacral ulcer Metastatic adenocarcinoma, primary source unknown Final blood culture 07/12 shows no growth Patient is requiring norepinephrine 2 mcg/minute Continue furosemide 40 mg daily IV PULMONARY: Acute hypoxic respiratory failure, likely due to pneumonia Pneumonia likely due to Gram-positive Gram-negative bacteria Solitary pulmonary nodule Patient is sedated and on mechanical ventilation, volume control mode with setting of VT 450 and 8, RR 16, FiO2 30%, peep 5 Discontinue vancomycin and Zosyn Discontinued IV ceftriaxone and Flagyl on 07/21 Started IV Zosyn 07/21 MRSA nares, COVID-19 negative Breathing treatment q.6 hours as needed CPAP trial completed on 07/21. CPAP TRIAL COMPLETE. WEANING PARAMETERS OBTAINED. NIF:-22, VC: 663, RSBI: 30, LEAK: 300 AND AUDIBLE GASTROINTESTINAL: Septic shock likely due to cholecystitis/cholangitis Cholecystitis, likely due to cholelithiasis Cholelithiasis Possible Metastatic adenocarcinoma (likely pancreatic versus upper GI per patient's daughter), with metastasis to the liver and lung Moderate colonic diverticulitis, abdominal CT scan finding Ventral abdominal wall hernia Lobulated pelvic mass, could be a multi fibroid uterus/leiomyosarcoma, abdominal CT scan finding Constipation - last bowel movement on Patient was discharged on 07/10, from [facility] with diagnosis of cholecystitis Abdominal ultrasound on 06/26 showed gallstones, pericholecystic free fluid and gallbladder wall thickening. Positive sonographic wagner's sign Abdominal CT scan on shows, diffuse multifocal liver masses, lobulated masses in the pelvis, moderate colonic diverticulosis, ventral abdominal wall hernia containing loop of small bowel and an 8 mm right middle lobe pulmonary nodule Liver enzymes, are up trending Continue IV metronidazole and ceftriaxone, DC ciprofloxacin Surgical consultation - low likelihood of cholecystitis. Patient has a poor candidate for surgical procedure. HIDA scan could not visualize small bowel gallbladder. Hepatic disease. Lasix 40 mg daily GENITOURINARY: UTI ROBBI questionable VMN Creatinine increased to 1.47 from 1.19 Urinalysis shows UTI picture, +leukocyte esterase and WBCs Urine culture shows presumptive Tayler albicans, likely contaminated MUSCULOSKELETAL Unstageable sacral decubitus ulcer Sacral ulcer is draining yellow pus-like substance and also has black eschar. Started IV Zosyn after taking wound culture. Started Calamine lotion and Santyl debridement ointment Wound cultures pending Endocrine Hypoglycemia Euthyroid sick syndrome Possible hypothyroidism TSH 6, low free T3 and T4 D5 with 0.9 NS started, Accu-Cheks started 07/21 METABOLIC: Hyponatremia, monitoring Hypokalemia, supplemented Hypomagnesemia, supplemented HEME: Severe anemia, 2 pt of blood have been transfused INFECTIOUS DISEASE: Septic shock, likely due to sepsis Sepsis likely due to pneumonia/cholecystitis/UTI Blood culture of the 5 days shows no growth Urine culture shows presumptive Tayler albicans, likely contaminated Discontinue Continue Zosyn and vancomycin DC Cipro Discontinued IV ceftriaxone and metronidazole 07/21 Started IV Zosyn 07/21 DIET: NPO DVT prophylax: Lovenox 40 mg b.i.d. GI prophylaxis: Protonix 40 mg daily Bowel regimen: Lactulose 30 mL b.i.d. Code status: Full code LINES/DRAINS/ACCESS: ETT: Intubated on 07/12 IV access: Right femoral CVC, placed on 07/12 till 07/16 Right upper arm PICC line, placed on 07/16 Drips: Fentanyl 0 Levophed 4 Wasserman catheter: Transfer ureteral catheter, placed on 07/12 Nutrition: Jevity 30 mL/hour Case discussed with Dr. Carmen Plan discussed with patient's daughter over the phone and patient's mother at the bedside for over 30 minutes, prognosis guarded. Goals of care discussed with the daughter over the phone for more than 30 minutes. Full code status Critical care time including review of the charts, discussion with the patient's family and nurse excluding procedures: 62 minutes Plan discussed with: Patient, Other (Mother at bedside, nurse Lv) My Orders My Orders Orders - HUSSEIN PEREZ RESIDENT Procedure Category Date Status Time Abg W/ Co-Ox RT 07/21/24 Logged 06:00 * Wound Consult CONS 07/21/24 Transmitted Wound Culture W/ Gs CAROL 07/21/24 In Process 10:08 Clean Wound With: ORDERS 07/21/24 Transmitted 10:08 Calamine Lotion PHA 07/21/24 In Process 10:15 Apply Santyl THEO 07/21/24 In Process Debriding Agent 10:32 Glucose Blood PHA 07/21/24 In Process (Accu-Chek Comfort 16:00 Dextrose 50% Syringe PHA 07/21/24 In Process 12:15 D5w/Sod Chlo 0.9% PHA 07/21/24 In Process (D5w Ns 0.9%) 12:15 Dietary Evaluation Review Comments: 1. Advance to Regular textures as tolerated diet to if medically feasible, 2. If EN possible and PO not an option, provide Jevity 35ml/hr if off vent 3. If EN feeding not available, offer TPN per pharmacy if NPO > 7 days Expected Outcomes/Goals: on diet, off vent, gradual weight loss. CC Plasma Assessment Blood Product Administration S: [id number] Date of Service: Jul 21, 2024 Billing Provider: SHANE CARMEN MD Common Visit Codes: [id number] CARE 30-74 MIN HUSSEIN PEREZ RESIDENT Jul 21, 2024 18:28 SHANE CARMEN MD Jul 22, 2024 12:04
[2024-07-22] VITALS (106 sets, daily range): BP systolic 80–132; BP diastolic 48–84; PULSE 102–112; RESP 16–29; TEMP 98.8–99.9; O2SAT 95–100
--- NOTE | 2024-07-22 04:47 | DVH ---
CHEST RADIOGRAPH Indication: Follow up Technique: Single frontal view of the chest was obtained Comparison: XY CHEST XRAY 1 VIEW on DOS: 07/21/24 FINDINGS: Lines and Tubes: The endotracheal tube terminates 4.5 cm above the gerber. Right PICC terminates in t he superior vena cava. The enteric tube terminates below the left hemidiaphragm and outside the field of view. Lungs: Bilateral airspace opacities. Pleura: No effusion. No pneumothorax. Cardiomediastinal contours: Unremarkable Bones: No acute osseous abnormality. IMPRESSION: 1. Support lines and tubes unchanged. 2. Bilateral opacities similar to prior study.
[2024-07-22 05:38] LABS: Hematocrit 24.4 % (36.0-46.0); Hemoglobin 7.7 g/dL (12.2-16.2); Mean Corpuscular Hemoglobin 28.1 pg (28.0-32.0)
[2024-07-22 05:40] LABS: Mean Corpuscular Hgb Conc. 31.7 g/dL (32.0-36.0); Mean Corpuscular Volume 88.6 fL (80.0-100.0); Platelet Count (auto) 299 10^3/uL (140-450); Red Blood Cells 2.75 10^6/uL (4.0-5.20)
[2024-07-22 05:54] LABS: Alanine Aminotransferase 38 U/L (7-40); Anion Gap 11 (5-15); BUN/Creatinine Ratio 10.3 (10.0-20.0); Blood Urea Nitrogen 17 mg/dL (9-23); Calcium 9.6 mg/dL (8.7-10.4); Chloride 100 mmol/L (98-107); Glucose 81 mg/dL (74-106); Magnesium 2.1 mg/dL (1.6-2.6); Potassium 4.2 mmol/L (3.5-5.1)
[2024-07-22 06:08] LABS: Albumin 2.4 g/dL (3.2-4.8); Alkaline Phosphatase 495 U/L (46-116); Aspartate Aminotransferase 85 U/L (13-40); Bilirubin, Total 7.3 mg/dL (0.2-1.0); Carbon Dioxide 19 mmol/L (20-31); Sodium 130 mmol/L (136-145); Total Protein 4.8 g/dL (5.7-8.2)
[2024-07-22 06:09] LABS: Red Cell Distribution Width 20.4 % (11.8-14.3)
[2024-07-22 06:10] LABS: White Blood Cell 32.7 10^3/uL (4.4-10.8)
[2024-07-22 06:11] LABS: Basophils % (manual) 0 (0.0-2.0); Blast Cells 0; Promyelocytes % 0; Reactive Lymphocytes 0
[2024-07-22 08:48] LABS: Anisocytosis Slight; Band Neutrophils % (manual) 13; Eosinophils % (manual) 1 (0-7); Lymphocytes % (manual) 15 (10.0-50.0); Metamyelocytes % 1; Monocytes % (manual) 5 (0-12); Myelocytes % 1; Platelet Estimate Adequate
[2024-07-22] MEDS ORDERED: VANCOMYCIN PER PHARMACY 0 MG IV SCH (12:30)
[2024-07-22] MEDS ORDERED: VANCOMYCIN 1.75GM/350ML 350 ML IV ONE (13:00)
[2024-07-22] MEDS: FLUCONAZOLE 200MG/100ML 100 ML IV SCH (13:10)
[2024-07-22] MEDS: METOCLOPRAMIDE HCL 5MG/ml INJ 2ml VIAL IV SCH (14:00)
[2024-07-22] MEDS: VANCOMYCIN 1GM/250ML KIT 250 ML IV SCH (14:00)
[2024-07-22] MEDS: D5W/SOD CHLO 0.9% 1,000 ML IV SCH (14:28)
--- NOTE | 2024-07-22 18:41 | DVHPNRES ---
Progress Note Date Seen: Jul 22, 2024 Resident Creating Document: HUSSEIN PEREZ RESIDENT Medical Necessity Reason Pt with a Central, PICC or Fol: Yes The following are medically ne: PICC Line, Wasserman Catheter Reason for wasserman catheter: Strict I&O Subjective Review of Systems Ms Harding is a 54-year-old female patient who was brought to the ER from [facility] with a chief complaint of worsening shortness of breaths. Patient's daughter, she visited her mom at [facility] that they and reports that her mother was not responding and was staring. She could not speak or move her extremities and later on became dyspneic and therefore she was transferred to the ER. She was recently discharged from this facility to [facility] care. Per daughter who is the power of block mechanic, patient was diagnosed with metastatic liver disease on June 01 [facility]. Consequently liver biopsy was performed by Dr. Johnson on June 03 which showed moderately differentiated adenocarcinoma with differentials including pancreaticobiliary versus per GI primary cancer. Per daughter, she had an appointment at [facility] in June initially which was later rescheduled to July 22 as the patient was admitted inpatient and this facility. Patient had a mammogram earlier this year which was unremarkable. But she was told at [place] that she has a breast lump, but the biopsy was not performed per the daughter. Past medical history Uterine fibroids, diabetes, congestive heart failure, constipation Past surgical history Unremarkable Home medications: Ozempic 07/20-Patient seen and examined at bedside. She is intubated and mechanically ventilated. HIDA scan completed 07/20 shows abnormal persistence of cardia, hepatic and blood pool activity without definitive visualization of small bowel or gallbladder. Suggestive of hepatic dysfunction/hepatitis. DC ciprofloxacin, continue IV ceftriaxone and metronidazole. CPAP trial in the a.m.. 07/21 - patient seen and examined at bedside. She is intubated and mechanically ventilated, not on sedatives. On Levophed 4. Overnight Wasserman catheter was changed. Patient made 250 mL of urine during the community case manager + 325 in the morning. No bowel movements. CPAP trial completed, patient was breathing at respiratory rate of 21, tidal volume 568, peak pressure 14. Started Zosyn IV given the unstageable sacral ulcer which was draining pus. Patient was hypoglycemic at 48, Accu-Cheks and D5W with NS started at 75 cc/hour. Santyl debridement started. Wound culture ordered. Creatinine increased from 1.19- 1.47 07/22 - patient seen and examined at bedside. Overnight she had the small bowel movement, urine output was 200 in the last night. She has been of Levophed since 3:00 a.m. of 07/22. She has also been off sedation. Vent settings are tidal volume 450, FiO2 30, peep 5, resp. Sixteen. Patient is breathing at a rate of 19 and saturating 96%. T-max was 99 F during the past 24 hours. Cr increased to 1.65. Wound culture is growing few yeast plus possible Enterococcus preliminary. IV Diflucan 200 mg daily and vancomycin IV started 07/22. Breast examination performed bilaterally, hard masses felt bilaterally in the quadrant. No axillary lymph nodes. No skin changes. No erythema or few the orange or inversion of the nipple seen. Code status changed to modified DNR. Objective vital signs Vital Sign Date Time Temp Pulse Resp B/P (MAP) Pulse Ox O2 Delivery O2 Flow Rate FiO2 07/22/24 18:15 99.3 110 23 122/71 (88) 98 210.7 07/22/24 18:00 Mechanical Ventilator+ 30 30 Total Intake and Output 07/21/24 07/21/24 07/22/24 15:00 23:00 07:00 Intake Total 485.0 ml 786.25 ml 186.25 ml Output Total 220 ml 640 ml Balance 485.0 ml 566.25 ml -453.75 ml medications Current Medications Medications Dose Ordered Sig/Tanvi Route Start Time Stop Time Status Last Admin Dose Admin Norepinephrine Bitartrate 250 ml @ 3.75 mls/hr Q24H IV 07/12/24 22:00 07/20/24 13:38 15 MLS/HR Midazolam HCl 50 ml @ 1 mls/hr Q24H IV 07/12/24 22:00 07/15/24 08:29 8 MLS/HR Pantoprazole Sodium 40 mg DAILY IV 07/13/24 10:00 07/22/24 08:25 40 MG Albuterol 2.5 mg Q6HR NEB 07/13/24 06:00 07/22/24 18:24 2.5 MG Acetaminophen 650 mg Q6HP PRN PO 07/13/24 01:00 07/15/24 02:55 650 MG Nitroglycerin 0.4 mg Q5MINP PRN SL 07/13/24 01:00 Fentanyl Citrate 250 ml @ 2.5 mls/hr Q24H IV 07/16/24 12:00 07/20/24 03:42 12.5 MLS/HR Enoxaparin Sodium 40 mg BID SC 07/16/24 22:00 07/22/24 08:25 40 MG Sodium Chloride 10 ml QSHIFT@10,22 IV 07/16/24 22:00 07/22/24 08:25 10 ML Artificial Tears 2 drop Q6HP PRN EACHEYE 07/17/24 09:45 07/17/24 17:43 2 DROP Lactulose 30 ml Q12HR PO 07/17/24 22:00 07/22/24 08:26 30 ML Calamine 1 applic QIDP PRN TOP 07/21/24 10:15 Diagnostic Test (Pha) 1 strip IQ4HR 07/21/24 16:00 07/22/24 16:00 1 STRIP Dextrose 50 ml UD PRN IV 07/21/24 12:15 Piperacillin Sod/ Tazobactam Sod 100 ml @ 25 mls/hr Q8H IV 07/21/24 17:00 07/22/24 17:34 25 MLS/HR Enteral Nutritional Formula 1,000 ml 40ML/HR GT 07/22/24 12:15 Metoclopramide HCl 5 mg Q8HR IV 07/22/24 14:00 07/22/24 14:00 5 MG Fluconazole 100 ml @ 100 mls/hr DAILY IV 07/22/24 12:30 07/22/24 13:10 100 MLS/HR Vancomycin HCl 0 ml @ 0 mls/hr UD IV 07/22/24 12:30 Dextrose/Sodium Chloride 1,000 ml @ 75 mls/hr [id number] IV 07/22/24 14:00 07/22/24 23:59 07/22/24 14:28 75 MLS/HR Examination General: Scleral icterus seen. afebrile, palor, mucosae are moist, RASS -2. Patient is responding to commands. Cardiovascular: Tachycardic but Regular S1 and S2. No murmurs, gallops or rubs. No JVD elevation. Bilateral 3+ pedal edema noted Respiratory: Mechanically ventilated, decreased basilar breath sounds. Equal air entry. No wheezes or crepitations. Breast examination performed bilaterally, hard masses felt bilaterally in the quadrant. No axillary lymph nodes. No skin changes. No erythema or few the orange or inversion of the nipple seen. Abdomen: Overall the abdomen is Soft, with the epigastrium is hard, distended, absent bowel sounds, no rebound tenderness, no organomegaly, no masses Genitourinary: Deferred MSK/skin: Skin is dry and warm. Unstageable decubitus ulcer in the sacrum with black eschar noted. Parts of it are draining yellow pus-like substance. Neurological: Pupils are isocoric and reactive. laboratory and microbiology Laboratory Tests 07/22/24 05:08 Test 07/22/24 05:08 Range/Units Serum Glucose 81 74-106 mg/dL Microbiology Date/Time Source Procedure Growth Status 07/21/24 11:20 Sacrum Gram Stain - Final Resulted 07/21/24 11:20 Sacrum Wound Culture - Preliminary Resulted 07/13/24 00:01 Voided Urine Urine Culture - Final Presumptive Tayler albicans Complete 07/12/24 22:47 Blood Blood Culture - Final NO GROWTH AFTER 5 DAYS OF INCUBATION. Complete Labs and/or images reviewed: Labs reviewed by me, Image(s) reviewed by me Problem List/Assessment/Plan Problem List/Assessment/Plan NEURO: Acute metabolic encephalopathy, likely due to septic shock Head CT scan and MRI of the brain does not show any acute intracranial abnormalities Patient is sedated and on mechanical ventilation, RASS score -2 CARDIOVASCULAR: Septic shock, likely due to cholecystitis/cholangitis versus infected sacral ulcer Metastatic adenocarcinoma, primary source unknown Final blood culture 07/12 shows no growth Patient is requiring norepinephrine 2 mcg/minute Continue furosemide 40 mg daily IV PULMONARY: Acute hypoxic respiratory failure, likely due to pneumonia Pneumonia likely due to Gram-positive Gram-negative bacteria Solitary pulmonary nodule Patient is sedated and on mechanical ventilation, volume control mode with setting of VT 450 and 8, RR 16, FiO2 30%, peep 5 Discontinue vancomycin and Zosyn Discontinued IV ceftriaxone and Flagyl on 07/21 Started IV Zosyn 07/21 IV Diflucan 200 mg daily and vancomycin IV started 07/22. MRSA nares, COVID-19 negative Breathing treatment q.6 hours as needed CPAP trial completed on 07/21. CPAP TRIAL COMPLETE. WEANING PARAMETERS OBTAINED. NIF:-22, VC: 663, RSBI: 30, LEAK: 300 AND AUDIBLE GASTROINTESTINAL: Septic shock likely due to cholecystitis/cholangitis Cholecystitis, likely due to cholelithiasis Cholelithiasis Metastatic adenocarcinoma (likely pancreatic versus upper GI per patient's daughter), with metastasis to the liver and lung Moderate colonic diverticulitis, abdominal CT scan finding Ventral abdominal wall hernia Lobulated pelvic mass, could be a multi fibroid uterus/leiomyosarcoma, abdominal CT scan finding Constipation - last bowel movement on Patient was discharged on 07/10, from [facility] with diagnosis of cholecystitis Abdominal ultrasound on 06/26 showed gallstones, pericholecystic free fluid and gallbladder wall thickening. Positive sonographic wagner's sign Abdominal CT scan on shows, diffuse multifocal liver masses, lobulated masses in the pelvis, moderate colonic diverticulosis, ventral abdominal wall hernia containing loop of small bowel and an 8 mm right middle lobe pulmonary nodule Liver enzymes, are up trending DC IV metronidazole and ceftriaxone, DC ciprofloxacin Surgical consultation - low likelihood of cholecystitis. Patient has a poor candidate for surgical procedure. HIDA scan could not visualize small bowel gallbladder. Hepatic disease. Lasix 40 mg daily GENITOURINARY: UTI ROBBI questionable VMN Creatinine increased to 1.47 from 1.19 Urinalysis shows UTI picture, +leukocyte esterase and WBCs Urine culture shows presumptive Tayler albicans, likely contaminated MUSCULOSKELETAL Unstageable sacral decubitus ulcer Sacral ulcer is draining yellow pus-like substance and also has black eschar. Started IV Zosyn after taking wound culture. Started Calamine lotion and Santyl debridement ointment Wound culture is growing few yeast plus possible Enterococcus preliminary. IV Diflucan 200 mg daily and vancomycin IV started 07/22. Endocrine Hypoglycemia Euthyroid sick syndrome Possible hypothyroidism TSH 6, low free T3 and T4 D5 with 0.9 NS started, Accu-Cheks started 07/21 METABOLIC: Hyponatremia, monitoring Hypokalemia, supplemented Hypomagnesemia, supplemented HEME: Severe anemia, 2 pt of blood have been transfused INFECTIOUS DISEASE: Septic shock, likely due to sepsis Sepsis likely due to pneumonia/cholecystitis/UTI Blood culture of the 5 days shows no growth Urine culture shows presumptive Tayler albicans, likely contaminated Discontinue Continue Zosyn and vancomycin DC Cipro Discontinued IV ceftriaxone and metronidazole 07/21 Started IV Zosyn 07/21 DVT prophylax: Lovenox 40 mg b.i.d. GI prophylaxis: Protonix 40 mg daily Bowel regimen: Lactulose 30 mL b.i.d. Code status: Modified DNR code LINES/DRAINS/ACCESS: ETT: Intubated on 07/12 IV access: Right femoral CVC, placed on 07/12 till 07/16 Right upper arm PICC line, placed on 07/16 Drips: Fentanyl 0 Levophed 4 Wasserman catheter: Transfer ureteral catheter, placed on 07/12 Nutrition: Jevity 30 mL/hour Case discussed with Dr. Carmen Plan discussed with patient's daughter over the phone and patient's mother at the bedside for over 30 minutes, prognosis guarded. Prognosis, plan of care, Goals of care discussed with the daughter and mother at the bedside for more than 50 minutes. Modified DNR status allowing for ACL, BiPAP and intubation. No chest compressions or defibrillation/cardioversion. Critical care time including review of the charts, discussion with the patient's family including the daughter and mother at bedside and nurse excluding procedures: 86 minutes Plan discussed with: Patient, Daughter, Other (mother) My Orders My Orders Orders - HUSSEIN PEREZ Procedure Category Date Status Time DNR THEO 07/22/24 In Process 12:03 Fluconazole PHA 07/22/24 In Process 200mg/100ml (Diflucan 12:30 Vancomycin Per PHA 07/22/24 In Process Pharmacy 12:30 Vancomycin,Random LAB 07/23/24 Verified 04:00 Complete Blood Count LAB 07/23/24 Verified 04:00 Creatinine LAB 07/23/24 Verified 04:00 D5w/Sod Chlo 0.9% PHA 07/22/24 In Process (D5w Ns 0.9%) 14:00 Dietary Evaluation Review Comments: 1. Advance to Regular textures as tolerated diet to if medically feasible, 2. If EN possible and PO not an option, provide Jevity 35ml/hr if off vent 3. If EN feeding not available, offer TPN per pharmacy if NPO > 7 days Expected Outcomes/Goals: on diet, off vent, gradual weight loss. CC Plasma Assessment Blood Product Administration S: [id number] Date of Service: Jul 22, 2024 Billing Provider: SHANE CARMEN MD Common Visit Codes: 99503-[id number] CARE 30-74 MIN, 32349-[id number] CARE-EACH +30MIN HUSSEIN PEREZ Jul 22, 2024 18:40 SHANE CARMEN MD Jul 23, 2024 12:22
[2024-07-23] VITALS (103 sets, daily range): BP systolic 93–127; BP diastolic 56–81; PULSE 99–113; RESP 12–33; TEMP 97.2–100; O2SAT 94–100
--- NOTE | 2024-07-23 05:09 | DVH ---
CHEST RADIOGRAPH Indication: f/u Technique: Single frontal view of the chest was obtained Comparison: XY CHEST XRAY 1 VIEW on DOS: 07/22/24 FINDINGS: Lines and Tubes: Right upper extremity PICC line, endotracheal and enteric tube are unchanged and pos ition. Lungs: Decrease bilateral opacities. Pleura: No effusion. No pneumothorax. Cardiomediastinal contours: Unremarkable Bones: No acute osseous abnormality. IMPRESSION: 1. Improved aeration in the bilateral lung camacho.
[2024-07-23 05:53] LABS: Hemoglobin 7.7 g/dL (12.2-16.2)
[2024-07-23 05:55] LABS: Hematocrit 24.4 % (36.0-46.0); Mean Corpuscular Hgb Conc. 31.4 g/dL (32.0-36.0); Mean Corpuscular Volume 89.1 fL (80.0-100.0); Platelet Count (auto) 264 10^3/uL (140-450); Red Blood Cells 2.74 10^6/uL (4.0-5.20); Red Cell Distribution Width 19.9 % (11.8-14.3)
[2024-07-23 05:58] LABS: Alanine Aminotransferase 39 U/L (7-40); Anion Gap 12 (5-15); Calcium 9.8 mg/dL (8.7-10.4); Chloride 102 mmol/L (98-107); Magnesium 2.2 mg/dL (1.6-2.6); Potassium 3.9 mmol/L (3.5-5.1)
[2024-07-23 05:59] LABS: White Blood Cell 35.8 10^3/uL (4.4-10.8)
[2024-07-23 06:00] LABS: Basophils % (manual) 0 (0.0-2.0); Blast Cells 0; Promyelocytes % 0; Reactive Lymphocytes 0
[2024-07-23 06:07] LABS: Albumin 2.4 g/dL (3.2-4.8); Alkaline Phosphatase 587 U/L (46-116); Aspartate Aminotransferase 108 U/L (13-40); Bilirubin, Total 7.3 mg/dL (0.2-1.0); Blood Urea Nitrogen 24 mg/dL (9-23); Carbon Dioxide 20 mmol/L (20-31); Glucose 166 mg/dL (74-106); Sodium 134 mmol/L (136-145)
[2024-07-23 07:59] LABS: Band Neutrophils % (manual) 9; Eosinophils % (manual) 1 (0-7); Lymphocytes % (manual) 4 (10.0-50.0); Metamyelocytes % 1; Monocytes % (manual) 10 (0-12); Myelocytes % 1
[2024-07-23 08:00] LABS: Anisocytosis Slight; Platelet Estimate Adequate
[2024-07-23] MEDS: METOCLOPRAMIDE HCL 5MG/ml INJ 2ml VIAL IV SCH (12:30)
--- NOTE | 2024-07-23 17:39 | DVHPNRES ---
Progress Note Date Seen: Jul 23, 2024 Resident Creating Document: HUSSEIN PEREZ RESIDENT Medical Necessity Reason Pt with a Central, PICC or Fol: Yes The following are medically ne: PICC Line, Wasserman Catheter Reason for wasserman catheter: Strict I&O Subjective Review of Systems Ms Harding is a 54-year-old female patient who was brought to the ER from [facility] with a chief complaint of worsening shortness of breaths. Patient's daughter, she visited her mom at [facility] that they and reports that her mother was not responding and was staring. She could not speak or move her extremities and later on became dyspneic and therefore she was transferred to the ER. She was recently discharged from this facility to [facility] care. Per daughter who is the power of trial attorney, patient was diagnosed with metastatic liver disease on June 01 [facility]. Consequently liver biopsy was performed by Dr. Johnson on June 03 which showed moderately differentiated adenocarcinoma with differentials including pancreaticobiliary versus per GI primary cancer. Per daughter, she had an appointment at [facility] in June initially which was later rescheduled to July 22 as the patient was admitted inpatient and this facility. Patient had a mammogram earlier this year which was unremarkable. But she was told at [place] that she has a breast lump, but the biopsy was not performed per the daughter. Past medical history Uterine fibroids, diabetes, congestive heart failure, constipation Past surgical history Unremarkable Home medications: Ozempic 07/20-Patient seen and examined at bedside. She is intubated and mechanically ventilated. HIDA scan completed 07/20 shows abnormal persistence of cardia, hepatic and blood pool activity without definitive visualization of small bowel or gallbladder. Suggestive of hepatic dysfunction/hepatitis. DC ciprofloxacin, continue IV ceftriaxone and metronidazole. CPAP trial in the a.m.. 07/21 - patient seen and examined at bedside. She is intubated and mechanically ventilated, not on sedatives. On Levophed 4. Overnight Wasserman catheter was changed. Patient made 250 mL of urine during the assistant shift supervisor + 325 in the morning. No bowel movements. CPAP trial completed, patient was breathing at respiratory rate of 21, tidal volume 568, peak pressure 14. Started Zosyn IV given the unstageable sacral ulcer which was draining pus. Patient was hypoglycemic at 48, Accu-Cheks and D5W with NS started at 75 cc/hour. Santyl debridement started. Wound culture ordered. Creatinine increased from 1.19- 1.47 07/22 - patient seen and examined at bedside. Overnight she had the small bowel movement, urine output was 200 in the last night. She has been of Levophed since 3:00 a.m. of 07/22. She has also been off sedation. Vent settings are tidal volume 450, FiO2 30, peep 5, resp. Sixteen. Patient is breathing at a rate of 19 and saturating 96%. T-max was 99 F during the past 24 hours. Cr increased to 1.65. Wound culture is growing few yeast plus possible Enterococcus preliminary. IV Diflucan 200 mg daily and vancomycin IV started 07/22. Breast examination performed bilaterally, hard masses felt bilaterally in the quadrant. No axillary lymph nodes. No skin changes. No erythema or few the orange or inversion of the nipple seen. Code status changed to modified DNR. 07/23-patient seen and examined at bedside reviewed temperature is 99.9 F patient is tachycardic at 100s to 110s. She is breathing over the vent a period of 24 atrophy saturating 16. Saturating 97 on 30% of FiO2. Repeat Urine and blood culture ordered today. Overnight 150 mL the urine output and 2 bowel movements overnight and 1 this morning. Residual have been high more than 100 mL therefore Reglan 5 mg IV UA started. Patient is responding to commands and is reporting pain therefore fentanyl was restarted. Creatinine increased from 1.6-1.8. Final wound culture from sacrum resulted in VRE, DC vancomycin and Zyvox 07/23. Objective vital signs Vital Sign Date Time Temp Pulse Resp B/P (MAP) Pulse Ox O2 Delivery O2 Flow Rate FiO2 07/23/24 16:41 101 21 93/57 (69) 98 30 07/23/24 14:00 Mechanical Ventilator+ 07/23/24 14:00 98.6 98.6 Total Intake and Output 07/22/24 07/22/24 07/23/24 15:00 23:00 07:00 Intake Total 485 ml 1380 ml 975 ml Output Total 200 ml 152 ml Balance 485 ml 1180 ml 823 ml medications Current Medications Medications Dose Ordered Sig/Tanvi Route Start Time Stop Time Status Last Admin Dose Admin Norepinephrine Bitartrate 250 ml @ 3.75 mls/hr Q24H IV 07/12/24 22:00 07/20/24 13:38 15 MLS/HR Midazolam HCl 50 ml @ 1 mls/hr Q24H IV 07/12/24 22:00 07/15/24 08:29 8 MLS/HR Pantoprazole Sodium 40 mg DAILY IV 07/13/24 10:00 07/23/24 09:25 40 MG Albuterol 2.5 mg Q6HR NEB 07/13/24 06:00 07/23/24 12:29 2.5 MG Acetaminophen 650 mg Q6HP PRN PO 07/13/24 01:00 07/23/24 11:00 650 MG Nitroglycerin 0.4 mg Q5MINP PRN SL 07/13/24 01:00 Fentanyl Citrate 250 ml @ 2.5 mls/hr Q24H IV 07/16/24 12:00 07/23/24 12:55 2.5 MLS/HR Enoxaparin Sodium 40 mg BID SC 07/16/24 22:00 07/23/24 09:25 40 MG Sodium Chloride 10 ml QSHIFT@10,22 IV 07/16/24 22:00 07/23/24 09:26 10 ML Artificial Tears 2 drop Q6HP PRN EACHEYE 07/17/24 09:45 07/17/24 17:43 2 DROP Lactulose 30 ml Q12HR PO 07/17/24 22:00 07/23/24 09:25 30 ML Calamine 1 applic QIDP PRN TOP 07/21/24 10:15 Diagnostic Test (Pha) 1 strip IQ4HR 07/21/24 16:00 07/23/24 12:00 1 STRIP Dextrose 50 ml UD PRN IV 07/21/24 12:15 Piperacillin Sod/ Tazobactam Sod 100 ml @ 25 mls/hr Q8H IV 07/21/24 17:00 07/23/24 09:25 25 MLS/HR Enteral Nutritional Formula 1,000 ml 40ML/HR GT 07/22/24 12:15 Fluconazole 100 ml @ 100 mls/hr DAILY IV 07/22/24 12:30 07/23/24 11:08 100 MLS/HR Metoclopramide HCl 5 mg Q8HR IV 07/23/24 12:30 07/23/24 14:53 5 MG Linezolid 300 ml @ 150 mls/hr Q12HR IV 07/23/24 22:00 Examination General: Scleral icterus seen. afebrile, palor, mucosae are moist, RASS -1. Patient is responding to commands. Cardiovascular: Tachycardic but Regular S1 and S2. No murmurs, gallops or rubs. No JVD elevation. Bilateral 3+ pedal edema noted Respiratory: Mechanically ventilated, decreased basilar breath sounds. Equal air entry. No wheezes or crepitations. Breast examination performed bilaterally, hard masses felt bilaterally in the quadrant. No axillary lymph nodes. No skin changes. No erythema or few the orange or inversion of the nipple seen. Abdomen: Overall the abdomen is Soft, with the epigastrium is hard, distended, absent bowel sounds, no rebound tenderness, no organomegaly, no masses Genitourinary: Deferred MSK/skin: Skin is dry and warm. Unstageable decubitus ulcer in the sacrum with black eschar noted. Parts of it are draining yellow pus-like substance. Neurological: Pupils are isocoric and reactive. laboratory and microbiology Laboratory Tests 07/23/24 04:50 Test 07/23/24 04:50 Range/Units Serum Glucose 166 H 74-106 mg/dL Microbiology Date/Time Source Procedure Growth Status 07/21/24 11:20 Sacrum Gram Stain - Final Resulted 07/21/24 11:20 Wound Culture - Preliminary Enterococcus faecium - VRE Resulted 07/13/24 00:01 Voided Urine Urine Culture - Final Presumptive Tayler albicans Complete 07/12/24 22:47 Blood Blood Culture - Final NO GROWTH AFTER 5 DAYS OF INCUBATION. Complete Labs and/or images reviewed: Labs reviewed by me, Image(s) reviewed by me Problem List/Assessment/Plan Problem List/Assessment/Plan NEURO: Acute metabolic encephalopathy, likely due to septic shock Head CT scan and MRI of the brain does not show any acute intracranial abnormalities Patient is sedated and on mechanical ventilation, RASS score -2 CARDIOVASCULAR: Septic shock, likely due to cholecystitis/cholangitis versus infected sacral ulcer Metastatic adenocarcinoma, primary source unknown Final blood culture 07/12 shows no growth Patient is requiring norepinephrine 2 mcg/minute Continue furosemide 40 mg daily IV Repeat blood and urine culture ordered 07/23 PULMONARY: Acute hypoxic respiratory failure, likely due to pneumonia Pneumonia likely due to Gram-positive Gram-negative bacteria Solitary pulmonary nodule Patient is sedated and on mechanical ventilation, volume control mode with setting of VT 450 and 8, RR 16, FiO2 30%, peep 5 Discontinue vancomycin and Zosyn Discontinued IV ceftriaxone and Flagyl on 07/21 Started IV Zosyn 07/21 IV Diflucan 200 mg daily and vancomycin IV started 07/22. DC IV vanco 07/23, started IV Zyvox 07/23 Continue IV Zyvox, Zosyn daily Continue mechanical ventilation with peep of 5, tidal volume 450, respiratory rate 16 MRSA nares, COVID-19 negative Breathing treatment q.6 hours as needed CPAP trial completed on 07/21. CPAP TRIAL COMPLETE. WEANING PARAMETERS OBTAINED. NIF:-22, VC: 663, RSBI: 30, LEAK: 300 AND AUDIBLE GASTROINTESTINAL: Septic shock likely due to cholecystitis/cholangitis and infected unstageable sacral ulcer Cholecystitis, likely due to cholelithiasis Cholelithiasis Possible Metastatic adenocarcinoma (likely pancreatic versus upper GI per patient's daughter), with metastasis to the liver and lung Moderate colonic diverticulitis, abdominal CT scan finding Ventral abdominal wall hernia Lobulated pelvic mass, could be a multi fibroid uterus/leiomyosarcoma, abdominal CT scan finding Constipation - last bowel movement on Patient was discharged on 07/10, from [facility] AT [facility] with diagnosis of cholecystitis Abdominal ultrasound on 06/26 showed gallstones, pericholecystic free fluid and gallbladder wall thickening. Positive sonographic wagner's sign Abdominal CT scan on shows, diffuse multifocal liver masses, lobulated masses in the pelvis, moderate colonic diverticulosis, ventral abdominal wall hernia containing loop of small bowel and an 8 mm right middle lobe pulmonary nodule Liver enzymes, are up trending DC IV metronidazole and ceftriaxone, DC ciprofloxacin Surgical consultation - low likelihood of cholecystitis. Patient has a poor candidate for surgical procedure. HIDA scan could not visualize small bowel gallbladder. Hepatic disease. GENITOURINARY: UTI ROBBI questionable VMN Creatinine increased to 1.6 from 1.47 from 1.19 Urinalysis shows UTI picture, +leukocyte esterase and WBCs Urine culture shows presumptive Tayler albicans, likely contaminated MUSCULOSKELETAL Unstageable sacral decubitus ulcer Sacral ulcer is draining yellow pus-like substance and also has black eschar. Started IV Zosyn after taking wound culture. Started Calamine lotion and Santyl debridement ointment Wound culture is growing few yeast plus possible Enterococcus preliminary. IV Diflucan 200 mg daily and vancomycin IV started 07/22. Final wound culture from sacrum shows VRE sensitive to Zyvox. IV Zyvox started 07/23. DC the vancomycin 07/23. ENDOCRINE Hypoglycemia Euthyroid sick syndrome Possible hypothyroidism TSH 6, low free T3 and T4 Accu-Cheks started 07/21 METABOLIC: Hyponatremia, monitoring Hypokalemia, supplemented Hypomagnesemia, supplemented HEME: Severe anemia, 2 pt of blood have been transfused INFECTIOUS DISEASE: Septic shock, likely due to sepsis Sepsis likely due to pneumonia/cholecystitis/UTI Blood culture of the 5 days shows no growth Urine culture shows presumptive Tayler albicans, likely contaminated Discontinue Continue Zosyn and vancomycin DC Cipro Discontinued IV ceftriaxone and metronidazole 07/21 Started IV Zosyn 07/21 DVT prophylax: Lovenox 40 mg b.i.d. GI prophylaxis: Protonix 40 mg daily Bowel regimen: Lactulose 30 mL b.i.d. Code status: Modified DNR code LINES/DRAINS/ACCESS: ETT: Intubated on 07/12 IV access: Right femoral CVC, placed on 07/12 till 07/16 Right upper arm PICC line, placed on 07/16 Drips: Fentanyl 0 Levophed 4 Wasserman catheter: Transfer ureteral catheter, placed on 07/12 Nutrition: Jevity 30 mL/hour Case discussed with Dr. Carmen Plan discussed with patient's daughter over the phone and patient's mother at the bedside for over 30 minutes, prognosis guarded. Prognosis, plan of care, Goals of care discussed with the daughter and mother at the bedside for more than 50 minutes. Modified DNR status allowing for ACL, BiPAP and intubation. No chest compressions or defibrillation/cardioversion. Critical care time including review of the charts, discussion with the patient's family including the daughter and mother at bedside and nurse excluding procedures: 54 minutes Plan discussed with: Patient, Daughter My Orders My Orders Orders - HUSSEIN PEREZ RESIDENT Procedure Category Date Status Time Chest Xray 1 View XY 07/23/24 Resulted 04:00 Abg W/ Co-Ox RT 07/23/24 Logged 06:00 Basic Metabolic Panel LAB 07/24/24 Verified 04:00 Blood Culture CAROL 07/23/24 In Process 11:05 Urine Bacterial CAROL 07/23/24 In Process Culture 11:05 Metoclopramide PHA 07/23/24 In Process Injection (Reglan 12:30 Linezolid 600mg/300ml PHA 07/23/24 In Process (Zyvox) 22:00 Dietary Evaluation Review Comments: 1. Advance to Regular textures as tolerated diet to if medically feasible, 2. If EN possible and PO not an option, provide Jevity 35ml/hr if off vent 3. If EN feeding not available, offer TPN per pharmacy if NPO > 7 days Expected Outcomes/Goals: on diet, off vent, gradual weight loss. CC Plasma Assessment Blood Product Administration S: [id number] Date of Service: Jul 23, 2024 Billing Provider: SHANE CARMEN MD Common Visit Codes: [id number] CARE 30-74 MIN HUSSEIN PEREZ RESIDENT Jul 23, 2024 17:39 SHANE CARMEN MD Jul 25, 2024 16:40
--- NOTE | 2024-07-23 18:15 | DVH ---
CHEST RADIOGRAPH Indication: f/u Technique: Single frontal view of the chest was obtained Comparison: XY CHEST XRAY 1 VIEW on DOS: 07/23/24, XY CHEST XRAY 1 VIEW on DOS: 07/22/24, XY CHEST XR AY 1 VIEW on DOS: 07/21/24 FINDINGS: Lines and Tubes: Endotracheal tube 4.8 cm above the gerber. PICC line in place from the right arm wit h the tip in superior vena cava above the right atrium. Lungs: No focal consolidation. Pleura: No effusion. No pneumothorax. Cardiomediastinal contours: Unremarkable Bones: No acute osseous abnormality. IMPRESSION: 1. .Endotracheal tube in place 4.8 cm above the gerber. 2. PICC line from right arm in place in superior vena 3. Suboptimal inspiratory effort. HS:Y
[2024-07-23] MEDS: LINEZOLID 600MG/300ML 300 ML IV SCH (21:33)
[2024-07-24] VITALS (111 sets, daily range): BP systolic 86–142; BP diastolic 48–83; PULSE 82–108; RESP 16–24; TEMP 98.6–99.5; O2SAT 93–99
[2024-07-24 02:57] LABS: Hematocrit 26.3 % (36.0-46.0); Hemoglobin 8.1 g/dL (12.2-16.2); Mean Corpuscular Hemoglobin 27.5 pg (28.0-32.0); Mean Corpuscular Hgb Conc. 30.9 g/dL (32.0-36.0); Mean Corpuscular Volume 89.1 fL (80.0-100.0); Platelet Count (auto) 230 10^3/uL (140-450); Red Blood Cells 2.96 10^6/uL (4.0-5.20)
[2024-07-24 02:59] LABS: Red Cell Distribution Width 20.3 % (11.8-14.3)
[2024-07-24 03:01] LABS: White Blood Cell 36.8 10^3/uL (4.4-10.8)
[2024-07-24 03:02] LABS: Alanine Aminotransferase 39 U/L (7-40); Anion Gap 11 (5-15); BUN/Creatinine Ratio 14.3 (10.0-20.0); Chloride 103 mmol/L (98-107); Magnesium 2.1 mg/dL (1.6-2.6); Potassium 3.9 mmol/L (3.5-5.1)
[2024-07-24 03:03] LABS: Albumin 2.5 g/dL (3.2-4.8); Alkaline Phosphatase 693 U/L (46-116); Aspartate Aminotransferase 107 U/L (13-40); Basophils % (manual) 0 (0.0-2.0); Bilirubin, Total 7.5 mg/dL (0.2-1.0); Blast Cells 0; Blood Urea Nitrogen 28 mg/dL (9-23); Carbon Dioxide 20 mmol/L (20-31); Glucose 109 mg/dL (74-106); Metamyelocytes % 0; Myelocytes % 0; Promyelocytes % 0; Reactive Lymphocytes 0; Sodium 134 mmol/L (136-145)
[2024-07-24 03:24] LABS: Band Neutrophils % (manual) 4; Eosinophils % (manual) 2 (0-7); Lymphocytes % (manual) 9 (10.0-50.0); Monocytes % (manual) 11 (0-12); Platelet Estimate Adequate; Smudge Cells 3 /100 WBC
[2024-07-24 03:25] LABS: Anisocytosis Slight; Large Platelets FEW; Stomatocytes Few
[2024-07-24 04:31] LABS: Base Excess -9.1 mmol/L (-2.0-3.0)
--- NOTE | 2024-07-24 05:48 | DVH ---
CHEST RADIOGRAPH Indication: intubated Technique: Single frontal view of the chest was obtained Comparison: XY CHEST XRAY 1 VIEW on DOS: 07/23/24 FINDINGS: Lines and Tubes: The endotracheal tube terminates 4.7 cm above the gerber. Right PICC terminates in t he superior vena cava. The enteric tube terminates in the stomach. Lungs: No focal consolidation. Pleura: No effusion. No pneumothorax. Cardiomediastinal contours: Unremarkable Bones: No acute osseous abnormality. IMPRESSION: 1. Support lines and tubes as described. 2. No acute cardiopulmonary disease.
--- NOTE | 2024-07-24 18:35 | DVHPNRES ---
Progress Note Date Seen: Jul 24, 2024 Resident Creating Document: HUSSEIN PEREZ RESIDENT Medical Necessity Reason Pt with a Central, PICC or Fol: Yes The following are medically ne: PICC Line, Wasserman Catheter Reason for wasserman catheter: Strict I&O Subjective Review of Systems Ms Harding is a 54-year-old female patient who was brought to the ER from [facility] with a chief complaint of worsening shortness of breaths. Patient's daughter, she visited her mom at [facility] that they and reports that her mother was not responding and was staring. She could not speak or move her extremities and later on became dyspneic and therefore she was transferred to the ER. She was recently discharged from this facility to [facility] care. Per daughter who is the power of sales representative health insurance, patient was diagnosed with metastatic liver disease on June 01 [facility]. Consequently liver biopsy was performed by Dr. Johnson on June 03 which showed moderately differentiated adenocarcinoma with differentials including pancreaticobiliary versus per GI primary cancer. Per daughter, she had an appointment at [facility] in June initially which was later rescheduled to July 22 as the patient was admitted inpatient and this facility. Patient had a mammogram earlier this year which was unremarkable. But she was told at [place] that she has a breast lump, but the biopsy was not performed per the daughter. Past medical history Uterine fibroids, diabetes, congestive heart failure, constipation Past surgical history Unremarkable Home medications: Ozempic 07/20-Patient seen and examined at bedside. She is intubated and mechanically ventilated. HIDA scan completed 07/20 shows abnormal persistence of cardia, hepatic and blood pool activity without definitive visualization of small bowel or gallbladder. Suggestive of hepatic dysfunction/hepatitis. DC ciprofloxacin, continue IV ceftriaxone and metronidazole. CPAP trial in the a.m.. 07/21 - patient seen and examined at bedside. She is intubated and mechanically ventilated, not on sedatives. On Levophed 4. Overnight Wasserman catheter was changed. Patient made 250 mL of urine during the compliance and control analyst + 325 in the morning. No bowel movements. CPAP trial completed, patient was breathing at respiratory rate of 21, tidal volume 568, peak pressure 14. Started Zosyn IV given the unstageable sacral ulcer which was draining pus. Patient was hypoglycemic at 48, Accu-Cheks and D5W with NS started at 75 cc/hour. Santyl debridement started. Wound culture ordered. Creatinine increased from 1.19- 1.47 07/22 - patient seen and examined at bedside. Overnight she had the small bowel movement, urine output was 200 in the last night. She has been of Levophed since 3:00 a.m. of 07/22. She has also been off sedation. Vent settings are tidal volume 450, FiO2 30, peep 5, resp. Sixteen. Patient is breathing at a rate of 19 and saturating 96%. T-max was 99 F during the past 24 hours. Cr increased to 1.65. Wound culture is growing few yeast plus possible Enterococcus preliminary. IV Diflucan 200 mg daily and vancomycin IV started 07/22. Breast examination performed bilaterally, hard masses felt bilaterally in the quadrant. No axillary lymph nodes. No skin changes. No erythema or few the orange or inversion of the nipple seen. Code status changed to modified DNR. 07/23-patient seen and examined at bedside reviewed temperature is 99.9 F patient is tachycardic at 100s to 110s. She is breathing over the vent a period of 24 atrophy saturating 16. Saturating 97 on 30% of FiO2. Repeat Urine and blood culture ordered today. Overnight 150 mL the urine output and 2 bowel movements overnight and 1 this morning. Residual have been high more than 100 mL therefore Reglan 5 mg IV UA started. Patient is responding to commands and is reporting pain therefore fentanyl was restarted. Creatinine increased from 1.6-1.8. Final wound culture from sacrum resulted in VRE, DC vancomycin and Zyvox 07/23. 07/24-overnight tube feedings were held because of high residuals. ABGs show metabolic acidosis with respiratory acidosis, respiratory rate increased to 18 from 16. Currently on fentanyl 75. CPAP trial completed today. Patient tolerated well but she is not alert or responding to commands. Objective vital signs Vital Sign Date Time Temp Pulse Resp B/P (MAP) Pulse Ox O2 Delivery O2 Flow Rate FiO2 07/24/24 18:00 104 07/24/24 18:00 20 97 Mechanical Ventilator+ 30 30 07/24/24 18:00 98.8 100/62 (75) 209.8 Total Intake and Output 07/23/24 07/23/24 07/24/24 15:00 23:00 07:00 Intake Total 217.5 ml 601.0 ml 912.5 ml Output Total 198 ml 150 ml Balance 217.5 ml 403.0 ml 762.5 ml medications Current Medications Medications Dose Ordered Sig/Tanvi Route Start Time Stop Time Status Last Admin Dose Admin Norepinephrine Bitartrate 250 ml @ 3.75 mls/hr Q24H IV 07/12/24 22:00 07/24/24 15:49 3.75 MLS/HR Midazolam HCl 50 ml @ 1 mls/hr Q24H IV 07/12/24 22:00 07/15/24 08:29 8 MLS/HR Pantoprazole Sodium 40 mg DAILY IV 07/13/24 10:00 07/24/24 09:45 40 MG Albuterol 2.5 mg Q6HR NEB 07/13/24 06:00 07/24/24 18:10 2.5 MG Acetaminophen 650 mg Q6HP PRN PO 07/13/24 01:00 07/23/24 11:00 650 MG Nitroglycerin 0.4 mg Q5MINP PRN SL 07/13/24 01:00 Fentanyl Citrate 250 ml @ 2.5 mls/hr Q24H IV 07/16/24 12:00 07/24/24 09:59 7.5 MLS/HR Enoxaparin Sodium 40 mg BID SC 07/16/24 22:00 07/24/24 09:45 40 MG Sodium Chloride 10 ml QSHIFT@10,22 IV 07/16/24 22:00 07/24/24 09:45 10 ML Artificial Tears 2 drop Q6HP PRN EACHEYE 07/17/24 09:45 07/17/24 17:43 2 DROP Lactulose 30 ml Q12HR PO 07/17/24 22:00 07/24/24 09:45 30 ML Calamine 1 applic QIDP PRN TOP 07/21/24 10:15 Diagnostic Test (Pha) 1 strip IQ4HR 07/21/24 16:00 07/24/24 17:36 1 STRIP Dextrose 50 ml UD PRN IV 07/21/24 12:15 Piperacillin Sod/ Tazobactam Sod 100 ml @ 25 mls/hr Q8H IV 07/21/24 17:00 07/24/24 17:24 25 MLS/HR Enteral Nutritional Formula 1,000 ml 40ML/HR GT 07/22/24 12:15 Fluconazole 100 ml @ 100 mls/hr DAILY IV 07/22/24 12:30 07/24/24 09:45 100 MLS/HR Metoclopramide HCl 5 mg Q8HR IV 07/23/24 12:30 07/24/24 11:04 5 MG Linezolid 300 ml @ 150 mls/hr Q12HR IV 07/23/24 22:00 07/24/24 10:58 150 MLS/HR Examination General: Scleral icterus seen. afebrile, palor, mucosae are moist, RASS -3. Patient is responding to commands. Cardiovascular: Tachycardic but Regular S1 and S2. No murmurs, gallops or rubs. No JVD elevation. Bilateral 3+ pedal edema noted Respiratory: Mechanically ventilated, decreased basilar breath sounds. Equal air entry. No wheezes or crepitations. Breast examination performed bilaterally, hard masses felt bilaterally in the quadrant. No axillary lymph nodes. No skin changes. No erythema or few the orange or inversion of the nipple seen. Abdomen: Overall the abdomen is Soft, with the epigastrium is hard, distended, absent bowel sounds, no rebound tenderness, no organomegaly, no masses Genitourinary: Deferred MSK/skin: Skin is dry and warm. Unstageable decubitus ulcer in the sacrum with black eschar noted. Parts of it are draining yellow pus-like substance. Neurological: Pupils are isocoric and reactive. laboratory and microbiology Laboratory Tests 07/24/24 02:21 Test 07/24/24 02:21 Range/Units Serum Glucose 109 H 74-106 mg/dL Microbiology Date/Time Source Procedure Growth Status 07/23/24 12:10 Voided Urine Urine Culture - Preliminary Resulted 07/23/24 12:05 Blood Blood Culture - Preliminary NO GROWTH AFTER 24 HOURS OF INCUBATION. Resulted 07/21/24 11:20 Sacrum Gram Stain - Final Complete 07/21/24 11:20 Wound Culture - Final Enterococcus faecium - VRE Presumptive Tayler albicans Complete Labs and/or images reviewed: Labs reviewed by me, Image(s) reviewed by me Problem List/Assessment/Plan Problem List/Assessment/Plan NEURO: Acute metabolic encephalopathy, likely due to septic shock Head CT scan and MRI of the brain does not show any acute intracranial abnormalities Patient is sedated and on mechanical ventilation, RASS score -3 CARDIOVASCULAR: Septic shock, likely due to cholecystitis/cholangitis versus infected sacral ulcer Metastatic adenocarcinoma, primary source unknown Final blood culture 07/12 shows no growth Patient is requiring norepinephrine 2 mcg/minute Continue furosemide 40 mg daily IV Repeat blood and urine culture ordered 07/23 PULMONARY: Acute hypoxic respiratory failure, likely due to pneumonia Pneumonia likely due to Gram-positive Gram-negative bacteria Solitary pulmonary nodule Patient is sedated and on mechanical ventilation, volume control mode with setting of VT 450 and 8, RR 16, FiO2 30%, peep 5 Discontinue vancomycin and Zosyn Discontinued IV ceftriaxone and Flagyl on 07/21 Started IV Zosyn 07/21 IV Diflucan 200 mg daily and vancomycin IV started 07/22. DC IV vanco 07/23, started IV Zyvox 07/23 Continue IV Zyvox, Zosyn daily Continue mechanical ventilation with peep of 5, tidal volume 450, respiratory rate 16 MRSA nares, COVID-19 negative Breathing treatment q.6 hours as needed CPAP trial completed on 07/21. CPAP TRIAL COMPLETE. WEANING PARAMETERS OBTAINED. NIF:-22, VC: 663, RSBI: 30, LEAK: 300 AND AUDIBLE CPAP trial completed 07/24. Patient tolerated well. Patient has not alert, RASS -3. GASTROINTESTINAL: Septic shock likely due to cholecystitis/cholangitis and infected unstageable sacral ulcer Cholecystitis, likely due to cholelithiasis Cholelithiasis Possible Metastatic adenocarcinoma (likely pancreatic versus upper GI per patient's daughter), with metastasis to the liver and lung Moderate colonic diverticulitis, abdominal CT scan finding Ventral abdominal wall hernia Lobulated pelvic mass, could be a multi fibroid uterus/leiomyosarcoma, abdominal CT scan finding Constipation - last bowel movement on Patient was discharged on 07/10, from [facility] with diagnosis of cholecystitis Abdominal ultrasound on 06/26 showed gallstones, pericholecystic free fluid and gallbladder wall thickening. Positive sonographic wagner's sign Abdominal CT scan on shows, diffuse multifocal liver masses, lobulated masses in the pelvis, moderate colonic diverticulosis, ventral abdominal wall hernia containing loop of small bowel and an 8 mm right middle lobe pulmonary nodule Liver enzymes, are up trending DC IV metronidazole and ceftriaxone, DC ciprofloxacin Surgical consultation - low likelihood of cholecystitis. Patient has a poor candidate for surgical procedure. HIDA scan could not visualize small bowel gallbladder. Hepatic disease. Lasix 40 mg daily GENITOURINARY: UTI ROBBI questionable VMN Creatinine increased to 1.6 from 1.47 from 1.19 Urinalysis shows UTI picture, +leukocyte esterase and WBCs Urine culture shows presumptive Tayler albicans, likely contaminated MUSCULOSKELETAL Unstageable sacral decubitus ulcer Sacral ulcer is draining yellow pus-like substance and also has black eschar. Started IV Zosyn after taking wound culture. Started Calamine lotion and Santyl debridement ointment Wound culture is growing few yeast plus possible Enterococcus preliminary. IV Diflucan 200 mg daily and vancomycin IV started 07/22. Final wound culture from sacrum shows VRE sensitive to Zyvox. IV Zyvox started 07/23. DC the vancomycin 07/23. ENDOCRINE Hypoglycemia Euthyroid sick syndrome Possible hypothyroidism TSH 6, low free T3 and T4 Accu-Cheks started 07/21 METABOLIC: Hyponatremia, monitoring Hypokalemia, supplemented Hypomagnesemia, supplemented HEME: Severe anemia, 2 pt of blood have been transfused INFECTIOUS DISEASE: Septic shock, likely due to sepsis Sepsis likely due to pneumonia/cholecystitis/UTI Blood culture of the 5 days shows no growth Urine culture shows presumptive Tayler albicans, likely contaminated Discontinue Continue Zosyn and vancomycin DC Cipro Discontinued IV ceftriaxone and metronidazole 07/21 Started IV Zosyn 07/21 DVT prophylax: Lovenox 40 mg b.i.d. GI prophylaxis: Protonix 40 mg daily Bowel regimen: Lactulose 30 mL b.i.d. Code status: Modified DNR code LINES/DRAINS/ACCESS: ETT: Intubated on 07/12 IV access: Right femoral CVC, placed on 07/12 till 07/16 Right upper arm PICC line, placed on 07/16 Drips: Fentanyl 0 Levophed 4 Wasserman catheter: Transfer ureteral catheter, placed on 07/12 Nutrition: Jevity 30 mL/hour Case discussed with Dr. Holguin Plan discussed with patient's daughter over the phone and patient's mother at the bedside for over 30 minutes, prognosis guarded. Prognosis, plan of care, Goals of care discussed with the daughter and mother at the bedside for more than 50 minutes. Modified DNR status allowing for ACL, BiPAP and intubation. No chest compressions or defibrillation/cardioversion. Critical care time including review of the charts, CPAP trial, discussion with the patient's family including the daughter over phone and nurse excluding procedures: 84 minutes Plan discussed with: Patient, Daughter My Orders My Orders Orders - HUSSEIN PEREZ Procedure Category Date Status Time Chest Portable XY 07/24/24 Resulted 04:00 Cpap/Sed Vacation Med ORDERS 07/24/24 Transmitted Weaning 14:17 Ventilator Orders RT 07/24/24 Transmitted 14:18 Dietary Evaluation Review Comments: 1. Advance to Regular textures as tolerated diet to if medically feasible, 2. If EN possible and PO not an option, provide Jevity 35ml/hr if off vent 3. If EN feeding not available, offer TPN per pharmacy if NPO > 7 days Expected Outcomes/Goals: on diet, off vent, gradual weight loss. CC Plasma Assessment Blood Product Administration S: [id number] Date of Service: Jul 24, 2024 Billing Provider: JB ONEIL MD Common Visit Codes: [id number] CARE 30-74 MIN HUSSEIN PEREZ Jul 24, 2024 18:35 JB ONEIL MD Jul 25, 2024 00:09
[2024-07-24] MEDS: FUROSEMIDE 40 MG/4 ML VIAL IV ONE (18:53)
[2024-07-24] MEDS: Jevity 1.2 Cal/Fiber 1 Liter GT SCH (22:15)
[2024-07-25] VITALS (60 sets, daily range): BP systolic 94–128; BP diastolic 54–88; PULSE 93–111; RESP 18–35; TEMP 98.2–99.6; O2SAT 92–99
--- NOTE | 2024-07-25 06:03 | DVH ---
CHEST RADIOGRAPH Indication: f/u Technique: Single frontal view of the chest was obtained Comparison: XY CHEST PORTABLE on DOS: 07/24/24, XY CHEST XRAY 1 VIEW on DOS: 07/23/24, XY CHEST XRAY 1 VIEW on DOS: 07/23/24 IMPRESSION: Low lung volumes with prominent cardiac silhouette. Support lines and tubes appear unchanged in sati sfactory in position. Patchy atelectasis left mid lung. No pneumothorax.
[2024-07-25 06:04] LABS: Hemoglobin 7.4 g/dL (12.2-16.2)
[2024-07-25 06:07] LABS: Hematocrit 23.6 % (36.0-46.0); Mean Corpuscular Hgb Conc. 31.2 g/dL (32.0-36.0); Mean Corpuscular Volume 89.9 fL (80.0-100.0); Platelet Count (auto) 191 10^3/uL (140-450); Red Blood Cells 2.62 10^6/uL (4.0-5.20); Red Cell Distribution Width 19.6 % (11.8-14.3)
[2024-07-25 06:28] LABS: White Blood Cell 45.4 10^3/uL (4.4-10.8)
[2024-07-25 06:29] LABS: Basophils % (manual) 0 (0.0-2.0); Blast Cells 0; Metamyelocytes % 0; Myelocytes % 0; Promyelocytes % 0; Reactive Lymphocytes 0
[2024-07-25 06:45] LABS: Anion Gap 14 (5-15); BUN/Creatinine Ratio 16.2 (10.0-20.0); Calcium 9.8 mg/dL (8.7-10.4); Chloride 100 mmol/L (98-107); Magnesium 2.4 mg/dL (1.6-2.6); Potassium 3.9 mmol/L (3.5-5.1)
[2024-07-25 06:51] LABS: Alanine Aminotransferase 47 U/L (7-40); Albumin 2.4 g/dL (3.2-4.8); Alkaline Phosphatase 778 U/L (46-116); Aspartate Aminotransferase 167 U/L (13-40); Bilirubin, Total 7.7 mg/dL (0.2-1.0); Blood Urea Nitrogen 32 mg/dL (9-23); Carbon Dioxide 18 mmol/L (20-31); Glucose 149 mg/dL (74-106); Sodium 132 mmol/L (136-145)
[2024-07-25 07:06] LABS: Base Excess -8.8 mmol/L (-2.0-3.0)
[2024-07-25 08:51] LABS: Anisocytosis Slight; Band Neutrophils % (manual) 13; Eosinophils % (manual) 2 (0-7); Lymphocytes % (manual) 16 (10.0-50.0); Monocytes % (manual) 3 (0-12); Platelet Estimate Adequate; Stomatocytes Few
--- NOTE | 2024-07-25 09:56 | DVHPN2 ---
Subjective The patient is seen and examined at bedside. No change overnight. CPAP trial is going on. Reviewed: Care Plan, H&P, Labs, Medications, Previous Orders, Radiology Changes from previous H/P or p: No Changes Objective Vitals Vital Signs Date Time Temp Pulse Resp B/P (MAP) Pulse Ox O2 Delivery O2 Flow Rate FiO2 07/25/24 09:26 99 20 99/57 (71) 99 30 07/25/24 08:00 Mechanical Ventilator+ 07/25/24 04:30 98.4 209.1 Intake/Output Intake and Output 07/25/24 07:00 Intake Total 1391.25 ml Output Total 125 ml Balance 1266.25 ml Intake Oral 100 ml IV Total 1251.25 ml Tube Feeding 40 ml Output Urine Total 125 ml Stool Total 0 ml General Appearance: Other (intubated and sedated) Lungs: Clear to auscultation, Normal air movement Cardiovascular: Regular rate, Normal S1, Normal S2, No murmurs, Gallops, Rubs Abdomen: Normal bowel sounds, Soft, No tenderness Neuro: Other (Intubated, on vent, unable to exam) Medications Current Medications Medications Dose Ordered Sig/Tanvi Route Start Time Stop Time Status Last Admin Dose Admin Norepinephrine Bitartrate 250 ml @ 3.75 mls/hr Q24H IV 07/12/24 22:00 07/24/24 15:49 3.75 MLS/HR Midazolam HCl 50 ml @ 1 mls/hr Q24H IV 07/12/24 22:00 07/15/24 08:29 8 MLS/HR Pantoprazole Sodium 40 mg DAILY IV 07/13/24 10:00 07/24/24 09:45 40 MG Albuterol 2.5 mg Q6HR NEB 07/13/24 06:00 07/25/24 06:04 2.5 MG Acetaminophen 650 mg Q6HP PRN PO 07/13/24 01:00 07/23/24 11:00 650 MG Nitroglycerin 0.4 mg Q5MINP PRN SL 07/13/24 01:00 Fentanyl Citrate 250 ml @ 2.5 mls/hr Q24H IV 07/16/24 12:00 07/24/24 09:59 7.5 MLS/HR Enoxaparin Sodium 40 mg BID SC 07/16/24 22:00 07/24/24 21:45 40 MG Sodium Chloride 10 ml QSHIFT@10,22 IV 07/16/24 22:00 07/24/24 21:44 10 ML Artificial Tears 2 drop Q6HP PRN EACHEYE 07/17/24 09:45 07/25/24 06:42 2 DROP Lactulose 30 ml Q12HR PO 07/17/24 22:00 07/24/24 21:44 30 ML Calamine 1 applic QIDP PRN TOP 07/21/24 10:15 Diagnostic Test (Pha) 1 strip IQ4HR 07/21/24 16:00 07/25/24 04:00 1 STRIP Dextrose 50 ml UD PRN IV 07/21/24 12:15 Piperacillin Sod/ Tazobactam Sod 100 ml @ 25 mls/hr Q8H IV 07/21/24 17:00 07/25/24 01:09 25 MLS/HR Enteral Nutritional Formula 1,000 ml 40ML/HR GT 07/22/24 12:15 07/24/24 22:15 1,000 ML Fluconazole 100 ml @ 100 mls/hr DAILY IV 07/22/24 12:30 07/24/24 09:45 100 MLS/HR Metoclopramide HCl 5 mg Q8HR IV 07/23/24 12:30 07/25/24 05:13 5 MG Linezolid 300 ml @ 150 mls/hr Q12HR IV 07/23/24 22:00 07/24/24 21:45 150 MLS/HR Furosemide 40 mg DAILY IV 07/25/24 10:00 Laboratory Results Laboratory Tests 07/25/24 05:24 Chemistry Test 07/25/24 05:24 Albumin 2.4 g/dL (3.2-4.8) L Calcium Level 9.8 mg/dL (8.7-10.4) Magnesium Level 2.4 mg/dL (1.6-2.6) Total Protein 5.0 g/dL (5.7-8.2) L LFT Test 07/25/24 05:24 Alanine Aminotransferase (ALT) 47 U/L (7-40) H Alkaline Phosphatase 778 U/L (46-116) H Aspartate Amino Transferase (AST) 167 U/L (13-40) H Total Bilirubin 7.7 mg/dL (0.2-1.0) H Urinalysis Test 07/13/24 00:01 Urine Color [place] (Yellow) H Urine Clarity Turbid (Clear) H Urine pH 5.5 (5.0-9.0) Urine Specific [place] 1.036 (1.001-1.035) Urine Protein 1+ (Negative) H Urine Ketones Negative (Negative) Urine Blood 3+ /uL (Negative) H Urine Nitrite Negative (Negative) Urine Bilirubin 1+ (Negative) H Urine Urobilinogen Normal mg/dL (Negative) Urine Leukocyte Esterase 1+ /uL (Negative) Urine RBC 2674 /hpf (0 - 4) Urine WBC 16 /hpf (0 - 5) Urine Squamous Epithelial Cells None seen /hpf (<5) Urine Bacteria None seen /hpf (None Seen) Urine Glucose Normal mg/dL (Normal) Blood Gas Results Test 07/25/24 06:56 Arterial Blood pH 7.284 (7.350-7.450) FiO2 % 30.0 Microbiology Microbiology Date/Time Source Procedure Growth Status 07/23/24 12:10 Voided Urine Urine Culture - Preliminary Resulted 07/23/24 12:05 Blood Blood Culture - Preliminary NO GROWTH AFTER 24 HOURS OF INCUBATION. Resulted 07/21/24 11:20 Sacrum Gram Stain - Final Complete 07/21/24 11:20 Wound Culture - Final Enterococcus faecium - VRE Presumptive Tayler albicans Complete Labs and/or images reviewed: Labs reviewed by me Assessment/Plan Assessment/Plan NEURO: Acute metabolic encephalopathy, likely due to septic shock Head CT scan and MRI of the brain does not show any acute intracranial abnormalities Patient is sedated and on mechanical ventilation, RASS score -3 CARDIOVASCULAR: Septic shock, likely due to cholecystitis/cholangitis versus infected sacral ulcer Metastatic adenocarcinoma, primary source unknown Final blood culture 07/12 shows no growth Patient is requiring norepinephrine 2 mcg/minute Continue furosemide 40 mg daily IV Repeat blood and urine culture ordered 07/23 PULMONARY: Acute hypoxic respiratory failure, likely due to pneumonia Pneumonia likely due to Gram-positive Gram-negative bacteria Solitary pulmonary nodule Patient is sedated and on mechanical ventilation, volume control mode with setting of VT 450 and 8, RR 16, FiO2 30%, peep 5 Discontinue vancomycin and Zosyn Discontinued IV ceftriaxone and Flagyl on 07/21 Started IV Zosyn 07/21 IV Diflucan 200 mg daily and vancomycin IV started 07/22. DC IV vanco 07/23, started IV Zyvox 07/23 Continue IV Zyvox, Zosyn daily Continue mechanical ventilation with peep of 5, tidal volume 450, respiratory rate 16 MRSA nares, COVID-19 negative Breathing treatment q.6 hours as needed CPAP trial completed on 07/21. CPAP TRIAL COMPLETE. WEANING PARAMETERS OBTAINED. NIF:-22, VC: 663, RSBI: 30, LEAK: 300 AND AUDIBLE CPAP trial completed 07/24. Patient tolerated well. Patient has not alert, RASS -3. GASTROINTESTINAL: Septic shock likely due to cholecystitis/cholangitis and infected unstageable sacral ulcer Cholecystitis, likely due to cholelithiasis Cholelithiasis Possible Metastatic adenocarcinoma (likely pancreatic versus upper GI per patient's daughter), with metastasis to the liver and lung Moderate colonic diverticulitis, abdominal CT scan finding Ventral abdominal wall hernia Lobulated pelvic mass, could be a multi fibroid uterus/leiomyosarcoma, abdominal CT scan finding Constipation - last bowel movement on Patient was discharged on 07/10, from [facility] with diagnosis of cholecystitis Abdominal ultrasound on 06/26 showed gallstones, pericholecystic free fluid and gallbladder wall thickening. Positive sonographic wagner's sign Abdominal CT scan on shows, diffuse multifocal liver masses, lobulated masses in the pelvis, moderate colonic diverticulosis, ventral abdominal wall hernia containing loop of small bowel and an 8 mm right middle lobe pulmonary nodule Liver enzymes, are up trending DC IV metronidazole and ceftriaxone, DC ciprofloxacin Surgical consultation - low likelihood of cholecystitis. Patient has a poor candidate for surgical procedure. HIDA scan could not visualize small bowel gallbladder. Hepatic disease. Lasix 40 mg daily GENITOURINARY: UTI ROBBI questionable VMN Creatinine increased to 1.6 from 1.47 from 1.19 Urinalysis shows UTI picture, +leukocyte esterase and WBCs Urine culture shows presumptive Tayler albicans, likely contaminated MUSCULOSKELETAL Unstageable sacral decubitus ulcer Sacral ulcer is draining yellow pus-like substance and also has black eschar. Started IV Zosyn after taking wound culture. Started Calamine lotion and Santyl debridement ointment Wound culture is growing few yeast plus possible Enterococcus preliminary. IV Diflucan 200 mg daily and vancomycin IV started 07/22. Final wound culture from sacrum shows VRE sensitive to Zyvox. IV Zyvox started 07/23. DC the vancomycin 07/23. ENDOCRINE Hypoglycemia Euthyroid sick syndrome Possible hypothyroidism TSH 6, low free T3 and T4 Accu-Cheks started 07/21 METABOLIC: Hyponatremia, monitoring Hypokalemia, supplemented Hypomagnesemia, supplemented HEME: Severe anemia, 2 pt of blood have been transfused INFECTIOUS DISEASE: Septic shock, likely due to sepsis Sepsis likely due to pneumonia/cholecystitis/UTI Blood culture of the 5 days shows no growth Urine culture shows presumptive Tayler albicans, likely contaminated Discontinue Continue Zosyn and vancomycin DC Cipro Discontinued IV ceftriaxone and metronidazole 07/21 Started IV Zosyn 07/21 DVT prophylax: Lovenox 40 mg b.i.d. GI prophylaxis: Protonix 40 mg daily Bowel regimen: Lactulose 30 mL b.i.d. Code status: Modified DNR code LINES/DRAINS/ACCESS: ETT: Intubated on 07/12 IV access: Right femoral CVC, placed on 07/12 till 07/16 Right upper arm PICC line, placed on 07/16 Drips: Fentanyl 0 Levophed 4 Delong catheter: Transfer ureteral catheter, placed on 07/12 Nutrition: Jevity 30 mL/hour Modified DNR status allowing for ACL, BiPAP and intubation. No chest compressions or defibrillation/cardioversion. Continuing current management. Continuing with CPAP trial. Hopefully can extubate soon. Critical care time including review of the charts, CPAP trial, discussion with nurse excluding procedures: 35 minutes Plan discussed with: Other (RN) Date of Service: Jul 25, 2024 Billing Provider: RODRI SAUCEDO MD Common Visit Codes: [id number] INP/OBS CARE(HIGH) RODRI SAUCEDO MD Jul 25, 2024 09:56
[2024-07-25] MEDS: FUROSEMIDE 40 MG/4 ML VIAL IV SCH (10:52)
--- NOTE | 2024-07-25 18:35 | DVHPN2 ---
Progress Note - Dictate Date Seen: Jul 25, 2024 Medical Necessity Reason Pt with a Central, PICC or Fol: Yes The following are medically ne: PICC Line, Wasserman Catheter Reason for wasserman catheter: Strict I&O Subjective Patient seen and examined at bedside. intubated on mechanical ventilator. Overnight events reviewed. vital signs Vital Sign Date Time Temp Pulse Resp B/P (MAP) Pulse Ox O2 Delivery O2 Flow Rate FiO2 07/25/24 18:10 104 23 99/54 (69) 96 30 07/25/24 16:00 Mechanical Ventilator+ 07/25/24 04:30 98.4 209.1 Total Intake and Output 07/24/24 07/24/24 07/25/24 15:00 23:00 07:00 Intake Total 560.0 ml 512.50 ml 318.75 ml Output Total 50 ml 75 ml Balance 560.0 ml 462.50 ml 243.75 ml medications Current Medications Medications Dose Ordered Sig/Tanvi Route Start Time Stop Time Status Last Admin Dose Admin Norepinephrine Bitartrate 250 ml @ 3.75 mls/hr Q24H IV 07/12/24 22:00 07/24/24 15:49 3.75 MLS/HR Midazolam HCl 50 ml @ 1 mls/hr Q24H IV 07/12/24 22:00 07/15/24 08:29 8 MLS/HR Pantoprazole Sodium 40 mg DAILY IV 07/13/24 10:00 07/25/24 10:53 40 MG Albuterol 2.5 mg Q6HR NEB 07/13/24 06:00 07/25/24 18:25 2.5 MG Acetaminophen 650 mg Q6HP PRN PO 07/13/24 01:00 07/23/24 11:00 650 MG Nitroglycerin 0.4 mg Q5MINP PRN SL 07/13/24 01:00 Enoxaparin Sodium 40 mg BID SC 07/16/24 22:00 07/25/24 10:51 40 MG Sodium Chloride 10 ml QSHIFT@10,22 IV 07/16/24 22:00 07/25/24 10:53 10 ML Artificial Tears 2 drop Q6HP PRN EACHEYE 07/17/24 09:45 07/25/24 15:12 2 DROP Lactulose 30 ml Q12HR PO 07/17/24 22:00 07/25/24 10:52 30 ML Calamine 1 applic QIDP PRN TOP 07/21/24 10:15 Diagnostic Test (Pha) 1 strip IQ4HR 07/21/24 16:00 07/25/24 15:24 1 STRIP Dextrose 50 ml UD PRN IV 07/21/24 12:15 Piperacillin Sod/ Tazobactam Sod 100 ml @ 25 mls/hr Q8H IV 07/21/24 17:00 07/25/24 10:50 25 MLS/HR Enteral Nutritional Formula 1,000 ml 40ML/HR GT 07/22/24 12:15 07/24/24 22:15 1,000 ML Fluconazole 100 ml @ 100 mls/hr DAILY IV 07/22/24 12:30 07/25/24 10:50 100 MLS/HR Metoclopramide HCl 5 mg Q8HR IV 07/23/24 12:30 07/25/24 15:11 5 MG Linezolid 300 ml @ 150 mls/hr Q12HR IV 07/23/24 22:00 07/25/24 10:50 150 MLS/HR Furosemide 40 mg DAILY IV 07/25/24 10:00 07/25/24 10:52 40 MG objective Gen.: Patient lying in bed in medical ICU. Intubated on mechanical ventilator. Head: Normocephalic, atraumatic. Eyes: PERRLA. Ears: Normal external anatomy. Throat: Endotracheal tube and orogastric tube in place. Neck: Supple, trachea midline. Chest: Transmitted breath sounds bilaterally. Decreased air entry bilaterally. No wheezing. Bibasilar crackles. Cardiovascular: Positive S1, positive S2. Regular rate and rhythm. Abdomen: Positive bowel sounds in all 4 quadrants. Soft, nontender, nondistended. : Wasserman in place. Normal external genitalia. Rectal: Deferred. Skin: Warm, dry. Intact. Extremities: 2+ radial pulses bilaterally. No lower extremity edema. Neuro: Off sedation laboratory and microbiology Laboratory Tests 07/25/24 05:24 Test 07/25/24 05:24 Range/Units Serum Glucose 149 H 74-106 mg/dL Assessment/Plan Impression: Acute hypoxic respiratory failure On mechanical ventilator Questionable pneumonia Sepsis Metabolic encephalopathy Metastatic cancer Anemia Events: CPAP with PS 8, PEEP of 5 Off Fentanyl. ABG reviewed, acidemia CXR demonstrated low lung volumes with prominent cardiac silhouette. Patchy atelectasis, left mid lung. Devices in place. On pressors for hemodynamic support Levophed 2 mcg/min Titrate to keep mean arterial pressure greater than 65 mmHg. Poor urine output Monitor renal function Monitor electrolytes. Supplement as necessary. Continue antibiotics Continue antifungal Continue bronchodilators Tube feeds on hold. Labs and imaging reviewed. Rest of plan as noted below. Plan s/p intubation on mechanical ventilator. Chest/abdomen/pelvis CT demonstrated diffuse multifocal liver masses with the largest centrally located, 10.0 x 7.2 cm. Lobulated mass in the pelvis, 11.4 x 9.1 cm, which could be a multifibroid uterus vs leiomyosarcoma or other etiology. Moderate colonic diverticulosis. Decompressed gallbladder contains a gallstone with mild pericholecystic fluid. Cholecystitis is a consideration. Ventral abdominal wall hernia containing a loop of nondilated small bowel. Mild anasarca. An 8 mm right middle lobe pulmonary nodule. Bibasilar consolidation, most likely atelectasis. On AC mode; RR 18, VT 450, PEEP 5, FiO2 30% Titrate FIO2 to keep O2 saturation above 90%. VAP bundle. Daily ABG and CXR while intubated Off sedation Continue antibiotics On pressors for hemodynamic support Titrate to keep mean arterial pressure greater than 65 mmHg. Monitor hemoglobin Monitor renal function Monitor electrolytes. Supplement as necessary. Monitor ins and outs. Maintain euvolemia. GI prophylaxis. DVT prophylaxis. Prognosis: Poor given patient's multiple co-morbidities. Condition: Critical Rest of plan per hospitalist and other consultants. A total of 35 minutes of critical care time was spent reviewing the patient record, examining the patient, making a diagnostic and therapeutic plan, discussing this plan with the medical personnel, following up on diagnostic studies and following the patient for clinical stability excluding any and all procedures. At least 50% of this time was spent in direct, [id number] contact. Thank you David Lopez NP, for allowing me to participate in this patient's care. Further recommendations will depend on the patient's clinical course. Please do not hesitate to contact me if you have any questions or concerns. This medical document was created using an electronic medical record system with mobile melting gmbhation system. Although these documentations are being carefully reviewed, there may still be some phonetic and typographical changes. The errors are purely typographical, due to imperfection on the software program, and do not reflect any compromise in the patient's medical care. Dietary Evaluation Review Comments: 1. Advance to Regular textures as tolerated diet to if medically feasible, 2. If EN possible and PO not an option, provide Jevity 35ml/hr if off vent 3. If EN feeding not available, offer TPN per pharmacy if NPO > 7 days Expected Outcomes/Goals: on diet, off vent, gradual weight loss. Plan discussed with: Other (RICK Ignacio) Critical Care Time(min): 35 CC Plasma Assessment Blood Product Administration S: [id number] WILLIAM YOON MD Jul 25, 2024 18:35
[2024-07-26] VITALS (109 sets, daily range): BP systolic 77–155; BP diastolic 47–108; PULSE 83–118; RESP 18–56; TEMP 98.3–99.7; O2SAT 91–100
--- NOTE | 2024-07-26 05:55 | DVH ---
CHEST RADIOGRAPH Indication: intubated Technique: Single frontal view of the chest was obtained Comparison: XY CHEST XRAY 1 VIEW on DOS: 07/25/24, XY CHEST PORTABLE on DOS: 07/24/24, XY CHEST XRAY 1 VIEW on DOS: 07/23/24 IMPRESSION: Endotracheal tube tip is approximately 5-6 cm from the gerber. Enteric tube tip is within the stomac h. Right PICC line appears unchanged in satisfactory position of the superior vena cava. The right lung appears clear. Patchy airspace opacities in the left lung base persists to slightly i ncreased. No pneumothorax. Heart appears stable in size.
[2024-07-26 07:09] LABS: Hemoglobin 8.3 g/dL (12.2-16.2)
[2024-07-26 07:13] LABS: Hematocrit 26.7 % (36.0-46.0); Mean Corpuscular Hemoglobin 28.2 pg (28.0-32.0); Mean Corpuscular Hgb Conc. 31.2 g/dL (32.0-36.0); Mean Corpuscular Volume 90.2 fL (80.0-100.0); Platelet Count (auto) 185 10^3/uL (140-450); Red Blood Cells 2.96 10^6/uL (4.0-5.20)
[2024-07-26 07:17] LABS: Red Cell Distribution Width 20.3 % (11.8-14.3)
[2024-07-26 07:19] LABS: White Blood Cell 45.5 10^3/uL (4.4-10.8)
[2024-07-26 07:20] LABS: Basophils % (manual) 0 (0.0-2.0); Blast Cells 0; Metamyelocytes % 0; Myelocytes % 0; Promyelocytes % 0; Reactive Lymphocytes 0
[2024-07-26 07:29] LABS: Anion Gap 14 (5-15); BUN/Creatinine Ratio 16.6 (10.0-20.0); Calcium 9.6 mg/dL (8.7-10.4); Chloride 101 mmol/L (98-107); Glucose 87 mg/dL (74-106); Magnesium 2.5 mg/dL (1.6-2.6); Potassium 4.2 mmol/L (3.5-5.1)
--- NOTE | 2024-07-26 07:33 | DVHPN2 ---
Subjective The patient is seen and examined at bedside. No change overnight. Precedex start today. No CPAP today due to restlessness and not able to tolerate. Patient make no urine today. Reviewed: Care Plan, H&P, Labs, Medications, Previous Orders, Radiology Changes from previous H/P or p: No Changes Objective Vitals Vital Signs Date Time Temp Pulse Resp B/P (MAP) Pulse Ox O2 Delivery O2 Flow Rate FiO2 07/26/24 07:02 89/51 07/26/24 07:00 92 25 92 07/26/24 06:07 30 07/26/24 06:00 Mechanical Ventilator+ 07/26/24 04:00 98.3 98.3 Intake/Output Intake and Output 07/26/24 07:00 Intake Total 1245.00 ml Output Total 25 ml Balance 1220.00 ml Intake Oral 40 ml IV Total 1205.00 ml Output Urine Total 25 ml # Bowel Movements 1 General Appearance: Other (intubated and sedated) Lungs: Clear to auscultation, Normal air movement Cardiovascular: Regular rate, Normal S1, Normal S2, No murmurs, Gallops, Rubs Abdomen: Normal bowel sounds, Soft, No tenderness Neuro: Other (Intubated, on vent, unable to exam) Medications Current Medications Medications Dose Ordered Sig/Tanvi Route Start Time Stop Time Status Last Admin Dose Admin Norepinephrine Bitartrate 250 ml @ 3.75 mls/hr Q24H IV 07/12/24 22:00 07/24/24 15:49 3.75 MLS/HR Midazolam HCl 50 ml @ 1 mls/hr Q24H IV 07/12/24 22:00 07/15/24 08:29 8 MLS/HR Pantoprazole Sodium 40 mg DAILY IV 07/13/24 10:00 07/25/24 10:53 40 MG Albuterol 2.5 mg Q6HR NEB 07/13/24 06:00 07/26/24 06:07 2.5 MG Acetaminophen 650 mg Q6HP PRN PO 07/13/24 01:00 07/23/24 11:00 650 MG Nitroglycerin 0.4 mg Q5MINP PRN SL 07/13/24 01:00 Enoxaparin Sodium 40 mg BID SC 07/16/24 22:00 07/25/24 21:51 40 MG Sodium Chloride 10 ml QSHIFT@10,22 IV 07/16/24 22:00 07/25/24 21:52 10 ML Artificial Tears 2 drop Q6HP PRN EACHEYE 07/17/24 09:45 07/25/24 15:12 2 DROP Lactulose 30 ml Q12HR PO 07/17/24 22:00 07/25/24 10:52 30 ML Calamine 1 applic QIDP PRN TOP 07/21/24 10:15 Diagnostic Test (Pha) 1 strip IQ4HR 07/21/24 16:00 07/26/24 04:06 1 STRIP Dextrose 50 ml UD PRN IV 07/21/24 12:15 Piperacillin Sod/ Tazobactam Sod 100 ml @ 25 mls/hr Q8H IV 07/21/24 17:00 07/26/24 00:08 25 MLS/HR Enteral Nutritional Formula 1,000 ml 40ML/HR GT 07/22/24 12:15 07/24/24 22:15 1,000 ML Fluconazole 100 ml @ 100 mls/hr DAILY IV 07/22/24 12:30 07/25/24 10:50 100 MLS/HR Metoclopramide HCl 5 mg Q8HR IV 07/23/24 12:30 07/25/24 15:11 5 MG Linezolid 300 ml @ 150 mls/hr Q12HR IV 07/23/24 22:00 07/25/24 21:51 150 MLS/HR Furosemide 40 mg DAILY IV 07/25/24 10:00 07/25/24 10:52 40 MG Laboratory Results Laboratory Tests 07/26/24 05:02 Chemistry Test 07/26/24 05:02 Albumin Pending Calcium Level Pending Magnesium Level Pending Total Protein Pending LFT Test 07/26/24 05:02 Alanine Aminotransferase (ALT) Pending Alkaline Phosphatase Pending Aspartate Amino Transferase (AST) Pending Total Bilirubin Pending Urinalysis Test 07/13/24 00:01 Urine Color Page (Yellow) H Urine Clarity Turbid (Clear) H Urine pH 5.5 (5.0-9.0) Urine Specific [place] 1.036 (1.001-1.035) Urine Protein 1+ (Negative) H Urine Ketones Negative (Negative) Urine Blood 3+ /uL (Negative) H Urine Nitrite Negative (Negative) Urine Bilirubin 1+ (Negative) H Urine Urobilinogen Normal mg/dL (Negative) Urine Leukocyte Esterase 1+ /uL (Negative) Urine RBC 2674 /hpf (0 - 4) Urine WBC 16 /hpf (0 - 5) Urine Squamous Epithelial Cells None seen /hpf (<5) Urine Bacteria None seen /hpf (None Seen) Urine Glucose Normal mg/dL (Normal) Microbiology Microbiology Date/Time Source Procedure Growth Status 07/23/24 12:10 Voided Urine Urine Culture - Preliminary Resulted 07/23/24 12:05 Blood Blood Culture - Preliminary NO GROWTH AFTER 48 HOURS OF INCUBATION. Resulted 07/21/24 11:20 Sacrum Gram Stain - Final Complete 07/21/24 11:20 Wound Culture - Final Enterococcus faecium - VRE Presumptive Tayler albicans Complete Labs and/or images reviewed: Labs reviewed by me Assessment/Plan Assessment/Plan NEURO: Acute metabolic encephalopathy, likely due to septic shock Head CT scan and MRI of the brain does not show any acute intracranial abnormalities Patient is sedated and on mechanical ventilation, RASS score -3 CARDIOVASCULAR: Septic shock, likely due to cholecystitis/cholangitis versus infected sacral ulcer Metastatic adenocarcinoma, primary source unknown Final blood culture 07/12 shows no growth Patient is requiring norepinephrine 2 mcg/minute Continue furosemide 40 mg daily IV Repeat blood and urine culture ordered 07/23 PULMONARY: Acute hypoxic respiratory failure, likely due to pneumonia Pneumonia likely due to Gram-positive Gram-negative bacteria Solitary pulmonary nodule Patient is sedated and on mechanical ventilation, volume control mode with setting of VT 450 and 8, RR 16, FiO2 30%, peep 5 Discontinue vancomycin and Zosyn Discontinued IV ceftriaxone and Flagyl on 07/21 Started IV Zosyn 07/21 IV Diflucan 200 mg daily and vancomycin IV started 07/22. DC IV vanco 07/23, started IV Zyvox 07/23 Continue IV Zyvox, Zosyn daily Continue mechanical ventilation with peep of 5, tidal volume 450, respiratory rate 16 MRSA nares, COVID-19 negative Breathing treatment q.6 hours as needed CPAP trial completed on 07/21. CPAP TRIAL COMPLETE. WEANING PARAMETERS OBTAINED. NIF:-22, VC: 663, RSBI: 30, LEAK: 300 AND AUDIBLE CPAP trial completed 07/24. Patient tolerated well. Patient has not alert, RASS -3. GASTROINTESTINAL: Septic shock likely due to cholecystitis/cholangitis and infected unstageable sacral ulcer Cholecystitis, likely due to cholelithiasis Cholelithiasis Possible Metastatic adenocarcinoma (likely pancreatic versus upper GI per patient's daughter), with metastasis to the liver and lung Moderate colonic diverticulitis, abdominal CT scan finding Ventral abdominal wall hernia Lobulated pelvic mass, could be a multi fibroid uterus/leiomyosarcoma, abdominal CT scan finding Constipation - last bowel movement on Patient was discharged on 07/10, from [facility] with diagnosis of cholecystitis Abdominal ultrasound on 06/26 showed gallstones, pericholecystic free fluid and gallbladder wall thickening. Positive sonographic wagner's sign Abdominal CT scan on shows, diffuse multifocal liver masses, lobulated masses in the pelvis, moderate colonic diverticulosis, ventral abdominal wall hernia containing loop of small bowel and an 8 mm right middle lobe pulmonary nodule Liver enzymes, are up trending DC IV metronidazole and ceftriaxone, DC ciprofloxacin Surgical consultation - low likelihood of cholecystitis. Patient has a poor candidate for surgical procedure. HIDA scan could not visualize small bowel gallbladder. Hepatic disease. Lasix 40 mg daily GENITOURINARY: UTI ROBBI questionable VMN Creatinine increased to 1.6 from 1.47 from 1.19 Urinalysis shows UTI picture, +leukocyte esterase and WBCs Urine culture shows presumptive Tayler albicans, likely contaminated MUSCULOSKELETAL Unstageable sacral decubitus ulcer Sacral ulcer is draining yellow pus-like substance and also has black eschar. Started IV Zosyn after taking wound culture. Started Calamine lotion and Santyl debridement ointment Wound culture is growing few yeast plus possible Enterococcus preliminary. IV Diflucan 200 mg daily and vancomycin IV started 07/22. Final wound culture from sacrum shows VRE sensitive to Zyvox. IV Zyvox started 07/23. DC the vancomycin 07/23. ENDOCRINE Hypoglycemia Euthyroid sick syndrome Possible hypothyroidism TSH 6, low free T3 and T4 Accu-Cheks started 07/21 METABOLIC: Hyponatremia, monitoring Hypokalemia, supplemented Hypomagnesemia, supplemented HEME: Severe anemia, 2 pt of blood have been transfused INFECTIOUS DISEASE: Septic shock, likely due to sepsis Sepsis likely due to pneumonia/cholecystitis/UTI Blood culture of the 5 days shows no growth Urine culture shows presumptive Tayler albicans, likely contaminated Discontinue Continue Zosyn and vancomycin DC Cipro Discontinued IV ceftriaxone and metronidazole 07/21 Started IV Zosyn 07/21 DVT prophylax: Lovenox 40 mg b.i.d. GI prophylaxis: Protonix 40 mg daily Bowel regimen: Lactulose 30 mL b.i.d. Code status: Modified DNR code LINES/DRAINS/ACCESS: ETT: Intubated on 07/12 IV access: Right femoral CVC, placed on 07/12 till 07/16 Right upper arm PICC line, placed on 07/16 Drips: Fentanyl 0 Levophed 4 Delong catheter: Transfer ureteral catheter, placed on 07/12 Nutrition: Jevity 30 mL/hour Modified DNR status allowing for ACL, BiPAP and intubation. No chest compressions or defibrillation/cardioversion. Continuing current management. Will consult manager retail sales for acute kidney injury. Critical care time including review of the charts, CPAP trial, discussion with nurse excluding procedures: 35 minutes Plan discussed with: Other (Rn) My Orders Orders - RODRI SAUCEDO MD Procedure Category Date Status Time *[facility] CONS 07/25/24 Transmitted -[place] 19:48 Date of Service: Jul 26, 2024 Billing Provider: RODRI SAUCEDO MD Common Visit Codes: 55358-[id number] CARE 30-74 MIN RODRI SAUCEDO MD Jul 26, 2024 07:33
[2024-07-26 07:34] LABS: Base Excess -8.8 mmol/L (-2.0-3.0)
[2024-07-26 07:50] LABS: Alanine Aminotransferase 58 U/L (7-40); Albumin 2.3 g/dL (3.2-4.8); Alkaline Phosphatase 910 U/L (46-116); Aspartate Aminotransferase 276 U/L (13-40); Blood Urea Nitrogen 35 mg/dL (9-23); Carbon Dioxide 17 mmol/L (20-31); Sodium 132 mmol/L (136-145)
[2024-07-26 08:35] LABS: Band Neutrophils % (manual) 5; Eosinophils % (manual) 2 (0-7); Lymphocytes % (manual) 4 (10.0-50.0); Monocytes % (manual) 3 (0-12)
[2024-07-26 08:36] LABS: Platelet Estimate Adequate
--- NOTE | 2024-07-26 13:04 | DVHINCON2 ---
Date of service: Jul 26, [address] Francisco Reason for Consultation Acute kidney injury History of Present Illness Patient is 54-year-old obese female with past medical history of metastatic cancer to the liver is admitted earlier on 07/13 from a [place] [facility] facility for altered mental status. 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 Past Surgical History Unknown Allergies: Coded Allergies: NO KNOWN ALLERGIES (Unverified , 06/25/24) Home Meds No Active Prescriptions or Reported Meds Current Medications Current Medications Medications (Trade) Dose Ordered Sig/Tanvi Route PRN Reason Start Time Stop Time Status Last Admin Dexmedetomidine HCl 400 mcg/ Dextrose 100 ml @ 5.28 mls/hr [id number] IV 07/26/24 08:45 07/26/24 09:15 Octreotide Acetate (SandoSTATIN) 100 mcg TID SUBCUT 07/26/24 14:00 UNV Dopamine HCl/ Dextrose 250 ml @ 7.92 mls/hr Q24H IV 07/26/24 13:00 UNV Albumin Human 100 ml @ 100 mls/hr Q8H IV 07/26/24 13:00 07/27/24 05:59 UNV Family History: Alcoholism Cardiovascular disease G8 MOTHER, Onset:71 Review of Systems Can not be reviewed H&P Exam Vital Signs/I&O Vital Sign Date Time Temp Pulse Resp B/P (MAP) Pulse Ox O2 Delivery O2 Flow Rate FiO2 07/26/24 12:58 85/51 07/26/24 11:56 30 07/26/24 11:44 94 27 98 07/26/24 10:00 Mechanical Ventilator+ 07/26/24 04:00 98.3 98.3 Intake and Output 07/25/24 07/26/24 19:00 07:00 Intake Total 601.25 ml 643.75 ml Output Total 10 ml 15 ml Balance 591.25 ml 628.75 ml Intake Oral 40 ml IV Total 561.25 ml 643.75 ml Output Urine Total 10 ml 15 ml # Bowel Movements 1 Physical Exam Intubated the patient and the ventilator Lungs clear to auscultation bilaterally Cardiac exam regular rate and rhythm GI distended distended bowel sounds are present Delong catheter Extremity 2+ edema Neuro patient is a sedated Labs/Diagnostic Data Labs/Diagnostic Data Laboratory Tests Test 07/26/24 06:28 07/26/24 05:02 07/25/24 06:56 07/25/24 05:24 Range/Units Blood Gas Specimen Type Arterial Arterial Blood Gas Sample Site Left radial Right radial Blood Gas Patient Temperature 37.0 37.0 Arterial Blood Date Drawn [id number] Arterial Blood pH 7.325 L 7.284 L 7.350-7.450 Arterial Blood Partial Pressure CO2 32.0 36.9 32.0-45.0 mmHg Arterial Blood Partial Pressure O2 66.9 L 101.2 83.0-108.0 mmHg Arterial Blood HCO3 16.3 L 17.1 L 21.0-28.0 mmol/L Arterial Blood Oxygen Saturation 89.7 L 97.0 94.0-98.0 % Arterial Blood Base Excess -8.8 L -8.8 L -2.0-3.0 mmol/L Arterial Blood Oxyhemoglobin 88.7 L 96.3 94.0-98.0 % Arterial Blood Carboxyhemoglobin 0.3 L 0.2 L 0.5-1.5 % Arterial Blood Methemoglobin 0.8 0.5 0.0-1.5 % Javy Test Modified Modified Blood Gas Total Hemoglobin 8.10 L 9.60 L 12.0-16.0 g/dL Blood Gas Set Respiration Rate 18.0 18.0 Blood Gas Modality Vent - ac Vent - ac FiO2 % 30.0 30.0 Blood Gas Tidal Volume 450.0 450.0 Blood Gas PEEP or CPAP 5.0 5.0 White Blood Count 45.5 *H 45.4 *H 4.4-10.8 10^3/uL Red Blood Count 2.96 L 2.62 L 4.0-5.20 10^6/uL Hemoglobin 8.3 L 7.4 L 12.2-16.2 g/dL Hematocrit 26.7 #L 23.6 #L 36.0-46.0 % Mean Corpuscular Volume 90.2 89.9 80.0-100.0 fL Mean Corpuscular Hemoglobin 28.2 28.0 28.0-32.0 pg Mean Corpuscular Hemoglobin Concent 31.2 L 31.2 L 32.0-36.0 g/dL Red Cell Distribution Width 20.3 H 19.6 H 11.8-14.3 % Platelet Count 185 191 140-450 10^3/uL Mean Platelet Volume 7.6 7.0 6.9-10.8 fL Neutrophils (%) (Auto) 37.0-80.0 % Lymphocytes (%) (Auto) 10.0-50.0 % Monocytes (%) (Auto) 0.0-12.0 % Basophils (%) (Auto) 0.0-2.0 % Neutrophils # (Auto) 1.6-8.6 10 ^3/uL Lymphocytes # (Auto) 0.4-5.4 10 ^3/uL Monocytes # (Auto) 0-1.3 10 ^3/uL Differential Total Cells Counted 100.0 100.0 100 Neutrophils % (Manual) 86 H 66 37.0-80.0 Band Neutrophils % (Manual) 5 13 Lymphocytes % (Manual) 4 L 16 10.0-50.0 Monocytes % (Manual) 3 3 0-12 Eosinophils % (Manual) 2 2 0-7 Basophils % (Manual) 0 0 0.0-2.0 Metamyelocytes % (manual) 0 0 Myelocytes % (Manual) 0 0 Promyelocytes % (Manual) 0 0 Blast Cells % (Manual) 0 0 Nucleated Red Blood Cells 1.0 % Reactive Lymphocytes 0 0 Platelet Estimate Adequate Adequate Sodium Level 132 L 132 L 136-145 mmol/L Potassium Level 4.2 3.9 3.5-5.1 mmol/L Chloride Level 101 100 98-107 mmol/L Carbon Dioxide Level 17 L 18 L 20-31 mmol/L Anion Gap 14 14 5-15 Blood Urea Nitrogen 35 H 32 H 9-23 mg/dL Creatinine 2.11 H 1.98 H 0.550-1.02 mg/dL Glomerular Filtration Rate Calc 27 29 >90 mL/min BUN/Creatinine Ratio 16.6 16.2 10.0-20.0 Serum Glucose 87 149 H 74-106 mg/dL Calcium Level 9.6 9.8 8.7-10.4 mg/dL Magnesium Level 2.5 2.4 1.6-2.6 mg/dL Total Bilirubin 8.0 H 7.7 H 0.2-1.0 mg/dL Aspartate Amino Transferase (AST) 276 H 167 H 13-40 U/L Alanine Aminotransferase (ALT) 58 H 47 H 7-40 U/L Alkaline Phosphatase 910 H 778 H 46-116 U/L Total Protein 5.0 L 5.0 L 5.7-8.2 g/dL Albumin 2.3 L 2.4 L 3.2-4.8 g/dL Anisocytosis (manual) Slight Stomatocytes Few Test 07/24/24 04:18 07/24/24 02:21 07/23/24 04:50 07/23/24 00:35 Range/Units Blood Gas Specimen Type Arterial Blood Gas Sample Site Left radial Blood Gas Patient Temperature 37.0 Arterial Blood Date Drawn [id number] Arterial Blood pH 7.254 L 7.350-7.450 Arterial Blood Partial Pressure CO2 40.1 32.0-45.0 mmHg Arterial Blood Partial Pressure O2 100.1 83.0-108.0 mmHg Arterial Blood HCO3 17.3 L 21.0-28.0 mmol/L Arterial Blood Oxygen Saturation 96.7 94.0-98.0 % Arterial Blood Base Excess -9.1 L -2.0-3.0 mmol/L Arterial Blood Oxyhemoglobin 96.1 94.0-98.0 % Arterial Blood Carboxyhemoglobin 0.2 L 0.5-1.5 % Arterial Blood Methemoglobin 0.4 0.0-1.5 % Javy Test Yes Blood Gas Total Hemoglobin 8.80 L 12.0-16.0 g/dL Blood Gas Set Respiration Rate 16.0 Blood Gas Modality Vent - ac FiO2 % 30.0 Blood Gas Tidal Volume 450.0 Blood Gas PEEP or CPAP 5.0 Specimen Drawn By White Blood Count 36.8 *H 35.8 *H 4.4-10.8 10^3/uL Red Blood Count 2.96 L 2.74 L 4.0-5.20 10^6/uL Hemoglobin 8.1 L 7.7 L 12.2-16.2 g/dL Hematocrit 26.3 L 24.4 L 36.0-46.0 % Mean Corpuscular Volume 89.1 89.1 80.0-100.0 fL Mean Corpuscular Hemoglobin 27.5 L 28.0 28.0-32.0 pg Mean Corpuscular Hemoglobin Concent 30.9 L 31.4 L 32.0-36.0 g/dL Red Cell Distribution Width 20.3 H 19.9 H 11.8-14.3 % Platelet Count 230 264 140-450 10^3/uL Mean Platelet Volume 6.9 6.6 L 6.9-10.8 fL Neutrophils (%) (Auto) 37.0-80.0 % Lymphocytes (%) (Auto) 10.0-50.0 % Monocytes (%) (Auto) 0.0-12.0 % Basophils (%) (Auto) 0.0-2.0 % Neutrophils # (Auto) 1.6-8.6 10 ^3/uL Lymphocytes # (Auto) 0.4-5.4 10 ^3/uL Monocytes # (Auto) 0-1.3 10 ^3/uL Differential Total Cells Counted 100.0 100.0 100 Neutrophils % (Manual) 74 74 37.0-80.0 Band Neutrophils % (Manual) 4 9 Lymphocytes % (Manual) 9 L 4 L 10.0-50.0 Monocytes % (Manual) 11 10 0-12 Eosinophils % (Manual) 2 1 0-7 Basophils % (Manual) 0 0 0.0-2.0 Metamyelocytes % (manual) 0 1 Myelocytes % (Manual) 0 1 Promyelocytes % (Manual) 0 0 Blast Cells % (Manual) 0 0 Nucleated Red Blood Cells 2.0 2.0 % Reactive Lymphocytes 0 0 Smudge Cells 3 /100 WBC Platelet Estimate Adequate Adequate Large Platelets Few Anisocytosis (manual) Slight Slight Stomatocytes Few Sodium Level 134 L 134 L 136-145 mmol/L Potassium Level 3.9 3.9 3.5-5.1 mmol/L Chloride Level 103 102 98-107 mmol/L Carbon Dioxide Level 20 20 20-31 mmol/L Anion Gap 11 12 5-15 Blood Urea Nitrogen 28 H 24 H 9-23 mg/dL Creatinine 1.96 H 1.85 H 0.550-1.02 mg/dL Glomerular Filtration Rate Calc 30 32 >90 mL/min BUN/Creatinine Ratio 14.3 13.0 10.0-20.0 Serum Glucose 109 H 166 H 74-106 mg/dL Calcium Level 10.0 9.8 8.7-10.4 mg/dL Magnesium Level 2.1 2.2 1.6-2.6 mg/dL Total Bilirubin 7.5 H 7.3 H 0.2-1.0 mg/dL Aspartate Amino Transferase (AST) 107 H 108 H 13-40 U/L Alanine Aminotransferase (ALT) 39 39 7-40 U/L Alkaline Phosphatase 693 H 587 H 46-116 U/L Total Protein 5.0 L 5.0 L 5.7-8.2 g/dL Albumin 2.5 L 2.4 L 3.2-4.8 g/dL Random Vancomycin Level 26.8 H 5-10 ug/mL Stool Occult Blood Negative Negative Stool Occult Blood Sample #3 Negative Test 07/22/24 05:08 07/21/24 05:01 07/20/24 04:53 07/19/24 04:40 Range/Units White Blood Count 32.7 *H 34.3 *H 28.3 H 25.9 H 4.4-10.8 10^3/uL Red Blood Count 2.75 L 2.85 L 2.75 L 2.85 L 4.0-5.20 10^6/uL Hemoglobin 7.7 L 8.1 L 7.9 L 8.1 L 12.2-16.2 g/dL Hematocrit 24.4 L 25.2 L 24.6 L 25.3 L 36.0-46.0 % Mean Corpuscular Volume 88.6 88.4 89.4 88.8 80.0-100.0 fL Mean Corpuscular Hemoglobin 28.1 28.4 28.6 28.5 28.0-32.0 pg Mean Corpuscular Hemoglobin Concent 31.7 L 32.2 32.0 32.1 32.0-36.0 g/dL Red Cell Distribution Width 20.4 H 19.7 H 19.9 H 20.4 H 11.8-14.3 % Platelet Count 299 349 446 364 140-450 10^3/uL Mean Platelet Volume 6.6 L 6.7 L 6.9 6.8 L 6.9-10.8 fL Neutrophils (%) (Auto) 37.0-80.0 % Lymphocytes (%) (Auto) 10.0-50.0 % Monocytes (%) (Auto) 0.0-12.0 % Basophils (%) (Auto) 0.0-2.0 % Neutrophils # (Auto) 1.6-8.6 10 ^3/uL Lymphocytes # (Auto) 0.4-5.4 10 ^3/uL Monocytes # (Auto) 0-1.3 10 ^3/uL Differential Total Cells Counted 100.0 100.0 100.0 100.0 100 Neutrophils % (Manual) 64 78 82 H 80 37.0-80.0 Band Neutrophils % (Manual) 13 4 5 6 Lymphocytes % (Manual) 15 6 L 5 L 3 L 10.0-50.0 Monocytes % (Manual) 5 5 8 11 0-12 Eosinophils % (Manual) 1 3 0 0 0-7 Basophils % (Manual) 0 0 0 0 0.0-2.0 Metamyelocytes % (manual) 1 4 0 0 Myelocytes % (Manual) 1 0 0 0 Promyelocytes % (Manual) 0 0 0 0 Blast Cells % (Manual) 0 0 0 0 Reactive Lymphocytes 0 0 0 0 Platelet Estimate Adequate Adequate Adequate Adequate Anisocytosis (manual) Slight Slight Sodium Level 130 L 130 L 130 L 127 L 136-145 mmol/L Potassium Level 4.2 4.5 4.2 4.2 3.5-5.1 mmol/L Chloride Level 100 98 99 97 L 98-107 mmol/L Carbon Dioxide Level 19 L 21 22 21 20-31 mmol/L Anion Gap 11 11 9 9 5-15 Blood Urea Nitrogen 17 17 17 15 9-23 mg/dL Creatinine 1.65 H 1.47 H 1.19 H 0.98 # 0.550-1.02 mg/dL Glomerular Filtration Rate Calc 37 42 54 69 >90 mL/min BUN/Creatinine Ratio 10.3 11.6 14.3 15.3 10.0-20.0 Serum Glucose 81 48 *L 66 L 95 74-106 mg/dL Calcium Level 9.6 9.4 9.1 8.9 8.7-10.4 mg/dL Magnesium Level 2.1 1.8 1.9 1.9 1.6-2.6 mg/dL Total Bilirubin 7.3 H 8.0 H 0.2-1.0 mg/dL Aspartate Amino Transferase (AST) 85 H 106 H 13-40 U/L Alanine Aminotransferase (ALT) 38 47 H 7-40 U/L Alkaline Phosphatase 495 H 507 H 46-116 U/L Total Protein 4.8 L 4.9 L 5.7-8.2 g/dL Albumin 2.4 L 2.4 L 3.2-4.8 g/dL Beta HCG, Quantitative 68.6 H 1.5-4.2 mIU/mL Phosphorus Level 5.8 H 5.5 H 2.4-5.1 mg/dL Direct Bilirubin 6.8 H <0.3 mg/dL Free Thyroxine (T4) Calculated 0.74 L 0.89-1.76 ng/dL Free Triiodothyronine (T3) pg/mL 1.87 L 2.3-4.2 pg/mL Test 07/18/24 04:23 07/17/24 16:11 07/17/24 15:53 07/17/24 06:15 Range/Units White Blood Count 26.3 H 4.4-10.8 10^3/uL Red Blood Count 3.03 L 4.0-5.20 10^6/uL Hemoglobin 8.8 L 12.2-16.2 g/dL Hematocrit 26.9 L 36.0-46.0 % Mean Corpuscular Volume 88.8 80.0-100.0 fL Mean Corpuscular Hemoglobin 29.1 28.0-32.0 pg Mean Corpuscular Hemoglobin Concent 32.8 32.0-36.0 g/dL Red Cell Distribution Width 20.2 H 11.8-14.3 % Platelet Count 467 H 140-450 10^3/uL Mean Platelet Volume 7.3 6.9-10.8 fL Neutrophils (%) (Auto) 37.0-80.0 % Lymphocytes (%) (Auto) 10.0-50.0 % Monocytes (%) (Auto) 0.0-12.0 % Basophils (%) (Auto) 0.0-2.0 % Neutrophils # (Auto) 1.6-8.6 10 ^3/uL Lymphocytes # (Auto) 0.4-5.4 10 ^3/uL Monocytes # (Auto) 0-1.3 10 ^3/uL Differential Total Cells Counted 100.0 100 Neutrophils % (Manual) 79 37.0-80.0 Band Neutrophils % (Manual) 7 Lymphocytes % (Manual) 4 L 10.0-50.0 Monocytes % (Manual) 5 0-12 Eosinophils % (Manual) 5 0-7 Basophils % (Manual) 0 0.0-2.0 Metamyelocytes % (manual) 0 Myelocytes % (Manual) 0 Promyelocytes % (Manual) 0 Blast Cells % (Manual) 0 Reactive Lymphocytes 0 Platelet Estimate Increased Anisocytosis (manual) Slight Sodium Level 126 L 136-145 mmol/L Potassium Level 4.1 3.5-5.1 mmol/L Chloride Level 95 L 98-107 mmol/L Carbon Dioxide Level 21 20-31 mmol/L Anion Gap 10 5-15 Blood Urea Nitrogen 13 9-23 mg/dL Creatinine 0.71 # 0.550-1.02 mg/dL Glomerular Filtration Rate Calc 101 >90 mL/min BUN/Creatinine Ratio 18.3 10.0-20.0 Serum Glucose 94 74-106 mg/dL Calcium Level 8.9 8.7-10.4 mg/dL Total Bilirubin 7.5 H 0.2-1.0 mg/dL Aspartate Amino Transferase (AST) 408 H 13-40 U/L Alanine Aminotransferase (ALT) 107 H 7-40 U/L Alkaline Phosphatase 735 H 46-116 U/L Total Protein 4.9 L 5.7-8.2 g/dL Albumin 2.3 L 3.2-4.8 g/dL SARS-CoV-2 Antigen (Rapid) Negative NEGATIVE Ammonia 26 11-32 umol/L Blood Gas Specimen Type Arterial Blood Gas Sample Site Right radial Blood Gas Patient Temperature 37.0 Arterial Blood Date Drawn [id number] Arterial Blood pH 7.419 7.350-7.450 Arterial Blood Partial Pressure CO2 32.8 32.0-45.0 mmHg Arterial Blood Partial Pressure O2 89.2 83.0-108.0 mmHg Arterial Blood HCO3 20.7 L 21.0-28.0 mmol/L Arterial Blood Oxygen Saturation 96.3 94.0-98.0 % Arterial Blood Base Excess -3.1 L -2.0-3.0 mmol/L Arterial Blood Oxyhemoglobin 95.2 94.0-98.0 % Arterial Blood Carboxyhemoglobin 0.8 0.5-1.5 % Arterial Blood Methemoglobin 0.3 0.0-1.5 % Javy Test Modified Blood Gas Total Hemoglobin 10.30 L 12.0-16.0 g/dL Blood Gas Set Respiration Rate 16.0 Blood Gas Modality Vent - ac FiO2 % 30.0 Blood Gas Tidal Volume 500.0 Blood Gas PEEP or CPAP 5.0 Test 07/17/24 05:02 07/16/24 17:18 07/16/24 12:36 07/16/24 04:00 Range/Units White Blood Count 29.0 H 4.4-10.8 10^3/uL Red Blood Count 3.11 L 4.0-5.20 10^6/uL Hemoglobin 8.9 L 12.2-16.2 g/dL Hematocrit 27.1 L 36.0-46.0 % Mean Corpuscular Volume 87.3 80.0-100.0 fL Mean Corpuscular Hemoglobin 28.6 28.0-32.0 pg Mean Corpuscular Hemoglobin Concent 32.8 32.0-36.0 g/dL Red Cell Distribution Width 19.9 H 11.8-14.3 % Platelet Count 469 H 140-450 10^3/uL Mean Platelet Volume 7.5 6.9-10.8 fL Neutrophils (%) (Auto) 37.0-80.0 % Lymphocytes (%) (Auto) 10.0-50.0 % Monocytes (%) (Auto) 0.0-12.0 % Basophils (%) (Auto) 0.0-2.0 % Neutrophils # (Auto) 1.6-8.6 10 ^3/uL Lymphocytes # (Auto) 0.4-5.4 10 ^3/uL Monocytes # (Auto) 0-1.3 10 ^3/uL Differential Total Cells Counted 100.0 100 Neutrophils % (Manual) 81 H 37.0-80.0 Band Neutrophils % (Manual) 5 Lymphocytes % (Manual) 4 L 10.0-50.0 Monocytes % (Manual) 4 0-12 Eosinophils % (Manual) 6 0-7 Basophils % (Manual) 0 0.0-2.0 Metamyelocytes % (manual) 0 Myelocytes % (Manual) 0 Promyelocytes % (Manual) 0 Blast Cells % (Manual) 0 Reactive Lymphocytes 0 Platelet Estimate Increased Sodium Level 127 L 136-145 mmol/L Potassium Level 3.9 3.7 3.5-5.1 mmol/L Chloride Level 95 L 98-107 mmol/L Carbon Dioxide Level 23 20-31 mmol/L Anion Gap 9 5-15 Blood Urea Nitrogen 8 L 9-23 mg/dL Creatinine 0.41 #L 0.550-1.02 mg/dL Glomerular Filtration Rate Calc 117 >90 mL/min Estimated GFR () 208 mL/min Estimated GFR (Non- 172 mL/min BUN/Creatinine Ratio 19.5 10.0-20.0 Serum Glucose 116 H 74-106 mg/dL Calcium Level 9.1 8.7-10.4 mg/dL Phosphorus Level 3.4 2.4-5.1 mg/dL Total Bilirubin 6.9 H 0.2-1.0 mg/dL Aspartate Amino Transferase (AST) 546 H 13-40 U/L Alanine Aminotransferase (ALT) 116 H 7-40 U/L Alkaline Phosphatase 743 H 46-116 U/L Total Protein 4.8 L 5.7-8.2 g/dL Albumin 2.4 L 3.2-4.8 g/dL Thyroid Stimulating Hormone (TSH) 6.57 H 0.55-4.78 uIU/mL Prothrombin Time 12.1 H 9.3-11.8 sec Prothrombin Time INR 1.15 0.9-1.15 Activated Partial Thromboplast Time 55.7 H 24.5-34.5 SEC Vancomycin Level Trough 15.1 H 5-10 ug/mL Test 07/16/24 03:00 07/15/24 08:52 07/15/24 07:28 07/14/24 23:36 Range/Units White Blood Count 33.7 *H 35.7 #*H 4.4-10.8 10^3/uL Red Blood Count 3.39 L 3.84 L 4.0-5.20 10^6/uL Hemoglobin 9.5 L 10.8 L 12.2-16.2 g/dL Hematocrit 29.0 #L 33.7 #L 36.0-46.0 % Mean Corpuscular Volume 85.7 87.6 80.0-100.0 fL Mean Corpuscular Hemoglobin 28.1 28.2 28.0-32.0 pg Mean Corpuscular Hemoglobin Concent 32.8 32.2 32.0-36.0 g/dL Red Cell Distribution Width 19.9 H 20.2 H 11.8-14.3 % Platelet Count 527 H 524 H 140-450 10^3/uL Mean Platelet Volume 7.5 7.2 6.9-10.8 fL Neutrophils (%) (Auto) 37.0-80.0 % Lymphocytes (%) (Auto) 10.0-50.0 % Monocytes (%) (Auto) 0.0-12.0 % Basophils (%) (Auto) 0.0-2.0 % Neutrophils # (Auto) 1.6-8.6 10 ^3/uL Lymphocytes # (Auto) 0.4-5.4 10 ^3/uL Monocytes # (Auto) 0-1.3 10 ^3/uL Differential Total Cells Counted 100.0 100.0 100 Neutrophils % (Manual) 86 H 81 H 37.0-80.0 Band Neutrophils % (Manual) 1 0 Lymphocytes % (Manual) 3 L 12 10.0-50.0 Monocytes % (Manual) 5 6 0-12 Eosinophils % (Manual) 5 1 0-7 Basophils % (Manual) 0 0 0.0-2.0 Metamyelocytes % (manual) 0 0 Myelocytes % (Manual) 0 0 Promyelocytes % (Manual) 0 0 Blast Cells % (Manual) 0 0 Reactive Lymphocytes 0 0 Platelet Estimate Increased Increased Hypochromasia (manual) Slight Anisocytosis (manual) Slight Sodium Level 127 L 123 L 136-145 mmol/L Potassium Level 3.0 L 3.5 3.5-5.1 mmol/L Chloride Level 92 L 92 L 98-107 mmol/L Carbon Dioxide Level 24 23 20-31 mmol/L Anion Gap 11 8 5-15 Blood Urea Nitrogen 6 L 5 L 9-23 mg/dL Creatinine 0.26 #L 0.44 L 0.550-1.02 mg/dL Glomerular Filtration Rate Calc 130 115 >90 mL/min BUN/Creatinine Ratio 23.1 H 11.4 10.0-20.0 Serum Glucose 147 H 111 H 74-106 mg/dL Calcium Level 9.1 9.9 8.7-10.4 mg/dL Magnesium Level 1.9 1.5 L 1.6-2.6 mg/dL Total Bilirubin 6.4 H 0.2-1.0 mg/dL Aspartate Amino Transferase (AST) 506 H 13-40 U/L Alanine Aminotransferase (ALT) 96 H 7-40 U/L Alkaline Phosphatase 619 H 46-116 U/L Total Protein 4.9 L 5.7-8.2 g/dL Albumin 2.5 L 3.2-4.8 g/dL Blood Gas Specimen Type Arterial Blood Gas Sample Site Right radial Blood Gas Patient Temperature 37.0 Arterial Blood Date Drawn Arterial Blood pH 7.446 7.350-7.450 Arterial Blood Partial Pressure CO2 27.1 L 32.0-45.0 mmHg Arterial Blood Partial Pressure O2 84.9 83.0-108.0 mmHg Arterial Blood HCO3 18.2 L 21.0-28.0 mmol/L Arterial Blood Oxygen Saturation 96.2 94.0-98.0 % Arterial Blood Base Excess -4.7 L -2.0-3.0 mmol/L Arterial Blood Oxyhemoglobin 95.3 94.0-98.0 % Arterial Blood Carboxyhemoglobin 0.5 0.5-1.5 % Arterial Blood Methemoglobin 0.4 0.0-1.5 % Javy Test Modified Blood Gas Total Hemoglobin 10.80 L 12.0-16.0 g/dL Blood Gas Set Respiration Rate 16.0 Blood Gas Modality Vent - ac FiO2 % 30.0 Blood Gas Tidal Volume 500.0 Blood Gas PEEP or CPAP 5.0 POC Glucose 126 H 70-106 mg/dl Test 07/14/24 16:48 07/14/24 14:03 07/14/24 07:51 07/14/24 07:00 Range/Units Vancomycin Level Trough 15.2 H 5-10 ug/mL Potassium Level 3.3 L 3.5-5.1 mmol/L Magnesium Level 1.6 1.5 L 1.6-2.6 mg/dL Blood Gas Specimen Type Arterial Blood Gas Sample Site Left radial Blood Gas Patient Temperature 37.0 Arterial Blood Date Drawn [id number] Arterial Blood pH 7.523 H 7.350-7.450 Arterial Blood Partial Pressure CO2 24.5 L 32.0-45.0 mmHg Arterial Blood Partial Pressure O2 147.1 H 83.0-108.0 mmHg Arterial Blood HCO3 19.7 L 21.0-28.0 mmol/L Arterial Blood Oxygen Saturation 99.4 H 94.0-98.0 % Arterial Blood Base Excess -2.0 -2.0-3.0 mmol/L Arterial Blood Oxyhemoglobin 98.1 H 94.0-98.0 % Arterial Blood Carboxyhemoglobin 1.1 0.5-1.5 % Arterial Blood Methemoglobin 0.2 0.0-1.5 % Javy Test Modified Blood Gas Total Hemoglobin 10.20 L 12.0-16.0 g/dL Blood Gas Set Respiration Rate 16.0 Blood Gas Modality Vent - ac FiO2 % 30.0 Blood Gas Tidal Volume 500.0 Blood Gas PEEP or CPAP 5.0 Phosphorus Level 2.3 L 2.4-5.1 mg/dL Test 07/14/24 06:00 07/13/24 21:05 07/13/24 07:10 07/13/24 00:01 Range/Units White Blood Count 27.9 H 4.4-10.8 10^3/uL Red Blood Count 3.36 L 4.0-5.20 10^6/uL Hemoglobin 9.5 #L 12.2-16.2 g/dL Hematocrit 28.3 #L 36.0-46.0 % Mean Corpuscular Volume 84.4 80.0-100.0 fL Mean Corpuscular Hemoglobin 28.4 28.0-32.0 pg Mean Corpuscular Hemoglobin Concent 33.6 32.0-36.0 g/dL Red Cell Distribution Width 19.2 H 11.8-14.3 % Platelet Count 487 H 140-450 10^3/uL Mean Platelet Volume 7.6 6.9-10.8 fL Neutrophils (%) (Auto) 37.0-80.0 % Lymphocytes (%) (Auto) 10.0-50.0 % Monocytes (%) (Auto) 0.0-12.0 % Basophils (%) (Auto) 0.0-2.0 % Neutrophils # (Auto) 1.6-8.6 10 ^3/uL Lymphocytes # (Auto) 0.4-5.4 10 ^3/uL Monocytes # (Auto) 0-1.3 10 ^3/uL Differential Total Cells Counted 100.0 100 Neutrophils % (Manual) 71 37.0-80.0 Band Neutrophils % (Manual) 2 Lymphocytes % (Manual) 17 10.0-50.0 Monocytes % (Manual) 9 0-12 Eosinophils % (Manual) 1 0-7 Basophils % (Manual) 0 0.0-2.0 Metamyelocytes % (manual) 0 Myelocytes % (Manual) 0 Promyelocytes % (Manual) 0 Blast Cells % (Manual) 0 Reactive Lymphocytes 0 Platelet Estimate Increased Anisocytosis (manual) Slight Stomatocytes Few Sodium Level 125 L 136-145 mmol/L Potassium Level 2.8 L 2.8 L 3.5-5.1 mmol/L Chloride Level 91 L 98-107 mmol/L Carbon Dioxide Level 24 20-31 mmol/L Anion Gap 10 5-15 Blood Urea Nitrogen 6 L 9-23 mg/dL Creatinine 0.35 L 0.550-1.02 mg/dL Glomerular Filtration Rate Calc 121 >90 mL/min BUN/Creatinine Ratio 17.1 10.0-20.0 Serum Glucose 124 H 74-106 mg/dL Calcium Level 9.4 8.7-10.4 mg/dL Total Bilirubin 6.0 H 0.2-1.0 mg/dL Aspartate Amino Transferase (AST) 97 H 13-40 U/L Alanine Aminotransferase (ALT) 51 H 7-40 U/L Alkaline Phosphatase 468 H 46-116 U/L Total Protein 5.3 L 5.7-8.2 g/dL Albumin 2.7 L 3.2-4.8 g/dL Phosphorus Level 1.8 L 2.4-5.1 mg/dL Magnesium Level 1.3 L 1.6-2.6 mg/dL Blood Gas Specimen Type Arterial Blood Gas Sample Site Right radial Blood Gas Patient Temperature 37.0 Arterial Blood Date Drawn [id number] Arterial Blood pH 7.480 H 7.350-7.450 Arterial Blood Partial Pressure CO2 29.5 L 32.0-45.0 mmHg Arterial Blood Partial Pressure O2 178.9 H 83.0-108.0 mmHg Arterial Blood HCO3 21.5 21.0-28.0 mmol/L Arterial Blood Oxygen Saturation 99.1 H 94.0-98.0 % Arterial Blood Base Excess -1.5 -2.0-3.0 mmol/L Arterial Blood Oxyhemoglobin 97.3 94.0-98.0 % Arterial Blood Carboxyhemoglobin 1.1 0.5-1.5 % Arterial Blood Methemoglobin 0.7 0.0-1.5 % Javy Test Modified Blood Gas Total Hemoglobin 8.40 L 12.0-16.0 g/dL Blood Gas Set Respiration Rate 16.0 Blood Gas Modality Vent - ac FiO2 % 60.0 Blood Gas Tidal Volume 500.0 Blood Gas PEEP or CPAP 5.0 Urine Color [place] H Yellow Urine Clarity Turbid H Clear Urine pH 5.5 5.0-9.0 Urine Specific [place] 1.036 H 1.001-1.035 Urine Protein 1+ H Negative Urine Ketones Negative Negative Urine Blood 3+ H Negative /uL Urine Nitrite Negative Negative Urine Bilirubin 1+ H Negative Urine Urobilinogen Normal Negative mg/dL Urine Leukocyte Esterase 1+ Negative /uL Urine RBC 2674 0 - 4 /hpf Urine WBC 16 0 - 5 /hpf Urine Squamous Epithelial Cells None seen <5 /hpf Urine Bacteria None seen None Seen /hpf Urine Glucose Normal Normal mg/dL Test 07/12/24 21:59 07/12/24 21:40 Range/Units Blood Gas Specimen Type Arterial Blood Gas Sample Site Right radial Blood Gas Patient Temperature 37.0 Arterial Blood Date Drawn [id number] Arterial Blood pH 7.456 H 7.350-7.450 Arterial Blood Partial Pressure CO2 42.2 32.0-45.0 mmHg Arterial Blood Partial Pressure O2 266.7 H 83.0-108.0 mmHg Arterial Blood HCO3 29.1 H 21.0-28.0 mmol/L Arterial Blood Oxygen Saturation 99.7 H 94.0-98.0 % Arterial Blood Base Excess 4.7 H -2.0-3.0 mmol/L Arterial Blood Oxyhemoglobin 98.3 H 94.0-98.0 % Arterial Blood Carboxyhemoglobin 1.0 0.5-1.5 % Arterial Blood Methemoglobin 0.4 0.0-1.5 % Javy Test Yes Blood Gas Total Hemoglobin 6.70 *L 12.0-16.0 g/dL Blood Gas Set Respiration Rate 16.0 Blood Gas Modality Vent - ac Blood Gas Spontaneous Rate 16 FiO2 % 100.0 Blood Gas Tidal Volume 500.0 Blood Gas PEEP or CPAP 5.0 Bl Gas Inspiratory/Expiratory Ratio 1:3.5 Blood Gas Critical Value Read Back yes Blood Gas Notified Whom md anya lovell Blood Gas Notified Time [id number] Blood Gas Notified By md anya lovell White Blood Count 24.7 H 4.4-10.8 10^3/uL Red Blood Count 2.54 L 4.0-5.20 10^6/uL Hemoglobin 6.9 *L 12.2-16.2 g/dL Hematocrit 21.7 L 36.0-46.0 % Mean Corpuscular Volume 85.3 80.0-100.0 fL Mean Corpuscular Hemoglobin 27.1 L 28.0-32.0 pg Mean Corpuscular Hemoglobin Concent 31.8 L 32.0-36.0 g/dL Red Cell Distribution Width 21.6 H 11.8-14.3 % Platelet Count 505 H 140-450 10^3/uL Mean Platelet Volume 6.8 L 6.9-10.8 fL Neutrophils (%) (Auto) 37.0-80.0 % Lymphocytes (%) (Auto) 10.0-50.0 % Monocytes (%) (Auto) 0.0-12.0 % Basophils (%) (Auto) 0.0-2.0 % Neutrophils # (Auto) 1.6-8.6 10 ^3/uL Lymphocytes # (Auto) 0.4-5.4 10 ^3/uL Monocytes # (Auto) 0-1.3 10 ^3/uL Differential Total Cells Counted 100.0 100 Neutrophils % (Manual) 81 H 37.0-80.0 Band Neutrophils % (Manual) 3 Lymphocytes % (Manual) 5 L 10.0-50.0 Monocytes % (Manual) 9 0-12 Eosinophils % (Manual) 2 0-7 Basophils % (Manual) 0 0.0-2.0 Metamyelocytes % (manual) 0 Myelocytes % (Manual) 0 Promyelocytes % (Manual) 0 Blast Cells % (Manual) 0 Reactive Lymphocytes 0 Platelet Estimate Increased Anisocytosis (manual) Slight Target Cells Few Stomatocytes Few Sodium Level 126 L 136-145 mmol/L Potassium Level 3.7 3.5-5.1 mmol/L Chloride Level 90 L 98-107 mmol/L Carbon Dioxide Level 29 20-31 mmol/L Anion Gap 7 5-15 Blood Urea Nitrogen 6 L 9-23 mg/dL Creatinine 0.27 L 0.550-1.02 mg/dL Glomerular Filtration Rate Calc 129 >90 mL/min BUN/Creatinine Ratio 22.2 H 10.0-20.0 Serum Glucose 124 H 74-106 mg/dL Lactic Acid Level 1.3 0.4-2.0 mmol/L Calcium Level 9.0 8.7-10.4 mg/dL Total Bilirubin 6.7 H 0.2-1.0 mg/dL Aspartate Amino Transferase (AST) 113 H 13-40 U/L Alanine Aminotransferase (ALT) 56 H 7-40 U/L Alkaline Phosphatase 515 H 46-116 U/L Ammonia 37 H 11-32 umol/L B-Type Natriuretic Peptide 74.95 0-100 pg/mL Total Protein 5.4 L 5.7-8.2 g/dL Albumin 2.9 L 3.2-4.8 g/dL Lipase 72 H 12-53 U/L Salicylates Level < 3.0 -30 mg/dL Microbiology Date/Time Source Procedure Growth Status 07/23/24 12:10 Voided Urine Urine Culture - Final Yeast, not Tayler albicans Complete 07/21/24 11:20 Sacrum Gram Stain - Final Complete 07/21/24 11:20 Wound Culture - Final Enterococcus faecium - VRE Presumptive Tayler albicans Complete Assessment Acute kidney injury secondary hemodynamic mediated Hepatorenal syndrome Acute respiratory failure patient intubated on ventilator Liver metastasis Septic shock Hypoalbuminemia Recommendations Closely monitor fluid and electrolytes Avoid nephrotoxic medications Delong catheter Strict I&Os Low-dose dopamine Octreotide IV Levophed for blood pressure support Albumin 25% IV piggyback IV antibiotics Poor prognosis Patient seen and examined myself in the DU. I discussed my plan of care with the primary nurse at the bedside I would like to thank Dr. Ma for the consult, will follow up Plan discussed with: Other (Nurse) GT MCGEE MD Jul 26, 2024 13:04
[2024-07-26] MEDS: DOPamine 1600MCG/ML D5W 250 ML IV SCH (14:26)
[2024-07-26] MEDS: ALBUMIN 25% 100 ML IV SCH (14:37)
[2024-07-26] MEDS: OCTREOTIDE ACETATE 100 MCG/ML VL SUBCUT SCH (14:38)
[2024-07-26 15:52] LABS: Protein, Urine 68.7 mg/dL (1-14)
[2024-07-26 15:54] LABS: Creatinine, Urine 14.12 mg/dL (30.0-125.0)
[2024-07-26 15:55] LABS: Creatinine, Urine 14.03 mg/dL (30.0-125.0); Urine Protein/Creatinine Ratio 4.9
--- NOTE | 2024-07-26 21:17 | DVHPN2 ---
Progress Note - Dictate Date Seen: Jul 26, 2024 Medical Necessity Reason Pt with a Central, PICC or Fol: Yes The following are medically ne: PICC Line, Wasserman Catheter Reason for wasserman catheter: Strict I&O Subjective Patient seen and examined at bedside. intubated on mechanical ventilator. Overnight events reviewed. vital signs Vital Sign Date Time Temp Pulse Resp B/P (MAP) Pulse Ox O2 Delivery O2 Flow Rate FiO2 07/26/24 20:00 97 19 114/72 (86) 98 30 07/26/24 20:00 Mechanical Ventilator+ 07/26/24 16:45 98.6 98.6 Total Intake and Output 07/25/24 07/25/24 07/26/24 15:00 23:00 07:00 Intake Total 532.50 ml 305.00 ml 407.50 ml Output Total 10 ml 15 ml Balance 532.50 ml 295.00 ml 392.50 ml medications Current Medications Medications Dose Ordered Sig/Tanvi Route Start Time Stop Time Status Last Admin Dose Admin Norepinephrine Bitartrate 250 ml @ 3.75 mls/hr Q24H IV 07/12/24 22:00 07/26/24 14:26 15 MLS/HR Midazolam HCl 50 ml @ 1 mls/hr Q24H IV 07/12/24 22:00 07/15/24 08:29 8 MLS/HR Pantoprazole Sodium 40 mg DAILY IV 07/13/24 10:00 07/26/24 09:27 40 MG Albuterol 2.5 mg Q6HR NEB 07/13/24 06:00 07/26/24 18:07 2.5 MG Acetaminophen 650 mg Q6HP PRN PO 07/13/24 01:00 07/23/24 11:00 650 MG Nitroglycerin 0.4 mg Q5MINP PRN SL 07/13/24 01:00 Enoxaparin Sodium 40 mg BID SC 07/16/24 22:00 07/26/24 21:08 40 MG Sodium Chloride 10 ml QSHIFT@10,22 IV 07/16/24 22:00 07/26/24 21:07 10 ML Artificial Tears 2 drop Q6HP PRN EACHEYE 07/17/24 09:45 07/26/24 09:26 2 DROP Calamine 1 applic QIDP PRN TOP 07/21/24 10:15 Diagnostic Test (Pha) 1 strip IQ4HR 07/21/24 16:00 07/26/24 20:11 1 STRIP Dextrose 50 ml UD PRN IV 07/21/24 12:15 Piperacillin Sod/ Tazobactam Sod 100 ml @ 25 mls/hr Q8H IV 07/21/24 17:00 07/26/24 17:23 25 MLS/HR Enteral Nutritional Formula 1,000 ml 40ML/HR GT 07/22/24 12:15 07/24/24 22:15 1,000 ML Fluconazole 100 ml @ 100 mls/hr DAILY IV 07/22/24 12:30 07/26/24 09:20 100 MLS/HR Metoclopramide HCl 5 mg Q8HR IV 07/23/24 12:30 07/25/24 15:11 5 MG Linezolid 300 ml @ 150 mls/hr Q12HR IV 07/23/24 22:00 07/26/24 21:08 150 MLS/HR Furosemide 40 mg DAILY IV 07/25/24 10:00 07/26/24 09:28 40 MG Dexmedetomidine HCl 400 mcg/ Dextrose 100 ml @ 5.28 mls/hr [id number] IV 07/26/24 08:45 07/26/24 09:15 5.28 MLS/HR Octreotide Acetate 100 mcg TID SUBCUT 07/26/24 14:00 07/26/24 14:38 100 MCG Dopamine HCl/ Dextrose 250 ml @ 7.92 mls/hr Q24H IV 07/26/24 13:00 07/26/24 14:26 7.92 MLS/HR Albumin Human 100 ml @ 100 mls/hr Q8H IV 07/26/24 13:00 07/27/24 05:59 07/26/24 21:07 100 MLS/HR objective Gen.: Patient lying in bed in medical ICU. Intubated on mechanical ventilator. Head: Normocephalic, atraumatic. Eyes: PERRLA. Ears: Normal external anatomy. Throat: Endotracheal tube and orogastric tube in place. Neck: Supple, trachea midline. Chest: Transmitted breath sounds bilaterally. Decreased air entry bilaterally. No wheezing. Bibasilar crackles. Cardiovascular: Positive S1, positive S2. Regular rate and rhythm. Abdomen: Positive bowel sounds in all 4 quadrants. Soft, nontender, nondistended. : Wasserman in place. Normal external genitalia. Rectal: Deferred. Skin: Warm, dry. Intact. Extremities: 2+ radial pulses bilaterally. No lower extremity edema. Neuro: Off sedation laboratory and microbiology Laboratory Tests 07/26/24 05:02 Test 07/26/24 05:02 Range/Units Serum Glucose 87 74-106 mg/dL Assessment/Plan Impression: Acute hypoxic respiratory failure On mechanical ventilator Questionable pneumonia Sepsis Metabolic encephalopathy Metastatic cancer Anemia Events: Remains on vent support On AC mode; RR 18, VT 450, PEEP 5, FiO2 30% Started Precedex ABG reviewed, acidemia CXR demonstrated patchy airspace opacities in the left lung base persists to slightly increased. No pneumothorax. Devices in place. On pressors for hemodynamic support Levophed 2 mcg/min, dopamine 2 mcg/min Titrate to keep mean arterial pressure greater than 65 mmHg. Continue antibiotics Leukocytosis - WBC of 45.5 K Continue antifungal Continue bronchodilators Tube feeds on hold. Overall poor prognosis Recommend trach/PEG placement if family wishes to continue aggressive care. Labs and imaging reviewed. Rest of plan as noted below. Plan s/p intubation on mechanical ventilator. Chest/abdomen/pelvis CT demonstrated diffuse multifocal liver masses with the largest centrally located, 10.0 x 7.2 cm. Lobulated mass in the pelvis, 11.4 x 9.1 cm, which could be a multifibroid uterus vs leiomyosarcoma or other etiology. Moderate colonic diverticulosis. Decompressed gallbladder contains a gallstone with mild pericholecystic fluid. Cholecystitis is a consideration. Ventral abdominal wall hernia containing a loop of nondilated small bowel. Mild anasarca. An 8 mm right middle lobe pulmonary nodule. Bibasilar consolidation, most likely atelectasis. On AC mode; RR 18, VT 450, PEEP 5, FiO2 30% Titrate FIO2 to keep O2 saturation above 90%. VAP bundle. Daily ABG and CXR while intubated Off sedation Continue antibiotics On pressors for hemodynamic support Titrate to keep mean arterial pressure greater than 65 mmHg. Monitor hemoglobin Monitor renal function Monitor electrolytes. Supplement as necessary. Monitor ins and outs. Maintain euvolemia. GI prophylaxis. DVT prophylaxis. Prognosis: Poor given patient's multiple co-morbidities. Condition: Critical Rest of plan per hospitalist and other consultants. A total of 35 minutes of critical care time was spent reviewing the patient record, examining the patient, making a diagnostic and therapeutic plan, discussing this plan with the medical personnel, following up on diagnostic studies and following the patient for clinical stability excluding any and all procedures. At least 50% of this time was spent in direct, [id number] contact. Thank you David Lopez NP, for allowing me to participate in this patient's care. Further recommendations will depend on the patient's clinical course. Please do not hesitate to contact me if you have any questions or concerns. This medical document was created using an electronic medical record system with [employer] dictation system. Although these documentations are being carefully reviewed, there may still be some phonetic and typographical changes. The errors are purely typographical, due to imperfection on the software program, and do not reflect any compromise in the patient's medical care. Dietary Evaluation Review Comments: 1. Advance to Regular textures as tolerated diet to if medically feasible, 2. If EN possible and PO not an option, provide Jevity 35ml/hr if off vent 3. If EN feeding not available, offer TPN per pharmacy if NPO > 7 days Expected Outcomes/Goals: on diet, off vent, gradual weight loss. Plan discussed with: Other (RICK Marte) Critical Care Time(min): 35 CC Plasma Assessment Blood Product Administration S: [id number] WILLIAM YOON MD Jul 26, 2024 21:17
[2024-07-27] VITALS (108 sets, daily range): BP systolic 96–126; BP diastolic 59–82; PULSE 76–119; RESP 19–36; TEMP 98.3–100; O2SAT 96–100
--- NOTE | 2024-07-27 04:57 | DVH ---
CHEST RADIOGRAPH Indication: Intubated Technique: Single frontal view of the chest was obtained Comparison: XY CHEST XRAY 1 VIEW on DOS: 07/26/24 FINDINGS: Lines and Tubes: The endotracheal tube terminates 5.7 cm above the gerber. Right PICC terminates in t he superior vena cava. The enteric tube courses below the left hemidiaphragm and outside the field of view. Lungs: Patchy bilateral opacities. Pleura: No effusion. No pneumothorax. Cardiomediastinal contours: Unremarkable Bones: No acute osseous abnormality. IMPRESSION: 1. Stable position of the support lines and tubes. 2. Bilateral opacities similar to prior study.
[2024-07-27 05:22] LABS: Mean Corpuscular Volume 89.6 fL (80.0-100.0)
[2024-07-27 05:29] LABS: Hematocrit 25.9 % (36.0-46.0); Hemoglobin 8.1 g/dL (12.2-16.2); Mean Corpuscular Hemoglobin 28.1 pg (28.0-32.0); Mean Corpuscular Hgb Conc. 31.4 g/dL (32.0-36.0); Platelet Count (auto) 191 10^3/uL (140-450); Red Blood Cells 2.89 10^6/uL (4.0-5.20); Red Cell Distribution Width 19.9 % (11.8-14.3)
[2024-07-27 05:32] LABS: Chloride 98 mmol/L (98-107); Potassium 4.1 mmol/L (3.5-5.1)
[2024-07-27 05:33] LABS: Anion Gap 16 (5-15)
[2024-07-27 05:34] LABS: Calcium 9.4 mg/dL (8.7-10.4)
[2024-07-27 05:40] LABS: White Blood Cell 49.6 10^3/uL (4.4-10.8)
[2024-07-27 05:42] LABS: Basophils % (manual) 0 (0.0-2.0); Eosinophils % (manual) 0 (0-7); Metamyelocytes % 0; Myelocytes % 0; Promyelocytes % 0; Reactive Lymphocytes 0
[2024-07-27 05:49] LABS: BUN/Creatinine Ratio 19.6 (10.0-20.0)
[2024-07-27 06:02] LABS: Blood Urea Nitrogen 40 mg/dL (9-23); Carbon Dioxide 16 mmol/L (20-31); Glucose 165 mg/dL (74-106); Sodium 130 mmol/L (136-145)
[2024-07-27 08:50] LABS: Base Excess -12.5 mmol/L (-2.0-3.0)
--- NOTE | 2024-07-27 10:45 | DVHPN2 ---
Progress Note Date Seen: Jul 27, 2024 Medical Necessity Reason Pt with a Central, PICC or Fol: Yes The following are medically ne: PICC Line, Wasserman Catheter Reason for wasserman catheter: Strict I&O Objective vital signs Vital Sign Date Time Temp Pulse Resp B/P (MAP) Pulse Ox O2 Delivery O2 Flow Rate FiO2 07/27/24 09:15 94 25 106/68 (81) 99 07/27/24 08:00 98.9 98.9 07/27/24 06:44 30 07/27/24 06:00 Mechanical Ventilator+ Total Intake and Output 07/26/24 07/26/24 07/27/24 14:59 22:59 06:59 Intake Total 697.65 ml 489.19 ml 358.52 ml Output Total 160 ml 240 ml Balance 697.65 ml 329.19 ml 118.52 ml medications Current Medications Medications Dose Ordered Sig/Tanvi Route Start Time Stop Time Status Last Admin Dose Admin Norepinephrine Bitartrate 250 ml @ 3.75 mls/hr Q24H IV 07/12/24 22:00 07/26/24 14:26 15 MLS/HR Midazolam HCl 50 ml @ 1 mls/hr Q24H IV 07/12/24 22:00 07/15/24 08:29 8 MLS/HR Pantoprazole Sodium 40 mg DAILY IV 07/13/24 10:00 07/26/24 09:27 40 MG Albuterol 2.5 mg Q6HR NEB 07/13/24 06:00 07/27/24 06:44 2.5 MG Acetaminophen 650 mg Q6HP PRN PO 07/13/24 01:00 07/23/24 11:00 650 MG Nitroglycerin 0.4 mg Q5MINP PRN SL 07/13/24 01:00 Enoxaparin Sodium 40 mg BID SC 07/16/24 22:00 07/26/24 21:08 40 MG Sodium Chloride 10 ml QSHIFT@10,22 IV 07/16/24 22:00 07/26/24 21:07 10 ML Artificial Tears 2 drop Q6HP PRN EACHEYE 07/17/24 09:45 07/26/24 09:26 2 DROP Calamine 1 applic QIDP PRN TOP 07/21/24 10:15 Diagnostic Test (Pha) 1 strip IQ4HR 07/21/24 16:00 07/27/24 04:28 1 STRIP Dextrose 50 ml UD PRN IV 07/21/24 12:15 Piperacillin Sod/ Tazobactam Sod 100 ml @ 25 mls/hr Q8H IV 07/21/24 17:00 07/27/24 00:34 25 MLS/HR Enteral Nutritional Formula 1,000 ml 40ML/HR GT 07/22/24 12:15 07/26/24 18:00 1,000 ML Fluconazole 100 ml @ 100 mls/hr DAILY IV 07/22/24 12:30 07/26/24 09:20 100 MLS/HR Metoclopramide HCl 5 mg Q8HR IV 07/23/24 12:30 07/25/24 15:11 5 MG Linezolid 300 ml @ 150 mls/hr Q12HR IV 07/23/24 22:00 07/26/24 21:08 150 MLS/HR Furosemide 40 mg DAILY IV 07/25/24 10:00 07/26/24 09:28 40 MG Dexmedetomidine HCl 400 mcg/ Dextrose 100 ml @ 5.28 mls/hr [id number] IV 07/26/24 08:45 07/26/24 09:15 5.28 MLS/HR Octreotide Acetate 100 mcg TID SUBCUT 07/26/24 14:00 07/27/24 06:15 100 MCG Dopamine HCl/ Dextrose 250 ml @ 7.92 mls/hr Q24H IV 07/26/24 13:00 07/26/24 14:26 7.92 MLS/HR laboratory and microbiology Laboratory Tests 07/27/24 05:05 Test 07/27/24 05:05 Range/Units Serum Glucose 165 H 74-106 mg/dL Problem List/Assessment/Plan Problem List/Assessment/Plan 07/21/24 hida scan not diagnostic due to liver dysfunction(mets), she is in no need for a cholecystectomy. 07/27/24 she remains intubated, bilirubin elevated due to impending liver failure, no indication for surgical intervention,I will sign off, please recall if needed Plan discussed with: Patient Dietary Evaluation Review Comments: 1. Advance to Regular textures as tolerated diet to if medically feasible, 2. If EN possible and PO not an option, provide Jevity 35ml/hr if off vent 3. If EN feeding not available, offer TPN per pharmacy if NPO > 7 days Expected Outcomes/Goals: on diet, off vent, gradual weight loss. KIRSTIE SANDHU MD Jul 27, 2024 10:45
--- NOTE | 2024-07-27 10:50 | DVHPN2 ---
Progress Note Date Seen: Jul 27, 2024 Medical Necessity Reason Pt with a Central, PICC or Fol: Yes The following are medically ne: PICC Line, Wasserman Catheter Reason for wasserman catheter: Strict I&O Subjective Patient reports: Other Review of Systems: CVS:Abnormal, RESPIRATORY:Abnormal Objective vital signs Vital Sign Date Time Temp Pulse Resp B/P (MAP) Pulse Ox O2 Delivery O2 Flow Rate FiO2 07/27/24 10:14 114/72 07/27/24 09:15 94 25 99 07/27/24 08:00 98.9 98.9 07/27/24 06:44 30 07/27/24 06:00 Mechanical Ventilator+ Total Intake and Output 07/26/24 07/26/24 07/27/24 15:00 23:00 07:00 Intake Total 714.58 ml 485.44 ml 341.59 ml Output Total 160 ml 240 ml Balance 714.58 ml 325.44 ml 101.59 ml medications Current Medications Medications Dose Ordered Sig/Tanvi Route Start Time Stop Time Status Last Admin Dose Admin Norepinephrine Bitartrate 250 ml @ 3.75 mls/hr Q24H IV 07/12/24 22:00 07/26/24 14:26 15 MLS/HR Midazolam HCl 50 ml @ 1 mls/hr Q24H IV 07/12/24 22:00 07/15/24 08:29 8 MLS/HR Pantoprazole Sodium 40 mg DAILY IV 07/13/24 10:00 07/27/24 10:14 40 MG Albuterol 2.5 mg Q6HR NEB 07/13/24 06:00 07/27/24 06:44 2.5 MG Acetaminophen 650 mg Q6HP PRN PO 07/13/24 01:00 07/23/24 11:00 650 MG Nitroglycerin 0.4 mg Q5MINP PRN SL 07/13/24 01:00 Enoxaparin Sodium 40 mg BID SC 07/16/24 22:00 07/27/24 10:16 40 MG Sodium Chloride 10 ml QSHIFT@10,22 IV 07/16/24 22:00 07/27/24 10:14 10 ML Artificial Tears 2 drop Q6HP PRN EACHEYE 07/17/24 09:45 07/26/24 09:26 2 DROP Calamine 1 applic QIDP PRN TOP 07/21/24 10:15 Diagnostic Test (Pha) 1 strip IQ4HR 07/21/24 16:00 07/27/24 04:28 1 STRIP Dextrose 50 ml UD PRN IV 07/21/24 12:15 Piperacillin Sod/ Tazobactam Sod 100 ml @ 25 mls/hr Q8H IV 07/21/24 17:00 07/27/24 10:13 25 MLS/HR Enteral Nutritional Formula 1,000 ml 40ML/HR GT 07/22/24 12:15 07/26/24 18:00 1,000 ML Fluconazole 100 ml @ 100 mls/hr DAILY IV 07/22/24 12:30 07/27/24 10:13 100 MLS/HR Metoclopramide HCl 5 mg Q8HR IV 07/23/24 12:30 07/25/24 15:11 5 MG Linezolid 300 ml @ 150 mls/hr Q12HR IV 07/23/24 22:00 07/27/24 10:15 150 MLS/HR Furosemide 40 mg DAILY IV 07/25/24 10:00 07/27/24 10:14 40 MG Dexmedetomidine HCl 400 mcg/ Dextrose 100 ml @ 5.28 mls/hr [id number] IV 07/26/24 08:45 07/26/24 09:15 5.28 MLS/HR Octreotide Acetate 100 mcg TID SUBCUT 07/26/24 14:00 07/27/24 06:15 100 MCG Dopamine HCl/ Dextrose 250 ml @ 7.92 mls/hr Q24H IV 07/26/24 13:00 07/26/24 14:26 7.92 MLS/HR Examination: GENERAL:Abnormal, NECK:Abnormal, LUNGS:Abnormal, ABDOMEN:Abnormal laboratory and microbiology Laboratory Tests 07/27/24 05:05 Test 07/27/24 05:05 Range/Units Serum Glucose 165 H 74-106 mg/dL Microbiology Date/Time Source Procedure Growth Status 07/23/24 12:10 Voided Urine Urine Culture - Final Yeast, not Tayler albicans Complete 07/23/24 12:05 Blood Blood Culture - Preliminary NO GROWTH AFTER 72 HOURS OF INCUBATION. Resulted 07/21/24 11:20 Sacrum Gram Stain - Final Complete 07/21/24 11:20 Wound Culture - Final Enterococcus faecium - VRE Presumptive Tayler albicans Complete Problem List/Assessment/Plan Problem List/Assessment/Plan Acute kidney injury secondary hemodynamic mediated Hepatorenal syndrome Acute respiratory failure patient intubated on ventilator Liver metastasis Septic shock Hypoalbuminemia metabolic acidosis IV sodium bicarb Avoid nephrotoxic medications Wasserman catheter Strict I&Os Low-dose dopamine Octreotide IV Levophed for blood pressure support Albumin 25% IV piggyback IV antibiotics Poor prognosis Plan discussed with: Other Dietary Evaluation Review Comments: 1. Advance to Regular textures as tolerated diet to if medically feasible, 2. If EN possible and PO not an option, provide Jevity 35ml/hr if off vent 3. If EN feeding not available, offer TPN per pharmacy if NPO > 7 days Expected Outcomes/Goals: on diet, off vent, gradual weight loss. Critical Care Time (mins): 36 CC Plasma Assessment Blood Product Administration S: [id number] EULA MCKEON MD Jul 27, 2024 10:50
[2024-07-27 11:44] LABS: Band Neutrophils % (manual) 12; Blast Cells 1; Lymphocytes % (manual) 15 (10.0-50.0); Monocytes % (manual) 3 (0-12); Platelet Estimate Adequate
[2024-07-27] MEDS: fentaNYL Drip 2500mCg/250mlNS 250 ML IV ONE (14:33)
[2024-07-27] MEDS: SODIUM BICARB 8.4% 50Meq/50ml SYR Vial IV ONE (14:35)
[2024-07-27] MEDS: fentaNYL Drip 2500mCg/250mlNS 250 ML IV SCH (17:39)
--- NOTE | 2024-07-27 20:02 | DVHPNRES ---
Progress Note Date Seen: Jul 27, 2024 Resident Creating Document: HUSSEIN PEREZ RESIDENT Medical Necessity Reason Pt with a Central, PICC or Fol: Yes The following are medically ne: PICC Line, Wasserman Catheter Reason for wasserman catheter: Strict I&O Subjective Review of Systems Ms Harding is a 54-year-old female patient who was brought to the ER from [facility] with a chief complaint of worsening shortness of breaths. Patient's daughter, she visited her mom at [facility] that they and reports that her mother was not responding and was staring. She could not speak or move her extremities and later on became dyspneic and therefore she was transferred to the ER. She was recently discharged from this facility to [facility] care. Per daughter who is the power of business attorney, patient was diagnosed with metastatic liver disease on June 01 [facility]. Consequently liver biopsy was performed by Dr. Johnson on June 03 which showed moderately differentiated adenocarcinoma with differentials including pancreaticobiliary versus per GI primary cancer. Per daughter, she had an appointment at [facility] in June initially which was later rescheduled to July 22 as the patient was admitted inpatient and this facility. Patient had a mammogram earlier this year which was unremarkable. But she was told at [place] that she has a breast lump, but the biopsy was not performed per the daughter. Past medical history Uterine fibroids, diabetes, congestive heart failure, constipation Past surgical history Unremarkable Home medications: Ozempic 07/20-Patient seen and examined at bedside. She is intubated and mechanically ventilated. HIDA scan completed 07/20 shows abnormal persistence of cardia, hepatic and blood pool activity without definitive visualization of small bowel or gallbladder. Suggestive of hepatic dysfunction/hepatitis. DC ciprofloxacin, continue IV ceftriaxone and metronidazole. CPAP trial in the a.m.. 07/21 - patient seen and examined at bedside. She is intubated and mechanically ventilated, not on sedatives. On Levophed 4. Overnight Wasserman catheter was changed. Patient made 250 mL of urine during the police shift commander + 325 in the morning. No bowel movements. CPAP trial completed, patient was breathing at respiratory rate of 21, tidal volume 568, peak pressure 14. Started Zosyn IV given the unstageable sacral ulcer which was draining pus. Patient was hypoglycemic at 48, Accu-Cheks and D5W with NS started at 75 cc/hour. Santyl debridement started. Wound culture ordered. Creatinine increased from 1.19- 1.47 07/22 - patient seen and examined at bedside. Overnight she had the small bowel movement, urine output was 200 in the last night. She has been of Levophed since 3:00 a.m. of 07/22. She has also been off sedation. Vent settings are tidal volume 450, FiO2 30, peep 5, resp. Sixteen. Patient is breathing at a rate of 19 and saturating 96%. T-max was 99 F during the past 24 hours. Cr increased to 1.65. Wound culture is growing few yeast plus possible Enterococcus preliminary. IV Diflucan 200 mg daily and vancomycin IV started 07/22. Breast examination performed bilaterally, hard masses felt bilaterally in the quadrant. No axillary lymph nodes. No skin changes. No erythema or few the orange or inversion of the nipple seen. Code status changed to modified DNR. 07/23-patient seen and examined at bedside reviewed temperature is 99.9 F patient is tachycardic at 100s to 110s. She is breathing over the vent a period of 24 atrophy saturating 16. Saturating 97 on 30% of FiO2. Repeat Urine and blood culture ordered today. Overnight 150 mL the urine output and 2 bowel movements overnight and 1 this morning. Residual have been high more than 100 mL therefore Reglan 5 mg IV UA started. Patient is responding to commands and is reporting pain therefore fentanyl was restarted. Creatinine increased from 1.6-1.8. Final wound culture from sacrum resulted in VRE, DC vancomycin and Zyvox 07/23. 07/24-overnight tube feedings were held because of high residuals. ABGs show metabolic acidosis with respiratory acidosis, respiratory rate increased to 18 from 16. Currently on fentanyl 75. CPAP trial completed today. Patient tolerated well but she is not alert or responding to commands. 07/27 - patient seen and examined over the bedside. Over the weekend patient underwent CPAP trial on 07/25. Nephrology was consulted for ROBBI, started dopamine low dose and octreotide and albumin 3 bags. Overnight, low-grade fever at 100 F. ABG shows anion gap metabolic acidosis with compensated respiratory alkalosis. Nephrology started sodium bicarbonate 07/27. LFTs, kidney function, WBC trending up. Objective vital signs Vital Sign Date Time Temp Pulse Resp B/P (MAP) Pulse Ox O2 Delivery O2 Flow Rate FiO2 07/27/24 19:15 101 25 108/70 (83) 99 07/27/24 18:19 30 07/27/24 18:00 Mechanical Ventilator+ 07/27/24 16:00 99.4 99.4 Total Intake and Output 07/26/24 07/26/24 07/27/24 14:59 22:59 06:59 Intake Total 697.65 ml 489.19 ml 358.52 ml Output Total 160 ml 240 ml Balance 697.65 ml 329.19 ml 118.52 ml medications Current Medications Medications Dose Ordered Sig/Tanvi Route Start Time Stop Time Status Last Admin Dose Admin Norepinephrine Bitartrate 250 ml @ 3.75 mls/hr Q24H IV 07/12/24 22:00 07/26/24 14:26 15 MLS/HR Midazolam HCl 50 ml @ 1 mls/hr Q24H IV 07/12/24 22:00 07/15/24 08:29 8 MLS/HR Pantoprazole Sodium 40 mg DAILY IV 07/13/24 10:00 07/27/24 10:14 40 MG Albuterol 2.5 mg Q6HR NEB 07/13/24 06:00 07/27/24 18:19 2.5 MG Acetaminophen 650 mg Q6HP PRN PO 07/13/24 01:00 07/23/24 11:00 650 MG Nitroglycerin 0.4 mg Q5MINP PRN SL 07/13/24 01:00 Enoxaparin Sodium 40 mg BID SC 07/16/24 22:00 07/27/24 10:16 40 MG Sodium Chloride 10 ml QSHIFT@,22 IV 07/16/24 22:00 07/27/24 10:14 10 ML Artificial Tears 2 drop Q6HP PRN EACHEYE 07/17/24 09:45 07/26/24 09:26 2 DROP Calamine 1 applic QIDP PRN TOP 07/21/24 10:15 Diagnostic Test (Pha) 1 strip IQ4HR 07/21/24 16:00 07/27/24 17:45 1 STRIP Dextrose 50 ml UD PRN IV 07/21/24 12:15 Piperacillin Sod/ Tazobactam Sod 100 ml @ 25 mls/hr Q8H IV 07/21/24 17:00 07/27/24 17:14 25 MLS/HR Enteral Nutritional Formula 1,000 ml 40ML/HR GT 07/22/24 12:15 07/26/24 18:00 1,000 ML Fluconazole 100 ml @ 100 mls/hr DAILY IV 07/22/24 12:30 07/27/24 10:13 100 MLS/HR Metoclopramide HCl 5 mg Q8HR IV 07/23/24 12:30 07/27/24 14:35 5 MG Linezolid 300 ml @ 150 mls/hr Q12HR IV 07/23/24 22:00 07/27/24 10:15 150 MLS/HR Furosemide 40 mg DAILY IV 07/25/24 10:00 07/27/24 10:14 40 MG Dexmedetomidine HCl 400 mcg/ Dextrose 100 ml @ 5.28 mls/hr [id number] IV 07/26/24 08:45 07/26/24 09:15 5.28 MLS/HR Octreotide Acetate 100 mcg TID SUBCUT 07/26/24 14:00 07/27/24 14:35 100 MCG Dopamine HCl/ Dextrose 250 ml @ 7.92 mls/hr Q24H IV 07/26/24 13:00 07/27/24 17:40 7.92 MLS/HR Fentanyl Citrate 250 ml @ 2.5 mls/hr Q24H IV 07/27/24 14:30 07/27/24 17:39 2.5 MLS/HR Examination General: Scleral icterus seen. afebrile, palor, mucosae are moist, RASS -2. Patient is responding to commands. Cardiovascular: Tachycardic but Regular S1 and S2. No murmurs, gallops or rubs. No JVD elevation. Bilateral 3+ pedal edema noted Respiratory: Mechanically ventilated, decreased basilar breath sounds. Equal air entry. No wheezes or crepitations. Breast examination performed bilaterally, hard masses felt bilaterally in the quadrant. No axillary lymph nodes. No skin changes. No erythema or few the orange or inversion of the nipple seen. Abdomen: Overall the abdomen is Soft, with the epigastrium is hard, distended, hypoactive bowel sounds, no rebound tenderness, no organomegaly, no masses. Umbilical hernia soft nontender. Genitourinary: Deferred MSK/skin: Skin is dry and warm. Unstageable decubitus ulcer in the sacrum with black eschar noted. Parts of it are draining yellow pus-like substance. Neurological: Pupils are isocoric and reactive. laboratory and microbiology Laboratory Tests 07/27/24 05:05 Test 07/27/24 05:05 Range/Units Serum Glucose 165 H 74-106 mg/dL Microbiology Date/Time Source Procedure Growth Status 07/23/24 12:10 Voided Urine Urine Culture - Final Yeast, not Tayler albicans Complete 07/23/24 12:05 Blood Blood Culture - Preliminary NO GROWTH AFTER 72 HOURS OF INCUBATION. Resulted 07/21/24 11:20 Sacrum Gram Stain - Final Complete 07/21/24 11:20 Wound Culture - Final Enterococcus faecium - VRE Presumptive Tayler albicans Complete Labs and/or images reviewed: Labs reviewed by me, Image(s) reviewed by me Problem List/Assessment/Plan Problem List/Assessment/Plan NEURO: Acute metabolic encephalopathy, likely due to septic shock Head CT scan and MRI of the brain does not show any acute intracranial abnormalities Patient is sedated and on mechanical ventilation, RASS score -2 CARDIOVASCULAR: Septic shock, likely due to cholecystitis/cholangitis versus infected sacral ulcer Metastatic adenocarcinoma, primary source unknown Final blood culture 07/12 shows no growth Patient is requiring norepinephrine 2 mcg/minute Continue furosemide 40 mg daily IV Repeat blood and urine culture ordered 07/23 PULMONARY: Acute hypoxic respiratory failure, likely due to pneumonia Pneumonia likely due to Gram-positive Gram-negative bacteria Solitary pulmonary nodule Patient is sedated and on mechanical ventilation, volume control mode with setting of VT 450 and 8, RR 16, FiO2 30%, peep 5 Discontinue vancomycin and Zosyn Discontinued IV ceftriaxone and Flagyl on 07/21 Started IV Zosyn 07/21 IV Diflucan 200 mg daily and vancomycin IV started 07/22. DC IV vanco 07/23, started IV Zyvox 07/23 Continue IV Zyvox, Zosyn daily Continue mechanical ventilation with peep of 5, tidal volume 450, respiratory rate 16 MRSA nares, COVID-19 negative Breathing treatment q.6 hours as needed CPAP trial completed on 07/21. CPAP TRIAL COMPLETE. WEANING PARAMETERS OBTAINED. NIF:-22, VC: 663, RSBI: 30, LEAK: 300 AND AUDIBLE GASTROINTESTINAL: Septic shock likely due to cholecystitis/cholangitis and infected unstageable sacral ulcer Cholecystitis, likely due to cholelithiasis Cholelithiasis Possible Metastatic adenocarcinoma (likely pancreatic versus upper GI per patient's daughter), with metastasis to the liver and lung Moderate colonic diverticulitis, abdominal CT scan finding Ventral abdominal wall hernia Lobulated pelvic mass, could be a multi fibroid uterus/leiomyosarcoma, abdominal CT scan finding Constipation - last bowel movement on Patient was discharged on 07/10, from [facility] with diagnosis of cholecystitis Abdominal ultrasound on 06/26 showed gallstones, pericholecystic free fluid and gallbladder wall thickening. Positive sonographic wagner's sign Abdominal CT scan on shows, diffuse multifocal liver masses, lobulated masses in the pelvis, moderate colonic diverticulosis, ventral abdominal wall hernia containing loop of small bowel and an 8 mm right middle lobe pulmonary nodule Liver enzymes, are up trending DC IV metronidazole and ceftriaxone, DC ciprofloxacin Surgical consultation - low likelihood of cholecystitis. Patient has a poor candidate for surgical procedure. HIDA scan could not visualize small bowel gallbladder. Hepatic disease. GENITOURINARY: UTI ROBBI questionable VMN Anion gap metabolic acidosis with compensatory respiratory alkalosis Creatinine increased to 2.0 from 1.6 from 1.47 from 1.19 Urinalysis shows UTI picture, +leukocyte esterase and WBCs Urine culture shows presumptive Tayler albicans, likely contaminated Probably consulted-started dopamine IV low-dose, octreotide, albumin 3 bags. Started sodium bicarbonate 07/27. MUSCULOSKELETAL Unstageable sacral decubitus ulcer Sacral ulcer is draining yellow pus-like substance and also has black eschar. Started IV Zosyn after taking wound culture. Started Calamine lotion and Santyl debridement ointment Wound culture is growing few yeast plus possible Enterococcus preliminary. IV Diflucan 200 mg daily and vancomycin IV started 07/22. Final wound culture from sacrum shows VRE sensitive to Zyvox. IV Zyvox started 07/23. DC the vancomycin 07/23. ENDOCRINE Hypoglycemia Euthyroid sick syndrome Possible hypothyroidism TSH 6, low free T3 and T4 Accu-Cheks started 07/21 METABOLIC: Hyponatremia, monitoring Hypokalemia, supplemented Hypomagnesemia, supplemented HEME: Severe anemia, 2 pt of blood have been transfused INFECTIOUS DISEASE: Septic shock, likely due to sepsis Sepsis likely due to pneumonia/cholecystitis/UTI Blood culture of the 5 days shows no growth Urine culture shows presumptive Tayler albicans, likely contaminated Discontinue Continue Zosyn and vancomycin DC Cipro Discontinued IV ceftriaxone and metronidazole 07/21 Started IV Zosyn 07/21 DVT prophylax: Lovenox 40 mg b.i.d. GI prophylaxis: Protonix 40 mg daily Bowel regimen: DC Lactulose 30 mL b.i.d. Code status: Modified DNR code LINES/DRAINS/ACCESS: ETT: Intubated on 07/12 IV access: Right femoral CVC, placed on 07/12 till 07/16 Right upper arm PICC line, placed on 07/16 Drips: Fentanyl 0 Levophed 2 Dopamine 2 Precedex 0.2 Wasserman catheter: placed on 07/12 Nutrition: Jevity 30 mL/hour Case discussed with Dr. Carmen Plan discussed with patient's mother at the bedside. Tried to reach to the daughter over the phone, unreachable. Voicemail is full. Last week-Prognosis, plan of care, Goals of care discussed with the daughter and mother at the bedside for more than 50 minutes. Modified DNR status allowing for ACL, BiPAP and intubation. No chest compressions or defibrillation/cardioversion. Critical care time including review of the charts, discussion with the patient's family including the mother at bedside and nurse excluding procedures: 54 minutes Plan discussed with: Patient, Other (Mother at the bedside) My Orders My Orders Orders - HUSSEIN PEREZ Procedure Category Date Status Time Abg W/ Co-Ox RT 07/27/24 Logged 06:00 Lactic Acid W/ Reflex LAB 07/27/24 Logged Order 13:44 Fentanyl Drip PHA 07/27/24 In Process 2500mcg/250mlns 14:30 Dietary Evaluation Review Comments: 1. Advance to Regular textures as tolerated diet to if medically feasible, 2. If EN possible and PO not an option, provide Jevity 35ml/hr if off vent 3. If EN feeding not available, offer TPN per pharmacy if NPO > 7 days Expected Outcomes/Goals: on diet, off vent, gradual weight loss. CC Plasma Assessment Blood Product Administration S: [id number] Date of Service: Jul 27, 2024 Billing Provider: SHANE CARMEN MD Common Visit Codes: 96061-[id number] CARE 30-74 MIN HUSSEIN PEREZ Jul 27, 2024 20:02 SHANE CARMEN MD Jul 28, 2024 13:32
[2024-07-27 20:37] LABS: Lactic Acid w/Reflex 4.1 mmol/L (0.4-2.0)
[2024-07-28] VITALS (105 sets, daily range): BP systolic 78–125; BP diastolic 44–79; PULSE 88–104; RESP 14–28; TEMP 98.2–99.2; O2SAT 95–100
--- NOTE | 2024-07-28 05:19 | DVH ---
CHEST RADIOGRAPH Indication: Follow up Technique: Single frontal view of the chest was obtained COMPARISON: XY CHEST PORTABLE on DOS: 07/27/24, XY CHEST XRAY 1 VIEW on DOS: 07/26/24, XY CHEST XRAY 1 VIEW on DOS: 07/25/24, XY CHEST PORTABLE on DOS: 07/24/24, XY CHEST XRAY 1 VIEW on DOS: 07/23/24, X Y CHEST XRAY 1 VIEW on DOS: 07/21/24 FINDINGS: Lines and Tubes: Endotracheal tube, enteric catheter and right PICC in satisfactory position. Lungs: Patchy bilateral airspace disease. Pleura: No effusion. No pneumothorax. Cardiomediastinal contours: Unremarkable Bones: Unremarkable IMPRESSION: Lines and tubes in satisfactory position. No significant interval change.
[2024-07-28 05:55] LABS: Hemoglobin 7.8 g/dL (12.2-16.2)
[2024-07-28 06:00] LABS: Mean Corpuscular Hemoglobin 27.5 pg (28.0-32.0); Mean Corpuscular Hgb Conc. 30.1 g/dL (32.0-36.0); Mean Corpuscular Volume 91.5 fL (80.0-100.0); Platelet Count (auto) 168 10^3/uL (140-450); Red Blood Cells 2.85 10^6/uL (4.0-5.20)
[2024-07-28 06:06] LABS: Red Cell Distribution Width 20.2 % (11.8-14.3); White Blood Cell 52.5 10^3/uL (4.4-10.8)
[2024-07-28 06:14] LABS: Anion Gap 17 (5-15); Calcium 9.2 mg/dL (8.7-10.4); Chloride 98 mmol/L (98-107); Glucose 105 mg/dL (74-106); Magnesium 2.2 mg/dL (1.6-2.6); Potassium 3.9 mmol/L (3.5-5.1)
[2024-07-28 06:21] LABS: Basophils % (manual) 0 (0.0-2.0); Blast Cells 0; Eosinophils % (manual) 0 (0-7); Metamyelocytes % 0; Monocytes % (manual) 0 (0-12); Myelocytes % 0; Promyelocytes % 0; Reactive Lymphocytes 0
[2024-07-28 06:29] LABS: BUN/Creatinine Ratio 17.3 (10.0-20.0)
[2024-07-28 06:32] LABS: Alanine Aminotransferase 42 U/L (7-40); Albumin 2.7 g/dL (3.2-4.8); Alkaline Phosphatase 851 U/L (46-116); Aspartate Aminotransferase 125 U/L (13-40); Bilirubin, Total 10.3 mg/dL (0.2-1.0); Blood Urea Nitrogen 39 mg/dL (9-23); Carbon Dioxide 17 mmol/L (20-31); Sodium 132 mmol/L (136-145); Total Protein 5.2 g/dL (5.7-8.2)
[2024-07-28 08:39] LABS: Band Neutrophils % (manual) 5; Lymphocytes % (manual) 1 (10.0-50.0); Platelet Estimate Adequate
[2024-07-28 08:40] LABS: Anisocytosis Moderate
[2024-07-28 09:40] LABS: Base Excess -10.8 mmol/L (-2.0-3.0)
[2024-07-28 10:56] LABS: Lactic Acid w/Reflex 4.1 mmol/L (0.4-2.0)
--- NOTE | 2024-07-28 11:03 | DVHPN2 ---
Progress Note Date Seen: Jul 28, 2024 Medical Necessity Reason Pt with a Central, PICC or Fol: Yes The following are medically ne: PICC Line, Wasserman Catheter Reason for wasserman catheter: Strict I&O Subjective Review of Systems: RESPIRATORY:Abnormal, GI:Abnormal Objective vital signs Vital Sign Date Time Temp Pulse Resp B/P (MAP) Pulse Ox O2 Delivery O2 Flow Rate FiO2 07/28/24 10:38 91 22 88/55 (66) 99 30 07/28/24 06:00 Mechanical Ventilator+ 07/28/24 04:00 99.0 99.0 Total Intake and Output 07/27/24 07/27/24 07/28/24 15:00 23:00 07:00 Intake Total 635.60 ml 300.42 ml 534.19 ml Output Total 250 ml 125 ml Balance 635.60 ml 50.42 ml 409.19 ml medications Current Medications Medications Dose Ordered Sig/Tanvi Route Start Time Stop Time Status Last Admin Dose Admin Norepinephrine Bitartrate 250 ml @ 3.75 mls/hr Q24H IV 07/12/24 22:00 07/26/24 14:26 15 MLS/HR Midazolam HCl 50 ml @ 1 mls/hr Q24H IV 07/12/24 22:00 07/15/24 08:29 8 MLS/HR Pantoprazole Sodium 40 mg DAILY IV 07/13/24 10:00 07/28/24 09:22 40 MG Albuterol 2.5 mg Q6HR NEB 07/13/24 06:00 07/28/24 06:17 2.5 MG Acetaminophen 650 mg Q6HP PRN PO 07/13/24 01:00 07/23/24 11:00 650 MG Nitroglycerin 0.4 mg Q5MINP PRN SL 07/13/24 01:00 Sodium Chloride 10 ml QSHIFT@10,22 IV 07/16/24 22:00 07/28/24 09:24 10 ML Artificial Tears 2 drop Q6HP PRN EACHEYE 07/17/24 09:45 07/26/24 09:26 2 DROP Calamine 1 applic QIDP PRN TOP 07/21/24 10:15 Diagnostic Test (Pha) 1 strip IQ4HR 07/21/24 16:00 07/28/24 08:00 1 STRIP Dextrose 50 ml UD PRN IV 07/21/24 12:15 Piperacillin Sod/ Tazobactam Sod 100 ml @ 25 mls/hr Q8H IV 07/21/24 17:00 07/28/24 09:24 25 MLS/HR Enteral Nutritional Formula 1,000 ml 40ML/HR GT 07/22/24 12:15 07/26/24 18:00 1,000 ML Fluconazole 100 ml @ 100 mls/hr DAILY IV 07/22/24 12:30 07/28/24 09:24 100 MLS/HR Metoclopramide HCl 5 mg Q8HR IV 07/23/24 12:30 07/28/24 05:57 5 MG Linezolid 300 ml @ 150 mls/hr Q12HR IV 07/23/24 22:00 07/28/24 09:23 150 MLS/HR Furosemide 40 mg DAILY IV 07/25/24 10:00 07/28/24 09:23 40 MG Dexmedetomidine HCl 400 mcg/ Dextrose 100 ml @ 5.28 mls/hr [id number] IV 07/26/24 08:45 07/26/24 09:15 5.28 MLS/HR Octreotide Acetate 100 mcg TID SUBCUT 07/26/24 14:00 07/28/24 05:58 100 MCG Dopamine HCl/ Dextrose 250 ml @ 7.92 mls/hr Q24H IV 07/26/24 13:00 07/27/24 17:40 7.92 MLS/HR Fentanyl Citrate 250 ml @ 2.5 mls/hr Q24H IV 07/27/24 14:30 07/27/24 17:39 2.5 MLS/HR Lactulose 30 ml BIDPRN PRN PO 07/27/24 20:00 Examination: GENERAL:Abnormal, HEENT:Abnormal, LUNGS:Abnormal, ABDOMEN:Abnormal laboratory and microbiology Laboratory Tests 07/28/24 05:00 Test 07/28/24 05:00 Range/Units Serum Glucose 105 74-106 mg/dL Microbiology Date/Time Source Procedure Growth Status 07/23/24 12:10 Voided Urine Urine Culture - Final Yeast, not Tayler albicans Complete 07/23/24 12:05 Blood Blood Culture - Preliminary NO GROWTH AFTER 72 HOURS OF INCUBATION. Resulted 07/21/24 11:20 Sacrum Gram Stain - Final Complete 07/21/24 11:20 Wound Culture - Final Enterococcus faecium - VRE Presumptive Tayler albicans Complete Problem List/Assessment/Plan Problem List/Assessment/Plan Acute kidney injury secondary hemodynamic mediated Hepatorenal syndrome Acute respiratory failure patient intubated on ventilator Liver metastasis Septic shock Hypoalbuminemia metabolic acidosis IV sodium bicarb pushes Avoid nephrotoxic medications Wasserman catheter Strict I&Os Low-dose dopamine benefit from levophed for HRS Octreotide IV Levophed for blood pressure support Albumin 25% IV piggyback IV antibiotics Poor prognosis Plan discussed with: Other My Orders My Orders Orders - EULA MCKEON MD Procedure Category Date Status Time Basic Metabolic Panel LAB 07/29/24 Verified 04:00 Dietary Evaluation Review Comments: 1. Advance to Regular textures as tolerated diet to if medically feasible, 2. If EN possible and PO not an option, provide Jevity 35ml/hr if off vent 3. If EN feeding not available, offer TPN per pharmacy if NPO > 7 days Expected Outcomes/Goals: on diet, off vent, gradual weight loss. Critical Care Time (mins): 33 CC Plasma Assessment Blood Product Administration S: [id number] EULA MCKEON MD Jul 28, 2024 11:03
[2024-07-28] MEDS: SODIUM BICARB 8.4% 50Meq/50ml SYR Vial IV ONE (11:45)
[2024-07-28] MEDS: ALBUMIN 25% 100 ML IV SCH (14:50)
[2024-07-28] MEDS: FUROSEMIDE 100 MG/10ML VIAL IV ONE (14:51)
--- NOTE | 2024-07-28 15:12 | DVHPNRES ---
Progress Note Date Seen: Jul 28, 2024 Resident Creating Document: [employer]PRESENTATIVE Medical Necessity Reason Pt with a Central, PICC or Fol: Yes The following are medically ne: PICC Line, Wasserman Catheter Reason for wasserman catheter: Strict I&O Subjective Review of Systems Ms Harding is a 54-year-old female patient who was brought to the ER from [facility] with a chief complaint of worsening shortness of breaths. Patient's daughter, she visited her mom at [facility] that they and reports that her mother was not responding and was staring. She could not speak or move her extremities and later on became dyspneic and therefore she was transferred to the ER. She was recently discharged from this facility to [facility] care. Per daughter who is the power of state's attorney, patient was diagnosed with metastatic liver disease on June 01 [facility]. Consequently liver biopsy was performed by Dr. Johnson on June 03 which showed moderately differentiated adenocarcinoma with differentials including pancreaticobiliary versus per GI primary cancer. Per daughter, she had an appointment at [facility] in June initially which was later rescheduled to July 22 as the patient was admitted inpatient and this facility. Patient had a mammogram earlier this year which was unremarkable. But she was told at [place] that she has a breast lump, but the biopsy was not performed per the daughter. Past medical history Uterine fibroids, diabetes, congestive heart failure, constipation Past surgical history Unremarkable Home medications: Ozempic 07/20-Patient seen and examined at bedside. She is intubated and mechanically ventilated. HIDA scan completed 07/20 shows abnormal persistence of cardia, hepatic and blood pool activity without definitive visualization of small bowel or gallbladder. Suggestive of hepatic dysfunction/hepatitis. DC ciprofloxacin, continue IV ceftriaxone and metronidazole. CPAP trial in the a.m.. 07/21 - patient seen and examined at bedside. She is intubated and mechanically ventilated, not on sedatives. On Levophed 4. Overnight Wasserman catheter was changed. 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 No bowel movements. CPAP trial completed, patient was breathing at respiratory rate of 21, tidal volume 568, peak pressure 14. Started Zosyn IV given the unstageable sacral ulcer which was draining pus. Patient was hypoglycemic at 48, Accu-Cheks and D5W with NS started at 75 cc/hour. Santyl debridement started. Wound culture ordered. Creatinine increased from 1.19- 1.47 07/22 - patient seen and examined at bedside. Overnight she had the small bowel movement, urine output was 200 in the last night. She has been of Levophed since 3:00 a.m. of 07/22. She has also been off sedation. Vent settings are tidal volume 450, FiO2 30, peep 5, resp. Sixteen. Patient is breathing at a rate of 19 and saturating 96%. T-max was 99 F during the past 24 hours. Cr increased to 1.65. Wound culture is growing few yeast plus possible Enterococcus preliminary. IV Diflucan 200 mg daily and vancomycin IV started 07/22. Breast examination performed bilaterally, hard masses felt bilaterally in the quadrant. No axillary lymph nodes. No skin changes. No erythema or few the orange or inversion of the nipple seen. Code status changed to modified DNR. 07/23-patient seen and examined at bedside reviewed temperature is 99.9 F patient is tachycardic at 100s to 110s. She is breathing over the vent a period of 24 atrophy saturating 16. Saturating 97 on 30% of FiO2. Repeat Urine and blood culture ordered today. Overnight 150 mL the urine output and 2 bowel movements overnight and 1 this morning. Residual have been high more than 100 mL therefore Reglan 5 mg IV UA started. Patient is responding to commands and is reporting pain therefore fentanyl was restarted. Creatinine increased from 1.6-1.8. Final wound culture from sacrum resulted in VRE, DC vancomycin and Zyvox 07/23. 07/24-overnight tube feedings were held because of high residuals. ABGs show metabolic acidosis with respiratory acidosis, respiratory rate increased to 18 from 16. Currently on fentanyl 75. CPAP trial completed today. Patient tolerated well but she is not alert or responding to commands. 07/27 - patient seen and examined over the bedside. Over the weekend patient underwent CPAP trial on 07/25. Nephrology was consulted for ROBBI, started dopamine low dose and octreotide and albumin 3 bags. Overnight, low-grade fever at 100 F. ABG shows anion gap metabolic acidosis with compensated respiratory alkalosis. Nephrology started sodium bicarbonate 07/27. LFTs, kidney function, WBC trending up. 07/28 - seen and examined at the bedside. ABG shows anion gap metabolic acidosis with respiratory alkalosis. Respiratory rate increased to 20 from 18. Chest tube advanced 1.5 cm. WBC increased to 52.5. Creatinine increased to 2.26. Lactic acid trending up to 4.8. Final blood culture is negative. Lasix 80 mg IV once. And albumin 25% IV Q 8 scheduled by Nephrology. Objective vital signs Vital Sign Date Time Temp Pulse Resp B/P (MAP) Pulse Ox O2 Delivery O2 Flow Rate FiO2 07/28/24 14:30 97/59 07/28/24 14:15 94 21 98 07/28/24 14:00 30 07/28/24 14:00 Mechanical Ventilator+ 07/28/24 12:00 98.2 98.2 Total Intake and Output 07/27/24 07/27/24 07/28/24 15:00 23:00 07:00 Intake Total 635.60 ml 300.42 ml 549.61 ml Output Total 250 ml 125 ml Balance 635.60 ml 50.42 ml 424.61 ml medications Current Medications Medications Dose Ordered Sig/Tanvi Route Start Time Stop Time Status Last Admin Dose Admin Norepinephrine Bitartrate 250 ml @ 3.75 mls/hr Q24H IV 07/12/24 22:00 07/26/24 14:26 15 MLS/HR Midazolam HCl 50 ml @ 1 mls/hr Q24H IV 07/12/24 22:00 07/15/24 08:29 8 MLS/HR Pantoprazole Sodium 40 mg DAILY IV 07/13/24 10:00 07/28/24 09:22 40 MG Albuterol 2.5 mg Q6HR NEB 07/13/24 06:00 07/28/24 12:02 2.5 MG Acetaminophen 650 mg Q6HP PRN PO 07/13/24 01:00 07/23/24 11:00 650 MG Nitroglycerin 0.4 mg Q5MINP PRN SL 07/13/24 01:00 Sodium Chloride 10 ml QSHIFT@10,22 IV 07/16/24 22:00 07/28/24 09:24 10 ML Artificial Tears 2 drop Q6HP PRN EACHEYE 07/17/24 09:45 07/26/24 09:26 2 DROP Calamine 1 applic QIDP PRN TOP 07/21/24 10:15 Diagnostic Test (Pha) 1 strip IQ4HR 07/21/24 16:00 07/28/24 12:00 1 STRIP Dextrose 50 ml UD PRN IV 07/21/24 12:15 Piperacillin Sod/ Tazobactam Sod 100 ml @ 25 mls/hr Q8H IV 07/21/24 17:00 07/28/24 09:24 25 MLS/HR Enteral Nutritional Formula 1,000 ml 40ML/HR GT 07/22/24 12:15 07/26/24 18:00 1,000 ML Fluconazole 100 ml @ 100 mls/hr DAILY IV 07/22/24 12:30 07/28/24 09:24 100 MLS/HR Metoclopramide HCl 5 mg Q8HR IV 07/23/24 12:30 07/28/24 13:48 5 MG Linezolid 300 ml @ 150 mls/hr Q12HR IV 07/23/24 22:00 07/28/24 09:23 150 MLS/HR Furosemide 40 mg DAILY IV 07/25/24 10:00 07/28/24 09:23 40 MG Dexmedetomidine HCl 400 mcg/ Dextrose 100 ml @ 5.28 mls/hr [id number] IV 07/26/24 08:45 07/26/24 09:15 5.28 MLS/HR Octreotide Acetate 100 mcg TID SUBCUT 07/26/24 14:00 07/28/24 13:49 100 MCG Dopamine HCl/ Dextrose 250 ml @ 7.92 mls/hr Q24H IV 07/26/24 13:00 07/27/24 17:40 7.92 MLS/HR Fentanyl Citrate 250 ml @ 2.5 mls/hr Q24H IV 07/27/24 14:30 07/27/24 17:39 2.5 MLS/HR Lactulose 30 ml BIDPRN PRN PO 07/27/24 20:00 Albumin Human 100 ml @ 100 mls/hr Q8H IV 07/28/24 14:45 07/29/24 07:44 Examination General: Scleral icterus seen. afebrile, palor, mucosae are moist, RASS -1. Patient is responding to commands. Cardiovascular: Tachycardic but Regular S1 and S2. No murmurs, gallops or rubs. No JVD elevation. Bilateral 3+ pedal edema noted Respiratory: Mechanically ventilated, decreased basilar breath sounds. Equal air entry. No wheezes or crepitations. Breast examination performed bilaterally, hard masses felt bilaterally in the quadrant. No axillary lymph nodes. No skin changes. No erythema or few the orange or inversion of the nipple seen. Abdomen: Overall the abdomen is Soft, with the epigastrium is hard, distended, hypoactive bowel sounds, no rebound tenderness, no organomegaly, no masses. Umbilical hernia soft nontender. Genitourinary: Deferred MSK/skin: Skin is dry and warm. Unstageable decubitus ulcer in the sacrum with black eschar noted. Parts of it are draining yellow pus-like substance. Neurological: Pupils are isocoric and reactive. laboratory and microbiology Laboratory Tests 07/28/24 05:00 Test 07/28/24 05:00 Range/Units Serum Glucose 105 74-106 mg/dL Microbiology Date/Time Source Procedure Growth Status 07/23/24 12:10 Voided Urine Urine Culture - Final Yeast, not Tayler albicans Complete 07/23/24 12:05 Blood Blood Culture - Final NO GROWTH AFTER 5 DAYS OF INCUBATION. Complete 07/21/24 11:20 Sacrum Gram Stain - Final Complete 07/21/24 11:20 Wound Culture - Final Enterococcus faecium - VRE Presumptive Tayler albicans Complete Labs and/or images reviewed: Labs reviewed by me, Image(s) reviewed by me Problem List/Assessment/Plan Problem List/Assessment/Plan NEURO: Acute metabolic encephalopathy, likely due to septic shock Head CT scan and MRI of the brain does not show any acute intracranial abnormalities Patient is sedated and on mechanical ventilation, RASS score -1 CARDIOVASCULAR: Septic shock, likely due to cholecystitis/cholangitis versus infected sacral ulcer Metastatic adenocarcinoma, primary source unknown Lactic acidosis Final blood culture 07/12 shows no growth Patient is requiring norepinephrine 2 mcg/minute Continue furosemide 40 mg daily IV Repeat blood culture 07/23 is negative. PULMONARY: Acute hypoxic respiratory failure, likely due to pneumonia Pneumonia likely due to Gram-positive Gram-negative bacteria Solitary pulmonary nodule Patient is sedated and on mechanical ventilation, volume control mode with setting of VT 450 and 8, RR 16, FiO2 30%, peep 5 Discontinue vancomycin and Zosyn Discontinued IV ceftriaxone and Flagyl on 07/21 Started IV Zosyn 07/21 IV Diflucan 200 mg daily and vancomycin IV started 07/22. DC IV vanco 07/23, started IV Zyvox 07/23 Continue IV Zyvox, Zosyn daily Continue mechanical ventilation with peep of 5, tidal volume 450, respiratory rate 16 MRSA nares, COVID-19 negative Breathing treatment q.6 hours as needed CPAP trial completed on 07/21. CPAP TRIAL COMPLETE. WEANING PARAMETERS OBTAINED. NIF:-22, VC: 663, RSBI: 30, LEAK: 300 AND AUDIBLE Patient received furosemide 80 mg IV once 07/28. GASTROINTESTINAL: Septic shock likely due to cholecystitis/cholangitis and infected unstageable sacral ulcer Cholecystitis, likely due to cholelithiasis Cholelithiasis Possible Metastatic adenocarcinoma (likely pancreatic versus upper GI per patient's daughter), with metastasis to the liver and lung Moderate colonic diverticulitis, abdominal CT scan finding Ventral abdominal wall hernia Lobulated pelvic mass, could be a multi fibroid uterus/leiomyosarcoma, abdominal CT scan finding Constipation - last bowel movement on Patient was discharged on 07/10, from [facility] with diagnosis of cholecystitis Abdominal ultrasound on 06/26 showed gallstones, pericholecystic free fluid and gallbladder wall thickening. Positive sonographic wagner's sign Abdominal CT scan on shows, diffuse multifocal liver masses, lobulated masses in the pelvis, moderate colonic diverticulosis, ventral abdominal wall hernia containing loop of small bowel and an 8 mm right middle lobe pulmonary nodule Liver enzymes, are up trending DC IV metronidazole and ceftriaxone, DC ciprofloxacin Surgical consultation - low likelihood of cholecystitis. Patient has a poor candidate for surgical procedure. HIDA scan could not visualize small bowel gallbladder. Hepatic disease. GENITOURINARY: UTI ROBBI questionable VMN Anion gap metabolic acidosis with compensatory respiratory alkalosis Creatinine increased to 2.0 from 1.6 from 1.47 from 1.19 Urinalysis shows UTI picture, +leukocyte esterase and WBCs Urine culture shows presumptive Tayler albicans, likely contaminated Nephrology consulted-started dopamine IV low-dose, octreotide, albumin 3 bags. Started sodium bicarbonate 150 mL IV 07/27. Repeat urine culture 07/23 showed yeast not Tayler albicans. Approximately 11071 CFU. MUSCULOSKELETAL Unstageable sacral decubitus ulcer Sacral ulcer is draining yellow pus-like substance and also has black eschar. Started IV Zosyn after taking wound culture. Started Calamine lotion and Santyl debridement ointment Wound culture is growing few yeast plus possible Enterococcus preliminary. IV Diflucan 200 mg daily and vancomycin IV started 07/22. Final wound culture from sacrum shows VRE sensitive to Zyvox. IV Zyvox started 07/23. DC the vancomycin 07/23. ENDOCRINE Hypoglycemia Euthyroid sick syndrome Possible hypothyroidism TSH 6, low free T3 and T4 Accu-Cheks started 07/21 METABOLIC: Hyponatremia, monitoring Hypokalemia, supplemented Hypomagnesemia, supplemented HEME: Severe anemia, 2 pt of blood have been transfused INFECTIOUS DISEASE: Septic shock, likely due to sepsis Sepsis likely due to pneumonia/cholecystitis/UTI Blood culture of the 5 days shows no growth Urine culture shows presumptive Tayler albicans, likely contaminated Discontinue Continue Zosyn and vancomycin DC Cipro Discontinued IV ceftriaxone and metronidazole 07/21 Started IV Zosyn 07/21 DVT prophylax: Lovenox 40 mg b.i.d. GI prophylaxis: Protonix 40 mg daily Bowel regimen: DC Lactulose 30 mL b.i.d. Code status: Modified DNR code LINES/DRAINS/ACCESS: ETT: Intubated on 07/12 IV access: Right femoral CVC, placed on 07/12 till 07/16 Right upper arm PICC line, placed on 07/16 Drips: Fentanyl 75 Levophed 0 Dopamine 2 Precedex 0 Wasserman catheter: placed on 07/12 Nutrition: Jevity 30 mL/hour Case discussed with Dr. Carmen Plan discussed with patient's daughter over the phone in which all questions have been answered. Last week-Prognosis, plan of care, Goals of care discussed with the daughter and mother at the bedside for more than 50 minutes. Modified DNR status allowing for ACL, BiPAP and intubation. No chest compressions or defibrillation/cardioversion. Critical care time including review of the charts, discussion with the patient's family including the mother at bedside and nurse excluding procedures: 54 minutes Plan discussed with: Patient, Daughter (Over the phone) My Orders My Orders Orders - HUSSEIN PEREZ RESIDENT Procedure Category Date Status Time Lactulose Oral PHA 07/27/24 In Process 20:00 Chest Portable XY 07/28/24 Resulted 04:00 Abg W/ Co-Ox RT 07/28/24 Logged 04:00 Lactic Acid W/ Reflex LAB 07/28/24 Logged Order 15:00 Lactic Acid W/ Reflex LAB 07/28/24 Logged Order 22:00 Dietary Evaluation Review Comments: 1. Advance to Regular textures as tolerated diet to if medically feasible, 2. If EN possible and PO not an option, provide Jevity 35ml/hr if off vent 3. If EN feeding not available, offer TPN per pharmacy if NPO > 7 days Expected Outcomes/Goals: on diet, off vent, gradual weight loss. CC Plasma Assessment Blood Product Administration S: [id number] Date of Service: Jul 28, 2024 Billing Provider: SHANE CARMEN MD Common Visit Codes: 93205-[id number] CARE 30-74 MIN HUSSEIN PEREZ RESIDENT Jul 28, 2024 15:12 SHANE CARMEN MD Jul 29, 2024 15:11
[2024-07-29] VITALS (108 sets, daily range): BP systolic 84–136; BP diastolic 43–83; PULSE 87–112; RESP 18–25; TEMP 97.2–99.2; O2SAT 94–100
[2024-07-29 00:14] LABS: Lactic Acid w/Reflex 5.5 mmol/L (0.4-2.0)
[2024-07-29 04:59] LABS: Base Excess -10.8 mmol/L (-2.0-3.0)
[2024-07-29 05:24] LABS: Hematocrit 22.4 % (36.0-46.0); Mean Corpuscular Hemoglobin 28.6 pg (28.0-32.0); Mean Corpuscular Hgb Conc. 31.4 g/dL (32.0-36.0); Mean Corpuscular Volume 91.1 fL (80.0-100.0); Platelet Count (auto) 137 10^3/uL (140-450); Red Blood Cells 2.46 10^6/uL (4.0-5.20)
[2024-07-29] MEDS: SODIUM BICARB 8.4% 50Meq/50ml SYR Vial IV ONE (05:29)
[2024-07-29 05:37] LABS: Alanine Aminotransferase 35 U/L (7-40); Anion Gap 19 (5-15); Calcium 9.1 mg/dL (8.7-10.4); Magnesium 2.2 mg/dL (1.6-2.6); Potassium 3.9 mmol/L (3.5-5.1)
--- NOTE | 2024-07-29 05:44 | DVH ---
CHEST RADIOGRAPH Indication: follow up Technique: Single frontal view of the chest was obtained COMPARISON: XY CHEST PORTABLE on DOS: 07/28/24, XY CHEST PORTABLE on DOS: 07/27/24, XY CHEST XRAY 1 V IEW on DOS: 07/26/24, XY CHEST XRAY 1 VIEW on DOS: 07/25/24, XY CHEST PORTABLE on DOS: 07/24/24, XY C HEST PORTABLE on DOS: 07/28/24 FINDINGS: Lines and Tubes: Endotracheal tube, enteric catheter and right PICC in satisfactory position. Lungs: Patchy bilateral airspace disease. Pleura: No effusion. No pneumothorax. Cardiomediastinal contours: Unremarkable Bones: Unremarkable IMPRESSION: Lines and tubes in satisfactory position. No significant interval change.
[2024-07-29 05:54] LABS: BUN/Creatinine Ratio 16.9 (10.0-20.0)
[2024-07-29 06:03] LABS: White Blood Cell 42.4 10^3/uL (4.4-10.8)
[2024-07-29 06:05] LABS: Basophils % (manual) 0 (0.0-2.0); Blast Cells 0; Eosinophils % (manual) 0 (0-7); Metamyelocytes % 0; Myelocytes % 0; Promyelocytes % 0; Reactive Lymphocytes 0
[2024-07-29 07:13] LABS: Albumin 2.9 g/dL (3.2-4.8); Alkaline Phosphatase 721 U/L (46-116); Aspartate Aminotransferase 116 U/L (13-40); Bilirubin, Total 10.9 mg/dL (0.2-1.0); Blood Urea Nitrogen 41 mg/dL (9-23); Carbon Dioxide 17 mmol/L (20-31); Chloride 98 mmol/L (98-107); Glucose 120 mg/dL (74-106); Sodium 134 mmol/L (136-145); Total Protein 5.2 g/dL (5.7-8.2)
[2024-07-29 08:49] LABS: Band Neutrophils % (manual) 13; Lymphocytes % (manual) 13 (10.0-50.0); Monocytes % (manual) 6 (0-12); Platelet Estimate Decreased
[2024-07-29 08:50] LABS: Anisocytosis Moderate; Stomatocytes Few; Target Cell FEW
[2024-07-29] MEDS: LACTULOSE 20Gm/30ML SOLN PO PRN (09:11)
--- NOTE | 2024-07-29 09:25 | DVHPN2 ---
Progress Note Date Seen: Jul 29, 2024 Medical Necessity Reason Pt with a Central, PICC or Fol: Yes The following are medically ne: PICC Line, Wasserman Catheter Reason for wasserman catheter: Strict I&O Subjective Review of Systems: RESPIRATORY:Abnormal Other Systems: Patient seen and examined by myself today in follow-up Objective vital signs Vital Sign Date Time Temp Pulse Resp B/P (MAP) Pulse Ox O2 Delivery O2 Flow Rate FiO2 07/29/24 08:23 98 20 103/60 (74) 98 30 07/29/24 06:00 Mechanical Ventilator+ 07/29/24 04:00 99.2 99.2 Total Intake and Output 07/28/24 07/28/24 07/29/24 15:00 23:00 07:00 Intake Total 872.35 ml 538.0 ml 796.50 ml Output Total 85 ml 5 ml Balance 872.35 ml 453.0 ml 791.50 ml medications Current Medications Medications Dose Ordered Sig/Tanvi Route Start Time Stop Time Status Last Admin Dose Admin Norepinephrine Bitartrate 250 ml @ 3.75 mls/hr Q24H IV 07/12/24 22:00 07/28/24 15:39 7.5 MLS/HR Midazolam HCl 50 ml @ 1 mls/hr Q24H IV 07/12/24 22:00 07/15/24 08:29 8 MLS/HR Pantoprazole Sodium 40 mg DAILY IV 07/13/24 10:00 07/28/24 09:22 40 MG Albuterol 2.5 mg Q6HR NEB 07/13/24 06:00 07/29/24 06:25 2.5 MG Acetaminophen 650 mg Q6HP PRN PO 07/13/24 01:00 07/23/24 11:00 650 MG Nitroglycerin 0.4 mg Q5MINP PRN SL 07/13/24 01:00 Sodium Chloride 10 ml QSHIFT@10,22 IV 07/16/24 22:00 07/28/24 22:11 10 ML Artificial Tears 2 drop Q6HP PRN EACHEYE 07/17/24 09:45 07/28/24 22:43 2 DROP Calamine 1 applic QIDP PRN TOP 07/21/24 10:15 Diagnostic Test (Pha) 1 strip IQ4HR 07/21/24 16:00 07/29/24 08:00 1 STRIP Dextrose 50 ml UD PRN IV 07/21/24 12:15 Piperacillin Sod/ Tazobactam Sod 100 ml @ 25 mls/hr Q8H IV 07/21/24 17:00 07/29/24 09:11 25 MLS/HR Enteral Nutritional Formula 1,000 ml 40ML/HR GT 07/22/24 12:15 07/26/24 18:00 1,000 ML Fluconazole 100 ml @ 100 mls/hr DAILY IV 07/22/24 12:30 07/28/24 09:24 100 MLS/HR Metoclopramide HCl 5 mg Q8HR IV 07/23/24 12:30 07/29/24 05:42 5 MG Linezolid 300 ml @ 150 mls/hr Q12HR IV 07/23/24 22:00 07/28/24 22:09 150 MLS/HR Furosemide 40 mg DAILY IV 07/25/24 10:00 07/28/24 09:23 40 MG Dexmedetomidine HCl 400 mcg/ Dextrose 100 ml @ 5.28 mls/hr [id number] IV 07/26/24 08:45 07/26/24 09:15 5.28 MLS/HR Octreotide Acetate 100 mcg TID SUBCUT 07/26/24 14:00 07/29/24 05:44 100 MCG Dopamine HCl/ Dextrose 250 ml @ 7.92 mls/hr Q24H IV 07/26/24 13:00 07/27/24 17:40 7.92 MLS/HR Fentanyl Citrate 250 ml @ 2.5 mls/hr Q24H IV 07/27/24 14:30 07/29/24 06:57 20 MLS/HR Lactulose 30 ml BIDPRN PRN PO 07/27/24 20:00 07/29/24 09:11 30 ML Examination: LUNGS:Normal, CVS:Normal, MSK:Normal laboratory and microbiology Laboratory Tests 07/29/24 04:50 Test 07/29/24 04:50 Range/Units Serum Glucose 120 H 74-106 mg/dL Microbiology Date/Time Source Procedure Growth Status 07/23/24 12:10 Voided Urine Urine Culture - Final Yeast, not Tayler albicans Complete 07/23/24 12:05 Blood Blood Culture - Final NO GROWTH AFTER 5 DAYS OF INCUBATION. Complete 07/21/24 11:20 Sacrum Gram Stain - Final Complete 07/21/24 11:20 Wound Culture - Final Enterococcus faecium - VRE Presumptive Tayler albicans Complete Problem List/Assessment/Plan Problem List/Assessment/Plan Acute kidney injury secondary hemodynamic mediated Hepatorenal syndrome Acute respiratory failure patient intubated on ventilator Liver metastasis Septic shock Hypoalbuminemia metabolic acidosis Recommendation IV sodium bicarb pushes Avoid nephrotoxic medications Wasserman catheter Strict I&Os Low-dose dopamine Octreotide IV Levophed for blood pressure support Albumin 25% IV piggyback IV antibiotics Poor prognosis Plan discussed with: Patient Dietary Evaluation Review Comments: 1. Advance to Regular textures as tolerated diet to if medically feasible, 2. If EN possible and PO not an option, provide Jevity 35ml/hr if off vent 3. If EN feeding not available, offer TPN per pharmacy if NPO > 7 days Expected Outcomes/Goals: on diet, off vent, gradual weight loss. CC Plasma Assessment Blood Product Administration S: [id number] GT MCGEE MD Jul 29, 2024 09:25
[2024-07-29 13:58] LABS: Hematocrit 19.4 % (36.0-46.0)
[2024-07-29 14:00] LABS: Hemoglobin 5.1 g/dL (12.2-16.2)
[2024-07-29 14:09] LABS: Lactic Acid w/Reflex 4.4 mmol/L (0.4-2.0)
--- NOTE | 2024-07-29 14:10 | DVHPNRES ---
Progress Note Date Seen: Jul 29, 2024 Resident Creating Document: HUSSEIN PEREZ RESIDENT Medical Necessity Reason Pt with a Central, PICC or Fol: Yes The following are medically ne: PICC Line, Wasserman Catheter Reason for wasserman catheter: Strict I&O Subjective Review of Systems Ms Harding is a 54-year-old female patient who was brought to the ER from [facility] with a chief complaint of worsening shortness of breaths. Patient's daughter, she visited her mom at [facility] that they and reports that her mother was not responding and was staring. She could not speak or move her extremities and later on became dyspneic and therefore she was transferred to the ER. She was recently discharged from this facility to [facility] care. Per daughter who is the power of real estate attorney, patient was diagnosed with metastatic liver disease on June 01 [facility]. Consequently liver biopsy was performed by Dr. Johnson on June 03 which showed moderately differentiated adenocarcinoma with differentials including pancreaticobiliary versus per GI primary cancer. Per daughter, she had an appointment at [facility] in June initially which was later rescheduled to July 22 as the patient was admitted inpatient and this facility. Patient had a mammogram earlier this year which was unremarkable. But she was told at [facility] that she has a breast lump, but the biopsy was not performed per the daughter. Past medical history Uterine fibroids, diabetes, congestive heart failure, constipation Past surgical history Unremarkable Home medications: Ozempic 07/20-Patient seen and examined at bedside. She is intubated and mechanically ventilated. HIDA scan completed 07/20 shows abnormal persistence of cardia, hepatic and blood pool activity without definitive visualization of small bowel or gallbladder. Suggestive of hepatic dysfunction/hepatitis. DC ciprofloxacin, continue IV ceftriaxone and metronidazole. CPAP trial in the a.m.. 07/21 - patient seen and examined at bedside. She is intubated and mechanically ventilated, not on sedatives. On Levophed 4. Overnight Wasserman catheter was changed. Patient made 250 mL of urine during the welder 2nd shift + 325 in the morning. No bowel movements. CPAP trial completed, patient was breathing at respiratory rate of 21, tidal volume 568, peak pressure 14. Started Zosyn IV given the unstageable sacral ulcer which was draining pus. Patient was hypoglycemic at 48, Accu-Cheks and D5W with NS started at 75 cc/hour. Santyl debridement started. Wound culture ordered. Creatinine increased from 1.19- 1.47 07/22 - patient seen and examined at bedside. Overnight she had the small bowel movement, urine output was 200 in the last night. She has been of Levophed since 3:00 a.m. of 07/22. She has also been off sedation. Vent settings are tidal volume 450, FiO2 30, peep 5, resp. Sixteen. Patient is breathing at a rate of 19 and saturating 96%. T-max was 99 F during the past 24 hours. Cr increased to 1.65. Wound culture is growing few yeast plus possible Enterococcus preliminary. IV Diflucan 200 mg daily and vancomycin IV started 07/22. Breast examination performed bilaterally, hard masses felt bilaterally in the quadrant. No axillary lymph nodes. No skin changes. No erythema or few the orange or inversion of the nipple seen. Code status changed to modified DNR. 07/23-patient seen and examined at bedside reviewed temperature is 99.9 F patient is tachycardic at 100s to 110s. She is breathing over the vent a period of 24 atrophy saturating 16. Saturating 97 on 30% of FiO2. Repeat Urine and blood culture ordered today. Overnight 150 mL the urine output and 2 bowel movements overnight and 1 this morning. Residual have been high more than 100 mL therefore Reglan 5 mg IV UA started. Patient is responding to commands and is reporting pain therefore fentanyl was restarted. Creatinine increased from 1.6-1.8. Final wound culture from sacrum resulted in VRE, DC vancomycin and Zyvox 07/23. 07/24-overnight tube feedings were held because of high residuals. ABGs show metabolic acidosis with respiratory acidosis, respiratory rate increased to 18 from 16. Currently on fentanyl 75. CPAP trial completed today. Patient tolerated well but she is not alert or responding to commands. 07/27 - patient seen and examined over the bedside. Over the weekend patient underwent CPAP trial on 07/25. Nephrology was consulted for ROBBI, started dopamine low dose and octreotide and albumin 3 bags. Overnight, low-grade fever at 100 F. ABG shows anion gap metabolic acidosis with compensated respiratory alkalosis. Nephrology started sodium bicarbonate 07/27. LFTs, kidney function, WBC trending up. 07/28 - seen and examined at the bedside. ABG shows anion gap metabolic acidosis with respiratory alkalosis. Respiratory rate increased to 20 from 18. Chest tube advanced 1.5 cm. WBC increased to 52.5. Creatinine increased to 2.26. Lactic acid trending up to 4.8. Final blood culture is negative. Lasix 80 mg IV once. And albumin 25% IV Q 8 scheduled by Nephrology. 07/29 - patient seen and examined at the bedside. Overnight 150 mL of bicarb given secondary to anion gap metabolic acidosis due to lactic acidosis. Lactic acid trending up. Patient is saturating 97 on 30% FiO2. Urine output only 20 mL over the night. Creatinine trending up. On Levophed 6 and fentanyl 200. repeat hemoglobin 5.7, 1 packed RBC ordered. Chest X ray shows worsening left- sided infiltrate. Respiratory culture ordered. Objective vital signs Vital Sign Date Time Temp Pulse Resp B/P (MAP) Pulse Ox O2 Delivery O2 Flow Rate FiO2 07/29/24 11:48 97 20 96/57 (70) 98 30 07/29/24 06:00 Mechanical Ventilator+ 07/29/24 04:00 99.2 99.2 Total Intake and Output 07/28/24 07/28/24 07/29/24 15:00 23:00 07:00 Intake Total 872.35 ml 538.0 ml 796.50 ml Output Total 85 ml 5 ml Balance 872.35 ml 453.0 ml 791.50 ml medications Current Medications Medications Dose Ordered Sig/Tanvi Route Start Time Stop Time Status Last Admin Dose Admin Norepinephrine Bitartrate 250 ml @ 3.75 mls/hr Q24H IV 07/12/24 22:00 07/28/24 15:39 7.5 MLS/HR Midazolam HCl 50 ml @ 1 mls/hr Q24H IV 07/12/24 22:00 07/15/24 08:29 8 MLS/HR Pantoprazole Sodium 40 mg DAILY IV 07/13/24 10:00 07/29/24 10:36 40 MG Albuterol 2.5 mg Q6HR NEB 07/13/24 06:00 07/29/24 11:47 2.5 MG Acetaminophen 650 mg Q6HP PRN PO 07/13/24 01:00 07/23/24 11:00 650 MG Nitroglycerin 0.4 mg Q5MINP PRN SL 07/13/24 01:00 Artificial Tears 2 drop Q6HP PRN EACHEYE 07/17/24 09:45 07/28/24 22:43 2 DROP Calamine 1 applic QIDP PRN TOP 07/21/24 10:15 Diagnostic Test (Pha) 1 strip IQ4HR 07/21/24 16:00 07/29/24 12:00 1 STRIP Dextrose 50 ml UD PRN IV 07/21/24 12:15 Piperacillin Sod/ Tazobactam Sod 100 ml @ 25 mls/hr Q8H IV 07/21/24 17:00 07/29/24 09:11 25 MLS/HR Enteral Nutritional Formula 1,000 ml 40ML/HR GT 07/22/24 12:15 07/26/24 18:00 1,000 ML Fluconazole 100 ml @ 100 mls/hr DAILY IV 07/22/24 12:30 07/29/24 10:36 100 MLS/HR Metoclopramide HCl 5 mg Q8HR IV 07/23/24 12:30 07/29/24 05:42 5 MG Linezolid 300 ml @ 150 mls/hr Q12HR IV 07/23/24 22:00 07/29/24 10:36 150 MLS/HR Furosemide 40 mg DAILY IV 07/25/24 10:00 07/29/24 10:37 40 MG Dexmedetomidine HCl 400 mcg/ Dextrose 100 ml @ 5.28 mls/hr [id number] IV 07/26/24 08:45 07/26/24 09:15 5.28 MLS/HR Octreotide Acetate 100 mcg TID SUBCUT 07/26/24 14:00 07/29/24 05:44 100 MCG Dopamine HCl/ Dextrose 250 ml @ 7.92 mls/hr Q24H IV 07/26/24 13:00 07/27/24 17:40 7.92 MLS/HR Fentanyl Citrate 250 ml @ 2.5 mls/hr Q24H IV 07/27/24 14:30 07/29/24 06:57 20 MLS/HR Lactulose 30 ml BIDPRN PRN PO 07/27/24 20:00 07/29/24 09:11 30 ML Examination General: Scleral icterus seen. afebrile, palor, mucosae are moist, RASS -1. Patient is responding to commands. Cardiovascular: Tachycardic but Regular S1 and S2. No murmurs, gallops or rubs. No JVD elevation. Bilateral 3+ pedal edema noted Respiratory: Mechanically ventilated, decreased basilar breath sounds. Equal air entry. No wheezes or crepitations. Breast examination performed bilaterally, hard masses felt bilaterally in the quadrant. No axillary lymph nodes. No skin changes. No erythema or few the orange or inversion of the nipple seen. Abdomen: Overall the abdomen is Soft, with the epigastrium is hard, distended, hypoactive bowel sounds, no rebound tenderness, no organomegaly, no masses. Umbilical hernia soft nontender. Genitourinary: Deferred MSK/skin: Skin is dry and warm. Unstageable decubitus ulcer in the sacrum with black eschar noted. Parts of it are draining yellow pus-like substance. Neurological: Pupils are isocoric and reactive. laboratory and microbiology Laboratory Tests 07/29/24 04:50 Test 07/29/24 04:50 Range/Units Serum Glucose 120 H 74-106 mg/dL Microbiology Date/Time Source Procedure Growth Status 07/23/24 12:10 Voided Urine Urine Culture - Final Yeast, not Tayler albicans Complete 07/23/24 12:05 Blood Blood Culture - Final NO GROWTH AFTER 5 DAYS OF INCUBATION. Complete 07/21/24 11:20 Sacrum Gram Stain - Final Complete 07/21/24 11:20 Wound Culture - Final Enterococcus faecium - VRE Presumptive Tayler albicans Complete Labs and/or images reviewed: Labs reviewed by me, Image(s) reviewed by me Problem List/Assessment/Plan Problem List/Assessment/Plan NEURO: Acute metabolic encephalopathy, likely due to septic shock Head CT scan and MRI of the brain does not show any acute intracranial abnormalities Patient is sedated and on mechanical ventilation, RASS score -1 CARDIOVASCULAR: Septic shock, likely due to cholecystitis/cholangitis versus infected sacral ulcer Metastatic adenocarcinoma, primary source unknown Lactic acidosis Final blood culture 07/12 shows no growth Patient is requiring norepinephrine 2 mcg/minute Continue furosemide 40 mg daily IV Repeat blood culture 07/23 is negative. PULMONARY: Acute hypoxic respiratory failure, likely due to pneumonia Pneumonia likely due to Gram-positive Gram-negative bacteria Solitary pulmonary nodule Patient is sedated and on mechanical ventilation, volume control mode with setting of VT 450 and 8, RR 16, FiO2 30%, peep 5 Discontinue vancomycin and Zosyn Discontinued IV ceftriaxone and Flagyl on 07/21 Started IV Zosyn 07/21 IV Diflucan 200 mg daily and vancomycin IV started 07/22. DC IV vanco 07/23, started IV Zyvox 07/23 Continue IV Zyvox, Zosyn daily Continue mechanical ventilation with peep of 5, tidal volume 450, respiratory rate 16 MRSA nares, COVID-19 negative Breathing treatment q.6 hours as needed CPAP trial completed on 07/21. CPAP TRIAL COMPLETE. WEANING PARAMETERS OBTAINED. NIF:-22, VC: 663, RSBI: 30, LEAK: 300 AND AUDIBLE Patient received furosemide 80 mg IV once 07/28. GASTROINTESTINAL: Septic shock likely due to cholecystitis/cholangitis and infected unstageable sacral ulcer Cholecystitis, likely due to cholelithiasis Cholelithiasis Possible Metastatic adenocarcinoma (likely pancreatic versus upper GI per patient's daughter), with metastasis to the liver and lung Moderate colonic diverticulitis, abdominal CT scan finding Ventral abdominal wall hernia Lobulated pelvic mass, could be a multi fibroid uterus/leiomyosarcoma, abdominal CT scan finding Constipation - last bowel movement on Patient was discharged on 07/10, from [facility] with diagnosis of cholecystitis Abdominal ultrasound on 06/26 showed gallstones, pericholecystic free fluid and gallbladder wall thickening. Positive sonographic wagner's sign Abdominal CT scan on shows, diffuse multifocal liver masses, lobulated masses in the pelvis, moderate colonic diverticulosis, ventral abdominal wall hernia containing loop of small bowel and an 8 mm right middle lobe pulmonary nodule Liver enzymes, are up trending DC IV metronidazole and ceftriaxone, DC ciprofloxacin Surgical consultation - low likelihood of cholecystitis. Patient has a poor candidate for surgical procedure. HIDA scan could not visualize small bowel gallbladder. Hepatic disease. Continue Reglan 5 mg IV Q 8 hour GENITOURINARY: UTI ROBBI questionable VMN Anion gap metabolic acidosis with respiratory acidosis Creatinine increased to 2.0 from 1.6 from 1.47 from 1.19 Urinalysis shows UTI picture, +leukocyte esterase and WBCs Urine culture shows presumptive Tayler albicans, likely contaminated Nephrology consulted-started dopamine IV low-dose, octreotide, albumin 3 bags. Started sodium bicarbonate 150 mL IV 07/27. Repeat urine culture 07/23 showed yeast not Tayler albicans. Approximately [id number] CFU. Nephrology-continue bicarb pushes MUSCULOSKELETAL Unstageable sacral decubitus ulcer Sacral ulcer is draining yellow pus-like substance and also has black eschar. Started IV Zosyn after taking wound culture. Started Calamine lotion and Santyl debridement ointment Wound culture is growing few yeast plus possible Enterococcus preliminary. IV Diflucan 200 mg daily and vancomycin IV started 07/22. Final wound culture from sacrum shows VRE sensitive to Zyvox. IV Zyvox started 07/23. DC the vancomycin 07/23. ENDOCRINE Hypoglycemia Euthyroid sick syndrome Possible hypothyroidism TSH 6, low free T3 and T4 Accu-Cheks started 07/21 METABOLIC: Hyponatremia, monitoring Hypokalemia, supplemented Hypomagnesemia, supplemented HEME: Severe anemia, 2 pt of blood have been transfused INFECTIOUS DISEASE: Septic shock, likely due to sepsis Sepsis likely due to pneumonia/cholecystitis/UTI Blood culture of the 5 days shows no growth Urine culture shows presumptive Tayler albicans, likely contaminated Discontinue Continue Zosyn and vancomycin DC Cipro Discontinued IV ceftriaxone and metronidazole 07/21 Started IV Zosyn 07/21 DVT prophylax: Lovenox 40 mg b.i.d. GI prophylaxis: Protonix 40 mg daily Bowel regimen: Lactulose 30 mg daily Code status: Modified DNR code LINES/DRAINS/ACCESS: ETT: Intubated on 07/12 IV access: Right femoral CVC, placed on 07/12 till 07/16 Right upper arm PICC line, placed on 07/16 Drips: Fentanyl 75 Levophed 06 Dopamine 0 Precedex 0 Wasserman catheter: placed on 07/12 Nutrition: Jevity 30 mL/hour Case discussed with Dr. Sarabia Plan discussed with patient's daughter Casmir over the phone in which all questions have been answered. Last week-Prognosis, plan of care, Goals of care discussed with the daughter and mother at the bedside for more than 50 minutes. Modified DNR status allowing for ACL, BiPAP and intubation. No chest compressions or defibrillation/cardioversion. Critical care time including review of the charts, discussion with the patient's family including the mother at bedside and nurse excluding procedures: 54 minutes Plan discussed with: Patient, Daughter (over phone) My Orders My Orders Orders - HUSSEIN PEREZ RESIDENT Procedure Category Date Status Time Abg W/ Co-Ox RT 07/29/24 Logged 04:00 Hemoglobin & LAB 07/29/24 In Process Hematocrit 11:57 Lactic Acid W/ Reflex LAB 07/29/24 In Process Order 12:20 Lactic Acid W/ Reflex LAB 07/29/24 Logged Order 18:20 Lactic Acid W/ Reflex LAB 07/30/24 Verified Order 00:20 Lactic Acid W/ Reflex LAB 07/30/24 Verified Order 06:20 Lactic Acid W/ Reflex LAB 07/30/24 Verified Order 12:20 Lactic Acid W/ Reflex LAB 07/30/24 Verified Order 18:20 Lactic Acid W/ Reflex LAB 07/31/24 Verified Order 00:20 Lactic Acid W/ Reflex LAB 07/31/24 Verified Order 06:20 Lactic Acid W/ Reflex LAB 07/31/24 Verified Order 12:20 Lactic Acid W/ Reflex LAB 07/31/24 Verified Order 18:20 Dietary Evaluation Review Comments: 1. Advance to Regular textures as tolerated diet to if medically feasible, 2. If EN possible and PO not an option, provide Jevity 35ml/hr if off vent 3. If EN feeding not available, offer TPN per pharmacy if NPO > 7 days Expected Outcomes/Goals: on diet, off vent, gradual weight loss. CC Plasma Assessment Blood Product Administration S: [id number] Date of Service: Jul 29, 2024 Billing Provider: EDWIN SARABIA MD Common Visit Codes: [id number] CARE 30-74 MIN HUSSEIN PEREZ RESIDENT Jul 29, 2024 14:10 EDWIN SARABIA MD Jul 29, 2024 22:28
[2024-07-29] MEDS: LACTULOSE 20Gm/30ML SOLN PO SCH (14:15)
[2024-07-29 17:44] LABS: % Iron Saturation 61.4 % (15-50)
[2024-07-29 17:54] LABS: Folate (Folic Acid) 10.79 ng/mL (>5.38)
[2024-07-29] MEDS: ACCU-CHEK COMFORT CURVE STRIP VI SCH (18:00)
[2024-07-29 18:54] LABS: Ferritin > 3300.0 ng/mL (10-291)
[2024-07-29 20:53] LABS: Base Excess -12.2 mmol/L (-2.0-3.0)
--- NOTE | 2024-07-29 21:15 | DVHPN2 ---
Progress Note - Dictate Date Seen: Jul 29, 2024 Medical Necessity Reason Pt with a Central, PICC or Fol: Yes The following are medically ne: PICC Line, Wasserman Catheter Reason for wasserman catheter: Strict I&O Subjective Patient seen and examined at bedside. intubated on mechanical ventilator. Overnight events reviewed. vital signs Vital Sign Date Time Temp Pulse Resp B/P (MAP) Pulse Ox O2 Delivery O2 Flow Rate FiO2 07/29/24 21:05 97.8 92 20 109/65 97.8 07/29/24 20:45 99 07/29/24 20:00 Mechanical Ventilator+ 30 30 Total Intake and Output 07/28/24 07/28/24 07/29/24 15:00 23:00 07:00 Intake Total 872.35 ml 538.0 ml 796.50 ml Output Total 85 ml 5 ml Balance 872.35 ml 453.0 ml 791.50 ml medications Current Medications Medications Dose Ordered Sig/Tanvi Route Start Time Stop Time Status Last Admin Dose Admin Norepinephrine Bitartrate 250 ml @ 3.75 mls/hr Q24H IV 07/12/24 22:00 07/29/24 17:27 11.25 MLS/HR Midazolam HCl 50 ml @ 1 mls/hr Q24H IV 07/12/24 22:00 07/15/24 08:29 8 MLS/HR Pantoprazole Sodium 40 mg DAILY IV 07/13/24 10:00 07/29/24 10:36 40 MG Albuterol 2.5 mg Q6HR NEB 07/13/24 06:00 07/29/24 18:25 2.5 MG Acetaminophen 650 mg Q6HP PRN PO 07/13/24 01:00 07/23/24 11:00 650 MG Nitroglycerin 0.4 mg Q5MINP PRN SL 07/13/24 01:00 Artificial Tears 2 drop Q6HP PRN EACHEYE 07/17/24 09:45 07/28/24 22:43 2 DROP Calamine 1 applic QIDP PRN TOP 07/21/24 10:15 Dextrose 50 ml UD PRN IV 07/21/24 12:15 Piperacillin Sod/ Tazobactam Sod 100 ml @ 25 mls/hr Q8H IV 07/21/24 17:00 07/29/24 17:33 25 MLS/HR Enteral Nutritional Formula 1,000 ml 40ML/HR GT 07/22/24 12:15 07/26/24 18:00 1,000 ML Fluconazole 100 ml @ 100 mls/hr DAILY IV 07/22/24 12:30 07/29/24 10:36 100 MLS/HR Metoclopramide HCl 5 mg Q8HR IV 07/23/24 12:30 07/29/24 14:18 5 MG Linezolid 300 ml @ 150 mls/hr Q12HR IV 07/23/24 22:00 07/29/24 10:36 150 MLS/HR Furosemide 40 mg DAILY IV 07/25/24 10:00 07/29/24 10:37 40 MG Dexmedetomidine HCl 400 mcg/ Dextrose 100 ml @ 5.28 mls/hr [id number] IV 07/26/24 08:45 07/26/24 09:15 5.28 MLS/HR Octreotide Acetate 100 mcg TID SUBCUT 07/26/24 14:00 07/29/24 14:19 100 MCG Dopamine HCl/ Dextrose 250 ml @ 7.92 mls/hr Q24H IV 07/26/24 13:00 07/27/24 17:40 7.92 MLS/HR Fentanyl Citrate 250 ml @ 2.5 mls/hr Q24H IV 07/27/24 14:30 07/29/24 19:16 20 MLS/HR Lactulose 30 ml DAILY PO 07/29/24 14:15 Diagnostic Test (Pha) 1 strip Q6HR 07/29/24 18:00 07/29/24 18:00 1 STRIP objective Gen.: Patient lying in bed in medical ICU. Intubated on mechanical ventilator. Head: Normocephalic, atraumatic. Eyes: PERRLA. Ears: Normal external anatomy. Throat: Endotracheal tube and orogastric tube in place. Neck: Supple, trachea midline. Chest: Transmitted breath sounds bilaterally. Decreased air entry bilaterally. No wheezing. Bibasilar crackles. Cardiovascular: Positive S1, positive S2. Regular rate and rhythm. Abdomen: Positive bowel sounds in all 4 quadrants. Soft, nontender, nondistended. : Wasserman in place. Normal external genitalia. Rectal: Deferred. Skin: Warm, dry. Intact. Extremities: 2+ radial pulses bilaterally. No lower extremity edema. Neuro: Off sedation laboratory and microbiology Laboratory Tests 07/29/24 13:20 07/29/24 04:50 Test 07/29/24 04:50 Range/Units Serum Glucose 120 H 74-106 mg/dL Assessment/Plan Impression: Acute hypoxic respiratory failure On mechanical ventilator Questionable pneumonia Sepsis Metabolic encephalopathy Metastatic cancer Anemia Lactic acidosis Obesity BMI 36.3 Events: Remains on vent support On AC mode; RR 18, VT 450, PEEP 5, FiO2 30% Started Precedex ABG reviewed, acidemia due to metabolic acidosis. CXR demonstrated patchy airspace opacities bilaterally. No pneumothorax. Devices in place. On pressors for hemodynamic support Levophed 2 mcg/min, dopamine 2 mcg/min Titrate to keep mean arterial pressure greater than 65 mmHg. Continue antibiotics Leukocytosis - WBC of 45.5 K Continue antifungal Continue bronchodilators Monitor Hgb, 5.1 g/dL Transfuse to keep Hgb above 7.0 g/dL Tube feeds on hold. Overall poor prognosis Recommend trach/PEG placement if family wishes to continue aggressive care. Labs and imaging reviewed. Rest of plan as noted below. Plan s/p intubation on mechanical ventilator. Chest/abdomen/pelvis CT demonstrated diffuse multifocal liver masses with the largest centrally located, 10.0 x 7.2 cm. Lobulated mass in the pelvis, 11.4 x 9.1 cm, which could be a multifibroid uterus vs leiomyosarcoma or other etiology. Moderate colonic diverticulosis. Decompressed gallbladder contains a gallstone with mild pericholecystic fluid. Cholecystitis is a consideration. Ventral abdominal wall hernia containing a loop of nondilated small bowel. Mild anasarca. An 8 mm right middle lobe pulmonary nodule. Bibasilar consolidation, most likely atelectasis. On AC mode; RR 18, VT 450, PEEP 5, FiO2 30% Titrate FIO2 to keep O2 saturation above 90%. VAP bundle. Daily ABG and CXR while intubated Off sedation Continue antibiotics On pressors for hemodynamic support Titrate to keep mean arterial pressure greater than 65 mmHg. Monitor hemoglobin Monitor renal function Monitor electrolytes. Supplement as necessary. Monitor ins and outs. Maintain euvolemia. GI prophylaxis. DVT prophylaxis. Prognosis: Poor given patient's multiple co-morbidities. Condition: Critical Rest of plan per hospitalist and other consultants. A total of 35 minutes of critical care time was spent reviewing the patient record, examining the patient, making a diagnostic and therapeutic plan, discussing this plan with the medical personnel, following up on diagnostic studies and following the patient for clinical stability excluding any and all procedures. At least 50% of this time was spent in direct, [id number] contact. Thank you David Lopez NP, for allowing me to participate in this patient's care. Further recommendations will depend on the patient's clinical course. Please do not hesitate to contact me if you have any questions or concerns. This medical document was created using an electronic medical record system with erento dictation system. Although these documentations are being carefully reviewed, there may still be some phonetic and typographical changes. The errors are purely typographical, due to imperfection on the software program, and do not reflect any compromise in the patient's medical care. Dietary Evaluation Review Comments: 1. Advance to Regular textures as tolerated diet to if medically feasible, 2. If EN possible and PO not an option, provide Jevity 35ml/hr if off vent 3. If EN feeding not available, offer TPN per pharmacy if NPO > 7 days Expected Outcomes/Goals: on diet, off vent, gradual weight loss. Plan discussed with: Other (RICK Kim, RT, MD) Critical Care Time(min): 35 CC Plasma Assessment Blood Product Administration S: [id number] WILLIAM YOON MD Jul 29, 2024 21:15
[2024-07-29 23:10] LABS: Hematocrit 23.3 % (36.0-46.0)
[2024-07-29 23:13] LABS: Hemoglobin 6.6 g/dL (12.2-16.2)
[2024-07-29 23:42] LABS: Lactic Acid w/Reflex 4.8 mmol/L (0.4-2.0)
[2024-07-30] VITALS (58 sets, daily range): BP systolic 99–134; BP diastolic 55–100; PULSE 91–99; RESP 16–20; TEMP 97.6–99.5; O2SAT 93–100
[2024-07-30 00:13] LABS: INR 3.48 (0.9-1.15); Prothrombin Time 33.6 sec (9.3-11.8)
[2024-07-30 00:14] LABS: Partial Thromboplastin Time > 139.0 SEC (24.5-34.5)
[2024-07-30] MEDS: SODIUM BICARB 8.4% 50Meq/50ml SYR Vial IV ONE (00:35)
[2024-07-30 00:45] LABS: Hematocrit 23.8 % (36.0-46.0); Mean Corpuscular Hemoglobin 28.2 pg (28.0-32.0); Mean Corpuscular Hgb Conc. 28.2 g/dL (32.0-36.0); Mean Corpuscular Volume 100.1 fL (80.0-100.0); Platelet Count (auto) 95 10^3/uL (140-450); Red Blood Cells 2.38 10^6/uL (4.0-5.20); Red Cell Distribution Width 19.8 % (11.8-14.3)
[2024-07-30 01:03] LABS: Hemoglobin 6.7 g/dL (12.2-16.2); White Blood Cell 33.1 10^3/uL (4.4-10.8)
[2024-07-30 01:04] LABS: Basophils % (manual) 0 (0.0-2.0); Blast Cells 0; Eosinophils % (manual) 0 (0-7); Metamyelocytes % 0; Promyelocytes % 0; Reactive Lymphocytes 0
[2024-07-30 02:16] LABS: Band Neutrophils % (manual) 2; Lymphocytes % (manual) 8 (10.0-50.0); Monocytes % (manual) 3 (0-12); Myelocytes % 1; Platelet Estimate Decreased
[2024-07-30 02:17] LABS: Anisocytosis Slight; Stomatocytes Few
--- NOTE | 2024-07-30 06:23 | DVH ---
CHEST RADIOGRAPH Indication: f/u Technique: Single frontal view of the chest was obtained Comparison: XY CHEST XRAY 1 VIEW on DOS: 07/29/24, FINDINGS: Lines and Tubes: The endotracheal tube terminates above the gerber. Right PICC terminates in the sup erior vena cava. The enteric tube courses below the left hemidiaphragm and the tip extends outside th e field of view. Lungs: Bilateral opacities similar to prior exam. Pleura: No effusion. No pneumothorax. Cardiomediastinal contours: Unremarkable Bones: No acute osseous abnormality. IMPRESSION: 1. No significant interval change.
[2024-07-30 07:54] LABS: Alanine Aminotransferase 31 U/L (7-40); Anion Gap 21 (5-15); Chloride 99 mmol/L (98-107); Glucose 90 mg/dL (74-106); Lactic Acid w/Reflex 6.8 mmol/L (0.4-2.0); Magnesium 2.2 mg/dL (1.6-2.6); Potassium 3.7 mmol/L (3.5-5.1); Sodium 137 mmol/L (136-145)
[2024-07-30 08:07] LABS: Albumin 2.7 g/dL (3.2-4.8); Alkaline Phosphatase 660 U/L (46-116); Aspartate Aminotransferase 110 U/L (13-40); Bilirubin, Total 10.5 mg/dL (0.2-1.0); Blood Urea Nitrogen 42 mg/dL (9-23); Calcium 8.6 mg/dL (8.7-10.4); Carbon Dioxide 17 mmol/L (20-31); Total Protein 4.8 g/dL (5.7-8.2)
[2024-07-30] MEDS: TRANEXAMIC ACID 1,000 MG in SODIUM CHL 0.9% 100 ML IV ONE (08:15)
[2024-07-30 08:26] LABS: BUN/Creatinine Ratio 18.3 (10.0-20.0)
[2024-07-30 09:28] LABS: Base Excess -8.7 mmol/L (-2.0-3.0)
[2024-07-30 11:17] LABS: Hemoglobin 7.2 g/dL (12.2-16.2); Red Cell Distribution Width 18.9 % (11.8-14.3)
[2024-07-30 11:23] LABS: Hematocrit 24.6 % (36.0-46.0); Mean Corpuscular Hemoglobin 28.9 pg (28.0-32.0); Mean Corpuscular Hgb Conc. 29.4 g/dL (32.0-36.0); Mean Corpuscular Volume 98.3 fL (80.0-100.0); Platelet Count (auto) 82 10^3/uL (140-450); White Blood Cell 27.2 10^3/uL (4.4-10.8)
[2024-07-30 11:40] LABS: Basophils % (manual) 0 (0.0-2.0); Blast Cells 0; Metamyelocytes % 0; Myelocytes % 0; Promyelocytes % 0; Reactive Lymphocytes 0
--- NOTE | 2024-07-30 13:04 | DVHPN2 ---
Progress Note Date Seen: Jul 30, 2024 Medical Necessity Reason Pt with a Central, PICC or Fol: Yes The following are medically ne: PICC Line, Wasserman Catheter Reason for wasserman catheter: Strict I&O Subjective Review of Systems: RESPIRATORY:Abnormal Other Systems: Patient seen and examined by myself today in follow-up, patient remained intubated on ventilator Objective vital signs Vital Sign Date Time Temp Pulse Resp B/P (MAP) Pulse Ox O2 Delivery O2 Flow Rate FiO2 07/30/24 12:45 99 20 117/67 (84) 95 07/30/24 12:30 99.2 99.2 07/30/24 12:12 30 07/30/24 11:34 Mechanical Ventilator+ Total Intake and Output 07/29/24 07/29/24 07/30/24 15:00 23:00 07:00 Intake Total 800.00 ml 657.00 ml 1635.00 ml Output Total 350 ml 0 ml Balance 800.00 ml 307.00 ml 1635.00 ml medications Current Medications Medications Dose Ordered Sig/Tanvi Route Start Time Stop Time Status Last Admin Dose Admin Norepinephrine Bitartrate 250 ml @ 3.75 mls/hr Q24H IV 07/12/24 22:00 07/29/24 17:27 11.25 MLS/HR Midazolam HCl 50 ml @ 1 mls/hr Q24H IV 07/12/24 22:00 07/15/24 08:29 8 MLS/HR Pantoprazole Sodium 40 mg DAILY IV 07/13/24 10:00 07/30/24 08:15 40 MG Albuterol 2.5 mg Q6HR NEB 07/13/24 06:00 07/30/24 12:12 2.5 MG Acetaminophen 650 mg Q6HP PRN PO 07/13/24 01:00 07/23/24 11:00 650 MG Nitroglycerin 0.4 mg Q5MINP PRN SL 07/13/24 01:00 Artificial Tears 2 drop Q6HP PRN EACHEYE 07/17/24 09:45 07/29/24 22:10 2 DROP Calamine 1 applic QIDP PRN TOP 07/21/24 10:15 Dextrose 50 ml UD PRN IV 07/21/24 12:15 Piperacillin Sod/ Tazobactam Sod 100 ml @ 25 mls/hr Q8H IV 07/21/24 17:00 07/30/24 08:14 25 MLS/HR Enteral Nutritional Formula 1,000 ml 40ML/HR GT 07/22/24 12:15 07/29/24 21:31 1,000 ML Fluconazole 100 ml @ 100 mls/hr DAILY IV 07/22/24 12:30 07/30/24 08:14 100 MLS/HR Metoclopramide HCl 5 mg Q8HR IV 07/23/24 12:30 07/30/24 05:51 5 MG Linezolid 300 ml @ 150 mls/hr Q12HR IV 07/23/24 22:00 07/30/24 09:57 150 MLS/HR Furosemide 40 mg DAILY IV 07/25/24 10:00 07/30/24 06:37 40 MG Dexmedetomidine HCl 400 mcg/ Dextrose 100 ml @ 5.28 mls/hr [id number] IV 07/26/24 08:45 07/26/24 09:15 5.28 MLS/HR Octreotide Acetate 100 mcg TID SUBCUT 07/26/24 14:00 07/30/24 05:51 100 MCG Dopamine HCl/ Dextrose 250 ml @ 7.92 mls/hr Q24H IV 07/26/24 13:00 07/27/24 17:40 7.92 MLS/HR Fentanyl Citrate 250 ml @ 2.5 mls/hr Q24H IV 07/27/24 14:30 07/30/24 06:01 20 MLS/HR Lactulose 30 ml DAILY PO 07/29/24 14:15 07/30/24 08:22 30 ML Diagnostic Test (Pha) 1 strip Q6HR 07/29/24 18:00 07/30/24 08:15 1 STRIP Examination: LUNGS:Normal, CVS:Normal, MSK:Normal laboratory and microbiology Laboratory Tests 07/30/24 10:59 07/30/24 07:00 Test 07/30/24 07:00 Range/Units Serum Glucose 90 74-106 mg/dL Microbiology Date/Time Source Procedure Growth Status 07/23/24 12:10 Voided Urine Urine Culture - Final Yeast, not Tayler albicans Complete 07/23/24 12:05 Blood Blood Culture - Final NO GROWTH AFTER 5 DAYS OF INCUBATION. Complete 07/21/24 11:20 Sacrum Gram Stain - Final Complete 07/21/24 11:20 Wound Culture - Final Enterococcus faecium - VRE Presumptive Tayler albicans Complete Problem List/Assessment/Plan Problem List/Assessment/Plan Acute kidney injury secondary hemodynamic mediated Hepatorenal syndrome Acute respiratory failure patient intubated on ventilator Liver metastasis Septic shock Hypoalbuminemia metabolic acidosis Recommendation IV sodium bicarb pushes Avoid nephrotoxic medications Wasserman catheter Strict I&Os IVF half NS with 100 mEq sodium bicarb at 70 cc/hour Low-dose dopamine Octreotide IV Levophed for blood pressure support Albumin 25% IV piggyback IV antibiotics Poor prognosis Plan discussed with: Other (Nurse) My Orders My Orders Orders - GT MCGEE MD Procedure Category Date Status Time Sod Chl 0.45% PHA 07/30/24 Verified (Sodi... W/Sodium 13:15 Dietary Evaluation Review Comments: 1. Advance to Regular textures as tolerated diet to if medically feasible, 2. If EN possible and PO not an option, provide Jevity 35ml/hr if off vent 3. If EN feeding not available, offer TPN per pharmacy if NPO > 7 days Expected Outcomes/Goals: on diet, off vent, gradual weight loss. CC Plasma Assessment Blood Product Administration S: [id number] GT MCGEE MD Jul 30, 2024 13:04
[2024-07-30 13:05] LABS: Band Neutrophils % (manual) 4; Eosinophils % (manual) 3 (0-7); Lymphocytes % (manual) 11 (10.0-50.0); Monocytes % (manual) 1 (0-12)
[2024-07-30 13:06] LABS: Platelet Estimate Decreased
[2024-07-30 13:10] LABS: Polychromasia Slight
[2024-07-30] MEDS ORDERED: SODIUM BICARB 50mEq/50ml Vial 100 ML in SOD CHL 0.45% 1,000 ML IV SCH (13:15)
[2024-07-30] MEDS: HYDROmorphone HCL 2 MG/ML VL/or syr IV PRN (13:24)
[2024-07-30] MEDS: LORazepam 2MG/ML-1ML VIAL IV PRN (13:25)
--- NOTE | 2024-07-30 20:41 | DVHPNRES ---
Progress Note Date Seen: Jul 30, 2024 Resident Creating Document: HUSSEIN PEREZ RESIDENT Medical Necessity Reason Pt with a Central, PICC or Fol: Yes The following are medically ne: PICC Line, Wasserman Catheter Reason for wasserman catheter: Strict I&O Subjective Review of Systems Ms Harding is a 54-year-old female patient who was brought to the ER from [facility] with a chief complaint of worsening shortness of breaths. Patient's daughter, she visited her mom at [facility] that they and reports that her mother was not responding and was staring. She could not speak or move her extremities and later on became dyspneic and therefore she was transferred to the ER. She was recently discharged from this facility to [facility] care. Per daughter who is the power of commonwealth attorney, patient was diagnosed with metastatic liver disease on June 01 [facility]. Consequently liver biopsy was performed by Dr. Johnson on June 03 which showed moderately differentiated adenocarcinoma with differentials including pancreaticobiliary versus per GI primary cancer. Per daughter, she had an appointment at [facility] in June initially which was later rescheduled to July 22 as the patient was admitted inpatient and this facility. Patient had a mammogram earlier this year which was unremarkable. But she was told at [facility] that she has a breast lump, but the biopsy was not performed per the daughter. Past medical history Uterine fibroids, diabetes, congestive heart failure, constipation Past surgical history Unremarkable Home medications: Ozempic 07/20-Patient seen and examined at bedside. She is intubated and mechanically ventilated. HIDA scan completed 07/20 shows abnormal persistence of cardia, hepatic and blood pool activity without definitive visualization of small bowel or gallbladder. Suggestive of hepatic dysfunction/hepatitis. DC ciprofloxacin, continue IV ceftriaxone and metronidazole. CPAP trial in the a.m.. 07/21 - patient seen and examined at bedside. She is intubated and mechanically ventilated, not on sedatives. On Levophed 4. Overnight Wasserman catheter was changed. Patient made 250 mL of urine during the night shift manager + 325 in the morning. No bowel movements. CPAP trial completed, patient was breathing at respiratory rate of 21, tidal volume 568, peak pressure 14. Started Zosyn IV given the unstageable sacral ulcer which was draining pus. Patient was hypoglycemic at 48, Accu-Cheks and D5W with NS started at 75 cc/hour. Santyl debridement started. Wound culture ordered. Creatinine increased from 1.19- 1.47 07/22 - patient seen and examined at bedside. Overnight she had the small bowel movement, urine output was 200 in the last night. She has been of Levophed since 3:00 a.m. of 07/22. She has also been off sedation. Vent settings are tidal volume 450, FiO2 30, peep 5, resp. Sixteen. Patient is breathing at a rate of 19 and saturating 96%. T-max was 99 F during the past 24 hours. Cr increased to 1.65. Wound culture is growing few yeast plus possible Enterococcus preliminary. IV Diflucan 200 mg daily and vancomycin IV started 07/22. Breast examination performed bilaterally, hard masses felt bilaterally in the quadrant. No axillary lymph nodes. No skin changes. No erythema or few the orange or inversion of the nipple seen. Code status changed to modified DNR. 07/23-patient seen and examined at bedside reviewed temperature is 99.9 F patient is tachycardic at 100s to 110s. She is breathing over the vent a period of 24 atrophy saturating 16. Saturating 97 on 30% of FiO2. Repeat Urine and blood culture ordered today. Overnight 150 mL the urine output and 2 bowel movements overnight and 1 this morning. Residual have been high more than 100 mL therefore Reglan 5 mg IV UA started. Patient is responding to commands and is reporting pain therefore fentanyl was restarted. Creatinine increased from 1.6-1.8. Final wound culture from sacrum resulted in VRE, DC vancomycin and Zyvox 07/23. 07/24-overnight tube feedings were held because of high residuals. ABGs show metabolic acidosis with respiratory acidosis, respiratory rate increased to 18 from 16. Currently on fentanyl 75. CPAP trial completed today. Patient tolerated well but she is not alert or responding to commands. 07/27 - patient seen and examined over the bedside. Over the weekend patient underwent CPAP trial on 07/25. Nephrology was consulted for ROBBI, started dopamine low dose and octreotide and albumin 3 bags. Overnight, low-grade fever at 100 F. ABG shows anion gap metabolic acidosis with compensated respiratory alkalosis. Nephrology started sodium bicarbonate 07/27. LFTs, kidney function, WBC trending up. 07/28 - seen and examined at the bedside. ABG shows anion gap metabolic acidosis with respiratory alkalosis. Respiratory rate increased to 20 from 18. Chest tube advanced 1.5 cm. WBC increased to 52.5. Creatinine increased to 2.26. Lactic acid trending up to 4.8. Final blood culture is negative. Lasix 80 mg IV once. And albumin 25% IV Q 8 scheduled by Nephrology. 07/29 - patient seen and examined at the bedside. Overnight 150 mL of bicarb given secondary to anion gap metabolic acidosis due to lactic acidosis. Lactic acid trending up. Patient is saturating 97 on 30% FiO2. Urine output only 20 mL over the night. Creatinine trending up. On Levophed 6 and fentanyl 200. repeat hemoglobin 5.7, 1 packed RBC ordered. Chest X ray shows worsening left- sided infiltrate. Respiratory culture ordered. 07/29- overnight patient received 1 unit of FFP. Tranexamic acid administered. Patient is bleeding from her sacral wound, mouth, left medial canthus of the eye. Coagulation panel elevated. Schistocytes seen on peripheral smear. Daughter called, requested terminal weaning. Patient was extubated and later patient on 1344. Objective vital signs Vital Sign Date Time Temp Pulse Resp B/P (MAP) Pulse Ox O2 Delivery O2 Flow Rate FiO2 07/30/24 13:24 97 20 100/58 07/30/24 12:45 95 07/30/24 12:30 99.2 99.2 07/30/24 12:12 30 07/30/24 11:34 Mechanical Ventilator+ Total Intake and Output 07/29/24 07/29/24 07/30/24 15:00 23:00 07:00 Intake Total 800.00 ml 657.00 ml 1635.00 ml Output Total 350 ml 0 ml Balance 800.00 ml 307.00 ml 1635.00 ml Examination Examination during morning General: Scleral icterus seen. afebrile, palor, mucosae are moist, RASS -2. Patient is responding to commands. Bleeding noted from left medial canthus of the eye, mouth and anterior palate, sacral wound. Cardiovascular: Tachycardic but Regular S1 and S2. No murmurs, gallops or rubs. No JVD elevation. Bilateral 3+ pedal edema noted Respiratory: Mechanically ventilated, decreased basilar breath sounds. Equal air entry. No wheezes or crepitations. Breast examination performed bilaterally, hard masses felt bilaterally in the quadrant. No axillary lymph nodes. No skin changes. No erythema or few the orange or inversion of the nipple seen. Abdomen: Overall the abdomen is Soft, with the epigastrium is hard, distended, hypoactive bowel sounds, no rebound tenderness, no organomegaly, no masses. Umbilical hernia soft nontender.. Genitourinary: Deferred MSK/skin: Skin is dry and warm. Unstageable decubitus ulcer in the sacrum with black eschar noted. Actively bleeding Neurological: Pupils are isocoric and reactive. laboratory and microbiology Laboratory Tests 07/30/24 10:59 07/30/24 07:00 Test 07/30/24 07:00 Range/Units Serum Glucose 90 74-106 mg/dL Microbiology Date/Time Source Procedure Growth Status 07/23/24 12:10 Voided Urine Urine Culture - Final Yeast, not Tayler albicans Complete 07/23/24 12:05 Blood Blood Culture - Final NO GROWTH AFTER 5 DAYS OF INCUBATION. Complete 07/21/24 11:20 Sacrum Gram Stain - Final Complete 07/21/24 11:20 Wound Culture - Final Enterococcus faecium - VRE Presumptive Tayler albicans Complete Labs and/or images reviewed: Labs reviewed by me, Image(s) reviewed by me Problem List/Assessment/Plan Problem List/Assessment/Plan NEURO: Acute metabolic encephalopathy, likely due to septic shock Head CT scan and MRI of the brain does not show any acute intracranial abnormalities Patient is sedated and on mechanical ventilation, RASS score -1 CARDIOVASCULAR: Septic shock, likely due to cholecystitis/cholangitis versus infected sacral ulcer Metastatic adenocarcinoma, primary source unknown Lactic acidosis Final blood culture 07/12 shows no growth Patient is requiring norepinephrine 2 mcg/minute Continue furosemide 40 mg daily IV Repeat blood culture 07/23 is negative. PULMONARY: Acute hypoxic respiratory failure, likely due to pneumonia Pneumonia likely due to Gram-positive Gram-negative bacteria Solitary pulmonary nodule Patient is sedated and on mechanical ventilation, volume control mode with setting of VT 450 and 8, RR 16, FiO2 30%, peep 5 Discontinue vancomycin and Zosyn Discontinued IV ceftriaxone and Flagyl on 07/21 Started IV Zosyn 07/21 IV Diflucan 200 mg daily and vancomycin IV started 07/22. DC IV vanco 07/23, started IV Zyvox 07/23 Continue IV Zyvox, Zosyn daily Continue mechanical ventilation with peep of 5, tidal volume 450, respiratory rate 16 MRSA nares, COVID-19 negative Breathing treatment q.6 hours as needed CPAP trial completed on 07/21. CPAP TRIAL COMPLETE. WEANING PARAMETERS OBTAINED. NIF:-22, VC: 663, RSBI: 30, LEAK: 300 AND AUDIBLE Patient received furosemide 80 mg IV once 07/28. GASTROINTESTINAL: Septic shock likely due to cholecystitis/cholangitis and infected unstageable sacral ulcer Cholecystitis, likely due to cholelithiasis Cholelithiasis Possible Metastatic adenocarcinoma (likely pancreatic versus upper GI per patient's daughter), with metastasis to the liver and lung Moderate colonic diverticulitis, abdominal CT scan finding Ventral abdominal wall hernia Lobulated pelvic mass, could be a multi fibroid uterus/leiomyosarcoma, abdominal CT scan finding Constipation - last bowel movement on Patient was discharged on 07/10, from [facility] with diagnosis of cholecystitis Abdominal ultrasound on 06/26 showed gallstones, pericholecystic free fluid and gallbladder wall thickening. Positive sonographic wagner's sign Abdominal CT scan on shows, diffuse multifocal liver masses, lobulated masses in the pelvis, moderate colonic diverticulosis, ventral abdominal wall hernia containing loop of small bowel and an 8 mm right middle lobe pulmonary nodule Liver enzymes, are up trending DC IV metronidazole and ceftriaxone, DC ciprofloxacin Surgical consultation - low likelihood of cholecystitis. Patient has a poor candidate for surgical procedure. HIDA scan could not visualize small bowel gallbladder. Hepatic disease. Continue Reglan 5 mg IV Q 8 hour GENITOURINARY: UTI ROBBI questionable VMN Anion gap metabolic acidosis with respiratory acidosis Creatinine increased to 2.0 from 1.6 from 1.47 from 1.19 Urinalysis shows UTI picture, +leukocyte esterase and WBCs Urine culture shows presumptive Tayler albicans, likely contaminated Nephrology consulted-started dopamine IV low-dose, octreotide, albumin 3 bags. Started sodium bicarbonate 150 mL IV 07/27. Repeat urine culture 07/23 showed yeast not Tayler albicans. Approximately [id number] CFU. Nephrology-continue bicarb pushes MUSCULOSKELETAL Unstageable sacral decubitus ulcer Sacral ulcer is draining yellow pus-like substance and also has black eschar. Started IV Zosyn after taking wound culture. Started Calamine lotion and Santyl debridement ointment Wound culture is growing few yeast plus possible Enterococcus preliminary. IV Diflucan 200 mg daily and vancomycin IV started 07/22. Final wound culture from sacrum shows VRE sensitive to Zyvox. IV Zyvox started 07/23. DC the vancomycin 07/23. ENDOCRINE Hypoglycemia Euthyroid sick syndrome Possible hypothyroidism TSH 6, low free T3 and T4 Accu-Cheks started 07/21 METABOLIC: Hyponatremia, monitoring Hypokalemia, supplemented Hypomagnesemia, supplemented HEME: Severe anemia, 2 pt of blood have been transfused INFECTIOUS DISEASE: Septic shock, likely due to sepsis Sepsis likely due to pneumonia/cholecystitis/UTI Blood culture of the 5 days shows no growth Urine culture shows presumptive Tayler albicans, likely contaminated Discontinue Continue Zosyn and vancomycin DC Cipro Discontinued IV ceftriaxone and metronidazole 07/21 Started IV Zosyn 07/21 DVT prophylax: Lovenox 40 mg b.i.d. GI prophylaxis: Protonix 40 mg daily Bowel regimen: Lactulose 30 mg daily Code status: Modified DNR code LINES/DRAINS/ACCESS: ETT: Intubated on 07/12 till 07/30 IV access: Right femoral CVC, placed on 07/12 till 07/16 Right upper arm PICC line, placed on 07/16 Drips: Fentanyl 75 Levophed 06 Dopamine 0 Precedex 0 Wasserman catheter: placed on 07/12 Nutrition: Jevity 30 mL/hour Case discussed with Dr. Holguin Patient extubated, TOD [id number] Critical care time including review of the charts, extubation and terminal weaning, discussion with the patient's family including the mother at bedside and nurse excluding procedures: 88 minutes Plan discussed with: Patient, Daughter Dietary Evaluation Review Comments: 1. Advance to Regular textures as tolerated diet to if medically feasible, 2. If EN possible and PO not an option, provide Jevity 35ml/hr if off vent 3. If EN feeding not available, offer TPN per pharmacy if NPO > 7 days Expected Outcomes/Goals: on diet, off vent, gradual weight loss. CC Plasma Assessment Blood Product Administration S: [id number] HUSSEIN PEREZ RESIDENT Jul 30, 2024 20:41
--- NOTE | 2024-07-30 20:58 | DVHDS2 ---
Summary Date of Admission Jul 13, 2024 at 00:53 Date and Time of Expiration: Jul 30, 2024 13:45 Labs/Diagnostic Data: Laboratory Results Test 07/30/24 10:59 07/30/24 09:14 07/30/24 07:00 07/29/24 22:47 White Blood Count 27.2 10^3/uL (4.4-10.8) Red Blood Count 2.50 10^6/uL (4.0-5.20) Hemoglobin 7.2 g/dL (12.2-16.2) Hematocrit 24.6 % (36.0-46.0) Mean Corpuscular Volume 98.3 fL (80.0-100.0) Mean Corpuscular Hemoglobin 28.9 pg (28.0-32.0) Mean Corpuscular Hemoglobin Concent 29.4 g/dL (32.0-36.0) Red Cell Distribution Width 18.9 % (11.8-14.3) Platelet Count 82 10^3/uL (140-450) Mean Platelet Volume 7.7 fL (6.9-10.8) Neutrophils (%) (Auto) % (37.0-80.0) Lymphocytes (%) (Auto) % (10.0-50.0) Monocytes (%) (Auto) % (0.0-12.0) Basophils (%) (Auto) % (0.0-2.0) Neutrophils # (Auto) 10 ^3/uL (1.6-8.6) Lymphocytes # (Auto) 10 ^3/uL (0.4-5.4) Monocytes # (Auto) 10 ^3/uL (0-1.3) Differential Total Cells Counted 100.0 (100) Neutrophils % (Manual) 81 (37.0-80.0) Band Neutrophils % (Manual) 4 Lymphocytes % (Manual) 11 (10.0-50.0) Monocytes % (Manual) 1 (0-12) Eosinophils % (Manual) 3 (0-7) Basophils % (Manual) 0 (0.0-2.0) Metamyelocytes % (manual) 0 Myelocytes % (Manual) 0 Promyelocytes % (Manual) 0 Blast Cells % (Manual) 0 Reactive Lymphocytes 0 Platelet Estimate Decreased Polychromasia Slight Lactic Acid Level 5.4 mmol/L (0.4-2.0) Blood Gas Specimen Type Arterial Blood Gas Sample Site Right radial Blood Gas Patient Temperature 37.0 Arterial Blood Date Drawn Arterial Blood pH 7.229 (7.350-7.450) Arterial Blood Partial Pressure CO2 45.4 mmHg (32.0-45.0) Arterial Blood Partial Pressure O2 95.0 mmHg (83.0-108.0) Arterial Blood HCO3 18.5 mmol/L (21.0-28.0) Arterial Blood Oxygen Saturation 95.7 % (94.0-98.0) Arterial Blood Base Excess -8.7 mmol/L (-2.0-3.0) Arterial Blood Oxyhemoglobin 94.7 % (94.0-98.0) Arterial Blood Carboxyhemoglobin 0.4 % (0.5-1.5) Arterial Blood Methemoglobin 0.6 % (0.0-1.5) Javy Test Modified Blood Gas Total Hemoglobin 10.80 g/dL (12.0-16.0) Blood Gas Set Respiration Rate 20.0 Blood Gas Modality Vent - ac FiO2 % 30.0 Blood Gas Tidal Volume 450.0 Blood Gas PEEP or CPAP 5.0 Blood Gas Critical Value Read Back yes Blood Gas Notified Whom leticia Salinas md Blood Gas Notified Time [id number] Blood Gas Notified By Sodium Level 137 mmol/L (136-145) Potassium Level 3.7 mmol/L (3.5-5.1) Chloride Level 99 mmol/L (98-107) Carbon Dioxide Level 17 mmol/L (20-31) Anion Gap 21 (5-15) Blood Urea Nitrogen 42 mg/dL (9-23) Creatinine 2.29 mg/dL (0.550-1.02) Glomerular Filtration Rate Calc 25 mL/min (>90) BUN/Creatinine Ratio 18.3 (10.0-20.0) Serum Glucose 90 mg/dL (74-106) Calcium Level 8.6 mg/dL (8.7-10.4) Magnesium Level 2.2 mg/dL (1.6-2.6) Total Bilirubin 10.5 mg/dL (0.2-1.0) Aspartate Amino Transferase (AST) 110 U/L (13-40) Alanine Aminotransferase (ALT) 31 U/L (7-40) Alkaline Phosphatase 660 U/L (46-116) Total Protein 4.8 g/dL (5.7-8.2) Albumin 2.7 g/dL (3.2-4.8) Nucleated Red Blood Cells 1.0 % Anisocytosis (manual) Slight Stomatocytes Few Schistocytes Few Prothrombin Time 33.6 sec (9.3-11.8) Prothrombin Time INR 3.48 (0.9-1.15) Activated Partial Thromboplast Time > 139.0 SEC (24.5-34.5) D-Dimer, Quantitative 1.99 mg/L FEU (0.0-0.49) Test 07/29/24 14:30 07/29/24 04:50 07/26/24 13:00 07/24/24 04:18 Reticulocyte Count (auto) 3.40 % (0.5-1.5) Fibrinogen 453 mg/dL (177-375) Iron Level 51 ug/dL (50-170) Total Iron Binding Capacity 83 ug/dL (250-425) Percent Iron Saturation 61.4 % (15-50) Ferritin > 3300.0 ng/mL (10-291) Lactate Dehydrogenase 663 U/L (120-246) Vitamin B12 Level > 4000 pg/mL (211-911) Folic Acid 10.79 ng/mL (>5.38) Target Cells Few Urine Creatinine 14.03 mg/dL (30.0-125.0) Urine Protein/Creatinine Ratio 4.90 Urine Sodium 104 mmol/L (40-220) Urine Total Protein 68.7 mg/dL (1-14) Specimen Drawn By Test 07/24/24 02:21 07/23/24 04:50 07/23/24 00:35 07/22/24 05:08 Smudge Cells 3 /100 WBC Large Platelets Few Random Vancomycin Level 26.8 ug/mL (5-10) Stool Occult Blood Negative (Negative) Stool Occult Blood Sample #3 (Negative) Beta HCG, Quantitative 68.6 mIU/mL (1.5-4.2) Test 07/21/24 05:01 07/20/24 04:53 07/17/24 16:11 07/17/24 15:53 Phosphorus Level 5.8 mg/dL (2.4-5.1) Direct Bilirubin 6.8 mg/dL (<0.3) Free Thyroxine (T4) Calculated 0.74 ng/dL (0.89-1.76) Free Triiodothyronine (T3) pg/mL 1.87 pg/mL (2.3-4.2) SARS-CoV-2 Antigen (Rapid) Negative (NEGATIVE) Ammonia 26 umol/L (11-32) Test 07/17/24 05:02 07/16/24 04:00 07/16/24 03:00 07/14/24 23:36 Estimated GFR () 208 mL/min Estimated GFR (Non- 172 mL/min Thyroid Stimulating Hormone (TSH) 6.57 uIU/mL (0.55-4.78) Vancomycin Level Trough 15.1 ug/mL (5-10) Hypochromasia (manual) Slight POC Glucose 126 mg/dl (70-106) Test 07/13/24 00:01 07/12/24 21:59 07/12/24 21:40 Urine Color [place] (Yellow) Urine Clarity Turbid (Clear) Urine pH 5.5 (5.0-9.0) Urine Specific [place] 1.036 (1.001-1.035) Urine Protein 1+ (Negative) Urine Ketones Negative (Negative) Urine Blood 3+ /uL (Negative) Urine Nitrite Negative (Negative) Urine Bilirubin 1+ (Negative) Urine Urobilinogen Normal mg/dL (Negative) Urine Leukocyte Esterase 1+ /uL (Negative) Urine RBC 2674 /hpf (0 - 4) Urine WBC 16 /hpf (0 - 5) Urine Squamous Epithelial Cells None seen /hpf (<5) Urine Bacteria None seen /hpf (None Seen) Urine Glucose Normal mg/dL (Normal) Blood Gas Spontaneous Rate 16 Bl Gas Inspiratory/Expiratory Ratio 1:3.5 B-Type Natriuretic Peptide 74.95 pg/mL (0-100) Lipase 72 U/L (12-53) Salicylates Level < 3.0 mg/dL (-30) Other Laboratory Tests 07/30/24 10:59 07/30/24 07:00 Brief Hx & Hospital Course: Ms Harding is a 54-year-old female patient who was brought to the ER from [facility] with a chief complaint of worsening shortness of breaths. Patient's daughter, she visited her mom at [facility] that they and reports that her mother was not responding and was staring. She could not speak or move her extremities and later on became dyspneic and therefore she was transferred to the ER. She was recently discharged from this facility to [facility]. Per daughter who is the power of geospatial information technologist, patient was diagnosed with metastatic liver disease on June 01 [facility]. Consequently liver biopsy was performed by Dr. Johnson on June 03 which showed moderately differentiated adenocarcinoma with differentials including pancreaticobiliary versus per GI primary cancer. Per daughter, she had an appointment at [facility] in June which was later rescheduled to July 22 as the patient was admitted inpatient and this facility. Patient had a mammogram earlier this year which was unremarkable. But she was told at [place] that she has a breast lump, but the biopsy was not performed per the daughter. Past medical history Uterine fibroids, diabetes, congestive heart failure, constipation Past surgical history Unremarkable During hospital course patient was intubated on 07/12 and right femoral CVC was placed till 07/16. Patient was diagnosed with septic shock secondary to pneumonia/UTI/cholecystitis/infected sacral decubitus ulcer with metastatic adenocarcinoma to the liver and the lungs-unknown primary A right upper arm PICC line was placed on 07/16. She required pressor support with Levophed. She received IV antibiotics ceftriaxone and Flagyl which were switched to vancomycin, Zosyn. Also received IV Diflucan. She was also diagnosed with cholecystitis and ROBBI. She later developed anion gap metabolic acidosis with respiratory acidosis. She required multiple doses of IV bicarb pushes condition continued to deteriorate. Liver enzymes increased gradually and kidney function decreased with creatinine up trending and her urine output was decreasing as the days . She was started on Lasix which did not increase her urine output. A HIDA scan was done which was inconclusive for cholecystitis and therefore she did not require cholecystectomy during the hospitalization. During the hospitalization patient also had unstageable sacral decubitus ulcer which grew VRE sensitive to Zyvox and patient received Zyvox from 07/23 till 07/30. Blood cultures were negative. Patient also had acute metabolic encephalopathy and Head CT scan and MRI of the brain does not show any acute intracranial abnormalities During the hospitalization, patient developed disseminated intravascular coagulation, PT/INR/APTT were elevated. Peripheral smear showed schistocytes. Patient was actively bleeding from the sacral wounds, left medial canthus of the eye, mouth. She required 4 units RBC transfusions and 1 FFP. 07/30-patient's daughter Tiffanie - initiated the process of terminal weaning and the patient was extubated. Patient was given lorazepam and hydromorphone during the process and the patient on 1344. DATE OF THE 07/30/2024 TIME OF 1345 Consults/Reason for consult NEPHROLOGY CONSULTED FOR ROBBI Final Diagnosis/Problems List Acute metabolic encephalopathy, likely due to septic shock Septic shock secondary to cholecystitis/cholangitis/infected decubitus sacral ulcer/pneumonia Metastatic adenocarcinoma to the liver and lungs, primary source unknown Disseminated intravascular coagulopathy Acute liver failure Acute renal failure Hepatorenal syndrome Acute hypoxic respiratory failure, likely due to pneumonia Pneumonia likely due to Gram-positive Gram-negative bacteria Solitary pulmonary nodule Unstageable sacral decubitus ulcer Cholecystitis, likely due to cholelithiasis Cholelithiasis UTI and oliguria ROBBI questionable VMN Anion gap metabolic acidosis with respiratory acidosis Hypothyroidism Hypoalbuminemia Obesity Colonic diverticulosis Leiomyomas Ventral abdominal wall hernia Discharge Disposition: at Hospital HUSSEIN SALINAS RESIDENT Jul 30, 2024 20:58
== END 2024-07-30 13:45 | DRG 720 ==
LOC: EDBD 21:19 → ER 21:19 → EDUNIT# 07-13 00:53 → TELE 07-13 00:53 → ICU CENTRL 07-15 15:45
PROVIDERS: ADMIT Internal Medicine; ATTEND Internal Medicine
PROC: 5A1955Z Respiratory Ventilation, Greater than 96 Consecutive Hours (ICD-10-PCS; principal; 2024-07-13)
PROC: 0BH17EZ Insertion of Endotracheal Airway into Trachea, Via Natural or Artificial Opening (ICD-10-PCS; 2024-07-13)
PROC: 06HY33Z Insertion of Infusion Device into Lower Vein, Percutaneous Approach (ICD-10-PCS; 2024-07-13)
PROC: 30233N1 Transfusion of Nonautologous Red Blood Cells into Peripheral Vein, Percutaneous Approach (ICD-10-PCS; 2024-07-13)
PROC: 02HV33Z Insertion of Infusion Device into Superior Vena Cava, Percutaneous Approach (ICD-10-PCS; 2024-07-16)
PROC: B548ZZA Ultrasonography of Superior Vena Cava, Guidance (ICD-10-PCS; 2024-07-16)
PROC: 30233K1 Transfusion of Nonautologous Frozen Plasma into Peripheral Vein, Percutaneous Approach (ICD-10-PCS; 2024-07-30)
DX: A41.9 Sepsis, unspecified organism (principal); J96.01 Acute respiratory failure with hypoxia; K76.7 Hepatorenal syndrome; K72.00 Acute and subacute hepatic failure without coma; D65 Disseminated intravascular coagulation [defibrination syndrome]; J15.69 Pneumonia due to other Gram-negative bacteria; J15.9 Unspecified bacterial pneumonia; C25.9 Malignant neoplasm of pancreas, unspecified; G93.41 Metabolic encephalopathy; R65.21 Severe sepsis with septic shock; L89.150 Pressure ulcer of sacral region, unstageable; E11.649 Type 2 diabetes mellitus with hypoglycemia without coma; N17.9 Acute kidney failure, unspecified; E87.1 Hypo-osmolality and hyponatremia; E83.39 Other disorders of phosphorus metabolism; Z20.822 Contact with and (suspected) exposure to COVID-19; E87.3 Alkalosis; J98.11 Atelectasis; D25.9 Leiomyoma of uterus, unspecified; E87.6 Hypokalemia; E83.42 Hypomagnesemia; N39.0 Urinary tract infection, site not specified; K80.00 Calculus of gallbladder with acute cholecystitis without obstruction; E07.81 Sick-euthyroid syndrome; C78.00 Secondary malignant neoplasm of unspecified lung; C78.7 Secondary malignant neoplasm of liver and intrahepatic bile duct; D63.8 Anemia in other chronic diseases classified elsewhere; K83.09 Other cholangitis; I50.9 Heart failure, unspecified; Z66 Do not resuscitate; K59.00 Constipation, unspecified; E88.09 Other disorders of plasma-protein metabolism, not elsewhere classified; E87.4 Mixed disorder of acid-base balance; E66.9 Obesity, unspecified; E03.9 Hypothyroidism, unspecified; K43.9 Ventral hernia without obstruction or gangrene; K57.30 Diverticulosis of large intestine without perforation or abscess without bleeding; Z82.49 Family history of ischemic heart disease and other diseases of the circulatory system; Z83.3 Family history of diabetes mellitus; Z79.899 Other long term (current) drug therapy; Z68.29 Body mass index [BMI] 29.0-29.9, adult
CPT/HCPCS: 31500; 36415; 36556; 36569; 36600; 70450; 70553; 71045; 71260; 74177; 76705; 76937; 78226; 80048; 80053; 80069; 80076; 80202; 80329; 81001; 82140; 82270; 82570; 82607; 82728; 82746; 82805; 82962; 83540; 83550; 83605; 83615; 83690; 83735; 83880; 84100; 84132; 84156; 84300; 84439; 84443; 84481; 84702; 85007; 85014; 85018; 85027; 85045; 85379; 85384; 85610; 85730; 86850; 86900; 86901; 86920; 87040; 87077; 87081; 87086; 87088; 87186; 87205; 87426; 93005; 94002; 94003; 94640; 96361; 96365; 99291; G0378; J0131; J0692; J1450; J2470; J2543; J2704; J3480; J3490; J7060; P9047